=== PATIENT | male | born 1940 | race Caucasian/White ===

== ENCOUNTER 2017-06-02 10:02 | Day surgery (SDC) | payer BC ==
[2017-06-02] VITALS (11 sets, daily range): BP systolic 116–166; BP diastolic 59–84; PULSE 80–98; TEMP 36.2–36.9; O2SAT 93–99; Ht 190.5 cm; Wt 99.5 kg
[~2017-06-02] VITALS: Ht 190.5 cm; Wt 99.5 kg
--- NOTE | 2017-06-02 06:08 | History and Physical ---
History & Physical Date of Service Jun 02, 2017. History & Physical CC: Gangrene right 5th toe HPI: I had the pleasure of seeing Mr. Sena in the office for a followup appointment regarding his arterial disease. The patient states that his calf muscles do cause some discomfort that causes him to stop ambulating at about 1 block distance. He states that he does not mow the grass because it requires a push mowing due to the discomfort in his legs which he develops within a few minutes. States after stopping, walking for a few minutes, he is able to start back up again as the pain resolves. He states that this has been happening consistently, although he realizes he did not call the office before this The patient is status post right lower extremity angiography as well as bilateral iliac stenting as well as previous SFA stenting bilaterally at a different facility by a different surgeon. The patient denies any discomfort in his thighs or buttocks. He denies any rest pain or nonhealing wounds or ulcerations of his lower extremities as well. He does complain of color changes of the right 5th toe His allergies include no known medications. His home medications are reconciled in the chart and include the following; Advair, albuterol/ipratropium, allopurinol, amlodipine, aspirin, clonodine, Combivent, metoprolol, pravastatin, tamsulosin and terazosin. His past medical history is positive for acute [place], a history of cancer, history of CVA, history of gout. His past surgical history is positive for a cardiac catheterization with stent placement, history of hernia repair and a history of knee replacement. In addition, his past medical history is also positive for hypertension, hyperlipidemia, chronic obstructive pulmonary disease, and BPH. His family history is positive for cancer, heart disease and hypertension. His social history is positive for history of smoking in the past. He states that he used to smoke 1 pack per day and he quit in 1995. Patient denies alcohol or drug use. His review of systems is negative for fatigue, fevers, sweats, weight loss, or exercise intolerance, abnormal moles or rashes, vision changes or photophobia, ear pain, sinus problems or sore throat, cough, shortness of breath, hemoptysis or wheezing any worse than usual. Patient denies abdominal pain, nausea, vomiting, diarrhea, constipation, dysuria, hematuria, muscle weakness, headaches , dizziness, numbness, or seizures. On physical exam, vital signs are as follows, blood pressure 142/58 with a heart rate of 84, oxygenation of 93% on room air. Constitutional, in general, the patient is a mildly chronically ill-appearing elderly male in no acute distress. He ambulates without assistance and is active, alert and oriented x4. He is very hard of hearing today as he is having some right ear problems from a minor procedure that he had recently. His left carotid does demonstrate faint bruit and is status post endarterectomy, his right does not. His heart is regular. Lungs are decreased, but clear. Brachial and radial pulses are + 3. Femoral pulses are +3. Lower extremity distal pulses are nonpalpable. He has gangrenous changes of the right 5th toe Imp: Gangrene right 5th toe Plan: Patient admitted for arteriography and possible intervention. I have discussed the risks options and benefits of the procedure with the patient. The patient understands the risks options and benefits and agrees to the procedure.
[~2017-06-02 10:02] MED LIST: AMLO-110 PO; ASPI81TA28 PO; CEFAZOLIN 1000MG/55 ML D5W IV SCH; HMLI SC; INSDGI SC; LISI-725 PO; METF-384 PO; OMEG10007 PO; PANT40TA PO; SIMV80TA2 PO; SODIUM CHLORIDE 0.9% 1000ML IV SCH; VTME100 PO
[2017-06-02 11:22] LABS: CREATININE 1.5 mg/dl (0.60-1.40)
--- NOTE | 2017-06-02 11:59 | History & Physical Bridge Note ---
H&P Re-Evaluation Bridge Note: I have examined the patient, reviewed the History & Physical and in the interval since the performance of the History & Physical I have noted the following changes of clinical significance: No changes noted
--- NOTE | 2017-06-02 11:59 | Procedure Note ---
Pre-Mod Sedation Assessment General Date of Moderate Sedation: Jun 02, 2017. Vital Signs: Vital Signs Past 12 Hours Date Time Temp Pulse Resp B/P (MAP) Pulse Ox O2 Delivery O2 Flow Rate FiO2 06/02/17 10:41 36.8 98 20 162/84 (110) 96 Room Air Pre-Sedation Airway Assessment Smoking Status: Never Smoker Mallampati Classification: Class I ASA Classification: Class II Notes The planned sedation has been discussed with the patient and consent obtained. I have identified the patient, determined the appropriateness of sedation and have assessed the patient immediately prior to the procedure. All medicine(s) and interventions are by my order.
[2017-06-02] MEDS ORDERED: MIDAZOLAM HCL 1 MG/ML 2ML VIAL ONE ×2 (13:07→13:56)
[2017-06-02] MEDS ORDERED: FENTANYL CITRATE INJ 50 MCG/1 ML 2 ML VIAL ONE (13:07)
[2017-06-02] MEDS ORDERED: HEPARIN SOD (PORCINE) 1000 UNIT/ML 10 ML VIAL ONE (13:07)
[2017-06-02] MEDS ORDERED: CEFAZOLIN IV 2,000 MG/60 ML D5W IV ONE (13:17)
[2017-06-02] MEDS ORDERED: LIDOCAINE HCL 1% 20 ML VIAL INJ ONE ×3 (13:50→13:55)
[2017-06-02] MEDS ORDERED: FENTANYL CITRATE INJ 50 MCG/1 ML 2 ML VIAL IV ONE (13:51)
[2017-06-02] MEDS ORDERED: MIDAZOLAM HCL 1 MG/ML 2ML VIAL IV ONE ×2 (13:51→13:53)
[2017-06-02] MEDS ORDERED: HEPARIN SOD (PORCINE) 1000 UNIT/ML 10 ML VIAL IV ONE (14:36)
[2017-06-02] MEDS ORDERED: CLOPIDOGREL BISULFATE 300 MG TAB PO STA (15:34)
[2017-06-02] MEDS ORDERED: SODIUM CHLORIDE 0.9% 1000ML 1,000 ML IV SCH (15:34)
[2017-06-02] MEDS ORDERED: IODIXANOL (VISIPAQUE) 270 MG/ML 150ML FLUSH ONE (15:38)
[2017-06-02] MEDS ORDERED: OXYCODONE/ACETAMINOPHEN 5-325 TAB PO PRN (15:45)
--- NOTE | 2017-06-02 15:45 | [facility] Post Operative Brief Note ---
Immediate Operative Summary Operative Date Jun 02, 2017. Pre-Operative Diagnosis gangrene right 5th toe Post-Operative Diagnosis same Procedure(s) Performed Right Lower Extremity Angiogram, Percutaneous Transluminal Angioplasty Anterior Tibial, Percutaneous Transluminal Angioplasty and Stenting Of Superficial Artery and Popliteal Artery, Moderate Concious Sedation [address] Berg Medical Research Assistant Surgeon(s) Cristian Beck Estimated Blood Loss 10 ml Findings good ant tib and post tib flow Specimens none Anesthesia Local with conscious sedation Complication(s) None Disposition
--- NOTE | 2017-06-02 15:46 | Procedure Note ---
Post-Moderate Sedation Plan General Date of Moderate Sedation Jun 02, 2017. Vital Signs: Vital Signs Past 12 Hours Date Time Temp Pulse Resp B/P (MAP) Pulse Ox O2 Delivery O2 Flow Rate FiO2 06/02/17 13:15 36.8 98 20 162/84 96 Room Air 06/02/17 10:41 36.8 98 20 162/84 (110) 96 Room Air Review - Discharge Plan Post Moderate Sedation Plan: On clinical assessment, the patient appears to have tolerated the conscious sedation without complications. Patient is recovering as anticipated. Patient will continue to be monitored by nursing and may be discharged when conscious sedation discharge criteria are met.
[2017-06-02] MEDS ORDERED: CLOP1TAB5 PO (15:47)
--- NOTE | 2017-06-02 15:48 | Discharge Instructions ---
Discharge Instructions Date of Service Jun 02, 2017. Visit Reason for Visit: Right 5TH Toe Gangrene Discharge Discharge Diagnosis / Problem: Gangrene right 5th toe Discharge Goals Goal(s): Therapeutic intervention Activity Recommendations Activity Limitations: per Instructions/Follow-up section Anesthesia . Post Anesthesia Instructions: If you have had General Anesthesia or IV Sedation: * Do not drive today. * Resume driving when surgeon permits. * Do not make important decisions or sign legal documents today. * Call surgeon for: 1. Temperature elevations greater than 101 degrees F. 2. Uncontrollable pain. 3. Excessive bleeding. 4. Persistent nausea and vomiting. 5. Medication intolerance (nausea, vomiting or rash). * For nausea and vomiting use only clear liquids such as: tea, soda, bouillon until nausea subsides, then gradually increase diet as tolerated. * If you have any concerns or questions, call your surgeon's office. If physician is unavailable and it is an emergency, call 911 or go to the nearest emergency room. . Instructions / Follow-Up Instructions / Follow-Up SPECIAL CARE INSTRUCTIONS: Medications: * Continue to take your medications as directed. If you have been given a prescription for Plavix, please fill it immediately and take as directed. Incision Care: * Your puncture site may have some bruising and minor swelling for about one week. * You will have a small dressing covering your puncture site. You may remove the dressing after 24 hours and shower. You may let the warm soapy water run over it, but be sure to dry the puncture site well and keep it dry. * DO NOT IMMERSE THE INCISION IN A TUB/POOL/etc. UNTIL HEALED. * Puncture sites should be kept covered with a band-aid until it begins to heal. Restrictions: * Depending on whether you leg or arm was punctured to access the arteries, you will be required to lay flat, hold your arm still, or both, for about 4 hours after the procedure to prevent bleeding. * Limit your activity for the first 48 hours. You may walk and go up and down steps. Avoid excessive bending or movement at the puncture site. Possible Complications: * Excessive Swelling - after blood flow is improved you may notice increased swelling in the lower legs. This is a normal response. This usually depends on the amount of blockages in the leg, how long they have been there prior to your procedure and how much blood flow was restored. Elevating your legs will help to improve this. Please notify our office ([phone] ) if the swelling does not go away after lying in bed overnight. * Infection/Drainage/Bleeding - Drainage or bleeding from the puncture site should be minimal. If you have excessive bleeding or drainage, call our office ([phone]) right away. * Pain - You may experience some mild pain or soreness at your puncture site. If your pain does not improve, please contact our office ([phone]). Call your doctor and seek emergent treatment if you develop: * Temperature above 101 degrees * Any fever or chills * Any redness or purulent drainage from the puncture site * Any new dusky/blue colored toes or feet with coolness or sharp or aching pain. SKIN IRRITATION: * You may experience some redness and/or swelling in the area where radiation was administered. If any skin irritation occurs, please contact your family physician. FOLLOW UP VISIT: Keep any scheduled doctor appointments. Diet Recommendations Recommended Home Diet: resume previous diet Procedures Procedures Performed: Right Lower Extremity Angiogram, Percutaneous Transluminal Angioplasty Anterior Tibial, Percutaneous Transluminal Angioplasty and Stenting Of Superficial Artery and Popliteal Artery, Moderate Concious Sedation 1351 to 1544 Pending Studies Studies pending at discharge: no Medical Emergencies . Who to Call and When: Medical Emergencies: If at any time you feel your situation is an emergency, please call 911 immediately. . Non-Emergent Contact Non-Emergency issues call your: Surgeon . . "Provider Documentation" section prepared by Ezekiel Berg. .
--- NOTE | 2017-06-02 15:56 | [facility] Operative Report ---
Operative Report Operative Date Jun 02, 2017. Pre-Operative Diagnosis gangrene right 5th toe Post-Operative Diagnosis same Procedure(s) Performed Right Lower Extremity Angiogram, Percutaneous Transluminal Angioplasty Anterior Tibial ([place] [id number]), Percutaneous Transluminal Angioplasty and Stenting Of Superficial Artery and Popliteal Artery (6x100 Tigris stent ) , Mechanical Closure Of Left Femoral Artery, Moderate Concious Sedation [address] Berg Multimedia Designer Surgeon(s) Cristian Francisco Fellow Estimated Blood Loss 10 ml Findings Patient had an in-stent occlusion of his right lower extremity distal SFA proximal Pop. Patient also had a stenosis of his proximal anterior tibial artery. Main runoff to the foot is the AT artery. Contrast 95 mL Fluoroscopy time 17 minutes Radiation dose 110 mGy Specimens none Complication(s) None Disposition Recovery Room / PACU Indications 76-year-old gentleman with critical limb ischemia of the right lower extremity( patient has a gangrenous right fifth toe). Description of Procedure Patient was brought back to the operating room and placed on the operating table in a supine position. The arms were tucked and both groins were prepped and draped in a sterile fashion. 1% lidocaine was injected in the left groin. Conscious sedation was obtained with Versed and fentanyl. An access needle was used to access the right common femoral artery followed by a wire. A fluoroscopic image was obtained to confirm position of the needle and wire. An 11 blade was used to make a small tana and the skin. A 5 [place] sheath was then advanced over the wire and a sheath gram was obtained showing a patent common femoral artery patent common iliac artery external iliac artery and internal iliac artery. An angled glide wire was then advanced into the aorta and a REM catheter was advanced in the aorta as well. The REM catheter was pulled down to select the right common iliac artery. Within the angled glide wire was advanced down the common iliac artery into the right external iliac artery and the right common femoral artery. The REM catheter was then advanced across the aortic bifurcation down to the right common femoral artery. An angiogram of the right lower extremity was then completed. The angiogram showed an area of stenosis in the primary existing stents in the distal SFA and proximal popliteal artery. It also showed a proximal stenosis in the anterior tibial artery. It also showed collateralization to the anterior tibial artery as well as the posterior tibial and peroneal artery. The main runoff to the foot appears to be the anterior tibial artery. The wire was then advanced down to the distal SFA. A quick cross catheter was then exchanged over the wire and advanced over the wire to the distal SFA. The lesion was then crossed using an stiff angled Glidewire and the anterior tibial was selected. With advanced the wire down midway through the anterior tibial artery. The quick cross catheter was then pulled out and the 5 [place] sheath was exchanged for a destination long 5 [place] sheath. After measuring the distal SFA and proximal popliteal artery as well as the anterior tibial artery a 5 x 100 mm [place] balloon was advanced across the in-stent occlusion in the distal SFA and proximal popliteal artery and inflated multiple times within the prior stents. A long quick cross catheter was then advanced over the wire and the wire was then exchanged for an 0.014 wire. A 2 x 120mm [place] balloon and advanced across the anterior tibial artery lesion and inflated. A follow-up angiogram showed a good result. Attention was turned to the distal SFA proximal popliteal artery segment and an angiogram was completed showing restenosis in the stent across the was balloon. The quick cross catheter was then placed back in and the wire was then exchanged for the 0.035 stiff angled glide wire. A Tigris stent 6 x 100 mm was then advanced across the area of stenosis within the stent. The stent was deployed in place and a 6 x 100 [place] balloon was then advanced across the previously stented area as well as the new stent and insufflated. A follow-up angiogram revealed an excellent result. The wire and the sheath will pulled back to the left external iliac artery and an angiogram was completed showing the access site above the femoral head the sheath was pulled and pressure was applied for 20 minutes. An ACT was also obtained and it was 158. At the end of the case the pulses were checked the patient had a biphasic AT6 on the right side. Patient tolerated the procedure well and had no complications. The patient was brought back to the recovery room. Dr. Berg was present and scrubbed for the entirety of this case. I, Dr. Berg was present and scrubbed for the entire procedure. I attest to the content of the Intraoperative Record and any orders documented therein. Any exceptions are noted below.
[2017-06-02] MEDS ORDERED: CLOPIDOGREL BISULFATE 300 MG TAB PO ONE (18:17)
[2017-06-09] MEDS ORDERED: OMEG10007 PO (15:31)
[2017-06-09] MEDS ORDERED: CLOP1TAB15 PO (15:31)
[2017-06-13] MEDS ORDERED: OXYC-57 PO (12:31)
[2017-07-07] MEDS ORDERED: INSU100I SQ (14:48)
[2017-07-07] MEDS ORDERED: LATA0.009 OP (14:48)
[2017-07-07] MEDS ORDERED: INSDGI SC (14:48)
[2017-07-07] MEDS ORDERED: CLIN300C2 PO (14:48)
== END 2017-06-02 19:26 | disposition home or self-care (01) ==
LOC: C.ACU 10:02
PROVIDERS: ATTEND Surgery Vascular Surgery
DX: T82.858A Stenosis of other vascular prosthetic devices, implants and grafts, initial encounter (principal); Y83.1 Surgical operation with implant of artificial internal device as the cause of abnormal reaction of the patient, or of later complication, without mention of misadventure at the time of the procedure; I70.261 Atherosclerosis of native arteries of extremities with gangrene, right leg; I77.9 Disorder of arteries and arterioles, unspecified; I10 Essential (primary) hypertension; E78.5 Hyperlipidemia, unspecified; J44.9 Chronic obstructive pulmonary disease, unspecified; N40.0 Benign prostatic hyperplasia without lower urinary tract symptoms; I25.2 Old myocardial infarction; Z87.891 Personal history of nicotine dependence; Z86.73 Personal history of transient ischemic attack (TIA), and cerebral infarction without residual deficits; Z96.659 Presence of unspecified artificial knee joint; Z82.49 Family history of ischemic heart disease and other diseases of the circulatory system

== ENCOUNTER → 2017-06-13 | Day surgery (SDC) | payer BC ==
[2017-06-09 15:23] VITALS: BMI 26.0
[~2017-06-13] VITALS: Ht 190.5 cm; Wt 95.0 kg
[~2017-06-13] MED LIST changes: +ATROPINE SULFATE 0.1 MG/ML 5ML SYR IV PRN; +BUPIVACAINE 0.5 % 5 MG/1 ML PF 10ML VIAL ONE; +BUPIVACAINE/EPINEPHRINE 0.5% MPF 1:200,000 10 ML VIAL ONE; -CEFAZOLIN 1000MG/55 ML D5W IV SCH; +CEFAZOLIN 2000 MG/60 ML D5W 60 ML IV SCH; +CIPR-255 PO; +CLIN300C2 PO; +CLOP1TAB15 PO; +DEXAMETHASONE SOD INJ 4 MG/ML VIAL ONE; +EpHEDrine SULFATE INJ 50 MG/ML AMP IV PRN; +FENTANYL CITRATE INJ 50 MCG/1 ML 2 ML VIAL IV PRN; +FENTANYL CITRATE INJ 50 MCG/1 ML 2 ML VIAL ONE; +HYDROmorphone INJ 1 MG/ML SYR IV PRN; +INSU100I SQ; +KETAMINE HCL INJ 50 MG/ML 10 ML VIAL ONE; +LACTATED RINGER'S 1000ML IV SCH; +LATA0.009 OP; +LIDOCAINE HCL 1% 20 ML VIAL ONE; +LIDOCAINE HCL 2% 2 ML VIAL (20MG/ML) ONE; +MIDAZOLAM HCL 1 MG/ML 2ML VIAL ONE; +NSS 1000ML IV SCH; +NVLG SQ; +ONDANSETRON INJ 2 MG/ML 2 ML VIAL IV PRN; +ONDANSETRON INJ 2 MG/ML 2 ML VIAL ONE; +OXYC-57 PO; +PROPOFOL IV EMULSION 10 MG/ML 20 ML VIAL IV ONE; -SODIUM CHLORIDE 0.9% 1000ML IV SCH
--- NOTE | 2017-06-13 06:03 | History and Physical ---
History & Physical Date of Service Jun 13, 2017. History & Physical CC: Gangrene right 5th toe HPI: I had the pleasure of seeing Mr. Sena in the office for a followup appointment regarding his arterial disease. The patient states that his calf muscles do cause some discomfort that causes him to stop ambulating at about 1 block distance. He states that he does not mow the grass because it requires a push mowing due to the discomfort in his legs which he develops within a few minutes. States after stopping, walking for a few minutes, he is able to start back up again as the pain resolves. He states that this has been happening consistently, although he realizes he did not call the office before this The patient is status post right lower extremity angiography as well as bilateral iliac stenting as well as previous SFA stenting bilaterally at a different facility by a different surgeon. The patient denies any discomfort in his thighs or buttocks. He denies any rest pain or nonhealing wounds or ulcerations of his lower extremities as well. He does complain of color changes of the right 5th toe. He underwent endovascular intervention of his right lower extremity with good results. Admitted now for a right 5th toe amp His allergies include no known medications. His home medications are reconciled in the chart and include the following; Advair, albuterol/ipratropium, allopurinol, amlodipine, aspirin, clonodine, Combivent, metoprolol, pravastatin, tamsulosin and terazosin. His past medical history is positive for acute [place], a history of cancer, history of CVA, history of gout. His past surgical history is positive for a cardiac catheterization with stent placement, history of hernia repair and a history of knee replacement. In addition, his past medical history is also positive for hypertension, hyperlipidemia, chronic obstructive pulmonary disease, and BPH. His family history is positive for cancer, heart disease and hypertension. His social history is positive for history of smoking in the past. He states that he used to smoke 1 pack per day and he quit in 1995. Patient denies alcohol or drug use. His review of systems is negative for fatigue, fevers, sweats, weight loss, or exercise intolerance, abnormal moles or rashes, vision changes or photophobia, ear pain, sinus problems or sore throat, cough, shortness of breath, hemoptysis or wheezing any worse than usual. Patient denies abdominal pain, nausea, vomiting, diarrhea, constipation, dysuria, hematuria, muscle weakness, headaches , dizziness, numbness, or seizures. On physical exam, vital signs are as follows, blood pressure 142/58 with a heart rate of 84, oxygenation of 93% on room air. Constitutional, in general, the patient is a mildly chronically ill-appearing elderly male in no acute distress. He ambulates without assistance and is active, alert and oriented x4. He is very hard of hearing today as he is having some right ear problems from a minor procedure that he had recently. His left carotid does demonstrate faint bruit and is status post endarterectomy, his right does not. His heart is regular. Lungs are decreased, but clear. Brachial and radial pulses are + 3. Femoral pulses are +3. Lower extremity distal pulses are nonpalpable. He has gangrenous changes of the right 5th toe Imp: Gangrene right 5th toe Plan: Patient admitted for amputation of the right 5th toe. I have discussed the risks options and benefits of the procedure with the patient. The patient understands the risks options and benefits and agrees to the procedure.
[2017-06-13 10:02] VITALS: BP_SYST 145; BP_SYST 169; BP_DIAS 83; BP_DIAS 91; PULSE 90; TEMP 36.6; O2SAT 100; Ht 190.5 cm; Wt 95.0 kg
--- NOTE | 2017-06-13 12:28 | [facility] Operative Report ---
Operative Report Operative Date Jun 13, 2017. Pre-Operative Diagnosis Gangrene Right 5th Toe Post-Operative Diagnosis Gangrene Right 5th Toe Procedure(s) Performed Right 5th and 4th Toe Amputation Surgeon Dr. Berg Country Printer Apprentice Surgeon(s) Resident Sean Estimated Blood Loss 50ML Findings Gangrenous fourth and fifth toes on the right foot. Patient had excellent bleeding after the amputation. Specimens A. Right 5th and 4th Toe Transmetatarsal. Send in Nss Complication(s) None Disposition Recovery Room / PACU Indications Gangrenous right fourth and fifth toes from peripheral vascular disease. Description of Procedure Patient was brought to the operating room and placed on the operating table in a supine position. Anesthesia completed a regional ankle block. The right foot was then prepped and draped in a sterile fashion. Using a 10 blade and incision was made at the base of the fourth and fifth toes combined. Sharp dissection was completed to the base of the fourth and fifth toes and disarticulation at the MTP joint was completed for both toes. Hemostasis was achieved using electrocautery and pressure. Debridement of the skin and underlying tissue was completed and only viable healthy-appearing tissue was left in place. Using the rongeur the heads of the fourth and fifth metacarpal bones was trimmed down. The wound and skin was then evaluated hemostasis was achieved and only clean viable tissue was left behind the skin edges were brought together and they appear to close without tension. Copious amounts of irrigation was completed and once hemostasis was achieved a 3-0 nylon suture was used to close the skin edges with vertical mattress sutures. The foot was then cleaned and a Ray-Lily was placed in between the first second and third toes to keep some separate. An iodoform dressing was applied over the incision 4 x 4 fluffs were applied over and a Curlex was wrapped around the wound and the midfoot cast dressing was then wrapped around the foot and a 4 inch Greg wrap was wrapped around the foot. At the end of the case the patient did not have any complications or issues patient tolerated the procedure well. Patient was taken back to the recovery room with no complications or issues. Dr. Berg was present for the entirety of the case I, Dr. Berg was present and scrubbed for the entire procedure.. I attest to the content of the Intraoperative Record and any orders documented therein. Any exceptions are noted below.
--- NOTE | 2017-06-13 12:30 | [facility] Post Operative Brief Note ---
Immediate Operative Summary Operative Date Jun 13, 2017. Pre-Operative Diagnosis Gangrene Right 5th Toe Post-Operative Diagnosis Gangrene Right 5th Toe Procedure(s) Performed Right 5th and 4th Toe Amputation Surgeon Dr. Berg Neck Band Operator Surgeon(s) Cristian Francisco, Estimated Blood Loss 50ML Findings gangrene right 4th and 5th toes Specimens A. Right 5th and 4th Toe Transmetatarsal. Send in Nss Anesthesia Ankle block Complication(s) None Disposition Recovery Room / PACU
--- NOTE | 2017-06-13 12:34 | Discharge Instructions ---
Discharge Instructions Date of Service Jun 13, 2017. Visit Reason for Visit: Right 5TH Toe Wound Discharge Discharge Diagnosis / Problem: gangrene right 4th and 5th toes Discharge Goals Goal(s): Therapeutic intervention Activity Recommendations Activity Limitations: per Instructions/Follow-up section Anesthesia . Post Anesthesia Instructions: If you have had General Anesthesia or IV Sedation: * Do not drive today. * Resume driving when surgeon permits. * Do not make important decisions or sign legal documents today. * Call surgeon for: 1. Temperature elevations greater than 101 degrees F. 2. Uncontrollable pain. 3. Excessive bleeding. 4. Persistent nausea and vomiting. 5. Medication intolerance (nausea, vomiting or rash). * For nausea and vomiting use only clear liquids such as: tea, soda, bouillon until nausea subsides, then gradually increase diet as tolerated. * If you have any concerns or questions, call your surgeon's office. If physician is unavailable and it is an emergency, call 911 or go to the nearest emergency room. . Instructions / Follow-Up Instructions / Follow-Up Call [phone] to schedule a follow up appointment if one not already scheduled. Keep dressing intact. Keep elevated as much as possible. May weight bear ACTIVITY RECOMMENDATIONS: See Above SPECIAL CARE INSTRUCTIONS: Call your doctor if: * Temperature above 101 degrees * Pain not relieved by pain medicine ordered * There is increased drainage or redness from any incision * You have any unanswered questions or concerns. Diet Recommendations Recommended Home Diet: resume previous diet Procedures Procedures Performed: Right 5th and 4th Toe Amputation Pending Studies Studies pending at discharge: no Medical Emergencies . Who to Call and When: Medical Emergencies: If at any time you feel your situation is an emergency, please call 911 immediately. . Non-Emergent Contact Non-Emergency issues call your: Surgeon . . "Provider Documentation" section prepared by Ezekiel Berg. .
--- NOTE | 2017-06-13 12:47 | Anesthesiology Progress Note ---
Anesthesia Post Op Note Date & Time Jun 13, 2017 at 12:47 Vital Signs Pain Intensity: 0 Vital Signs Past 12 Hours Date Time Temp Pulse Resp B/P (MAP) Pulse Ox O2 Delivery O2 Flow Rate FiO2 06/13/17 12:41 155/77 06/13/17 12:41 155/77 06/13/17 12:40 76 15 100 06/13/17 12:40 77 15 06/13/17 12:40 77 15 06/13/17 12:40 76 15 100 06/13/17 12:36 139/72 06/13/17 12:36 139/72 06/13/17 12:35 76 21 100 06/13/17 12:35 76 21 100 06/13/17 12:35 70 21 06/13/17 12:35 70 21 06/13/17 12:31 154/74 06/13/17 12:31 154/74 06/13/17 12:30 75 14 06/13/17 12:30 75 14 06/13/17 12:30 74 14 100 06/13/17 12:30 74 14 100 06/13/17 12:26 117/79 06/13/17 12:26 117/79 06/13/17 12:25 75 21 100 06/13/17 12:25 75 21 06/13/17 12:25 75 21 100 06/13/17 12:25 75 21 06/13/17 12:21 160/94 06/13/17 12:21 160/94 06/13/17 12:20 36.6 80 20 155/77 100 Room Air 06/13/17 12:20 72 12 06/13/17 12:20 80 12 100 06/13/17 12:20 72 12 06/13/17 12:20 80 12 100 06/13/17 10:02 36.6 90 20 169/91 (117) 100 Room Air 145/83 (103) Notes Mental Status: alert / awake / arousable, participated in evaluation Pt Amnestic to Procedure: Yes Nausea / Vomiting: adequately controlled Pain: adequately controlled Airway Patency, RR, SpO2: stable & adequate BP & HR: stable & adequate Hydration State: stable & adequate Anesthetic Complications: no major complications apparent Doing well. Awake, VSS, pain controlled.
[2017-06-13 13:00] VITALS: BP 141/71; PULSE 72; TEMP 36.4; O2SAT 98
[2017-06-13 13:30] VITALS: BP 168/79; PULSE 80; TEMP 36.4; O2SAT 100
[2017-06-13 13:58] VITALS: BP 125/69; PULSE 82; TEMP 36.6; O2SAT 96
== END | disposition home or self-care (01) ==
LOC: C.ACU 09:23
PROVIDERS: ATTEND Surgery Vascular Surgery
DX: M86.471 Chronic osteomyelitis with draining sinus, right ankle and foot (principal); I70.261 Atherosclerosis of native arteries of extremities with gangrene, right leg; I25.2 Old myocardial infarction; Z86.73 Personal history of transient ischemic attack (TIA), and cerebral infarction without residual deficits; I10 Essential (primary) hypertension; Z79.899 Other long term (current) drug therapy; E11.9 Type 2 diabetes mellitus without complications; J44.9 Chronic obstructive pulmonary disease, unspecified

== ENCOUNTER 2017-07-10 07:48 | Observation (INO) | payer BC ==
[2017-07-07 14:25] VITALS: BMI 27.0
[~2017-07-10] VITALS: Ht 188 cm; Wt 95.0 kg
[2017-07-10] VITALS (8 sets, daily range): BP systolic 106–145; BP diastolic 50–71; PULSE 61–81; TEMP 36.5–36.9; O2SAT 98–100; BMI 27.0
--- NOTE | 2017-07-10 06:11 | History and Physical ---
History & Physical Date of Service Jul 10, 2017. History & Physical CC: Gangrene right foot amputation site HPI: I had the pleasure of seeing Mr. Sena in the office for a followup appointment regarding his arterial disease. The patient states that his calf muscles do cause some discomfort that causes him to stop ambulating at about 1 block distance. He states that he does not mow the grass because it requires a push mowing due to the discomfort in his legs which he develops within a few minutes. States after stopping, walking for a few minutes, he is able to start back up again as the pain resolves. He states that this has been happening consistently, although he realizes he did not call the office before this The patient is status post right lower extremity angiography as well as bilateral iliac stenting as well as previous SFA stenting bilaterally at a different facility by a different surgeon. The patient denies any discomfort in his thighs or buttocks. He denies any rest pain or nonhealing wounds or ulcerations of his lower extremities as well. He does complain of color changes of the right 5th toe. He underwent endovascular intervention of his right lower extremity with good results. Followed by a right 5th toe amp. The wound has not healed and has turned gangrenous His allergies include no known medications. His home medications are reconciled in the chart and include the following; Advair, albuterol/ipratropium, allopurinol, amlodipine, aspirin, clonodine, Combivent, metoprolol, pravastatin, tamsulosin and terazosin. His past medical history is positive for acute NH, a history of cancer, history of CVA, history of gout. His past surgical history is positive for a cardiac catheterization with stent placement, history of hernia repair and a history of knee replacement. In addition, his past medical history is also positive for hypertension, hyperlipidemia, chronic obstructive pulmonary disease, and BPH. His family history is positive for cancer, heart disease and hypertension. His social history is positive for history of smoking in the past. He states that he used to smoke 1 pack per day and he quit in 1995. Patient denies alcohol or drug use. His review of systems is negative for fatigue, fevers, sweats, weight loss, or exercise intolerance, abnormal moles or rashes, vision changes or photophobia, ear pain, sinus problems or sore throat, cough, shortness of breath, hemoptysis or wheezing any worse than usual. Patient denies abdominal pain, nausea, vomiting, diarrhea, constipation, dysuria, hematuria, muscle weakness, headaches , dizziness, numbness, or seizures. On physical exam, vital signs are as follows, blood pressure 142/58 with a heart rate of 84, oxygenation of 93% on room air. Constitutional, in general, the patient is a mildly chronically ill-appearing elderly male in no acute distress. He ambulates without assistance and is active, alert and oriented x4. He is very hard of hearing today as he is having some right ear problems from a minor procedure that he had recently. His left carotid does demonstrate faint bruit and is status post endarterectomy, his right does not. His heart is regular. Lungs are decreased, but clear. Brachial and radial pulses are + 3. Femoral pulses are +3. Lower extremity distal pulses are nonpalpable. He has gangrenous changes of the right 5th toe amputation site. Imp: Gangrene right 5th amputation site Plan: Patient admitted for debridement of the right foot possible TMA. I have discussed the risks options and benefits of the procedure with the patient. The patient understands the risks options and benefits and agrees to the procedure.
[~2017-07-10 07:48] MED LIST changes: -ATROPINE SULFATE 0.1 MG/ML 5ML SYR IV PRN; -BUPIVACAINE 0.5 % 5 MG/1 ML PF 10ML VIAL ONE; -BUPIVACAINE/EPINEPHRINE 0.5% MPF 1:200,000 10 ML VIAL ONE; -CEFAZOLIN 2000 MG/60 ML D5W 60 ML IV SCH; +CEFAZOLIN IV SCH; -CIPR-255 PO; -DEXAMETHASONE SOD INJ 4 MG/ML VIAL ONE; +DEXTROSE IV SCH; -EpHEDrine SULFATE INJ 50 MG/ML AMP IV PRN; -FENTANYL CITRATE INJ 50 MCG/1 ML 2 ML VIAL IV PRN; -FENTANYL CITRATE INJ 50 MCG/1 ML 2 ML VIAL ONE; -HMLI SC; -HYDROmorphone INJ 1 MG/ML SYR IV PRN; -KETAMINE HCL INJ 50 MG/ML 10 ML VIAL ONE; +LACTATED RINGER'S 1000ML 1,000 ML IV SCH; -LACTATED RINGER'S 1000ML IV SCH; -LIDOCAINE HCL 1% 20 ML VIAL ONE; -LIDOCAINE HCL 2% 2 ML VIAL (20MG/ML) ONE; -MIDAZOLAM HCL 1 MG/ML 2ML VIAL ONE; -NSS 1000ML IV SCH; -NVLG SQ; -ONDANSETRON INJ 2 MG/ML 2 ML VIAL IV PRN; -ONDANSETRON INJ 2 MG/ML 2 ML VIAL ONE; -PROPOFOL IV EMULSION 10 MG/ML 20 ML VIAL IV ONE; +SODIUM CHLORIDE 0.9% 1000ML 1,000 ML IV SCH
[2017-07-10] MEDS ORDERED: EpHEDrine SULFATE INJ 50 MG/ML AMP IV PRN (08:15)
[2017-07-10] MEDS ORDERED: ONDANSETRON INJ 2 MG/ML 2 ML VIAL IV PRN ×2 (08:15→12:15)
[2017-07-10] MEDS ORDERED: FENTANYL CITRATE INJ 50 MCG/1 ML 2 ML VIAL IV PRN (08:15)
[2017-07-10] MEDS ORDERED: ATROPINE SULFATE 0.1 MG/ML 5ML SYR IV PRN (08:15)
[2017-07-10] MEDS ORDERED: DEXAMETHASONE SOD INJ 4 MG/ML VIAL ONE (10:11)
[2017-07-10] MEDS ORDERED: ONDANSETRON INJ 2 MG/ML 2 ML VIAL ONE (10:11)
[2017-07-10] MEDS ORDERED: LIDOCAINE HCL 2% 2 ML VIAL (20MG/ML) ONE (10:11)
[2017-07-10] MEDS ORDERED: PROPOFOL IV EMULSION 10 MG/ML 20 ML VIAL IV ONE (10:11)
[2017-07-10] MEDS ORDERED: FENTANYL CITRATE INJ 50 MCG/1 ML 2 ML VIAL ONE (10:12)
[2017-07-10] MEDS ORDERED: MIDAZOLAM HCL 1 MG/ML 2ML VIAL ONE (10:12)
[2017-07-10] MEDS ORDERED: LIDOCAINE HCL 1% 20 ML VIAL ONE (10:15)
[2017-07-10] MEDS ORDERED: BUPIVACAINE/EPINEPHRINE 0.5% MPF 1:200,000 30 ML VIAL ONE (10:15)
[2017-07-10] MEDS ORDERED: BUPIVACAINE 0.5 % 5 MG/1 ML PF 10ML VIAL ONE (10:25)
[2017-07-10] MEDS ORDERED: MEPIVACAINE HCL 1.5% 30 ML VIAL ONE (10:29)
[2017-07-10] MEDS ORDERED: KETAMINE HCL INJ 50 MG/ML 10 ML VIAL ONE (10:37)
--- NOTE | 2017-07-10 12:06 | [facility] Post Operative Brief Note ---
Immediate Operative Summary Operative Date Jul 10, 2017. Pre-Operative Diagnosis Gangrene Right Fifth Amputation Site Post-Operative Diagnosis same Procedure(s) Performed Right Lower Extremity Foot Wound Debridement, Completion Transmetatarsal Amputation of 1st, 2nd, and 3rd toes with Ankle Block Surgeon Dr. Berg Hand Brush Filler Surgeon(s) Dr. Radha Amador Estimated Blood Loss 50 ML Findings good bleeding seen Specimens a. Right Partial Foot Anesthesia Ankle block with sedation Complication(s) None Disposition Recovery Room / PACU
[2017-07-10] MEDS ORDERED: GLUCAGON FOR INJ 1 MG VIAL SQ PRN (12:15)
[2017-07-10] MEDS ORDERED: DEXTROSE 50% 50 ML SYR IV PRN (12:15)
[2017-07-10] MEDS ORDERED: GLUCOSE 40% GEL 15 GM TUBE PO PRN (12:15)
[2017-07-10] MEDS ORDERED: MoRPHine SULFATE 4 MG/ML 1 ML CARP\\VIAL IV PRN ×2 (12:15→14:00)
[2017-07-10] MEDS ORDERED: GLUCOSE 10 TABS/TUBE PO PRN (12:15)
--- NOTE | 2017-07-10 12:20 | Anesthesiology Progress Note ---
Anesthesia Post Op Note Date & Time Jul 10, 2017 at 12:20 Vital Signs Pain Intensity: 0 Vital Signs Past 12 Hours Date Time Temp Pulse Resp B/P (MAP) Pulse Ox O2 Delivery O2 Flow Rate FiO2 07/10/17 08:20 36.6 81 20 145/64 (91) 100 Room Air Notes Mental Status: alert / awake / arousable, participated in evaluation Pt Amnestic to Procedure: Yes Nausea / Vomiting: adequately controlled Pain: adequately controlled Airway Patency, RR, SpO2: stable & adequate BP & HR: stable & adequate Hydration State: stable & adequate Anesthetic Complications: no major complications apparent
[2017-07-10] MEDS ORDERED: D5W AND 1/2NSS 1,000 ML IV SCH (14:00)
[2017-07-10] MEDS: LISINOPRIL 20 MG TAB PO SCH (14:00)
[2017-07-10] MEDS ORDERED: MoRPHine SULFATE 2 MG/ML CARP IV PRN ×2 (14:00)
[2017-07-10] MEDS ORDERED: INFLUENZA VACCINE HIGH DOSE 65+ 0.5 ML SYR IM. ONE (14:30)
[2017-07-10] MEDS ORDERED: INFLUENZA ADMINISTRATION CHARGE ONE (14:30)
[2017-07-10 14:38] LABS: HEMATOCRIT 28.3 % (42-52); MEAN CELL VOLUME 80.4 fL (80-100); MEAN CORPUSCULAR HEMOGLOBIN 25.9 pg (25-34); MEAN CORPUSCULAR HGB CONC 32.2 g/dl (32-36); MEAN PLATELET VOLUME 8.7 fL (7.4-10.4); PLATELET COUNT 194 K/uL (130-400); RED BLOOD COUNT 3.52 M/uL (4.7-6.1)
[2017-07-10 14:52] LABS: INR 1.1 (0.9-1.1); PROTHROMBIN TIME (PATIENT) 11.8 SECONDS (9.0-12.0)
[2017-07-10 14:58] LABS: CREATININE 1.4 mg/dl (0.60-1.40)
[2017-07-10] MEDS ORDERED: IV FLUIDS COMPLETED PRN (15:00)
[2017-07-10] MEDS: CLINDAMYCIN HCL 150 MG CAP PO SCH ×2 (16:26→20:33)
[2017-07-10] MEDS ORDERED: NURSING VERBAL MED ORDER ONE (16:45)
[2017-07-10] MEDS: OXYCODONE/ACETAMINOPHEN 5-325 TAB PO PRN ×2 (17:11→23:51)
[2017-07-10] MEDS: CEFAZOLIN IV 1,000 MG in DEXTROSE 5% 50ML 50 ML IV SCH (19:14)
[2017-07-10] MEDS: INSULIN HUMAN REGULAR SC SCH ×2 (19:31→20:41)
[2017-07-10] MEDS: ENOXAPARIN 30 MG/0.3 ML SYR SQ SCH (20:00)
[2017-07-10] MEDS: SIMVASTATIN 80 MG TAB PO SCH (20:33)
[2017-07-10] MEDS: OMEGA-3 (PURIFIED FISH OIL) 1 GM CAP PO SCH (20:33)
[2017-07-10] MEDS: LATANOPROST 0.005% OP SOLN 2.5 ML BTL OP SCH (21:42)
--- NOTE | 2017-07-10 22:23 | OPERATIVE REPORT ---
DATE OF OPERATION: 07/10/2017 PREOPERATIVE DIAGNOSIS: Right previous transmetatarsal amputation infection with gangrene. POSTOPERATIVE DIAGNOSIS: Same. PROCEDURE: Completion of right lower extremity transmetatarsal amputation. ANESTHESIA: Local plus conscious sedation plus ankle block. ESTIMATED BLOOD LOSS: 75 mL. URINE OUTPUT: Not recorded. COMPLICATIONS: None apparent. CONDITION: Stable to PACU. INDICATIONS FOR PROCEDURE: Mr. Sena is a 77-year-old male who had undergone previous endovascular intervention and a TMA of his right fourth and fifth toe. Unfortunately, this to be said did not heal and became gangrenous. He was advised of the risks and benefits of undergoing a debridement and possible completion TMA, which he agreed to undergo this procedure. DESCRIPTION OF PROCEDURE: He was brought into the operation suite. He was placed in supine position. Timeout occurred. An incision was made along the first 3 tears and this was brought down to the bone. The bones were clear with the periosteal elevator and then a transmetatarsal amputation occurred through the mid second, third and the proximal first metatarsal. The fourth and fifth toes remaining metatarsal bone was cleared with periosteal elevator and these 2 were taken back to the proximal metatarsal. This was done with an oscillating saw. All necrotic tissue was debrided. The wound was thoroughly irrigated. Hemostasis was obtained. The medial aspect of the wound over the first 3 metatarsals was closed with interrupted vertical mattress nylon. A VAC was placed over the lateral aspect of the wound. The patient tolerated the procedure well and was transported to the PACU in stable condition. Dr. Falcon scrubbed and was present for the entirety of this case. I attest to the content of the Intraoperative Record and any orders documented therein. Any exception s are noted below.
[2017-07-11] VITALS (8 sets, daily range): BP systolic 109–187; BP diastolic 57–69; PULSE 73–109; TEMP 36.7–38.5; O2SAT 94–97
[2017-07-11] MEDS: CEFAZOLIN IV 1,000 MG in DEXTROSE 5% 50ML 50 ML IV SCH (01:55)
[2017-07-11] MEDS: OXYCODONE/ACETAMINOPHEN 5-325 TAB PO PRN ×3 (07:08→21:08)
--- NOTE | 2017-07-11 07:33 | Anesthesiology Progress Note ---
Anesthesia Post Op Note Date & Time Jul 11, 2017 at 07:33 Vital Signs Vital Signs Past 12 Hours Date Time Temp Pulse Resp B/P (MAP) Pulse Ox O2 Delivery O2 Flow Rate FiO2 07/11/17 07:02 36.7 88 19 133/69 (90) 96 Room Air 07/11/17 03:08 36.7 82 20 122/63 (82) 96 Room Air 07/10/17 23:56 Room Air 07/10/17 23:20 36.8 71 18 126/69 (88) 98 Room Air Notes Mental Status: alert / awake / arousable, participated in evaluation Pt Amnestic to Procedure: Yes Nausea / Vomiting: adequately controlled Pain: adequately controlled Airway Patency, RR, SpO2: stable & adequate BP & HR: stable & adequate Hydration State: stable & adequate Anesthetic Complications: no major complications apparent
[2017-07-11] MEDS: CLINDAMYCIN HCL 150 MG CAP PO SCH ×3 (09:40→18:05)
[2017-07-11] MEDS: ASPIRIN 81 MG ECTAB PO SCH (09:40)
[2017-07-11] MEDS: AMLODIPINE BESYLATE 5 MG TAB PO SCH (09:41)
[2017-07-11] MEDS: OMEGA-3 (PURIFIED FISH OIL) 1 GM CAP PO SCH ×2 (09:41→21:12)
[2017-07-11] MEDS: CLOPIDOGREL BISULFATE 75 MG TAB PO SCH (09:41)
--- NOTE | 2017-07-11 09:41 | Progress Note ---
Progress Note Date of Service: Jul 11, 2017. Subjective 77 yo m with multiple medical problems, POD #1 after RLE debridement and completed TMA, seen in f/u today. Pt admits pain in RLE, but states is controlled with medications. Denies any other complaints. Objective Vital Signs Vital Signs Past 12 Hours Date Time Temp Pulse Resp B/P (MAP) Pulse Ox O2 Delivery O2 Flow Rate FiO2 07/11/17 07:45 Room Air 07/11/17 07:02 36.7 88 19 133/69 (90) 96 Room Air 07/11/17 03:08 36.7 82 20 122/63 (82) 96 Room Air 07/10/17 23:56 Room Air 07/10/17 23:20 36.8 71 18 126/69 (88) 98 Room Air Exam CONST: A&O x3, NAD, chronically ill appearing male CHEST: RRR lungs decreased but ctab ABD: soft, nontender, + bs x 4 quad EXT: RLE wound vac in place, appears to be working well. Laboratory and Microbiology Results Past 24 Hours Test 07/10/17 12:18 07/10/17 14:24 07/10/17 17:00 07/10/17 20:34 Range/Units Bedside Glucose 114 150 220 70-99 mg/dl White Blood Count 4.60 4.8-10.8 K/uL Red Blood Count 3.52 4.7-6.1 M/uL Hemoglobin 9.1 14.0-18.0 g/dL Hematocrit 28.3 42-52 % Mean Corpuscular Volume 80.4 80-100 fL Mean Corpuscular Hemoglobin 25.9 25-34 pg Mean Corpuscular Hemoglobin Concent 32.2 32-36 g/dl RDW Standard Deviation 42.4 36.4-46.3 fL RDW Coefficient of Variation 14.4 11.5-14.5 % Platelet Count 194 130-400 K/uL Mean Platelet Volume 8.7 7.4-10.4 fL Prothrombin Time 11.8 9.0-12.0 SECONDS Prothromb Time International Ratio 1.1 0.9-1.1 Creatinine 1.40 0.60-1.40 mg/dl Est Creatinine Clear Calc Drug Dose 51.4 ml/min Estimated GFR () 55.8 Estimated GFR (Non- 48.1 Test 07/11/17 08:01 Range/Units Bedside Glucose 291 70-99 mg/dl ASSESSMENT and PLAN: s/p RLE completion TMA and debridement Gangrene RLE Pt doing well post op. Pain controlled with oral meds. D/C home today. Awaiting home wound vac approval, will require dressing changes M/W/F by home nursing and will follow in our office periodically.
[2017-07-11] MEDS: PANTOprazole SOD 40 MG TAB PO SCH (09:42)
[2017-07-11] MEDS: LISINOPRIL 20 MG TAB PO SCH (09:42)
[2017-07-11] MEDS: ENOXAPARIN 30 MG/0.3 ML SYR SQ SCH (09:42)
[2017-07-11] MEDS: TOCOPHERYL, DL-ALPHA 100 INTERUNIT CAP PO SCH (09:42)
[2017-07-11] MEDS ORDERED: OXYC-57 PO (09:43)
--- NOTE | 2017-07-11 09:48 | Discharge Instructions ---
Discharge Instructions Date of Service Jul 11, 2017. Admission Reason for Admission: Gangrene, Right Foot Non-Healing Wound Discharge Discharge Diagnosis / Problem: post Right foot debridement and transmetatarsal amputation, gangrene Discharge Goals Goal(s): Therapeutic intervention, Prevent Disease Progression Activity Recommendations Activity Limitations: as noted below . Instructions / Follow-Up Instructions / Follow-Up Follow up with Dr Berg on MONDAY, 07/17. Call office for appt [phone]. AMBULATE TOLERATED. MUST WEAR POST OP SHOE WHEN AMBULATING. DO NOT GET RIGHT FOOT WET OR DRESSING WILL NOT FUNCTION PROPERLY. Current Hospital Diet Patient's current hospital diet: AHA Diet (Heart Healthy), Diabetes Type 2 Diet Discharge Diet Recommended Diet: AHA Diet (Heart Healthy) Procedures Procedures Performed: Right Lower Extremity Foot Wound Debridement, Completion Transmetatarsal Amputation of 1st, 2nd, and 3rd toes with Ankle Block Pending Studies Studies pending at discharge: no Medical Emergencies . Who to Call and When: Medical Emergencies: If at any time you feel your situation is an emergency, please call 911 immediately. . Non-Emergent Contact Non-Emergency issues call your: Surgeon . "Provider Documentation" section prepared by Lory Littlejohn. . VTE Core Measure Inpt VTE Proph given/why not?: Enoxaparin (Lovenox) [place] Drug Monitoring Program Search Results: patient reviewed within database, no issues identified
[2017-07-11] MEDS: INSULIN HUMAN REGULAR SC SCH ×4 (09:50→21:09)
[2017-07-11] MEDS: ACETAMINOPHEN 325 MG TAB PO PRN ×2 (16:01→19:33)
[2017-07-11] MEDS ORDERED: NURSING VERBAL MED ORDER ONE (18:15)
[2017-07-11 18:43] LABS: HEMATOCRIT 26.8 % (42-52); MEAN CELL VOLUME 79.5 fL (80-100); MEAN PLATELET VOLUME 8.1 fL (7.4-10.4); PLATELET COUNT 184 K/uL (130-400); RED BLOOD COUNT 3.37 M/uL (4.7-6.1); WHITE BLOOD COUNT 8.85 K/uL (4.8-10.8)
[2017-07-11 19:07] LABS: BUN/CREATININE RATIO 19.5 (10-20); CALCIUM 8.8 mg/dl (8.5-10.1); CREATININE 1.4 mg/dl (0.60-1.40); POTASSIUM 4.3 mmol/L (3.5-5.1)
--- NOTE | 2017-07-11 19:10 | Medical Consult ---
Consultation Date of Consultation: Jul 11, 2017. Attending Physician: Ezekiel Berg M.D. Reason for Consultation: Post-Op Fever, HTN, and AMS History of Present Illness Mr. Sena is a 77 y/o male with PMHx of CAD with AK and S/P Stent, CVA, HTN, HLD, COPD, BPH, and PAD with Claudication who is S/P transmetatarsal amputation of R toes 1-3 due to gangrene on 07/10. Patient underwent R 4th and 5th toe amputation on 06/13 and developed gangrene of the operative site. History was obtained from staff and records. Patient can contribute to history but is extremely hard of hearing and is mildly confused. Patient was progressing as expected but noted today to have more bleeding around wound vac and was unable to replace. Around shift change, patient noted to be more confused and disoriented when previously he was oriented x 4. Per nursing, stated that patient had similar confusion with Oxycodone in the past that resolved when medication was stopped. Patient with temp peak at 38.5 that improved to 37.9 and is mildly tachycardic at 109 and hypertensive. Repeat labs reveal stable Hgb and resolution of leukopenia. Will obtain BCx and UCx however he has received multiple doses of Abx. When initially asked how he is feeling he stated "confused" but could not elaborate. Denies ROS including fever/chills, CP , SOB, abdominal pain, N/V, dysuria, diarrhea. Speech is clear and appropriate without facial droop or focal neurological deficits. Does report pain at operative site but states to call his for the "stuff for it". Past Medical/Surgical History 1. CAD S/P AK and S/P Stent 2. CVA 3. HTN 4. HLD 5. COPD 6. BPH 7. Peripheral Artery Disease 8. Gout Family History Cancer Coronary Artery Disease Hypertension Social History Smoking Status: Former Smoker Smokeless Tobacco Use: No Alcohol Use: none Drug Use: none Marital Status: Occupation Status: retired Allergies Coded Allergies: Carbamazepine (Verified Allergy, Unknown, 'my hair fell out', 07/10/17) Pregabalin (Verified Allergy, Unknown, `, 07/10/17) Current Inpatient Medications Current Inpatient Medications Medications (Trade) Dose Ordered Sig/Sol Route Start Time Stop Time Status Last Admin Dose Admin Acetaminophen (Tylenol Tab) 650 mg Q4H PRN PO 07/10/17 12:15 08/09/17 12:14 07/11/17 16:01 650 MG Oxycodone/ Acetaminophen (Percocet 5-325mg Tab) `1-2 TABS FOR MODER... Q4H PRN PO 07/10/17 12:15 07/24/17 12:14 07/11/17 11:17 2 TAB Morphine Sulfate (MoRPHine SULFATE INJ) 4 mg Q2H PRN IV 07/10/17 12:15 07/24/17 12:14 Ondansetron HCl (Zofran Inj) 4 mg Q6H PRN IV 07/10/17 12:15 08/09/17 12:14 Enoxaparin Sodium (Lovenox Inj) 30 mg Q12H SQ 07/10/17 20:00 08/09/17 19:59 Future hold 07/11/17 09:42 30 MG Amlodipine Besylate (Norvasc Tab) 5 mg QAM PO 07/11/17 09:00 08/10/17 08:59 07/11/17 09:41 5 MG Aspirin (Ecotrin Tab) 81 mg QAM PO 07/11/17 09:00 08/10/17 08:59 07/11/17 09:40 81 MG Clindamycin HCl (Cleocin Cap) 300 mg QID PO 07/10/17 17:00 07/17/17 16:59 07/11/17 18:05 300 MG Clopidogrel Bisulfate (plAVix TAB) 75 mg QAM PO 07/11/17 09:00 08/10/17 08:59 07/11/17 09:41 75 MG Fish Oil (Phillips-3 (Purified Fish Oil) Cap) 1 gm BID PO 07/10/17 21:00 08/09/17 20:59 07/11/17 09:41 1 GM Latanoprost (Xalatan Oph Soln) 1 drops HS OP 07/10/17 21:00 08/09/17 20:59 07/10/17 21:42 1 DROPS Lisinopril (Zestril Tab) 20 mg QAM PO 07/10/17 14:00 08/09/17 13:59 07/11/17 09:42 20 MG Pantoprazole Sodium (Protonix Tab) 40 mg QAM PO 07/11/17 09:00 08/10/17 08:59 07/11/17 09:42 40 MG Simvastatin (Zocor Tab) 80 mg QPM PO 07/10/17 21:00 08/09/17 20:59 07/10/17 20:33 80 MG hr-Xvwox-Zhaxlyqmbs Acetate (Vitamin E Cap) 100 interunit QAM PO 07/11/17 09:00 08/10/17 08:59 07/11/17 09:42 100 INTERUNIT Insulin Human Regular (novoLIN-R) SLIDING SCALE IF C... ACHS SC 07/10/17 17:15 08/09/17 17:14 07/11/17 18:11 8 UNITS Glucose (Glucose 40% Gel) 15-30 GRAMS 15 GRAMS... UD PRN PO 07/10/17 12:15 08/09/17 12:14 Glucose (Glucose Chew Tab) 4-8 Tablets 4 Tabl... UD PRN PO 07/10/17 12:15 08/09/17 12:14 Dextrose (Dextrose 50% 50ML Syringe) 25-50ML OF 50% DW IV FOR... UD PRN IV 07/10/17 12:15 08/09/17 12:14 Glucagon (Glucagon Inj) 1 mg UD PRN SQ 07/10/17 12:15 08/09/17 12:14 Morphine Sulfate (MoRPHine SULFATE INJ) 3 mg Q2H PRN IV 07/10/17 14:00 07/24/17 13:59 Morphine Sulfate (MoRPHine SULFATE INJ) 2 mg Q2H PRN IV 07/10/17 14:00 07/24/17 13:59 Morphine Sulfate (MoRPHine SULFATE INJ) 1 mg Q2H PRN IV 07/10/17 14:00 07/24/17 13:59 Miscellaneous (Iv Fluids Completed) 1 ea PRN PRN N/A 07/10/17 15:00 07/10/18 14:59 Review of Systems Constitutional: No fever, No chills Eyes: No worsening of vision ENT: + hearing loss, No nasal symptoms, No sore throat, No trouble swallowing Respiratory: No cough, No shortness of breath Cardiovascular: No chest pain, No palpitations Abdomen: No pain, No nausea, No vomiting, No diarrhea, No constipation Musculoskeletal: No swelling, No calf pain Genitourinary - Male: No dysuria Hematologic / Lymphatic: No clotting problems Integumentary: No rash Physical Exam Date Time Temp Pulse Resp B/P (MAP) Pulse Ox O2 Delivery O2 Flow Rate FiO2 07/11/17 16:56 37.9 109 18 148/68 (94) 94 Room Air 07/11/17 15:29 38.5 109 18 187/62 (103) 94 Room Air 07/11/17 14:10 37.0 88 18 96 Room Air 07/11/17 11:52 37.0 88 18 146/65 (92) 96 Room Air 07/11/17 07:45 Room Air 07/11/17 07:02 36.7 88 19 133/69 (90) 96 Room Air 07/11/17 03:08 36.7 82 20 122/63 (82) 96 Room Air 07/10/17 23:56 Room Air 07/10/17 23:20 36.8 71 18 126/69 (88) 98 Room Air 07/10/17 19:05 36.5 64 18 141/64 (89) 98 Room Air General Appearance: WD/WN, no apparent distress Head: normocephalic, atraumatic Eyes: PERRL, sclerae normal ENT: + pertinent finding ([place]) Neck: supple, no JVD, trachea midline Respiratory/Chest: lungs clear, normal breath sounds, no respiratory distress, no accessory muscle use Cardiovascular: regular rate, rhythm, no gallop, + systolic murmur Abdomen/GI: normal bowel sounds, non tender, soft Back: normal inspection Extremities/Musculoskelatal: no calf tenderness, + pertinent finding (R foot with dressing C/D/I) Neurologic/Psych: alert Laboratory Results Last 24 Hours Test 07/10/17 20:34 07/11/17 08:01 07/11/17 12:07 07/11/17 15:59 Bedside Glucose 220 mg/dl 291 mg/dl 325 mg/dl 177 mg/dl Test 07/11/17 16:59 07/11/17 18:30 Bedside Glucose 171 mg/dl White Blood Count 8.85 K/uL Red Blood Count 3.37 M/uL Hemoglobin 9.1 g/dL Hematocrit 26.8 % Mean Corpuscular Volume 79.5 fL Mean Corpuscular Hemoglobin 27.0 pg Mean Corpuscular Hemoglobin Concent 34.0 g/dl RDW Standard Deviation 40.8 fL RDW Coefficient of Variation 14.1 % Platelet Count 184 K/uL Mean Platelet Volume 8.1 fL Assessment & Plan Mr. Sena is a 77 y/o male with PMHx of CAD with AK and S/P Stent, T2DM, CVA, HTN, HLD, COPD, BPH, and PAD with Claudication who is S/P transmetatarsal amputation of R toes 1-3 due to gangrene on 07/10. Encephalopathy 2/2 Infection vs Medication vs Hospital-Delirium: - Was previous A&O x 4 with more progressive confusion - states similar occurrence with Oxycodone in the past - Is extremely [place] and given age can easily develop some mild hospital delirium - Will R/O infection Post-Operative Fever: Atelectasis vs Infectious - Fever spike to 38.5 and improving to 37.9 with Tylenol - is mildly tachycardic at 109 bpm - May be atelectasis/inflammatory response but normally more low grade but good probability given POD #1; is oxygenating appropriately and had DVT prophylaxis and low suspicion for PE/DVT; Will R/O infectious processes; could be a possible drug related fever - Has been on Clinda - will obtain CXR, UCx, and BCX x 2 - Hold Clinda and broaden coverage to Vancomycin and Zosyn overnight - monitor for further fevers - If fevers continue - consider echocardiogram CAD S/P AK and S/P Stent - Peripheral Artery Disease: - ASA 81 mg daily and Plavix 75 mg daily - Simvastatin 80 mg daily HTN: - Did have one hypertensive reading that is improving - may be pain response/ restlessness - Amlodipine 5 mg daily and Lisinopril 20 mg daily T2DM: - Hold Metformin and cover with SSI COPD without Exacerbation: - Per records he is not on inhalers - will need to further assess when mentation improved DVT Prophylaxis: Lovenox on hold due to surgical site bleeding Disposition: - Broaden Abx coverage overnight given co-morbidities and monitor fever/mental status - await further testing .Attending Addendum: I have physically seen and examined this patient, have directed the physician assistants medical activities, and agree with the H&P as noted above with the following exceptions as noted. Assessment and Plan: Encephalopathy/postop temperature elevation-- Minimize the use of oxycodone due to associated adverse reaction in the past. Order chest x-ray, urinalysis, urine culture, blood cultures 2. Change in the antibiotics to vancomycin and Zosyn IV to cover potential MRSA and /or pseudomonas infections. With heart murmur, will consider echocardiogram for SBE. CAD/history AK/coronary artery stents/hypertension/PAD-- Continue aspirin and clopidogrel. Continue amlodipine and lisinopril. Monitor for any significant changes in blood pressure in either direction. Diabetes mellitus-- Hold metformin. Place on Accu-Cheks before meals and at bedtime with NovoLog coverage per scale.
[2017-07-11] MEDS ORDERED: VANCOMYCIN CONSULT ACTIVE PRN (20:15)
--- NOTE | 2017-07-11 20:29 | DIAGNOSTIC IMAGING REPORT ---
CHEST ONE VIEW PORTABLE CLINICAL HISTORY: 77 years-old Male presenting with Post-Op Fever; R/O consolidation. TECHNIQUE: Portable upright AP view of the chest was obtained. COMPARISON: None. FINDINGS: Atherosclerosis of aortic arch. Cardiac silhouette normal in size. Minimal bandlike opacity at the left lung base. No large effusion or pneumothorax. Osseous structures normal. Upper abdomen normal. IMPRESSION: 1. Minimal left basilar atelectasis suspected. Electronically signed by: Vishnu Starr M.D. 07/11/2017 8:27 PM Dictated Date/Time: 07/11/2017 8:26 PM
[2017-07-11] MEDS ORDERED: VANCOMYCIN INJ 2,250 MG in SODIUM CHLORIDE 0.9% 500ML 500 ML IV ONE (20:30)
[2017-07-11] MEDS ORDERED: PIPERACILL/TAZOBAC IV 3.375 GM in DEXTROSE 5% 100ML IV ONE (20:30)
[2017-07-11] MEDS ORDERED: PIPERACILL/TAZOBAC CONSULT ACTIVE PRN (20:30)
[2017-07-11] MEDS ORDERED: VANCOMYCIN INJ 1,000 MG in SODIUM CHLORIDE 0.9% 250ML 250 ML IV SCH (21:00)
[2017-07-11] MEDS: LATANOPROST 0.005% OP SOLN 2.5 ML BTL OP SCH (21:06)
[2017-07-11] MEDS: SIMVASTATIN 80 MG TAB PO SCH (21:13)
--- NOTE | 2017-07-11 21:20 | Pharmacy Progress Note ---
Pharmacy Abx Dose Short Note Date of Service Jul 11, 2017. Assessment & Plan Pt is a 77yo M. Broadening antibx coverage after persistent fevers with post-op ancef. Pt's renal fxn looks to be at his baseline. T1/2=15hrs, [id number]. BC are pending. No h/o MDRO. Vanco: * Loading dose: Vanco 2250mg (24mg/kg) x1 * Then Vanco 1500mg (16mg/kg) q18 * Goal trough until c/s's result is 15-20mcg/mL * Trough ordered for 07/14/17 prior to the 4th maintenance dose Zosyn: * Set to receive Zosyn 3.375g IV 30 min infsn * Then EI Zosyn 3.375g q8, appropriate for clinical status and eCrCl >20cc/min Pharmacy will continue to follow and will adjust dose/frequency as necessary. Thank you.
[2017-07-11 21:46] LABS: URINE APPEARANCE CLEAR (CLEAR); URINE BILIRUBIN NEG (NEG); URINE COLOR YELLOW; URINE EPITHELIAL CELL AUTO 0-5 /lpf (0-5); URINE NITRITE NEG (NEG); URINE PH 5.5 (4.5-7.5); URINE SPECIFIC GRAVITY 1.023 (1.000-1.030); UROBILINOGEN NEG (NEG); ZZUR CULT IF INDIC CLEAN CATCH NO
[2017-07-11 21:48] LABS: MANUAL MICROSCOPIC REQUIRED? NO; REVIEW REQ? NO
[2017-07-11] MEDS ORDERED: PIPERACILL/TAZOBAC IV 3.375 GM in DEXTROSE 5% 100ML 100 ML IV SCH (22:00)
[2017-07-12] MEDS: PIPERACILL/TAZOBAC IV 3.375 GM in DEXTROSE 5% 100ML IV SCH ×3 (02:06→18:45)
[2017-07-12] MEDS: OXYCODONE/ACETAMINOPHEN 5-325 TAB PO PRN (02:39)
[2017-07-12 06:54] VITALS: BP 130/68; PULSE 79; TEMP 37.5; O2SAT 97
[2017-07-12] MEDS: ENOXAPARIN 30 MG/0.3 ML SYR SQ SCH ×2 (07:43→20:11)
--- NOTE | 2017-07-12 09:03 | Progress Note ---
Progress Note Date of Service: Jul 12, 2017. Subjective 77 yo m with multiple medical problems, POD # 5 after RLE debridement and completion TMA, seen in f/u today. Pt's discharge was cx yesterday d/t bleeding from surgical site and wound vac was removed overnight. Pt admits intermittent sharp burning pains, but states overall pain controlled with meds. Objective Vital Signs Vital Signs Past 12 Hours Date Time Temp Pulse Resp B/P (MAP) Pulse Ox O2 Delivery O2 Flow Rate FiO2 07/12/17 06:54 37.5 79 18 130/68 (88) 97 Room Air 07/12/17 00:00 Room Air 07/11/17 23:20 37.1 73 18 121/61 (81) 97 Room Air Exam CONST: A&O x3, NAD, chronically ill appearing male. NOME CHEST: RRR lungs decreased, but ctab ABD: soft, nontender, + bs x 4 quad EXT: RLE TMA site partially sutured, appears healthy. open area wound bed red, some clotted blood noted, no active bleeding presently. Laboratory and Microbiology Results Past 24 Hours Test 07/11/17 12:07 07/11/17 15:59 07/11/17 16:59 07/11/17 18:30 Range/Units Bedside Glucose 325 177 171 70-99 mg/dl White Blood Count 8.85 4.8-10.8 K/uL Red Blood Count 3.37 4.7-6.1 M/uL Hemoglobin 9.1 14.0-18.0 g/dL Hematocrit 26.8 42-52 % Mean Corpuscular Volume 79.5 80-100 fL Mean Corpuscular Hemoglobin 27.0 25-34 pg Mean Corpuscular Hemoglobin Concent 34.0 32-36 g/dl RDW Standard Deviation 40.8 36.4-46.3 fL RDW Coefficient of Variation 14.1 11.5-14.5 % Platelet Count 184 130-400 K/uL Mean Platelet Volume 8.1 7.4-10.4 fL Sodium Level 134 136-145 mmol/L Potassium Level 4.3 3.5-5.1 mmol/L Chloride Level 101 98-107 mmol/L Carbon Dioxide Level 25 21-32 mmol/L Anion Gap 8.0 3-11 mmol/L Blood Urea Nitrogen 27 7-18 mg/dl Creatinine 1.40 0.60-1.40 mg/dl Est Creatinine Clear Calc Drug Dose 51.4 ml/min Estimated GFR () 55.8 Estimated GFR (Non- 48.1 BUN/Creatinine Ratio 19.5 10-20 Random Glucose 203 70-99 mg/dl Calcium Level 8.8 8.5-10.1 mg/dl Test 07/11/17 20:35 Range/Units Bedside Glucose 233 70-99 mg/dl Microbiology Results 07/11/17 Blood Culture, Received Pending 07/11/17 Blood Culture, Received Pending ASSESSMENT and PLAN: s/p RLE debridement and completion TMA RLE gangrene Pt doing well post op. Bleeding currently controlled. Wound vac replaced and ok for d/c home today unless further bleeding noted.
[2017-07-12] MEDS: INSULIN HUMAN REGULAR SC SCH ×2 (10:07→12:00)
[2017-07-12] MEDS: ASPIRIN 81 MG ECTAB PO SCH (10:09)
[2017-07-12] MEDS: AMLODIPINE BESYLATE 5 MG TAB PO SCH (10:09)
[2017-07-12] MEDS: OMEGA-3 (PURIFIED FISH OIL) 1 GM CAP PO SCH ×2 (10:09→20:11)
[2017-07-12] MEDS: CLOPIDOGREL BISULFATE 75 MG TAB PO SCH (10:10)
[2017-07-12] MEDS: TOCOPHERYL, DL-ALPHA 100 INTERUNIT CAP PO SCH (10:10)
[2017-07-12] MEDS: PANTOprazole SOD 40 MG TAB PO SCH (10:10)
[2017-07-12] MEDS: LISINOPRIL 20 MG TAB PO SCH (10:11)
[2017-07-12] MEDS: VANCOMYCIN INJ 1,500 MG in SODIUM CHLORIDE 0.9% 500ML 500 ML IV SCH (10:20)
[2017-07-12 10:56] VITALS: BMI 26.9
[2017-07-12] MEDS ORDERED: NURSING VERBAL MED ORDER ONE ×2 (12:30→16:15)
[2017-07-12] MEDS ORDERED: NovoLOG PER UNIT CHARGE SC ONE ×2 (13:30→16:45)
--- NOTE | 2017-07-12 14:23 | Progress Note ---
Subjective Date of Service: Jul 12, 2017. Subjective Pt evaluation today including: conversation w/ patient, physical exam, chart review, lab review, review of studies, conversation w/ data quality consultant, review of inpatient medication list S/P transmetatarsal amputation of R toes 1-3 due to gangrene on 07/10, doing well, no complaining, no fever and chill, pain well controlled Review of Systems Constitutional: No fever, No chills, No sweats, No weight loss, No weakness, No fatigue, No problem reported Eyes: No worsening of vision, No eye pain, No redness, No discharge, No diplopia ENT: No hearing loss, No unusual epistaxis, No nasal symptoms, No sore throat, No tinnitus, No dental problems, No trouble swallowing Respiratory: No cough, No sputum, No wheezing, No shortness of breath, No dyspnea on exertion, No dyspnea at rest, No hemoptysis Cardiac: No chest pain, No orthopnea, No PND, No edema, No claudication, No palpitations Abdomen: No pain, No nausea, No vomiting, No diarrhea, No constipation Musculoskeletal: No joint pain, No muscle pain, No swelling, No calf pain Male : No dysuria, No urinary frequency, No incontinence, No nocturia more than once/night, No slowing stream, No hematuria Neurologic: No memory loss, No paralysis, No weakness, No numbness/tingling, No vertigo, No balance problems Psychiatric: No depression symptoms, No anhedonism, No anxiety, No insomnia, No substance abuse Heme: No abnormal bleeding/bruising, No clotting problems, No swollen lymph nodes, No night sweats Endo: No fatigue, No excessive thirst, No excessive urination Skin: + problem reported (right foot in dress, wound vacs in place), No rash, No itch, No new/changing skin lesions, No color change, No bleeding Objective Vital Signs Date Time Temp Pulse Resp B/P (MAP) Pulse Ox O2 Delivery O2 Flow Rate FiO2 07/12/17 06:54 37.5 79 18 130/68 (88) 97 Room Air 07/12/17 00:00 Room Air 07/11/17 23:20 37.1 73 18 121/61 (81) 97 Room Air 07/11/17 19:57 37.3 82 16 109/57 (74) 96 Room Air 07/11/17 16:56 37.9 109 18 148/68 (94) 94 Room Air 07/11/17 15:50 Room Air 07/11/17 15:29 38.5 109 18 187/62 (103) 94 Room Air Physical Exam General Appearance: WD/WN, no apparent distress, + thin Eyes: normal inspection, PERRL, EOMI, sclerae normal ENT: normal ENT inspection, hearing grossly normal, pharynx normal Neck: supple, no adenopathy, thyroid normal, no JVD, no carotid bruits, trachea midline Respiratory/Chest: chest non-tender, normal breath sounds, no respiratory distress, no accessory muscle use, + decreased breath sounds Cardiovascular: regular rate, rhythm, no edema, no gallop, no JVD, no murmur, + systolic murmur Abdomen: normal bowel sounds, non tender, soft, no organomegaly, no pulsatile mass Extremities: normal range of motion, non-tender, normal inspection, no pedal edema, no calf tenderness, normal capillary refill, pelvis stable Neurologic/Psychiatric: case management associate II-XII nml as tested, no motor/sensory deficits, alert, normal mood/affect, oriented x 3 Skin: normal color, warm/dry, no rash, + pertinent finding (right foot wound vacs in place) Lymphatic: no adenopathy Laboratory Results Last 24 Hours Test 07/11/17 15:59 07/11/17 16:59 07/11/17 18:30 07/11/17 20:35 Bedside Glucose 177 mg/dl 171 mg/dl 233 mg/dl White Blood Count 8.85 K/uL Red Blood Count 3.37 M/uL Hemoglobin 9.1 g/dL Hematocrit 26.8 % Mean Corpuscular Volume 79.5 fL Mean Corpuscular Hemoglobin 27.0 pg Mean Corpuscular Hemoglobin Concent 34.0 g/dl RDW Standard Deviation 40.8 fL RDW Coefficient of Variation 14.1 % Platelet Count 184 K/uL Mean Platelet Volume 8.1 fL Sodium Level 134 mmol/L Potassium Level 4.3 mmol/L Chloride Level 101 mmol/L Carbon Dioxide Level 25 mmol/L Anion Gap 8.0 mmol/L Blood Urea Nitrogen 27 mg/dl Creatinine 1.40 mg/dl Est Creatinine Clear Calc Drug Dose 51.4 ml/min Estimated GFR () 55.8 Estimated GFR (Non- 48.1 BUN/Creatinine Ratio 19.5 Random Glucose 203 mg/dl Calcium Level 8.8 mg/dl Test 07/12/17 08:00 Bedside Glucose 264 mg/dl Assessment and Plan 77 y/o male with admitted to Dr. Berg's service who is S/P transmetatarsal amputation of R toes 1-3 due to gangrene on 07/10. Vascular surgeon consulted medicine for medical management Encephalopathy 2/2 Infection vs Medication vs Hospital-Delirium: Totally resolved Post-Operative Fever: Atelectasis vs Infectious , no more fever, this will be management by the primary team CAD S/P LA and S/P Stent - Peripheral Artery Disease: HTN: COPD without Exacerbation: The about 3 conditions are stable, continue current medication Hyperglycemia with history of T2DM, blood glucose was up to 404, get insulin aspart 16 unit, and continue sliding scale, and advised nurse to repeat in 2 hour Continue hold Metformin and cover with SSI i Disposition: Will be per primary team , Continued [facility] stay due to: multiple IV medications needed Discharge planning: home
[2017-07-12 15:02] VITALS: BP 129/61; PULSE 101; TEMP 38.7; O2SAT 95
[2017-07-12] MEDS: ACETAMINOPHEN 325 MG TAB PO PRN (15:19)
[2017-07-12 16:30] VITALS: TEMP 38.1
[2017-07-12] MEDS ORDERED: PHARMACY GLYCEMIC MGMT CONSULT PRN (16:30)
[2017-07-12] MEDS ORDERED: INSULIN GLARGINE SOLOSTAR 100 UNITS/ML 3 ML PEN SC SCH (17:30)
[2017-07-12] MEDS: INSULIN ASPART 100 UNITS/ML 3 ML PEN SC SCH ×2 (18:43→21:12)
[2017-07-12] MEDS: LATANOPROST 0.005% OP SOLN 2.5 ML BTL OP SCH (20:11)
[2017-07-12] MEDS: SIMVASTATIN 80 MG TAB PO SCH (20:12)
--- NOTE | 2017-07-12 22:26 | Pharmacy Progress Note ---
Glycemic Control Intl Consult Date of Service Jul 12, 2017. Scope Glycemic Pharmacist consulted by Dr Mane on 07/12/17 for glycemic control and to write orders per [facility] inpatient glycemic control protocol Objective Weight (Kilograms): 95.000 Accuchecks BSG (last 24hrs): Test 07/12/17 08:00 07/12/17 15:35 07/12/17 17:50 07/12/17 20:37 Bedside Glucose 264 mg/dl (70-99) 300 mg/dl (70-99) 204 mg/dl (70-99) 200 mg/dl (70-99) Recent Pertinent Medications Outpatient Anti-diabetic Regimen: * Metformin 1000 mg PO BID * Lantus 20-50 units SQ HS + Humalog BIDM (doses reported by patient - he reports rare hypoglycemia) * A1c unknown The patient is currently receiving: * Basal insulin: Held since admission * Correctional Insulin: Regular Correction per scale ACHS Goal Range: Low 120 mg/dL - High 150 mg/dL Correction Factor: 30 mg/dL/unit * Prandial insulin: Per carb ratio of 1 unit per 10 grams CHO consumed Risk Factors for Insulin Resistance: * Infection: Vanco + Zosyn IV * Recent Surgery: s/p transmetatarsal amputation and RLE debridement Assessment & Plan ASSESSMENT: * 77 yr old T2DM male s/p RLE debridement and transmetatarsal amputation. * Pharmacy was consulted this evening due to severe hyperglycemia, BSG 404 mg/ dL. I suspect hyperglycemia is largely due to lack of basal insulin (last dose of Lantus was administered on 07/09). * Will resume Lantus today and tighten bolus insulin coverage * Lantus dose will be based on weight/stress 2 PLAN FOR INPATIENT GLYCEMIC CONTROL: * Holding outpatient oral diabetes medications * Lantus 32 units SQ HS - start at dinner tonight * Correctional Insulin with NOVOLOG per scale ACHS * Goal Range: Low 120 mg/dL - High 150 mg/dL * Correction Factor: 15 mg/dL/unit * Nutritional / Prandial insulin per carb ratio of 1 unit per 6 grams CHO consumed * Add overnight checks with coverage at 00 and 04. * Please note that the plan above was derived based on current level of insulin resistance and hospital stress. These recommendations are appropriate for inpatient admission only. Plan of care upon discharge will need to be reassessed to avoid potential outpatient hypo/hyperglycemia. Thank you.
[2017-07-12 22:57] VITALS: BP 145/63; PULSE 90; TEMP 38.1; O2SAT 96
[2017-07-13] MEDS: ACETAMINOPHEN 325 MG TAB PO PRN ×2 (00:08→09:12)
[2017-07-13] MEDS: INSULIN ASPART 100 UNITS/ML 3 ML PEN SC SCH ×4 (00:13→13:37)
[2017-07-13] MEDS: PIPERACILL/TAZOBAC IV 3.375 GM in DEXTROSE 5% 100ML IV SCH ×2 (01:18→10:27)
[2017-07-13 01:24] VITALS: TEMP 36.9
[2017-07-13] MEDS: VANCOMYCIN INJ 1,500 MG in SODIUM CHLORIDE 0.9% 500ML 500 ML IV SCH (05:28)
[2017-07-13 07:12] LABS: HEMATOCRIT 24.3 % (42-52); MEAN CELL VOLUME 78.1 fL (80-100); MEAN CORPUSCULAR HEMOGLOBIN 26.4 pg (25-34); MEAN CORPUSCULAR HGB CONC 33.7 g/dl (32-36); MEAN PLATELET VOLUME 8.8 fL (7.4-10.4); PLATELET COUNT 181 K/uL (130-400); RED BLOOD COUNT 3.11 M/uL (4.7-6.1); WHITE BLOOD COUNT 8.48 K/uL (4.8-10.8)
[2017-07-13 07:30] VITALS: BP 112/62; PULSE 68; TEMP 36.8; O2SAT 97
[2017-07-13 07:41] LABS: ESTIMATED AVERAGE GLUCOSE 206 mg/dl; HA1C FLAG Normal (Normal)
[2017-07-13 07:49] LABS: CREATININE 1.3 mg/dl (0.60-1.40)
[2017-07-13] MEDS ORDERED: INSULIN GLARGINE SOLOSTAR 100 UNITS/ML 3 ML PEN SC STA (09:14)
[2017-07-13] MEDS: ENOXAPARIN 30 MG/0.3 ML SYR SQ SCH (09:50)
[2017-07-13] MEDS: ASPIRIN 81 MG ECTAB PO SCH (09:53)
[2017-07-13] MEDS: LISINOPRIL 20 MG TAB PO SCH (09:54)
[2017-07-13] MEDS: CLOPIDOGREL BISULFATE 75 MG TAB PO SCH (09:54)
[2017-07-13] MEDS: AMLODIPINE BESYLATE 5 MG TAB PO SCH (09:54)
[2017-07-13] MEDS: OMEGA-3 (PURIFIED FISH OIL) 1 GM CAP PO SCH (09:54)
[2017-07-13] MEDS: TOCOPHERYL, DL-ALPHA 100 INTERUNIT CAP PO SCH (09:54)
[2017-07-13] MEDS: PANTOprazole SOD 40 MG TAB PO SCH (09:54)
[2017-07-13 11:21] VITALS: BP 108/58; PULSE 72; TEMP 37; O2SAT 94
[2017-07-13 11:22] VITALS: Ht 188 cm; Wt 95.0 kg
--- NOTE | 2017-07-13 13:52 | Pharmacy Progress Note ---
Glycemic Control Progress Note Date of Service Jul 13, 2017. Scope Glycemic Pharmacist consulted for glycemic control to write orders per [facility] inpatient glycemic control protocol. Objective Accuchecks BSG (last 24hrs): Test 07/12/17 15:35 07/12/17 17:50 07/12/17 20:37 07/13/17 00:10 Bedside Glucose 300 mg/dl (70-99) 204 mg/dl (70-99) 200 mg/dl (70-99) 171 mg/dl (70-99) Test 07/13/17 03:53 07/13/17 08:17 07/13/17 08:20 Bedside Glucose 195 mg/dl (70-99) 211 mg/dl (70-99) 197 mg/dl (70-99) HbA1c: Test 07/13/17 06:35 Hemoglobin A1c 8.8 % (4.5-5.6) H Recent Pertinent Medications The patient is currently receiving: * Basal insulin: Lantus 32 units every 24 hours given at bedtime * Correctional Insulin: Novolog Correction per scale ACHS Goal Range: Low 120 mg/dL - High 150 mg/dL Correction Factor: 10 mg/dL/unit * Prandial insulin: Per carb ratio of 1 unit per 4 grams CHO consumed * Oral Agents: On hold for admission Outpatient Anti-Diabetic Meds Oral Agents Basal Insulin Bolus Insulin Assessment & Plan ASSESSMENT: * See progress note from 07/12/17 for more background info, in short: * Pt receiving SQ basal bolus insulin regimen for hyperglycemia secondary to baseline DM (outpatient PO regimen on hold),stress/infection, dextrose in abx, recent surgery, * Patient is currently receiving an average of ~83 units of insulin per day * 32 units of basal insulin * 51 units of prandial/correctional insulin * BSGs ranging 171 - 404 mg/dl over the past 24hrs * Changes needed to insulin regimen: * AM Fasting BSG = 197 mg/dl. This is in slightly above goal range for patient based on inpatient targets and co-morbidities. Therefore Basal insulin needs increased. Pt uses 20-50 units of basal as an outpatient and only ordered 32 units now. Will increase to 50 units daily and cont to titrate based on BSG trends. * Post-prandial BSGs are elevated/BSGs rise throughout the day therefore need to tighten CF/CR PLAN FOR INPATIENT GLYCEMIC CONTROL: * Oral Agents * Continue to hold outpatient oral diabetes medications. * Basal insulin: increase * Lantus 10 units SQ x 1 dose this AM and then 40 units tonight for a total of 50 units today * Then, Lantus 50 units SQ HS starting 07/14/17 * Bolus insulin: tighten * NovoLog per scale ACHS or Q6hrs while NPO. Additional checks + coverage overnight at 0000 & 0400 * Goal Range: Low 120 mg/dL - High 150 mg/dL * Correction Factor: 10 mg/dL/unit * Nutritional / Prandial insulin per carb ratio of 1 unit per 4 grams CHO consumed * Please note that the plan above was derived based on current level of insulin resistance and hospital stress. These recommendations are appropriate for inpatient admission only. Plan of care upon discharge will need to be reassessed to avoid potential outpatient hypo/hyperglycemia. Thank you.
[2017-07-13 14:58] VITALS: BP 134/67; PULSE 76; TEMP 36.8; O2SAT 98
[2017-07-13] MEDS ORDERED: INSDGI SC (15:17)
[2017-07-13] MEDS ORDERED: INSU100I SQ (15:17)
--- NOTE | 2017-07-13 16:02 | Progress Note ---
Progress Note Date of Service: Jul 13, 2017. Subjective 77 yo m with multiple medical problems, POD #3 after RLE foot debridement and completion TMA, seen in f/u today. Pt denies any complaints, states is feeling well. Objective Vital Signs Vital Signs Past 12 Hours Date Time Temp Pulse Resp B/P (MAP) Pulse Ox O2 Delivery O2 Flow Rate FiO2 07/13/17 14:58 36.8 76 18 134/67 (89) 98 Room Air 07/13/17 11:21 37.0 72 16 108/58 (75) 94 Room Air 07/13/17 07:30 36.8 68 16 112/62 (79) 97 Room Air 07/13/17 07:27 Room Air Exam CONST: A&O x3, NAD, mildly chronically ill appearing male CHEST: RRR lungs decreased but ctab ABD: soft, nontender, + bs x 4 quad EXT: RLE wound with vac noted, appears to be working well. Intake & Output 8-Hour Column 07/13/17 07/14/17 07/14/17 16:00 00:00 08:00 Intake Total 1635 ml Output Total 850 ml Balance 785 ml 24-Hour Column 07/14/17 08:00 Intake Total 1635 ml Output Total 850 ml Balance 785 ml Laboratory and Microbiology Results Past 24 Hours Test 07/12/17 17:50 07/12/17 20:37 07/13/17 00:10 07/13/17 03:53 Range/Units Bedside Glucose 204 200 171 195 70-99 mg/dl Test 07/13/17 06:35 07/13/17 08:20 Range/Units White Blood Count 8.48 4.8-10.8 K/uL Red Blood Count 3.11 4.7-6.1 M/uL Hemoglobin 8.2 14.0-18.0 g/dL Hematocrit 24.3 42-52 % Mean Corpuscular Volume 78.1 80-100 fL Mean Corpuscular Hemoglobin 26.4 25-34 pg Mean Corpuscular Hemoglobin Concent 33.7 32-36 g/dl RDW Standard Deviation 41.3 36.4-46.3 fL RDW Coefficient of Variation 14.3 11.5-14.5 % Platelet Count 181 130-400 K/uL Mean Platelet Volume 8.8 7.4-10.4 fL Creatinine 1.30 0.60-1.40 mg/dl Est Creatinine Clear Calc Drug Dose 55.4 ml/min Estimated GFR () 61.0 Estimated GFR (Non- 52.6 Estimated Average Glucose 206 mg/dl Hemoglobin A1c 8.8 4.5-5.6 % Bedside Glucose 197 70-99 mg/dl ASSESSMENT and PLAN: s/p RLE debridement and completion TMA RLE gangrene Pt doing well post op. D/C home today with home nursing for vac changed M /W/F. Will see in office next week.
[2017-07-13] MEDS ORDERED: CIPR-255 PO (16:05)
[2017-07-13 16:51] VITALS: BP 134/67; PULSE 76; TEMP 36.8; O2SAT 98
[2017-07-13] MEDS ORDERED: INSULIN GLARGINE SOLOSTAR 100 UNITS/ML 3 ML PEN SC SCH ×2 (17:15→21:00)
--- NOTE | 2017-07-13 18:06 | Progress Note ---
Subjective Date of Service: Jul 13, 2017. Subjective pt is extremely hard of hearing, he claims to have no pain in foot, has wound vac in place, I personally discussed after care with shawn, the PA for vascular surgery, she will follow up with him early next week Review of Systems Constitutional: No fever, No chills Eyes: No worsening of vision, No eye pain ENT: + hearing loss (chronic, ), No sore throat, No trouble swallowing Respiratory: No cough, No sputum, No wheezing, No shortness of breath Cardiac: No chest pain, No PND Abdomen: No pain, No nausea, No vomiting Musculoskeletal: + problem reported (trans met amputation right foot with wound vac, no erythema), No joint pain, No muscle pain Objective Vital Signs Date Time Temp Pulse Resp B/P (MAP) Pulse Ox O2 Delivery O2 Flow Rate FiO2 07/13/17 07:30 36.8 68 16 112/62 (79) 97 Room Air 07/13/17 07:27 Room Air 07/13/17 01:24 36.9 07/13/17 00:15 Room Air 07/12/17 22:57 38.1 90 16 145/63 (90) 96 Room Air 07/12/17 20:00 Room Air 07/12/17 16:30 38.1 07/12/17 15:02 38.7 101 18 129/61 (83) 95 Room Air Physical Exam General Appearance: WD/WN, no apparent distress Eyes: PERRL, EOMI ENT: TMs normal (slight cerumen in left but not obstructing) Respiratory/Chest: chest non-tender, lungs clear, normal breath sounds Cardiovascular: regular rate, rhythm, no murmur Abdomen: normal bowel sounds, non tender, soft Neurologic/Psychiatric: alert, oriented x 3, + pertinent finding (very hard of hearing) Laboratory Results Last 24 Hours Test 07/12/17 15:35 07/12/17 17:50 07/12/17 20:37 07/13/17 00:10 Bedside Glucose 300 mg/dl 204 mg/dl 200 mg/dl 171 mg/dl Test 07/13/17 03:53 07/13/17 06:35 07/13/17 08:17 07/13/17 08:20 Bedside Glucose 195 mg/dl 211 mg/dl 197 mg/dl White Blood Count 8.48 K/uL Red Blood Count 3.11 M/uL Hemoglobin 8.2 g/dL Hematocrit 24.3 % Mean Corpuscular Volume 78.1 fL Mean Corpuscular Hemoglobin 26.4 pg Mean Corpuscular Hemoglobin Concent 33.7 g/dl RDW Standard Deviation 41.3 fL RDW Coefficient of Variation 14.3 % Platelet Count 181 K/uL Mean Platelet Volume 8.8 fL Creatinine 1.30 mg/dl Est Creatinine Clear Calc Drug Dose 55.4 ml/min Estimated GFR () 61.0 Estimated GFR (Non- 52.6 Estimated Average Glucose 206 mg/dl Hemoglobin A1c 8.8 % Assessment and Plan 77 y/o male with admitted to Dr. Berg's service who is S/P transmetatarsal amputation of R toes 1-3 due to gangrene on 07/10. Vascular surgeon consulted medicine for medical management Encephalopathy 2/2 Infection vs Medication vs Hospital-Delirium: Totally resolved Post-Operative Fever: Atelectasis vs Infectious , blood cultures negative to date, ua normal and CXR only atelectasis on 07/11, will recommend home on po antibiotics with close follow up CAD S/P OR and S/P Stent - Peripheral Artery Disease: HTN pt is on asa, plavix, lisinopril and amlodipine COPD without Exacerbation takes no home inhalers Hyperglycemia with history of T2DM, resume Metformin basal lantus and cover with SSI, insturctions and dosing added to surgery discharge summary Continued [facility] stay due to: multiple IV medications needed Discharge planning: home
[2017-07-14] MEDS ORDERED: INSULIN ASPART 100 UNITS/ML 3 ML PEN SC SCH
[2017-07-14] MEDS ORDERED: VANCOMYCIN TROUGH ONE (15:30)
[2017-07-14] MEDS ORDERED: INSULIN GLARGINE SOLOSTAR 100 UNITS/ML 3 ML PEN SC SCH (21:00)
--- NOTE | 2017-07-14 23:36 | DISCHARGE SUMMARY ---
ADMISSION DIAGNOSIS: Right foot nonhealing wound with gangrene. DISCHARGE DIAGNOSES: 1. Status post right foot wound debridement and completion transmetatarsal amputation. 2. Right foot nonhealing wound with gangrene. CONSULTATIONS IN THE HOSPITAL: Included medicine for management of a change in mental status and fever. PROCEDURES IN THE HOSPITAL: Included his right foot completion transmetatarsal amputation and debridement, which was performed on 07/10/2017 without significant complications. He had an EBL of approximately 50 mL. HISTORY OF PRESENT ILLNESS: Mr. Sena is a 77-year-old male who has been followed for a significant peripheral arterial disease by Dr. Berg for the past 1-2 years. He had previously undergone SFA stenting in the past, bilaterally. At his last office visit, he was complaining of some worsening claudication; however, he refused to undergo ultrasound evaluation and declined any intervention at that time. He then presented to our office a few months later with a nonhealing discoloration of his right fifth toe which was dry gangrene He then underwent angiography of his right leg by Dr. Berg with endovascular revascularization by [employer] and stenting of his popliteal artery. Unfortunately, his toes at that time had deteriorated and required surgical amputation of his fourth and fifth toes and the wound was closed surgically; however, it began to dehisce had significant drainage, foul odor and necrotic tissue. At that time, it was recommended to undergo debridement with a possible completion of the transmetatarsal amputation, depending on the appearance of the foot during surgery. The risks, benefits and alternatives of the procedure were discussed with the patient and he expressed understanding and agreement to proceed. HOSPITAL COURSE: The patient was admitted on 07/10/2017 after undergoing his right foot completion transplant and he had a wound VAC placed to the open area on the lateral portion of his foot. The patient remained in the hospital to gain insurance approval for the VAC to be run at home and during that time, he began to have elevated blood sugars and did spike a fever of 38.5. Labs and vital signs remained stable otherwise. After being given some pain medication, he began to have some altered mental status and the hospitalist service was asked to evaluate the patient and make recommendations. Blood cultures were drawn at that time and the patient was started on antibiotics. Urine culture chest x-ray and blood cultures been completely negative and the patient's foot wound demonstrated no erythema or a significant purulence. He was felt to be stable enough for discharge on postop day #3 with the wound VAC at home. PHYSICAL EXAMINATION: VITAL SIGNS: On day of discharge, vital signs were as follows: Temperature of 36.8, pulse of 76, respiratory rate of 18, blood pressure 134/67, pulse ox of 98% on room air. CONSTITUTIONAL: The patient is a chronically ill appearing elderly male in no acute distress. He ambulated with a postop shoe and a walker, but is independent. CARDIOVASCULAR: His heart demonstrates regular rate and rhythm. LUNGS: Clear but decreased throughout. ABDOMEN: Soft, nontender. He moves all extremities equally. EXTREMITIES: His pulses were normal in his carotid, brachial, and femoral pulses. Right lower extremity pulses are +1 and a ladder with the Doppler. His left foot demonstrated +1 distal pulse as well. There was no further sign of necrotic tissue or ischemia bilaterally and his wound VAC appeared to be working and functioning well on his right foot. DIET UPON DISCHARGE: Low-cholesterol AHA and diabetic diet. MEDICATIONS UPON DISCHARGE: Were reconciled in the chart and are as per his discharge instructions. There are some instructional changes regarding his insulin as well as the addition of Cipro antibiotic for another week. Follow up with Dr. Berg or his PA Lory Littlejohn in next week. The patient was advised to call us if he any other questions.
== END 2017-07-13 17:45 | disposition home health service (06) ==
LOC: C.ACU 07:48 → C.MSW 12:15 → ENRESERV 12:29
PROVIDERS: ADMIT Surgery Vascular Surgery; ATTEND Surgery Vascular Surgery
DX: T87.51 Necrosis of amputation stump, right upper extremity (principal); I25.2 Old myocardial infarction; Z86.73 Personal history of transient ischemic attack (TIA), and cerebral infarction without residual deficits; M10.9 Gout, unspecified; Z95.818 Presence of other cardiac implants and grafts; Z96.659 Presence of unspecified artificial knee joint; I10 Essential (primary) hypertension; E78.5 Hyperlipidemia, unspecified; J44.9 Chronic obstructive pulmonary disease, unspecified; N40.0 Benign prostatic hyperplasia without lower urinary tract symptoms; Z82.49 Family history of ischemic heart disease and other diseases of the circulatory system; Z87.891 Personal history of nicotine dependence

== ENCOUNTER 2017-07-23 12:43 | Emergency (ER) | payer BC ==
[~2017-07-23] VITALS: Ht 188 cm; Wt 88.0 kg
[~2017-07-23 12:43] MED LIST changes: -CEFAZOLIN IV SCH; +CIPR-255 PO; -DEXTROSE IV SCH; -LACTATED RINGER'S 1000ML 1,000 ML IV SCH; -SODIUM CHLORIDE 0.9% 1000ML 1,000 ML IV SCH
[2017-07-23 13:01] VITALS: Ht 188 cm; Wt 88.0 kg
[2017-07-23] MEDS ORDERED: INSDGI SC ×2 (13:13)
[2017-07-23] MEDS ORDERED: NVLG SQ (13:13)
[2017-07-23] MEDS ORDERED: ACETAMINOPHEN 500 MG TAB PO ONE (13:42)
[2017-07-23] MEDS ORDERED: ACETAMINOPHEN 500 MG TAB PO STA (13:46)
[2017-07-23 14:28] LABS: BASO % 0.1 %; BASO ABS # 0.01 K/uL (0-0.2); COMPLETE YES; EOS % 0.8 %; IG% 0.3 %; LYMPH % 15.5 %; LYMPH ABS # 1.16 K/uL (1.2-3.4); MEAN CELL VOLUME 79.3 fL (80-100); MEAN CORPUSCULAR HEMOGLOBIN 25.5 pg (25-34); MEAN CORPUSCULAR HGB CONC 32.1 g/dl (32-36); MEAN PLATELET VOLUME 8.7 fL (7.4-10.4); MONO % 5.3 %; PLATELET COUNT 344 K/uL (130-400); RED BLOOD COUNT 3.53 M/uL (4.7-6.1); WHITE BLOOD COUNT 7.49 K/uL (4.8-10.8)
[2017-07-23 14:55] LABS: ALB/GLOB RATIO 0.6 (0.9-2); BUN/CREATININE RATIO 20.4 (10-20); CALCIUM 9.6 mg/dl (8.5-10.1); CREATININE 1.7 mg/dl (0.60-1.40); POTASSIUM 4.8 mmol/L (3.5-5.1)
--- NOTE | 2017-07-23 15:13 | EMERGENCY ROOM VISIT NOTE ---
ED Visit Note First contact with patient: 13:31 HPI: h/o DM, PAD here with foot pain related to wound from toe amputation after wound vac fell out on Monday.. Recent course of clinda completed on Mon. Visiting RN recommended they go to ED after noticing worsening swelling in absence of wound vac. PE: AFVSS, NAD NC/AT RRR, no murmurs CTAB Abd soft NT/ND Ext: right foot with mild edema to plantar surface of foot with mild erythema and ttp. No crepitus, induration or fluctuance. Neuro: grossly intact Plan: Labs unremarkable including wbc wnl. Xray without clear osseous involvement. LASHON d/w patient's surgeon and agrees with plan for PO clinda and clinic f/u tomorrow to replace wound vac. I reviewed the patient's past medical history, medications, and visit nursing notes. I discussed the case with the physician customer support assistant, examined the patient, and agree with the findings and plan as documented in the physician assistants note.
--- NOTE | 2017-07-23 15:29 | EMERGENCY ROOM VISIT NOTE ---
History First contact with patient: 13:31 Chief Complaint: FOOT PAIN Stated Complaint: INFLAMMED R FOOT History of Present Illness The patient is a 77 year old male who presents to the Emergency Room with complaints of inflammation of the right foot. The patient reports that he had all [address] Berg 2 weeks ago. The patient has a history of diabetes and peripheral arterial disease. He states that he has a home health nurse who comes every other day and uses a wound VAC at that time. He states that the home health nurse feels that the area has become reddened and infected today. The patient believes he was discharged on antibiotics, but is unsure which antibiotics are. His believes that he stopped the antibiotics 2 days ago. The patient had a follow-up with the PA at Dr. Berg's office earlier this week and she stated everything was healing well. He denies any fevers/chills. He rates his discomfort an 8/10 and has been taking aspirin at home for the pain. Review of Systems A complete 10 point review of systems was reviewed with the patient with pertinent positives and negatives as per history of present illness. All else were negative. 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, extremities Family History Cancer Coronary Artery Disease Hypertension Social History Smoking Status: Current Some Day Smoker Drug Use: none Marital Status: Occupation Status: retired Current/Historical Medications Scheduled Amlodipine (Norvasc), 5 MG PO QAM Aspirin (Aspirin Ec), 81 MG PO QAM Clindamycin Hcl (Cleocin), 300 MG PO QID Clopidogrel (Plavix), 75 MG PO HS Fish Oil (Phoenix-3), 1 TAB PO BID Insulin Aspart (Novolog), Unknown Dose SQ UD Insulin Glargine (Lantus), 40 UNITS SC QPM Insulin Glargine (Lantus), 20 UNITS SC QAM Latanoprost (Xalatan 0.005% Oph Melany), 1 DROPS OP HS Lisinopril (Zestril), 20 MG PO QAM Metformin Hcl (Glucophage), 1,000 MG PO BID Pantoprazole (Protonix), 40 MG PO QAM Simvastatin (Zocor), 80 MG PO QPM Tocopheryl Acet,Dl-Alpha (Vitamin E), 1 TAB PO QAM Physical Exam Vital Signs Date Time Temp Pulse Resp B/P (MAP) Pulse Ox O2 Delivery O2 Flow Rate FiO2 07/23/17 17:50 36.6 81 18 142/78 100 07/23/17 17:30 142/78 07/23/17 16:37 64 18 141/64 100 Room Air 07/23/17 15:11 75 18 121/59 96 Room Air 07/23/17 13:01 36.6 95 20 110/62 95 Room Air Physical Exam VITALS: Vitals are noted on the nurse's note and reviewed by myself. Vital signs stable. GENERAL: This is a 77-year-old female, in no acute distress, nondiaphoretic, well-developed well-nourished. HEART: Regular rate and rhythm without murmurs gallops or rubs. LUNGS: Clear to auscultation bilaterally without wheezes, rales or rhonchi. EXTREMITIES: There are postoperative changes consistent with recent transmetatarsal amputation of the right foot. There are sutures over the medial aspect of the wound and a large open area to the lateral aspect of the wound with some drainage present. There is mild erythema surrounding the entire wound. NEURO: Patient was alert and oriented to person place and time. Medical Decision & Procedures ER Provider Diagnostic Interpretation: R FOOT MIN 3 VIEWS ROUTINE CLINICAL HISTORY: 77 years-old Male presenting with right foot recent amputation, infection. TECHNIQUE: Frontal, oblique, and lateral views of the right foot were obtained. COMPARISON: None. FINDINGS: Postsurgical changes of amputation across the head of the first metatarsal and mid diaphyses of the second and third metatarsal and proximal metaphysis of the fourth and fifth metatarsals. Open surgical wound noted. No extensive soft tissue emphysema is evident. No gross evidence of periosteal reaction or osseous erosion allowing for the absence of a comparison. No acute fracture or malalignment. IMPRESSION: Postsurgical changes of the forefoot amputation across the metatarsals. The absence of comparison radiographs makes assessment for osteomyelitis difficult. If there is continuing clinical concern for this entity, noncontrast MR could be obtained. Laboratory Results 07/23/17 14:10 Red Blood Count 3.53, Mean Corpuscular Volume 79.3, Mean Corpuscular Hemoglobin 25.5, Mean Corpuscular Hemoglobin Concent 32.1, Mean Platelet Volume 8.7, Neutrophils (%) (Auto) 78.0, Lymphocytes (%) (Auto) 15.5, Monocytes (%) (Auto) 5.3, Eosinophils (%) (Auto) 0.8, Basophils (%) (Auto) 0.1, Neutrophils # (Auto) 5.84, Lymphocytes # (Auto) 1.16, Monocytes # (Auto) 0.40, Eosinophils # (Auto) 0.06, Basophils # (Auto) 0.01 07/23/17 14:10 Test 07/23/17 14:10 White Blood Count 7.49 K/uL (4.8-10.8) Red Blood Count 3.53 M/uL (4.7-6.1) Hemoglobin 9.0 g/dL (14.0-18.0) Hematocrit 28.0 % (42-52) Mean Corpuscular Volume 79.3 fL (80-100) Mean Corpuscular Hemoglobin 25.5 pg (25-34) Mean Corpuscular Hemoglobin Concent 32.1 g/dl (32-36) Platelet Count 344 K/uL (130-400) Mean Platelet Volume 8.7 fL (7.4-10.4) Neutrophils (%) (Auto) 78.0 % Lymphocytes (%) (Auto) 15.5 % Monocytes (%) (Auto) 5.3 % Eosinophils (%) (Auto) 0.8 % Basophils (%) (Auto) 0.1 % Neutrophils # (Auto) 5.84 K/uL (1.4-6.5) Lymphocytes # (Auto) 1.16 K/uL (1.2-3.4) Monocytes # (Auto) 0.40 K/uL (0.11-0.59) Eosinophils # (Auto) 0.06 K/uL (0-0.5) Basophils # (Auto) 0.01 K/uL (0-0.2) RDW Standard Deviation 43.7 fL (36.4-46.3) RDW Coefficient of Variation 15.2 % (11.5-14.5) Immature Granulocyte % (Auto) 0.3 % Immature Granulocyte # (Auto) 0.02 K/uL (0.00-0.02) Anion Gap 11.0 mmol/L (3-11) Est Creatinine Clear Calc Drug Dose 42.3 ml/min Estimated GFR () 44.1 Estimated GFR (Non- 38.1 BUN/Creatinine Ratio 20.4 (10-20) Calcium Level 9.6 mg/dl (8.5-10.1) Total Bilirubin 0.3 mg/dl (0.2-1) Aspartate Amino Transf (AST/SGOT) 20 U/L (15-37) Alanine Aminotransferase (ALT/SGPT) 18 U/L (12-78) Alkaline Phosphatase 82 U/L (45-117) Total Protein 8.1 gm/dl (6.4-8.2) Albumin 2.9 gm/dl (3.4-5.0) Globulin 5.2 gm/dl (2.5-4.0) Albumin/Globulin Ratio 0.6 (0.9-2) Chemistry Specimen Hemolysis Medications Administered Medications (Trade) Dose Ordered Sig/Sol Route Start Time Stop Time Status Last Admin Dose Admin Acetaminophen (Tylenol Tab) 1,000 mg STK-MED ONCE PO 07/23/17 13:42 07/23/17 13:43 DC 07/23/17 13:42 1,000 MG Clindamycin HCl (Cleocin Cap) 600 mg ONE ONCE PO 07/23/17 17:15 07/23/17 17:16 DC 07/23/17 17:28 600 MG ED Course The patient was evaluated as above. Labs were drawn and IV access was obtained. Patient was medicated with 1 g Tylenol for pain. Case was discussed with Dr. Berg. He recommended having the patient call first thing in the morning to schedule follow-up to have the wound VAC replaced. Patient was given 600 mg clindamycin. Discharge instructions were reviewed with the patient. The patient verbalized understanding of my assessment and treatment plan and was discharged home in good condition. Medical Decision Differential diagnosis includes cellulitis, abscess, osteomyelitis, sepsis, among others. The patient is a 77-year-old male with recent amputation of all 5 digits of the right foot who presents today complaining of increased redness and drainage of the foot after the wound VAC fell off. Labs revealed concerning leukocytosis. Creatinine is slightly elevated from baseline. Patient is afebrile and nontoxic appearing. There is some redness on the edges of the wound as well as some drainage. Surface drainage was sent for culture. X-rays were obtained and do not show any obvious evidence of osteomyelitis. The wound was redressed. I spoke with Dr. Berg, who will arrange follow-up to have the wound VAC replaced. The patient will call the office in the morning. He will be placed on clindamycin, which he was taking previously. He was encouraged to return immediately if his symptoms worsen or if he develops any fevers. He was agreeable to this treatment plan. The patient was independently evaluated by Dr. Mitchell, ED attending physician, who agreed with my assessment and treatment plan. Based on the patient's presentation and work up, I feel the patient is stable for outpatient treatment. The patient was educated to return to the emergency department for any worsening of their current condition or new/concerning symptoms. He will follow up with Dr. Berg. Medication Reconcilliation Current Medication List: was personally reviewed by me Blood Pressure Screening Patient's blood pressure: Elevated blood pressure Blood pressure disposition: Elevated BP felt to be situational Impression Primary Impression: Open wound of right foot Departure Information Dispostion Home / Self-Care Condition GOOD Prescriptions Clindamycin Hcl (CLEOCIN) 300 Mg Cap 300 MG PO QID for 7 Days, #28 CAP Prov: Marnie Bolton PA-C 07/23/17 Referrals Haja Caruso D.O. (PCP) Patient Instructions My [facility] Additional Instructions You were prescribed clindamycin to be taken 4 times daily as prescribed. This is an antibiotic. All antibiotics have the potential to cause diarrhea. Stop this medication and contact a medical provider if you were to develop any significant adverse side effects including: wheezing, shortness of breath, passing out, vomiting, or a diffuse rash. Always take antibiotics as directed and COMPLETE the ENTIRE course regardless of the improvement of your symptoms. For pain control, you can use the following [id number] medicines (if >12 yo): - Regular strength (325mg/tab) Tylenol (acetaminophen) 2 tabs every 4-6 hours as needed. Do not exceed 12 tablets in a 24 hour period. Avoid taking more than 4 grams (4000 mg) of Tylenol per day. This includes any other sources of acetaminophen you may take on a regular basis. - Regular strength (200 mg/tab) Advil (ibuprofen) 1-2 tabs every 4-6 hours as needed. Do not exceed a dose of 3[address] mg per day[address] Berg's office first thing tomorrow morning to schedule follow-up to have the wound VAC replaced. Return to the emergency department with worsening redness or redness that extends up the foot, fevers, or any other new/concerning symptoms.
--- NOTE | 2017-07-23 16:45 | DIAGNOSTIC IMAGING REPORT ---
R FOOT MIN 3 VIEWS ROUTINE CLINICAL HISTORY: 77 years-old Male presenting with right foot recent amputation, infection. TECHNIQUE: Frontal, oblique, and lateral views of the right foot were obtained. COMPARISON: None. FINDINGS: Postsurgical changes of amputation across the head of the first metatarsal and mid diaphyses of the second and third metatarsal and proximal metaphysis of the fourth and fifth metatarsals. Open surgical wound noted. No extensive soft tissue emphysema is evident. No gross evidence of periosteal reaction or osseous erosion allowing for the absence of a comparison. No acute fracture or malalignment. IMPRESSION: Postsurgical changes of the forefoot amputation across the metatarsals. The absence of comparison radiographs makes assessment for osteomyelitis difficult. If there is continuing clinical concern for this entity, noncontrast MR could be obtained. Electronically signed by: Vishnu Starr M.D. 07/23/2017 4:44 PM Dictated Date/Time: 07/23/2017 4:42 PM
[2017-07-23] MEDS ORDERED: CLINDAMYCIN HCL 150 MG CAP PO ONE (17:15)
[2017-07-23] MEDS ORDERED: CLIN300C2 PO (17:21)
[2017-07-23 17:50] VITALS: BP 142/78; PULSE 81; TEMP 36.6; O2SAT 100
--- NOTE | 2017-07-27 14:10 | Pharmacy Progress Note ---
ED Pharmacist Culture FollowUp Date of Service: Jul 27, 2017. Patient with recent BKA came in with wound infection and discharged on clindamycin. Culture resulted as a MDR pseudomonas and VRE. Discussed with LASHON Bolton who saw the patient and contacted Dr. Berg's office for further guidance as Dr. Berg was following patient as both inpatient and outpatient. Discussed with nurse and faxed results to confirmed number of [phone] and nurse said she would give to Lory for review. Nurse stated that Dr. Berg would assume any further responsibility regarding treatment and further care as patient continues to see Dr. Berg regularly. This plan was also discussed with Marnie.
== END 2017-07-23 17:51 | disposition home or self-care (01) ==
LOC: C.EDB 12:44 → C.EDC 17:51
DX: S91.301A Unspecified open wound, right foot, initial encounter (principal); X58.XXXA Exposure to other specified factors, initial encounter; E11.9 Type 2 diabetes mellitus without complications; I73.9 Peripheral vascular disease, unspecified; F17.200 Nicotine dependence, unspecified, uncomplicated; Z89.421 Acquired absence of other right toe(s); Z79.4 Long term (current) use of insulin; Z79.82 Long term (current) use of aspirin; Z79.84 Long term (current) use of oral hypoglycemic drugs; Z79.899 Other long term (current) drug therapy; Z80.9 Family history of malignant neoplasm, unspecified; Z82.49 Family history of ischemic heart disease and other diseases of the circulatory system

== ENCOUNTER 2017-07-27 15:39 | Inpatient (IN) | payer BC, OTHER ==
[~2017-07-27] VITALS: Ht 193 cm; Wt 85.0 kg
[~2017-07-27 15:39] MED LIST changes: -AMLO-110 PO; -ASPI81TA28 PO; -CIPR-255 PO; -CLOP1TAB15 PO; -INSDGI SC; -INSU100I SQ; -LATA0.009 OP; -LISI-725 PO; -METF-384 PO; -OMEG10007 PO; -OXYC-57 PO; -PANT40TA PO; -SIMV80TA2 PO; -VTME100 PO
[2017-07-27 17:30] VITALS: BMI 22.8
[2017-07-27 17:42] VITALS: BP 161/68; PULSE 83; TEMP 36.7; O2SAT 99
[2017-07-27] MEDS ORDERED: NURSING VERBAL MED ORDER ONE (17:45)
[2017-07-27 18:16] LABS: BASO % 0.1 %; BASO ABS # 0.01 K/uL (0-0.2); EOS % 0.4 %; IG% 0.3 %; LYMPH % 15.7 %; LYMPH ABS # 1.21 K/uL (1.2-3.4); MEAN CELL VOLUME 78.8 fL (80-100); MEAN CORPUSCULAR HEMOGLOBIN 25.8 pg (25-34); MEAN CORPUSCULAR HGB CONC 32.7 g/dl (32-36); MEAN PLATELET VOLUME 8.3 fL (7.4-10.4); MONO % 5.8 %; NEUT % 77.7 %; PLATELET COUNT 282 K/uL (130-400)
[2017-07-27] MEDS ORDERED: PIPERACILL/TAZOBAC CONSULT ACTIVE PRN (18:30)
[2017-07-27] MEDS ORDERED: PHARMACY GLYCEMIC MGMT CONSULT PRN (18:30)
[2017-07-27] MEDS ORDERED: PIPERACILL/TAZOBAC IV 4.5 GM in DEXTROSE 5% 100ML IV ONE (18:30)
[2017-07-27 18:42] VITALS: BMI 22.8
[2017-07-27 18:45] LABS: ANISOCYTOSIS PRESENT; COMPLETE YES
[2017-07-27] MEDS ORDERED: PATIENT'S HEIGHT AND/OR WEIGHT NEEDED SCH (19:00)
[2017-07-27] MEDS ORDERED: INSULIN ASPART 100 UNITS/ML 3 ML PEN SC SCH (19:00)
[2017-07-27] MEDS ORDERED: GLUCOSE 40% GEL 15 GM TUBE PO PRN (20:30)
[2017-07-27] MEDS ORDERED: DEXTROSE 50% 50 ML SYR IV PRN (20:30)
[2017-07-27] MEDS ORDERED: GLUCOSE 10 TABS/TUBE PO PRN (20:30)
[2017-07-27] MEDS ORDERED: GLUCAGON FOR INJ 1 MG VIAL SQ PRN (20:30)
[2017-07-27] MEDS ORDERED: INSULIN GLARGINE SOLOSTAR 100 UNITS/ML 3 ML PEN SC SCH (21:00)
[2017-07-27] MEDS: LATANOPROST 0.005% OP SOLN 2.5 ML BTL OP SCH (21:40)
[2017-07-27] MEDS: OMEGA-3 (PURIFIED FISH OIL) 1 GM CAP PO SCH (21:41)
[2017-07-27] MEDS: CLOPIDOGREL BISULFATE 75 MG TAB PO SCH (21:42)
[2017-07-27] MEDS: SIMVASTATIN 80 MG TAB PO SCH (21:42)
[2017-07-27] MEDS: INSULIN ASPART 100 UNITS/ML 3 ML PEN SC SCH (21:51)
[2017-07-27 22:50] VITALS: BP 100/52; PULSE 79; TEMP 36.8; O2SAT 97
[2017-07-27] MEDS: PIPERACILL/TAZOBAC IV 4.5 GM in DEXTROSE 5% 100ML IV SCH (23:59)
[2017-07-28] VITALS (8 sets, daily range): BP systolic 114–154; BP diastolic 51–74; PULSE 67–84; TEMP 36.4–36.9; O2SAT 96–100
[2017-07-28] MEDS ORDERED: INSULIN ASPART 100 UNITS/ML 3 ML PEN SC SCH ×2 (02:00→12:00)
[2017-07-28] MEDS ORDERED: METFORMIN HCL 500 MG TAB PO SCH (08:30)
[2017-07-28] MEDS: PIPERACILL/TAZOBAC IV 4.5 GM in DEXTROSE 5% 100ML IV SCH ×3 (08:44→21:35)
--- NOTE | 2017-07-28 08:45 | History and Physical ---
History & Physical Date of Service Jul 28, 2017. History & Physical CC: Open infected right foot amp HPI: Mr. Sena underwent a completion TMA with part of the wound left open. He now has an infection of the open area requiring IV antibiotics. His allergies include no known medications. His home medications are reconciled in the chart and include the following; Advair, albuterol/ipratropium, allopurinol, amlodipine, aspirin, clonodine, Combivent, metoprolol, pravastatin, tamsulosin and terazosin. His past medical history is positive for acute [place], a history of cancer, history of CVA, history of gout. His past surgical history is positive for a cardiac catheterization with stent placement, history of hernia repair and a history of knee replacement. In addition, his past medical history is also positive for hypertension, hyperlipidemia, chronic obstructive pulmonary disease, and BPH. His family history is positive for cancer, heart disease and hypertension. His social history is positive for history of smoking in the past. He states that he used to smoke 1 pack per day and he quit in 1995. Patient denies alcohol or drug use. His review of systems is negative for fatigue, fevers, sweats, weight loss, or exercise intolerance, abnormal moles or rashes, vision changes or photophobia, ear pain, sinus problems or sore throat, cough, shortness of breath, hemoptysis or wheezing any worse than usual. Patient denies abdominal pain, nausea, vomiting, diarrhea, constipation, dysuria, hematuria, muscle weakness, headaches , dizziness, numbness, or seizures. On physical exam, vital signs are as follows, blood pressure 142/58 with a heart rate of 84, oxygenation of 93% on room air. Constitutional, in general, the patient is a mildly chronically ill-appearing elderly male in no acute distress. He ambulates without assistance and is active, alert and oriented x4. He is very hard of hearing today as he is having some right ear problems from a minor procedure that he had recently. His left carotid does demonstrate faint bruit and is status post endarterectomy, his right does not. His heart is regular. Lungs are decreased, but clear. Brachial and radial pulses are + 3. Femoral pulses are +3. Lower extremity distal pulses are nonpalpable. Open right TMA with surrounding erythema Imp: Open infected right foot wound Plan: Patient admitted for IV antibiotics.
[2017-07-28] MEDS: ASPIRIN 81 MG ECTAB PO SCH (09:17)
[2017-07-28] MEDS: AMLODIPINE BESYLATE 5 MG TAB PO SCH (09:17)
[2017-07-28] MEDS: PANTOprazole SOD 40 MG TAB PO SCH (09:18)
[2017-07-28] MEDS: TOCOPHERYL, DL-ALPHA 100 INTERUNIT CAP PO SCH (09:18)
[2017-07-28] MEDS: LISINOPRIL 20 MG TAB PO SCH (09:18)
[2017-07-28] MEDS: OMEGA-3 (PURIFIED FISH OIL) 1 GM CAP PO SCH (09:19)
[2017-07-28] MEDS: INSULIN ASPART 100 UNITS/ML 3 ML PEN SC SCH ×4 (09:27→21:00)
[2017-07-28] MEDS: INSULIN GLARGINE SOLOSTAR 100 UNITS/ML 3 ML PEN SC SCH ×2 (09:27→21:27)
--- NOTE | 2017-07-28 10:16 | Pharmacy Progress Note ---
Glycemic Control Intl Consult Date of Service Jul 28, 2017. Scope Glycemic Pharmacist consulted by Dr Berg on 07/27/17 for glycemic control and to write orders per [facility] inpatient glycemic control protocol Objective Weight (Kilograms): 85.000 Accuchecks BSG (last 24hrs): Test 07/27/17 18:31 07/27/17 20:57 07/28/17 01:44 Bedside Glucose 241 mg/dl (70-99) 317 mg/dl (70-99) 71 mg/dl (70-99) Laboratory Data (last 24hrs) Test 07/27/17 18:03 White Blood Count 7.70 K/uL Red Blood Count 3.30 M/uL Hemoglobin 8.5 g/dL Hematocrit 26.0 % Mean Corpuscular Volume 78.8 fL Mean Corpuscular Hemoglobin 25.8 pg Mean Corpuscular Hemoglobin Concent 32.7 g/dl Platelet Count 282 K/uL Mean Platelet Volume 8.3 fL Neutrophils (%) (Auto) 77.7 % Lymphocytes (%) (Auto) 15.7 % Monocytes (%) (Auto) 5.8 % Eosinophils (%) (Auto) 0.4 % Basophils (%) (Auto) 0.1 % Neutrophils # (Auto) 5.98 K/uL Lymphocytes # (Auto) 1.21 K/uL Monocytes # (Auto) 0.45 K/uL Eosinophils # (Auto) 0.03 K/uL Basophils # (Auto) 0.01 K/uL Recent Pertinent Medications Outpatient Anti-diabetic Regimen: * Lantus 20 units SQ AM + Lantus 40 units SQ PM * Humalog SSI * Metformin 1,000mg PO BIDM Risk Factors for Insulin Resistance: * Infection * Recent Surgery * Diet Assessment & Plan ASSESSMENT: * 77yo T2DM male with suboptimal control per recent A1c of 8.8% on 07/13/17 * Pt admitted with severe hyperglycemia - most likely secondary to stress/ infection and baseline poor control. * Pt given large dose of correctional insulin (NovoLog) + his outpatient dosing of Lantus and BSG recovered to 71mg/dl * AM fasting cinthya to 271mg/dl for unknown reason - confirmed with nursing that nothing (no juice, snack, etc) was given over night when BSG was 71mg/dl. Am assuming that BSG cinthya when NovoLog wore off. * Basal insulin --> will continue current outpatient dosing as this is slightly increased from what was given during 07/12/17 admission. BSGs were slightly elevated this admission so dose increase is warranted * Bolus insulin --> Correctional dosing is adequate per BSG drop overnight. Pt may need more carb coverage based on previous admission data. * ADA & AACE recommend a goal blood sugar range 140-180 mg/dl for the majority of critically ill & non-critically ill patients. However, more stringent targets may be selected in individual cases. Will utilize more stringent goal of 110-140mg/dl based on patient age & comorbidities. Additionally, tighter glycemic control is warranted to facilitate wound/infection healing. PLAN FOR INPATIENT GLYCEMIC CONTROL: * Basal insulin * Lantus 20 units SQ AM + 40 units SQ PM * Bolus insulin * NovoLog per scale ACHS or Q6hrs while NPO * Goal Range: Low 110 mg/dL - High 140 mg/dL * Correction Factor: 15 mg/dL/unit * Nutritional / Prandial insulin per carb ratio of 1 unit per 4 grams CHO consumed * Please note that the plan above was derived based on current level of insulin resistance and hospital stress. These recommendations are appropriate for inpatient admission only. Plan of care upon discharge will need to be reassessed to avoid potential outpatient hypo/hyperglycemia. Thank you.
[2017-07-28] MEDS ORDERED: PHARMACY GLYCEMIC MGMT CONSULT STA (10:39)
[2017-07-28] MEDS ORDERED: SODIUM CHLORIDE 0.9% 1000ML 1,000 ML IV SCH (10:39)
[2017-07-28] MEDS ORDERED: MoRPHine SULFATE 4 MG/ML 1 ML CARP\\VIAL IV PRN (10:45)
[2017-07-28] MEDS ORDERED: OXYCODONE/ACETAMINOPHEN 5-325 TAB PO PRN (10:45)
[2017-07-28] MEDS ORDERED: GLUCOSE 40% GEL 15 GM TUBE PO PRN (10:45)
[2017-07-28] MEDS ORDERED: GLUCAGON FOR INJ 1 MG VIAL SQ PRN (10:45)
[2017-07-28] MEDS ORDERED: GLUCOSE 10 TABS/TUBE PO PRN (10:45)
[2017-07-28] MEDS ORDERED: DEXTROSE 50% 50 ML SYR IV PRN (10:45)
--- NOTE | 2017-07-28 10:49 | [facility] Post Operative Brief Note ---
Immediate Operative Summary Operative Date Jul 28, 2017. Pre-Operative Diagnosis Infected, necrotic TMA wound Post-Operative Diagnosis Same Procedure(s) Performed Debridement of right TMA Surgeon gissel Sales Account Specialist Surgeon(s) none Estimated Blood Loss 150 Findings good bleeding, necrotic tissue debrided. No puss seen Specimens none Anesthesia Local with sedation Complication(s) None Disposition
--- NOTE | 2017-07-28 10:52 | Progress Note ---
Progress Note Date of Service Jul 28, 2017. Progress Note Wound now draining purulent drainage. Will need debridement today. I have discussed the risks options and benefits of the procedure with the patient. The patient understands the risks options and benefits and agrees to the procedure.
[2017-07-28] MEDS ORDERED: IV FLUIDS COMPLETED PRN ×2 (11:00→12:30)
[2017-07-28] MEDS ORDERED: MoRPHine SULFATE 2 MG/ML CARP IV PRN (11:30)
--- NOTE | 2017-07-28 11:36 | Progress Note ---
Progress Note Date of Service Jul 28, 2017. Progress Note ID Consult Dictated #[id number] A/P: 1. Pos op infection -polymicrobial -Continue zosyn, will stop clinda -Will need min 4 weeks IV zosyn at d/c. will need picc -Can follow with ID post d/c in wound center -Discussed with surgery, thank you
[2017-07-28] MEDS ORDERED: INSULIN HUMAN REGULAR SC SCH (12:00)
--- NOTE | 2017-07-28 12:01 | INFECT. DISEASE CONSULTATION ---
DATE OF CONSULTATION: 07/28/2017 REQUESTING PHYSICIAN: Dr. Berg. HISTORY OF PRESENT ILLNESS: This is a 77-year-old gentleman who was admitted from the office with worsening right foot wound. He did have 2 toes amputated on June 13. He states he followed up with the office and noticed infection and necrosis of the remaining 3 toes and underwent a TMA in early June. He states he did have a wound VAC for some time and this was removed. He was readmitted to the hospital recently and a wound VAC was reapplied. He did go home on what he believes was 10 days' worth of an unknown antibiotic which he finished on Monday of this week. He did follow repeatedly as an outpatient and had a wound culture obtained on the 23 of July on an outpatient basis when purulent drainage was noted from the wound. This grew a pansensitive Enterococcus faecalis as well as pseudomonas which was heavily resistant. He was admitted to the hospital for IV antibiotics and additional surgery which will occur later today. He does admit to having purulent drainage from the foot; however, he denies any pain. He was tolerating his outpatient oral antibiotics. He denies any nausea, vomiting or diarrhea. He denies any fevers or chills at home. He did have an outpatient x-ray which was unrevealing for osteo but an MRI was recommended. He is going for further debridement today. His remaining review of systems are reviewed and are unremarkable. He is on Zosyn currently and is tolerating this well. FAMILY HISTORY: Noncontributory. ALLERGIES: He has no known drug allergies. SOCIAL HISTORY: Unremarkable. PAST MEDICAL HISTORY: Significant for coronary artery disease with history of [place], history of cancer, CVA and gout. PAST SURGICAL HISTORY: Significant for cardiac catheterization and stent placement, hernia repair and knee replacement. CURRENT MEDICATIONS: Include Lovenox, clindamycin, insulin, morphine, Norvasc, aspirin, lisinopril, Protonix, vitamin E, Lantus, Zosyn, Plavix, eyedrops, Zocor and Percocet. PHYSICAL EXAMINATION: VITAL SIGNS: He is afebrile, pulse 79, respiratory rate 19, blood pressure is 131/57, oxygen saturation is 96-99% on room air. GENERAL: He is awake, alert and oriented x3. He is in no acute distress. HEENT: Mucous membranes are moist. Extraocular muscles are intact. HEART: Regular. There is a systolic ejection murmur. LUNGS: Clear bilaterally. ABDOMEN: Soft and nondistended. EXTREMITIES: There is no lower extremity edema. Right foot dressing is clean, dry and intact. There is no bleeding or purulent drainage noted on exam. LABORATORY STUDIES: CBC on the 12th reveals a white blood cell count of 7.7, hemoglobin 8.5, platelets are 282. Previous culture from the 8th again is growing pansensitive Enterococcus faecalis and pseudomonas which is sensitive to Zosyn. Imaging is as above. Postop wound infection of a diabetic foot ulceration which is polymicrobial with enterococcus and pseudomonas. Zosyn is appropriate. I will discontinue his clindamycin at this time. He is due to have debridement later today. We will wait OR findings. There are no oral options for pseudomonas. The patient was informed that he will need a course of intravenous antibiotics. I suspect this will be 4 weeks; however OR findings are pending and this may alter duration of antibiotics. We will follow along with you. Thank you for this consultation. PATRICIO
[2017-07-28] MEDS ORDERED: CLINDAMYCIN HCL 150 MG CAP PO SCH (13:00)
[2017-07-28] MEDS ORDERED: NURSING VERBAL MED ORDER ONE (13:15)
[2017-07-28] MEDS ORDERED: INSULIN REGULAR 10 UNITS in SYRINGE 9.9 ML IV SCH (13:45)
[2017-07-28] MEDS ORDERED: INSULIN GLARGINE SOLOSTAR 100 UNITS/ML 3 ML PEN SC SCH (16:45)
[2017-07-28] MEDS ORDERED: ONDANSETRON INJ 2 MG/ML 2 ML VIAL ONE (18:05)
[2017-07-28] MEDS ORDERED: LIDOCAINE HCL 2% 2 ML VIAL (20MG/ML) ONE (18:05)
[2017-07-28] MEDS ORDERED: PROPOFOL IV EMULSION 10 MG/ML 20 ML VIAL IV ONE (18:05)
[2017-07-28] MEDS ORDERED: FENTANYL CITRATE INJ 50 MCG/1 ML 2 ML VIAL ONE (18:05)
[2017-07-28] MEDS ORDERED: BACITRACIN 50000 UNIT VIAL ONE (18:10)
[2017-07-28] MEDS ORDERED: PHENYLEPHRINE 100MCG/ML 5ML SYR ONE (19:01)
[2017-07-28] MEDS ORDERED: EpHEDrine SULFATE 50MG/5ML SYR ONE (19:01)
--- NOTE | 2017-07-28 19:55 | Anesthesiology Progress Note ---
Anesthesia Post Op Note Date & Time Jul 28, 2017 at 19:55 Vital Signs Pain Intensity: 0 Vital Signs Past 12 Hours Date Time Temp Pulse Resp B/P (MAP) Pulse Ox O2 Delivery O2 Flow Rate FiO2 07/28/17 19:50 80 17 104/77 99 Room Air 07/28/17 19:40 36.3 77 20 107/62 99 Room Air 07/28/17 19:30 91 17 120/65 98 Oxymask 10 07/28/17 19:20 95 21 121/61 100 Oxymask 10 07/28/17 19:13 36.1 85 16 127/57 100 Oxymask 10 07/28/17 17:35 Room Air 07/28/17 15:05 36.6 81 18 154/74 (100) 100 Room Air Notes Mental Status: alert / awake / arousable, participated in evaluation Pt Amnestic to Procedure: Yes Nausea / Vomiting: adequately controlled Pain: adequately controlled Airway Patency, RR, SpO2: stable & adequate BP & HR: stable & adequate Hydration State: stable & adequate Anesthetic Complications: no major complications apparent
[2017-07-28] MEDS ORDERED: ATROPINE SULFATE 0.1 MG/ML 5ML SYR IV PRN (20:00)
[2017-07-28] MEDS ORDERED: EpHEDrine SULFATE INJ 50 MG/ML AMP IV PRN (20:00)
[2017-07-28] MEDS ORDERED: SIMVASTATIN 80 MG TAB PO SCH (21:00)
[2017-07-28] MEDS ORDERED: LATANOPROST 0.005% OP SOLN 2.5 ML BTL OP SCH (21:00)
[2017-07-28] MEDS ORDERED: CLOPIDOGREL BISULFATE 75 MG TAB PO SCH (21:00)
[2017-07-28] MEDS ORDERED: OMEGA-3 (PURIFIED FISH OIL) 1 GM CAP PO SCH (21:00)
[2017-07-28] MEDS: LATANOPROST 0.005% OP SOLN 2.5 ML BTL OP SCH (21:23)
[2017-07-28] MEDS: CLOPIDOGREL BISULFATE 75 MG TAB PO SCH (21:33)
[2017-07-28] MEDS: SIMVASTATIN 80 MG TAB PO SCH (21:33)
[2017-07-28] MEDS: ENOXAPARIN 30 MG/0.3 ML SYR SQ SCH (21:34)
[2017-07-29] MEDS ORDERED: INSULIN ASPART 100 UNITS/ML 3 ML PEN SC SCH (02:00)
[2017-07-29 03:49] VITALS: BP 96/56; PULSE 64; TEMP 36.4; O2SAT 100
[2017-07-29] MEDS: OXYCODONE/ACETAMINOPHEN 5-325 TAB PO PRN ×4 (05:27→21:28)
[2017-07-29] MEDS: PIPERACILL/TAZOBAC IV 4.5 GM in DEXTROSE 5% 100ML IV SCH ×3 (05:31→21:28)
[2017-07-29 07:41] VITALS: BP 143/66; PULSE 62; TEMP 36.6; O2SAT 100
[2017-07-29] MEDS ORDERED: TOCOPHERYL, DL-ALPHA 100 INTERUNIT CAP PO SCH (09:00)
[2017-07-29] MEDS ORDERED: LISINOPRIL 20 MG TAB PO SCH (09:00)
[2017-07-29] MEDS ORDERED: AMLODIPINE BESYLATE 5 MG TAB PO SCH (09:00)
[2017-07-29] MEDS ORDERED: PANTOprazole SOD 40 MG TAB PO SCH (09:00)
[2017-07-29] MEDS ORDERED: ASPIRIN 81 MG ECTAB PO SCH (09:00)
[2017-07-29] MEDS: ASPIRIN 81 MG ECTAB PO SCH (09:23)
[2017-07-29] MEDS: AMLODIPINE BESYLATE 5 MG TAB PO SCH (09:23)
[2017-07-29] MEDS: PANTOprazole SOD 40 MG TAB PO SCH (09:23)
[2017-07-29] MEDS: LISINOPRIL 20 MG TAB PO SCH (09:23)
[2017-07-29] MEDS: TOCOPHERYL, DL-ALPHA 100 INTERUNIT CAP PO SCH (09:24)
[2017-07-29] MEDS: ENOXAPARIN 30 MG/0.3 ML SYR SQ SCH ×2 (09:31→21:31)
[2017-07-29] MEDS: INSULIN ASPART 100 UNITS/ML 3 ML PEN SC SCH ×4 (09:36→21:22)
[2017-07-29] MEDS: INSULIN GLARGINE SOLOSTAR 100 UNITS/ML 3 ML PEN SC SCH ×2 (09:39→21:22)
--- NOTE | 2017-07-29 10:21 | Pharmacy Progress Note ---
Glycemic Control Progress Note Date of Service Jul 29, 2017. Scope Glycemic Pharmacist consulted for glycemic control to write orders per [facility] inpatient glycemic control protocol. Objective Accuchecks BSG (last 24hrs): Test 07/28/17 11:57 07/28/17 15:40 07/28/17 16:06 07/28/17 16:36 Bedside Glucose 240 mg/dl (70-99) 57 mg/dl (70-99) 63 mg/dl (70-99) 232 mg/dl (70-99) Test 07/28/17 17:37 07/28/17 19:19 07/28/17 20:40 07/29/17 02:00 Bedside Glucose 192 mg/dl (70-99) 133 mg/dl (70-99) 158 mg/dl (70-99) 352 mg/dl (70-99) Test 07/29/17 07:57 Bedside Glucose 110 mg/dl (70-99) Recent Pertinent Medications The patient is currently receiving: * Basal insulin: Lantus 20 units every AM, 40 units every PM * Correctional Insulin: Novolog Correction per scale ACHS, was on q2h accuchecks last evening but this was placed on hold Goal Range: Low 110 mg/dL - High 140 mg/dL Correction Factor: 15 mg/dL/unit * Prandial insulin: Per carb ratio of 1 unit per 4 grams CHO consumed * Oral Agents: None at this time Outpatient Anti-Diabetic Meds * Lantus 20 units SQ AM + Lantus 40 units SQ PM * Humalog SSI * Metformin 1,000mg PO BIDM Assessment & Plan ASSESSMENT: * See progress note from 07/28 for more background info, in short: * Pt receiving SQ basal bolus insulin regimen for hyperglycemia secondary to baseline DM (outpatient regimen on hold),stress/infection, recent surgery * Patient is currently receiving an average of 92 units of insulin per day * 60 units of basal insulin * BSGs ranging 63 - 352 mg/dl over the past 24hrs * Mr. Sena had a low BSG of 63 around the time of surgery after receiving 10 units of IV insulin + 7 units of SQ coverage. Per report, he received 1 tube of glucose gel for the 63 and then 4 glucose tabs for a f/u BSG of 65. BSG seemed to be fairly stable overnight until 0200 this AM when it went up to 352 mg/dL. Correctional insulin brought this down to 110 mg/dL fasting this AM. * Since fasting is w/in range today and the elevated BSG overnight was most likely related to hypoglycemia treatment in addition to surgery, possibly, will continue the same basal dose. * The correction factor seemed to work well overnight so I will continue with this for now as well PLAN FOR INPATIENT GLYCEMIC CONTROL: * Continue Lantus 20 units qAM, 40 units qPM * Continue Novolog ACHS * Goal 110-140 * CF 15 * CR 4 RECOMMENDATIONS FOR DISCHARGE: * A1c slightly above goal for patient's age/comorbidities * Recommend f/u as an outpatient for continued adjustments to regimen Thank you.
--- NOTE | 2017-07-29 12:37 | Progress Note ---
Progress Note Date of Service: Jul 29, 2017. Subjective No complaints Objective Vital Signs Vital Signs Past 12 Hours Date Time Temp Pulse Resp B/P (MAP) Pulse Ox O2 Delivery O2 Flow Rate FiO2 07/29/17 08:00 Room Air 07/29/17 07:41 36.6 62 19 143/66 (91) 100 Room Air 07/29/17 03:49 36.4 64 16 96/56 (69) 100 Room Air Exam Awake and alert Afebrile, VSS Dressing intact at this time Laboratory and Microbiology Results Past 24 Hours Test 07/28/17 15:40 07/28/17 16:06 07/28/17 16:36 07/28/17 17:37 Range/Units Bedside Glucose 57 63 232 192 70-99 mg/dl Test 07/28/17 19:19 07/28/17 20:40 07/29/17 02:00 07/29/17 07:57 Range/Units Bedside Glucose 133 158 352 110 70-99 mg/dl Test 07/29/17 11:55 Range/Units Bedside Glucose 161 70-99 mg/dl Imp: Post debridement of foot Plan: Will leave dressing on till tomorrow. Wound had no puss but did have necrotic tissue that was debrided. There was excellent arterial bleeding of the wound. Continue Zosyn. Will need to have home antibiotics arranged Will try to replace wound vac on Monday.
[2017-07-29 14:49] VITALS: BP 145/61; PULSE 62; TEMP 36.4; O2SAT 96
[2017-07-29] MEDS: LATANOPROST 0.005% OP SOLN 2.5 ML BTL OP SCH (21:29)
[2017-07-29] MEDS: SIMVASTATIN 80 MG TAB PO SCH (21:31)
[2017-07-29] MEDS: CLOPIDOGREL BISULFATE 75 MG TAB PO SCH (21:31)
[2017-07-29 23:14] VITALS: BP 112/46; PULSE 80; TEMP 36.7; O2SAT 99
[2017-07-30] MEDS: PIPERACILL/TAZOBAC IV 4.5 GM in DEXTROSE 5% 100ML IV SCH ×3 (05:39→22:28)
[2017-07-30 07:32] LABS: CREATININE 1.2 mg/dl (0.60-1.40)
[2017-07-30 08:10] VITALS: BP 139/71; PULSE 87; TEMP 36.8; O2SAT 99
[2017-07-30] MEDS: TOCOPHERYL, DL-ALPHA 100 INTERUNIT CAP PO SCH (09:09)
[2017-07-30] MEDS: ASPIRIN 81 MG ECTAB PO SCH (09:09)
[2017-07-30] MEDS: PANTOprazole SOD 40 MG TAB PO SCH (09:09)
[2017-07-30] MEDS: ENOXAPARIN 30 MG/0.3 ML SYR SQ SCH ×2 (09:10→21:19)
[2017-07-30] MEDS: AMLODIPINE BESYLATE 5 MG TAB PO SCH (09:10)
[2017-07-30] MEDS: LISINOPRIL 20 MG TAB PO SCH (09:10)
[2017-07-30] MEDS: OXYCODONE/ACETAMINOPHEN 5-325 TAB PO PRN ×4 (09:15→22:34)
[2017-07-30] MEDS: INSULIN ASPART 100 UNITS/ML 3 ML PEN SC SCH ×4 (09:22→21:16)
[2017-07-30] MEDS: INSULIN GLARGINE SOLOSTAR 100 UNITS/ML 3 ML PEN SC SCH ×2 (09:23→21:17)
--- NOTE | 2017-07-30 10:16 | Progress Note ---
Progress Note Date of Service: Jul 30, 2017. Subjective Complaining of mild foot pain relieved by oral meds Objective Vital Signs Vital Signs Past 12 Hours Date Time Temp Pulse Resp B/P (MAP) Pulse Ox O2 Delivery O2 Flow Rate FiO2 07/30/17 08:10 36.8 87 18 139/71 (93) 99 Room Air 07/30/17 07:50 Room Air 07/30/17 00:00 Room Air 07/29/17 23:14 36.7 80 16 112/46 (68) 99 Room Air Exam VSS Afebrile Awake and alert Dressing last pm No bleeding since Laboratory and Microbiology Results Past 24 Hours Test 07/29/17 11:55 07/29/17 17:14 07/29/17 20:34 07/30/17 06:32 Range/Units Bedside Glucose 161 85 95 70-99 mg/dl Creatinine 1.20 0.60-1.40 mg/dl Est Creatinine Clear Calc Drug Dose 62.0 ml/min Estimated GFR () 67.2 Estimated GFR (Non- 58.0 Test 07/30/17 08:18 Range/Units Bedside Glucose 103 70-99 mg/dl Imp: Post foot debridement Plan: Will leave dressing on till tomorrow being that is was changed last pm and oozing has stopped. Will arrange PICC line tomorrow Will look at wound and see if we can put a vac back on it If this can be done and home arrangements made for antibiotics and nursing for vac change, he may be able to go home tomorrow or monday.
[2017-07-30 15:00] VITALS: BP 165/72; PULSE 80; TEMP 36.8; O2SAT 100
[2017-07-30] MEDS: LATANOPROST 0.005% OP SOLN 2.5 ML BTL OP SCH (21:17)
[2017-07-30] MEDS: CLOPIDOGREL BISULFATE 75 MG TAB PO SCH (21:19)
[2017-07-30] MEDS: SIMVASTATIN 80 MG TAB PO SCH (21:19)
[2017-07-30 23:12] VITALS: BP 120/53; PULSE 90; TEMP 36.9; O2SAT 98
[2017-07-31] MEDS: PIPERACILL/TAZOBAC IV 4.5 GM in DEXTROSE 5% 100ML IV SCH ×3 (05:40→22:03)
[2017-07-31 07:20] VITALS: BP 128/68; PULSE 86; TEMP 36.8; O2SAT 93
[2017-07-31 07:45] LABS: CREATININE 1.36 mg/dl (0.60-1.40)
--- NOTE | 2017-07-31 07:54 | Anesthesiology Progress Note ---
Anesthesia Post Op Note Date & Time Jul 31, 2017 at 07:53 Vital Signs Pain Intensity: 0.0 Vital Signs Past 12 Hours Date Time Temp Pulse Resp B/P (MAP) Pulse Ox O2 Delivery O2 Flow Rate FiO2 07/31/17 07:20 36.8 86 20 128/68 (88) 93 Nasal Cannula 2.0 07/30/17 23:30 Room Air 07/30/17 23:12 36.9 90 16 120/53 (75) 98 Room Air Notes Mental Status: alert / awake / arousable, participated in evaluation Pt Amnestic to Procedure: Yes Nausea / Vomiting: adequately controlled Pain: adequately controlled Airway Patency, RR, SpO2: stable & adequate BP & HR: stable & adequate Hydration State: stable & adequate Anesthetic Complications: no major complications apparent
[2017-07-31] MEDS: ASPIRIN 81 MG ECTAB PO SCH (08:58)
[2017-07-31] MEDS: TOCOPHERYL, DL-ALPHA 100 INTERUNIT CAP PO SCH (08:58)
[2017-07-31] MEDS: PANTOprazole SOD 40 MG TAB PO SCH (08:58)
[2017-07-31] MEDS: AMLODIPINE BESYLATE 5 MG TAB PO SCH (08:59)
[2017-07-31] MEDS: LISINOPRIL 20 MG TAB PO SCH (08:59)
[2017-07-31] MEDS: OXYCODONE/ACETAMINOPHEN 5-325 TAB PO PRN ×2 (09:01→18:55)
[2017-07-31] MEDS: INSULIN ASPART 100 UNITS/ML 3 ML PEN SC SCH ×4 (09:07→22:02)
[2017-07-31] MEDS: ENOXAPARIN 30 MG/0.3 ML SYR SQ SCH ×2 (09:08→22:05)
[2017-07-31] MEDS: INSULIN GLARGINE SOLOSTAR 100 UNITS/ML 3 ML PEN SC SCH (09:08)
--- NOTE | 2017-07-31 09:52 | Pharmacy Progress Note ---
Glycemic Control Progress Note Date of Service Jul 31, 2017. Scope Glycemic Pharmacist consulted for glycemic control to write orders per [facility] inpatient glycemic control protocol. Objective Accuchecks BSG (last 24hrs): Test 07/30/17 12:04 07/30/17 17:11 07/30/17 20:42 07/31/17 08:10 Bedside Glucose 178 mg/dl (70-99) 305 mg/dl (70-99) 176 mg/dl (70-99) 94 mg/dl (70-99) Recent Pertinent Medications The patient is currently receiving: * Basal insulin: Lantus 20 units in the morning and 40 units in the evening * Correctional Insulin: Novolog Correction per scale ACHS Goal Range: Low 110 mg/dL - High 140 mg/dL Correction Factor: 15 mg/dL/unit * Prandial insulin: Per carb ratio of 1 unit per 4 grams CHO consumed Outpatient Anti-Diabetic Meds metformin 1 gm PO BID Lantus 20 units in the morning and 40 units in the evening Humalog sliding scale Assessment & Plan ASSESSMENT: * See progress note from 07/28/17 for more background info, in short: * Pt receiving SQ basal bolus insulin regimen for hyperglycemia secondary to baseline DM (outpatient regimen on hold), diabetic foot infection, POD 3 for transmetatarsal toe amputations * Patient is currently receiving an average of 130 units of insulin per day * 60 units of basal insulin * 70 units of prandial/correctional insulin * BSGs ranging 110 - 140 mg/dl over the past 24hrs * Changes needed to insulin regimen: * AM Fasting BSG = 94 mg/dl. This is in slightly below goal range for patient based on inpatient targets and co-morbidities. This fasting blood sugar is less than the fasting blood sugar from yesterday's fasting of 103 mg/dL; there is a downwards trend each morning. Although the patient most likely had stacking last night from receiving 29 of Novolog at dinner and 11 of Novolog at bedtime, it appears that the Lantus dose is achieving steady state and may need decreased. Set up sliding scale of Lantus for evening with a 10% reduction in dose. * Post-prandial BSGs tend to rise throughout the day yesterday. Patient may require a tightening of correction factor to prevent blood sugars from rising during the day. * Total daily dose = ~130 units. May need to evenly re-distribute regimen 50%: 50% basal:prandial to prevent hypo/hyperglycemia. The patient may require the Lantus to be split more 50/50 to prevent hypoglycemia in the morning. PLAN FOR INPATIENT GLYCEMIC CONTROL: * Continuing Lantus 20 units SQ in the morning and Lantus 35-40 units SQ in the evening (35 units if blood sugar less than 140 mg/dL and 40 units if blood sugar 140 mg/dL or greater) * Continuing correction factor of 15 mg/dl/unit * Continuing carb ratio of 1 unit per 4 grams CHO consumed * Continuing goal range of Low 110 mg/dL - High 140 mg/dL RECOMMENDATIONS FOR DISCHARGE: * see note from 07/30/17 Thank you.
--- NOTE | 2017-07-31 09:58 | Progress Note ---
Progress Note Date of Service: Jul 31, 2017. Subjective No complaints Objective Vital Signs Vital Signs Past 12 Hours Date Time Temp Pulse Resp B/P (MAP) Pulse Ox O2 Delivery O2 Flow Rate FiO2 07/31/17 07:20 Room Air 07/31/17 07:20 36.8 86 20 128/68 (88) 93 Room Air 07/30/17 23:30 Room Air 07/30/17 23:12 36.9 90 16 120/53 (75) 98 Room Air Exam Awake and alert VSS Afebrile Wound clean, small amount old dried blood in wound Laboratory and Microbiology Results Past 24 Hours Test 07/30/17 12:04 07/30/17 17:11 07/30/17 20:42 07/31/17 06:41 Range/Units Bedside Glucose 178 305 176 70-99 mg/dl Creatinine 1.36 0.60-1.40 mg/dl Est Creatinine Clear Calc Drug Dose 54.7 ml/min Estimated GFR () 57.8 Estimated GFR (Non- 49.8 Test 07/31/17 08:10 Range/Units Bedside Glucose 94 70-99 mg/dl Imp: Post debridement of foot Plan: Wound vac to be placed today. Will arrange PICC line Can be d/c when home arrangements are made
--- NOTE | 2017-07-31 10:37 | Progress Note ---
Subjective Date of Service: Jul 31, 2017. Subjective for wound vac today and plans for d/c after picc placed and insurance approval. afebrile. s/p debridement of foot, no new culture obtained. tolerating zosyn. No new labs. no overnight events Objective Vital Signs Date Time Temp Pulse Resp B/P (MAP) Pulse Ox O2 Delivery O2 Flow Rate FiO2 07/31/17 07:20 Room Air 07/31/17 07:20 36.8 86 20 128/68 (88) 93 Room Air 07/30/17 23:30 Room Air 07/30/17 23:12 36.9 90 16 120/53 (75) 98 Room Air 07/30/17 16:00 Room Air 07/30/17 15:00 36.8 80 20 165/72 (103) 100 Room Air Laboratory Results Item Value Date Time Gram Stain - Final Complete 07/23/17 1349 Drainage - Surface Foot Right Last 24 Hours Test 07/30/17 12:04 07/30/17 17:11 07/30/17 20:42 07/31/17 06:41 Bedside Glucose 178 mg/dl 305 mg/dl 176 mg/dl Creatinine 1.36 mg/dl Est Creatinine Clear Calc Drug Dose 54.7 ml/min Estimated GFR () 57.8 Estimated GFR (Non- 49.8 Test 07/31/17 08:10 Bedside Glucose 94 mg/dl Assessment and Plan (1) Post-operative infection Assessment & Plan: will continue zosyn, will need 4 weeks at home, unfortunately no alternative for pseudomonas. Can follow in wound center post d/ c. tentative stop date 08/25, will need weekly cbc, cmp, esr while on abx. ok for d/c when otherwise stable.
[2017-07-31 13:09] VITALS: Ht 193 cm; Wt 85.0 kg
[2017-07-31 15:38] VITALS: BP 155/69; PULSE 60; TEMP 36.5; O2SAT 93
[2017-07-31] MEDS ORDERED: INSULIN GLARGINE SOLOSTAR 100 UNITS/ML 3 ML PEN SC SCH (21:00)
[2017-07-31] MEDS: LATANOPROST 0.005% OP SOLN 2.5 ML BTL OP SCH (22:04)
[2017-07-31] MEDS: CLOPIDOGREL BISULFATE 75 MG TAB PO SCH (22:05)
[2017-07-31] MEDS: SIMVASTATIN 80 MG TAB PO SCH (22:05)
[2017-07-31 23:08] VITALS: BP 91/53; PULSE 92; TEMP 36.9; O2SAT 97
[2017-08-01] VITALS (7 sets, daily range): BP systolic 112–166; BP diastolic 57–80; PULSE 70–94; TEMP 36.6–36.9; O2SAT 97–98
[2017-08-01] MEDS: OXYCODONE/ACETAMINOPHEN 5-325 TAB PO PRN ×2 (00:08→08:01)
[2017-08-01] MEDS: PIPERACILL/TAZOBAC IV 4.5 GM in DEXTROSE 5% 100ML IV SCH ×2 (05:40→13:55)
[2017-08-01 06:04] LABS: CREATININE 1.25 mg/dl (0.60-1.40)
[2017-08-01] MEDS ORDERED: OXYC-57 PO (08:25)
[2017-08-01] MEDS ORDERED: ZSYI45 IV (08:25)
--- NOTE | 2017-08-01 08:31 | Discharge Instructions ---
Discharge Instructions Date of Service Aug 01, 2017. Admission Reason for Admission: Right foot wound infection Discharge Discharge Diagnosis / Problem: post debridement of Right foot wound, R foot wound infection Discharge Goals Goal(s): Therapeutic intervention Activity Recommendations Activity Limitations: per Instructions/Follow-up section . Instructions / Follow-Up Instructions / Follow-Up FOLLOW UP WITH DR CALLAWAY IN 1 WEEK, CALL [phone] FOR APPT. FOLLOW UP IN 1-[address] ALLEN ELLIS, INFECTIOUS DISEASE, AT [facility], CALL [phone] FOR APPT. FOLLOW UP IN 1 WEEK AT [facility], CALL [phone] FOR APPT. May be weight bearing as tolerated to R foot with post op shoe/boot. DO NOT get wound vac dressing wet. Current Hospital Diet Patient's current hospital diet: Diabetes Type 2 Diet, AHA Diet (Heart Healthy) Discharge Diet Recommended Diet: AHA Diet (Heart Healthy), Diabetes Type 2 Diet Procedures Procedures Performed: Debridement of right TMA Pending Studies Studies pending at discharge: no Laboratory Results Hemoglobin A1c Test 07/13/17 06:35 Range/Units Estimated Average Glucose 206 mg/dl Hemoglobin A1c 8.8 H 4.5-5.6 % Medical Emergencies . Who to Call and When: Medical Emergencies: If at any time you feel your situation is an emergency, please call 911 immediately. . Non-Emergent Contact Non-Emergency issues call your: Surgeon . "Provider Documentation" section prepared by Lory Littlejohn. . VTE Core Measure Inpt VTE Proph given/why not?: Enoxaparin (Lovenox)[facility] Drug Monitoring Program Search Results: patient reviewed within database, no issues identified
[2017-08-01] MEDS: ASPIRIN 81 MG ECTAB PO SCH (09:05)
[2017-08-01] MEDS: AMLODIPINE BESYLATE 5 MG TAB PO SCH (09:06)
[2017-08-01] MEDS: TOCOPHERYL, DL-ALPHA 100 INTERUNIT CAP PO SCH (09:06)
[2017-08-01] MEDS: PANTOprazole SOD 40 MG TAB PO SCH (09:06)
[2017-08-01] MEDS: LISINOPRIL 20 MG TAB PO SCH (09:07)
[2017-08-01] MEDS: INSULIN ASPART 100 UNITS/ML 3 ML PEN SC SCH ×2 (09:15→12:53)
[2017-08-01] MEDS: ENOXAPARIN 30 MG/0.3 ML SYR SQ SCH (09:16)
--- NOTE | 2017-08-01 09:22 | Pharmacy Progress Note ---
Glycemic Control Progress Note Date of Service Aug 01, 2017. Scope Glycemic Pharmacist consulted for glycemic control to write orders per [facility] inpatient glycemic control protocol. Objective Accuchecks BSG (last 24hrs): Test 07/31/17 12:16 07/31/17 16:55 07/31/17 21:17 08/01/17 07:42 Bedside Glucose 137 mg/dl (70-99) 106 mg/dl (70-99) 167 mg/dl (70-99) 90 mg/dl (70-99) Recent Pertinent Medications The patient is currently receiving: * Basal insulin: Lantus 20 units in the morning and 40 units in the evening * Correctional Insulin: Novolog Correction per scale ACHS Goal Range: Low 110 mg/dL - High 140 mg/dL Correction Factor: 15 mg/dL/unit * Prandial insulin: Per carb ratio of 1 unit per 4 grams CHO consumed Outpatient Anti-Diabetic Meds metformin 1 gm PO BID Lantus 20 units in morning and 40 units in PM Humalog sliding scale Assessment & Plan ASSESSMENT: * See progress note from 07/28/17 for more background info, in short: * Pt receiving SQ basal bolus insulin regimen for hyperglycemia secondary to baseline DM (outpatient regimen on hold), diabetic foot infection, POD 3 for transmetatarsal toe amputations * Patient is currently receiving an average of ~110 units of insulin per day * 60 units of basal insulin * 46 units of prandial/correctional insulin * BSGs ranging 94-167 mg/dl over the past 24hrs * Changes needed to insulin regimen: * AM Fasting BSG = 90 mg/dl. This is in slightly below goal range for patient based on inpatient targets and co-morbidities. This fasting blood sugar is less than the fasting blood sugar from yesterday's fasting of 94 mg/dL; there is a downwards trend each morning. It appeared previously that this may have been a trend from evening doses of Novolog; however, it is most likely from Lantus now. Reduced Lantus dose for evening by 10%. * Post-prandial BSGs appear relatively stable. Patient had elevated blood sugar yesterday evening but this blood sugar was only about 2 hours after the dinner insulin was given so may have been artificially elevated. * Total daily dose = ~120 units. May need to evenly re-distribute regimen 50%: 50% basal:prandial to prevent hypo/hyperglycemia. The patient may require the Lantus to be split more 50/50 to prevent hypoglycemia in the morning. PLAN FOR INPATIENT GLYCEMIC CONTROL: * Continuing Lantus 20 units SQ in the morning and DECREASING Lantus to 35 units SQ in the evening * Continuing correction factor of 15 mg/dl/unit * Continuing carb ratio of 1 unit per 4 grams CHO consumed * Continuing goal range of Low 110 mg/dL - High 140 mg/dL RECOMMENDATIONS FOR DISCHARGE: * see note from 07/30/17 Thank you.
[2017-08-01] MEDS: INSULIN GLARGINE SOLOSTAR 100 UNITS/ML 3 ML PEN SC SCH (09:44)
--- NOTE | 2017-08-01 09:56 | Progress Note ---
Progress Note Date of Service: Aug 01, 2017. Subjective 77 yo m with multiple medical problems, POD # 4 after RLE TMA debridement, seen in f/u today. Pt admits some discomfort, but states is improved. Denies any other new complaints. Objective Vital Signs Vital Signs Past 12 Hours Date Time Temp Pulse Resp B/P (MAP) Pulse Ox O2 Delivery O2 Flow Rate FiO2 08/01/17 08:04 36.6 73 14 148/67 (94) 97 Room Air 08/01/17 07:55 Room Air 08/01/17 02:07 75 112/57 (75) 97 Room Air 08/01/17 00:00 Room Air 07/31/17 23:08 36.9 92 16 91/53 (66) 97 Room Air Exam CONST: A&O x3, NAD, chroniaclly ill appearing male CHEST: RRR lungs decreased, but ctab ABD: soft, nontender, + bs x 4 quad EXT: RLE TMA site wound vac in place. Laboratory and Microbiology Results Past 24 Hours Test 07/31/17 12:16 07/31/17 16:55 07/31/17 21:17 08/01/17 05:19 Range/Units Bedside Glucose 137 106 167 70-99 mg/dl Creatinine 1.25 0.60-1.40 mg/dl Est Creatinine Clear Calc Drug Dose 59.5 ml/min Estimated GFR () 64.0 Estimated GFR (Non- 55.2 Test 08/01/17 07:42 Range/Units Bedside Glucose 90 70-99 mg/dl ASSESSMENT and PLAN: s/p RLE TMA debridement R foot wound infection Pt doing well post op. d/c home today with home nursing to chnage vac and administer IV abx. IV Zosyn to continue for 4 wks total. Orders for outpt labs placed. F/u with CHIDI Berg([place]), and Wound clinic([place]).
[2017-08-01] MEDS ORDERED: INSULIN GLARGINE SOLOSTAR 100 UNITS/ML 3 ML PEN SC SCH (21:00)
--- NOTE | 2017-08-04 11:51 | DISCHARGE SUMMARY ---
ADMISSION DIAGNOSIS: Right foot transmetatarsal amputation wound infection. DISCHARGE DIAGNOSES: 1. Status post right foot wound debridement. 2. Right foot wound infection. DISCHARGE CONDITION: Stable. CONSULTATIONS IN THE HOSPITAL: Included infectious disease with Dr. Bingham. PROCEDURES IN THE HOSPITAL: Included right foot transmetatarsal amputation debridement performed on 07/28/2017 with an EBL of 150 mL and no significant complications. HISTORY OF PRESENT ILLNESS: Mr. Sena is a 77-year-old male who presented to Dr. Berg's office a few years ago for peripheral arterial disease and has been followed since that time. He has previously undergone arteriography with [employer] and stenting of multiple arteries in the right lower extremity; however, in between appointments he called the office to be seen due to discoloration of his right fifth toe. In the office, it was found to be dry gangrenous and the patient subsequently underwent arteriography with [employer] and stenting of his popliteal and then underwent amputation of his right fourth and fifth toes due to necrosis. The patient presented to the office 2 weeks later for his follow-up visit and was found to have severe infection and further necrosis. His stents appeared to be patent and he then underwent a completed transmetatarsal amputation, which was partially closed. Between his discharge from that visit and his office appointment his home care nurses sent him to the Emergency Department for evaluation due to the wound VAC not sealing and falling off. In the Emergency Department they did a wound culture which demonstrated pseudomonas and VRE bacterial infection in his right foot wound. When wound culture results came to the office the patient was called and sent to the hospital for admission. Upon evaluation, he was found to have purulent discharge, foul odor as well as necrosis of the wound edges. At that point, he was recommended to undergo debridement. The procedure, risks, benefits, alternatives were discussed with the patient and he expressed understanding and agreement to proceed. HOSPITAL COURSE: The patient was admitted on 07/27/2017 for IV antibiotics. He subsequently underwent his right foot TMA debridement which was performed without significant complications. He was observed postoperatively and remained completely stable. He continued with Zosyn as per ID recommendations and had a PICC line inserted for discharge. He also had a wound VAC placed to his right foot surgical site which appeared to be working well. He was felt to be stable enough for discharge on postop day 4 with followups in our office as well as infectious disease and the wound clinic. PHYSICAL EXAMINATION: VITAL SIGNS: On day of discharge, his vital signs were as follows: A temperature of 36.9, pulse of 73 and blood pressure 129/67 with a pulse oximetry 97% on room air. CONSTITUTIONAL: The patient appears as a chronically ill appearing elderly male in no acute distress. ____ oriented x4. HEART: Demonstrates regular rate and rhythm. LUNGS: Decreased but clear. ABDOMEN: Soft, nontender with normoactive bowel sounds in all 4 quadrants. EXTREMITIES: Peripheral pulses are full and equal in his carotid, brachial, radial and femoral pulses. Right foot distal pulses are faintly palpable. His left foot demonstrates nonpalpable distal pulses, but does have brisk capillary refill and no signs of necrosis there. His right foot TMA site appeared to have healthy pink tissue upon placement of the wound VAC and had minimal bloody drainage from the wound at the time. DIET UPON DISCHARGE: Low-cholesterol AHA and diabetic diet. MEDICATIONS: Were reconciled on the chart and are as per the discharge instructions with the noted addition of IV Zosyn q. 6 hours to be administered by home nursing. FOLLOWUP: Should be with Dr. Berg within 1-2 weeks for reevaluation of his wound. Additionally he is to follow up with the wound clinic in 1 week and infectious disease with Dr. Bingham in 1-2 weeks. The patient is to call the office with any other questions.
[2017-08-14] MEDS ORDERED: ASPI81TA28 PO (05:43)
[2017-08-14] MEDS ORDERED: VTME100 PO (05:43)
[2017-08-14] MEDS ORDERED: METF-384 PO (07:21)
[2017-08-14] MEDS ORDERED: LISI-725 PO (07:21)
[2017-08-14] MEDS ORDERED: SIMV80TA2 PO (09:58)
[2017-08-14] MEDS ORDERED: PANT40TA PO (09:58)
[2017-08-14] MEDS ORDERED: AMLO-110 PO (09:58)
[2017-08-14] MEDS ORDERED: INSDGI SC ×2 (13:13)
[2017-08-14] MEDS ORDERED: NVLG SQ (13:13)
[2017-08-14] MEDS ORDERED: LATA0.009 OP (14:48)
[2017-08-14] MEDS ORDERED: CLOP1TAB15 PO (15:31)
[2017-08-14] MEDS ORDERED: OMEG10007 PO (15:31)
--- NOTE | 2017-09-01 08:44 | OPERATIVE REPORT ---
DATE OF OPERATION: 07/28/2017 PREOPERATIVE DIAGNOSIS: Infected necrotic transmetatarsal amputation site. POSTOPERATIVE DIAGNOSIS: Same. PROCEDURE: Debridement of right TMA. SURGEON: Ezekiel Berg MD ANESTHETIC: Local with sedation. PROCEDURE INDICATIONS: The patient is a 77-year-old white male who had a transmetatarsal amputation site with necrotic tissue present at the edges. Debridement was recommended. He understood the risks, options and benefits and agreed to have this procedure. The patient was taken to the operating room and placed in supine position. After anesthesia was accomplished, the necrotic area was debrided. It was carried back to good tissue. No purulent areas were noted. Once we got back to good tissue with adequate bleeding, the wound was then irrigated. It was packed open with 4 x 4's and Kerlix. The patient left the operating room in satisfactory condition and tolerated the procedure well. I attest to the content of the Intraoperative Record and any orders documented therein. Any exception s are noted below.
== END 2017-08-01 16:43 | disposition home health service (06) | DRG 566 ==
LOC: C.MSN 17:02
PROVIDERS: ADMIT Surgery Vascular Surgery; ATTEND Surgery Vascular Surgery
PROC: 0HDMXZZ Extraction of Right Foot Skin, External Approach (ICD-10-PCS; principal; 2017-07-28 14:00)
PROC: 02HV33Z Insertion of Infusion Device into Superior Vena Cava, Percutaneous Approach (ICD-10-PCS; 2017-07-31)
DX: T87.43 Infection of amputation stump, right lower extremity (principal); T87.53 Necrosis of amputation stump, right lower extremity; B95.2 Enterococcus as the cause of diseases classified elsewhere; B96.5 Pseudomonas (aeruginosa) (mallei) (pseudomallei) as the cause of diseases classified elsewhere; E11.621 Type 2 diabetes mellitus with foot ulcer; L97.519 Non-pressure chronic ulcer of other part of right foot with unspecified severity; I11.9 Hypertensive heart disease without heart failure; J44.9 Chronic obstructive pulmonary disease, unspecified; E78.5 Hyperlipidemia, unspecified; N40.0 Benign prostatic hyperplasia without lower urinary tract symptoms; I25.2 Old myocardial infarction; I25.10 Atherosclerotic heart disease of native coronary artery without angina pectoris; M10.9 Gout, unspecified; Z79.899 Other long term (current) drug therapy; Z79.82 Long term (current) use of aspirin; Z89.431 Acquired absence of right foot; Z95.5 Presence of coronary angioplasty implant and graft; Z86.73 Personal history of transient ischemic attack (TIA), and cerebral infarction without residual deficits; Z87.891 Personal history of nicotine dependence; Z82.49 Family history of ischemic heart disease and other diseases of the circulatory system; Y83.5 Amputation of limb(s) as the cause of abnormal reaction of the patient, or of later complication, without mention of misadventure at the time of the procedure

== ENCOUNTER 2017-09-04 11:25 | Inpatient (IN) | payer BC, OTHER ==
[~2017-09-04] VITALS: Ht 190.5 cm; Wt 83.2 kg
[~2017-09-04 11:25] MED LIST changes: +AMLO-110 PO; +ASPI81TA28 PO; -CLIN300C2 PO; +CLOP1TAB15 PO; +INSDGI SC; +LATA0.009 OP; +LISI-725 PO; +METF-384 PO; +NVLG SQ; +OMEG10007 PO; +PANT40TA PO; +SIMV80TA2 PO; +VTME100 PO; +ZSYI45 IV
--- NOTE | 2017-09-04 11:29 | Wound Clinic Procedure Note ---
Hyperbaric Oxygen Therapy Note Date of Service Sep 04, 2017. Pre-Therapy Vital Signs Blood Pressure: / Pulse: Respiratory Rate: Temperature: Capillary Blood Glucose: Procedure This is the patient's hyperbaric oxygen therapy treatment out of for a . The patient tolerated the descent, compression and ascent at atmospheres for 90 minutes with two 5 minute air breaks. The patient tolerated the procedure without difficulty. The patient showed no evidence of any barotrauma or oxygen toxicity issues. Total therapy time was minutes. The patient left the hyperbaric suite in satisfactory condition. Patient will be sent to the Hospital for Inpatient treatment Post Therapy Vital Signs Blood Pressure: / Pulse: Respiratory Rate: Temperature: Capillary Blood Glucose: Plan Continue Hyperbaric Oxygen Therapy as ordered. Attestation I was the supervising physician and was present during the entire hyperbaric oxygen therapy session.
[2017-09-04 11:35] VITALS: BP 129/73; PULSE 92; TEMP 36.4; O2SAT 100
[2017-09-04 11:40] VITALS: BMI 23.6
[2017-09-04] MEDS ORDERED: INFLUENZA VIRUS QUAD VACCINE 0.5 ML SYR IM. ONE (12:30)
[2017-09-04] MEDS ORDERED: ONDANSETRON INJ 2 MG/ML 2 ML VIAL IV PRN (12:30)
[2017-09-04] MEDS ORDERED: ACETAMINOPHEN 325 MG TAB PO PRN (12:30)
[2017-09-04] MEDS ORDERED: INFLUENZA ADMINISTRATION CHARGE ONE (12:30)
[2017-09-04] MEDS ORDERED: POLYETHYLENE (MIRALAX) 17 GM PACK PO PRN (12:30)
[2017-09-04] MEDS ORDERED: INSULIN ASPART 100 UNITS/ML 3 ML PEN SQ SCH (12:30)
[2017-09-04] MEDS ORDERED: PNEUMOCOCCAL POLYSACCHARIDES 25 MCG/0.5 ML VIAL/SYR IM. ONE (12:30)
[2017-09-04] MEDS ORDERED: PNEUMOCOCCAL ADMINISTRATION CHARGE ONE (12:30)
[2017-09-04] MEDS ORDERED: HYDROmorphone INJ 0.5 MG/0.5 ML SYR IV PRN (12:45)
[2017-09-04] MEDS ORDERED: HYDROmorphone INJ 1 MG/ML SYR IV PRN (12:45)
[2017-09-04] MEDS ORDERED: ACETAMINOPHEN 500 MG TAB PO PRN (12:45)
[2017-09-04] MEDS ORDERED: MULT-506 PO (13:14)
[2017-09-04 13:26] VITALS: O2SAT 100; BMI 22.9
[2017-09-04 13:35] LABS: BASO % 0.4 %; BASO ABS # 0.02 K/uL (0-0.2); HEMATOCRIT 26.8 % (42-52); IG% 0.2 %; LYMPH % 17.8 %; LYMPH ABS # 0.94 K/uL (1.2-3.4); MEAN CELL VOLUME 76.6 fL (80-100); MEAN CORPUSCULAR HGB CONC 31.3 g/dl (32-36); MEAN PLATELET VOLUME 8.6 fL (7.4-10.4); NEUT % 50.6 %; PLATELET COUNT 217 K/uL (130-400); WHITE BLOOD COUNT 5.29 K/uL (4.8-10.8)
[2017-09-04 13:44] LABS: INR 1.1 (0.9-1.1); PARTIAL THROMBOPLASTIN RATIO 1.1
[2017-09-04] MEDS ORDERED: TOBRAMYCIN CONSULT ACTIVE PRN (13:44)
[2017-09-04] MEDS: OXYCODONE HCL IR 5 MG TAB (IMMEDIATE RELEASE) PO PRN ×2 (13:53→21:36)
[2017-09-04 13:54] LABS: COMPLETE YES; HYPERSEGMENTED POLYS 1+; MICROCYTOSIS PRESENT; TOXIC GRANULATION 1+
[2017-09-04 13:58] LABS: CALCIUM 9.1 mg/dl (8.5-10.1); CREATININE 1.31 mg/dl (0.60-1.40); POTASSIUM 3.7 mmol/L (3.5-5.1)
--- NOTE | 2017-09-04 13:58 | History and Physical ---
History & Physical Date & Time of Service: Sep 04, 2017 at 13:53 Chief Complaint: Left Foot Non-Healing Wound Primary Care Physician: Haja Caruso D.O. History of Present Illness Worsening of a previously revised right foot transmetatarsal amputation. This wound previously shown a drug-resistant Pseudomonas and the patient was on intravenous Zosyn through a PICC line at home. A culture taken from the wound Center on September 01 shows the Pseudomonas now to be resistant to Zosyn this patient typically follows with Dr. Bingham. The patient's been receiving hyperbaric treatment to his wound despite this fact it is not had good granulation tissue and there is some dry gangrene on the superior aspect of it the patient at increased pain in the leg and he is recommended as a direct admission for tension this nonhealing amputation of course the patient suffers from peripheral vascular disease is a diabetic his blood glucoses have been in reasonable control at home Family History Cancer Coronary Artery Disease Hypertension Social History Smoking Status: Former Smoker Drug Use: none Marital Status: Occupational Status: retired Immunizations History of Influenza Vaccine: Unknown Multi-Drug Resistant Organisms History of MDRO: Yes Type of MDRO: VRE Allergies Coded Allergies: Pregabalin (Verified Allergy, Unknown, `, 08/15/17) Carbamazepine (Verified Adverse Reaction, Intermediate, 'my hair fell out' , 08/15/17) Home Medications Scheduled Amlodipine (Norvasc), 5 MG PO QAM Aspirin (Aspirin Ec), 81 MG PO QAM Clopidogrel (Plavix), 75 MG PO HS Fish Oil ([place]-3), 1 TAB PO BID Insulin Aspart (Novolog), Unknown Dose SQ UD Insulin Glargine (Lantus), 40 UNITS SC QPM Insulin Glargine (Lantus), 20 UNITS SC QAM Latanoprost (Xalatan 0.005% Oph Melany), 1 DROPS OP HS Lisinopril (Zestril), 20 MG PO QAM Metformin Hcl (Glucophage), 1,000 MG PO BID Multivitamin (Multivitamin), 1 TAB PO DAILY Pantoprazole (Protonix), 40 MG PO QAM Piperacillin/Tazobactam Sod (Zosyn 4-0.5 gm), 4.5 GM IV Q8 Simvastatin (Zocor), 80 MG PO QPM Tocopheryl Acet,Dl-Alpha (Vitamin E), 1 TAB PO QAM Review of Systems ROS: well nourished well developed having paroxysmal pain in his foot No double vision blurry vision No problems with speech or swallowing No palpitations, chest pain or pressure No Wheezing or breathing issues No abdominal pain nausea vomiting patient has developed some diarrhea while on antibiotics this is not foul smelling and there has been no fever No burning urine urine frequency or changes in color The pain as his foot is sharp is waxing and waning worse by movement worse by touching His skin is evidence of dry gangrene just proximal to the transmetatarsal amputation No other unusual bruising or bleeding No focused back pain or numbness or loss of strength No changes in memory or confusion Physical Exam Vital Signs Date Time Temp Pulse Resp B/P (MAP) Pulse Ox O2 Delivery O2 Flow Rate FiO2 09/04/17 13:26 100 Room Air 09/04/17 11:35 36.4 92 18 129/73 (91) 100 Room Air General Appearance: WD/WN, + moderate distress Head: normocephalic, atraumatic Eyes: PERRL, EOMI Neck: supple, no JVD Respiratory/Chest: chest non-tender, lungs clear, normal breath sounds Cardiovascular: regular rate, rhythm, + systolic murmur Abdomen/GI: normal bowel sounds, non tender, soft Extremities/Musculoskelatal: + pertinent finding (the right foot has a transmetatarsal agitation there is evidence of yellow slough off in the wound wound is not approximated it is a silver gauze in the wound is dry gangrene to the superior margin about 1/2 cm) Neurologic/Psych: alert, oriented x 3 Diagnostics Laboratory Results Results Past 24 Hours Test 09/04/17 12:41 09/04/17 12:54 Range/Units Bedside Glucose 269 70-99 mg/dl White Blood Count 5.29 4.8-10.8 K/uL Red Blood Count 3.50 4.7-6.1 M/uL Hemoglobin 8.4 14.0-18.0 g/dL Hematocrit 26.8 42-52 % Mean Corpuscular Volume 76.6 80-100 fL Mean Corpuscular Hemoglobin 24.0 25-34 pg Mean Corpuscular Hemoglobin Concent 31.3 32-36 g/dl Platelet Count 217 130-400 K/uL Mean Platelet Volume 8.6 7.4-10.4 fL Neutrophils (%) (Auto) 50.6 % Lymphocytes (%) (Auto) 17.8 % Monocytes (%) (Auto) 10.0 % Eosinophils (%) (Auto) 21.0 % Basophils (%) (Auto) 0.4 % Neutrophils # (Auto) 2.68 1.4-6.5 K/uL Lymphocytes # (Auto) 0.94 1.2-3.4 K/uL Monocytes # (Auto) 0.53 0.11-0.59 K/uL Eosinophils # (Auto) 1.11 0-0.5 K/uL Basophils # (Auto) 0.02 0-0.2 K/uL RDW Standard Deviation 44.2 36.4-46.3 fL RDW Coefficient of Variation 15.8 11.5-14.5 % Immature Granulocyte % (Auto) 0.2 % Immature Granulocyte # (Auto) 0.01 0.00-0.02 K/uL Prothrombin Time 12.0 9.0-12.0 SECONDS Prothromb Time International Ratio 1.1 0.9-1.1 Activated Partial Thromboplast Time 28.4 21.0-31.0 SECONDS Partial Thromboplastin Ratio 1.1 Microbiology Results 09/04/17 Blood Culture, Ordered Pending 09/04/17 Blood Culture, Ordered Pending Diagnostic Radiology Diagnostic tests are pending at the time of admission Impression Assessment and Plan 77-year-old male diabetic foot infection status post recent surgical revision now feeling outpatient treatment For the diabetic foot infection he is a drug resistant Pseudomonas is sensitive to tobramycin will pharmacy assistance in dosing this drug For the patient's diabetes he'll continue on basal bolus insulin will hold his metformin at this time For the patient's COPD this appears to be quiescent at this time we will continue his outpatient treatment regiment For the patient's peripheral artery disease will maintain aspirin and Plavix unless surgical intervention is required and these will be held For his hypertension he'll continue lisinopril and Norvasc and for secondary risk prevention for both cardiovascular intravascular disease will continue his Zocor DVD preventions based on heparin Advanced Directives Existing Living Will: No Existing Power of Horticulture Teacher: No VTE Prophylaxis VTE Risk Assessment Done? Y/N: Yes Risk Level: Moderate
[2017-09-04] MEDS ORDERED: TOBRAMYCIN SULF IV ONE (14:00)
[2017-09-04] MEDS ORDERED: DEXTROSE 5% IV ONE (14:00)
[2017-09-04 14:01] LABS: ALB/GLOB RATIO 0.6 (0.9-2)
[2017-09-04] MEDS: INSULIN ASPART 100 UNITS/ML 3 ML PEN SQ SCH ×3 (14:11→21:07)
[2017-09-04] MEDS: HEPARIN SOD 5000 UNIT/0.5 ML CARP SQ SCH ×2 (14:30→21:54)
--- NOTE | 2017-09-04 14:46 | Pharmacy Progress Note ---
Pharmacy Antibiotic Consult Date of Service: Sep 04, 2017. Pharmacy Dosing Scope Pharmacy is consulted to initiate Tobramycin IV dosing therapy, order appropriate labs and adjust drug dose/frequency. Subjective The patient is a 77 year old male admitted on Sep 04, 2017 at 11:25. Objective Height (Feet): 6 Height (Inches): 3.00 Weight (Kilograms): 83.200 Lab Results (24hrs): Test 09/04/17 12:41 09/04/17 12:54 Bedside Glucose 269 mg/dl (70-99) White Blood Count 5.29 K/uL (4.8-10.8) Red Blood Count 3.50 M/uL (4.7-6.1) Hemoglobin 8.4 g/dL (14.0-18.0) Hematocrit 26.8 % (42-52) Mean Corpuscular Volume 76.6 fL (80-100) Mean Corpuscular Hemoglobin 24.0 pg (25-34) Mean Corpuscular Hemoglobin Concent 31.3 g/dl (32-36) Platelet Count 217 K/uL (130-400) Mean Platelet Volume 8.6 fL (7.4-10.4) Neutrophils (%) (Auto) 50.6 % Lymphocytes (%) (Auto) 17.8 % Monocytes (%) (Auto) 10.0 % Eosinophils (%) (Auto) 21.0 % Basophils (%) (Auto) 0.4 % Neutrophils # (Auto) 2.68 K/uL (1.4-6.5) Lymphocytes # (Auto) 0.94 K/uL (1.2-3.4) Monocytes # (Auto) 0.53 K/uL (0.11-0.59) Eosinophils # (Auto) 1.11 K/uL (0-0.5) Basophils # (Auto) 0.02 K/uL (0-0.2) RDW Standard Deviation 44.2 fL (36.4-46.3) RDW Coefficient of Variation 15.8 % (11.5-14.5) Immature Granulocyte % (Auto) 0.2 % Immature Granulocyte # (Auto) 0.01 K/uL (0.00-0.02) Hypersegmented Polys 1+ Toxic Granulation 1+ Microcytosis PRESENT Prothrombin Time 12.0 SECONDS (9.0-12.0) Prothromb Time International Ratio 1.1 (0.9-1.1) Activated Partial Thromboplast Time 28.4 SECONDS (21.0-31.0) Partial Thromboplastin Ratio 1.1 Sodium Level 137 mmol/L (136-145) Potassium Level 3.7 mmol/L (3.5-5.1) Chloride Level 102 mmol/L (98-107) Carbon Dioxide Level 26 mmol/L (21-32) Anion Gap 9.0 mmol/L (3-11) Blood Urea Nitrogen 21 mg/dl (7-18) Creatinine 1.31 mg/dl (0.60-1.40) Est Creatinine Clear Calc Drug Dose 55.6 ml/min Estimated GFR () 60.4 Estimated GFR (Non- 52.1 BUN/Creatinine Ratio 16.0 (10-20) Random Glucose 231 mg/dl (70-99) Calcium Level 9.1 mg/dl (8.5-10.1) Total Bilirubin 0.2 mg/dl (0.2-1) Aspartate Amino Transf (AST/SGOT) 37 U/L (15-37) Alanine Aminotransferase (ALT/SGPT) 47 U/L (12-78) Alkaline Phosphatase 97 U/L (45-117) Total Protein 7.3 gm/dl (6.4-8.2) Albumin 2.7 gm/dl (3.4-5.0) Globulin 4.6 gm/dl (2.5-4.0) Albumin/Globulin Ratio 0.6 (0.9-2) Assessment & Plan Patient admitted after worsening of a previous foot amputation. Patient follows ID in wound clinic where he had been on zosyn. New cultures from 09/01 now positive for PA and resistant to zosyn. ID is consulted on admission. Tobramycin: * 600 mg iv x 1 given today (~7 mg/kg dose - based upon actual body weight) * Will obtain a random level for 2200 tonight to determine dosing interval utilizing nomogram * CrCl ~55 ml/min Pharmacy will continue to follow and will adjust dose/frequency as necessary. Thank you
[2017-09-04] MEDS ORDERED: GLUCOSE 10 TABS/TUBE PO PRN (15:15)
[2017-09-04] MEDS ORDERED: GLUCOSE 40% GEL 15 GM TUBE PO PRN (15:15)
[2017-09-04] MEDS ORDERED: GLUCAGON FOR INJ 1 MG VIAL SQ PRN (15:15)
[2017-09-04] MEDS ORDERED: DEXTROSE 50% 50 ML SYR IV PRN (15:15)
--- NOTE | 2017-09-04 15:58 | Medical Consult ---
Consultation Date of Consultation: Sep 04, 2017. Attending Physician: Michael Mcfarlane M.D. Reason for Consultation: diabetic foot infection History of Present Illness 77-year-old male with longstanding insulin-dependent diabetes mellitus, severe peripheral arterial disease status post stenting procedure, status post right transmetatarsal amputation for gangrenous changes, who has been followed at the Center for wound care for nonhealing wound of right foot. Has had culture positive for Pseudomonas aeruginosa and has been on IV Zosyn. Also undergoing hyperbaric oxygen treatment. Patient now admitted with worsening of infection over several days, with finding of quinolone and Zosyn resistant Pseudomonas. Patient has not had significant fever or chills. Blood sugars have been somewhat erratic. Pain currently 2/10 in intensity right foot. patient was started on IV tobramycin. 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, extremities (3) Ischemic pain of right foot (4) Post-operative infection Family History Cancer Coronary Artery Disease Hypertension Social History Smoking Status: Former Smoker Drug Use: none Marital Status: Occupation Status: retired Allergies Coded Allergies: Pregabalin (Verified Allergy, Unknown, `, 08/15/17) Carbamazepine (Verified Adverse Reaction, Intermediate, 'my hair fell out' , 08/15/17) Current Inpatient Medications Current Inpatient Medications Medications (Trade) Dose Ordered Sig/Sol Route Start Time Stop Time Status Last Admin Dose Admin Amlodipine Besylate (Norvasc Tab) 5 mg QAM PO 09/05/17 08:00 10/05/17 07:59 Aspirin (Ecotrin Tab) 81 mg QAM PO 09/05/17 08:00 10/05/17 07:59 Clopidogrel Bisulfate (plAVix TAB) 75 mg HS PO 09/04/17 22:00 10/04/17 21:59 Insulin Glargine (Lantus Solostar Pen) 20 units QAM SC 09/05/17 08:00 10/05/17 07:59 Insulin Glargine (Lantus Solostar Pen) 40 units QPM SC 09/04/17 21:00 10/04/17 20:59 Latanoprost (Xalatan Oph Soln) 1 drops HS OP 09/04/17 22:00 10/04/17 21:59 Lisinopril (Zestril Tab) 20 mg QAM PO 09/05/17 08:00 10/05/17 07:59 Pantoprazole Sodium (Protonix Tab) 40 mg QAM PO 09/05/17 08:00 10/05/17 07:59 Simvastatin (Zocor Tab) 80 mg QPM PO 09/04/17 21:00 10/04/17 20:59 Tobramycin Sulfate (Consult) 1 ea UD PRN N/A 09/04/17 13:44 10/04/17 13:43 Polyethylene (Miralax Powder Packet) 17 gm DAILY PRN PO 09/04/17 12:30 10/04/17 12:29 Ondansetron HCl (Zofran Inj) 4 mg Q6H PRN IV 09/04/17 12:30 10/04/17 12:29 Heparin Sodium (Porcine) (Heparin Sq 5000 Unit/0.5ml) 5,000 unit Q12 SQ 09/04/17 14:00 10/04/17 13:59 09/04/17 14:30 5,000 UNIT Acetaminophen (Tylenol Tab) 1,000 mg Q6H PRN PO 09/04/17 12:45 10/04/17 12:29 Hydromorphone HCl (Dilaudid Inj) 1 mg Q4 PRN IV 09/04/17 12:45 09/18/17 12:44 Hydromorphone HCl (Dilaudid Inj) 0.5 mg Q4 PRN IV 09/04/17 12:45 09/18/17 12:44 Oxycodone HCl (Roxicodone Immediate Rel Tab) 10 mg Q6 PRN PO 09/04/17 12:45 09/18/17 12:44 09/04/17 13:53 10 MG Heparin Sodium (Porcine) (Heparin 10 Unit/ ml 5 ml Flush) 5 ml PRN PRN FLUSH 09/04/17 14:00 10/04/17 13:59 Insulin Aspart (novoLOG ASPART) SLIDING SCALE ACHS SQ 09/04/17 14:00 10/04/17 13:59 09/04/17 14:11 8 UNITS Albuterol/ Ipratropium (Combivent Respimat Inh) 1 puffs QID INH 09/04/17 17:00 10/04/17 16:59 Tobramycin Sulfate 600 mg/ Dextrose 115 ml @ 100 mls/hr DAILY@1400 IV 09/05/17 14:00 09/15/17 13:59 Glucose (Glucose 40% Gel) 15-30 GRAMS 15 GRAMS... UD PRN PO 09/04/17 15:15 10/04/17 15:14 Glucose (Glucose Chew Tab) 4-8 Tablets 4 Tabl... UD PRN PO 09/04/17 15:15 10/04/17 15:14 Dextrose (Dextrose 50% 50ML Syringe) 25-50ML OF 50% DW IV FOR... UD PRN IV 09/04/17 15:15 10/04/17 15:14 Glucagon (Glucagon Inj) 1 mg UD PRN SQ 09/04/17 15:15 10/04/17 15:14 Review of Systems Constitutional: No fever, No chills Eyes: No problem reported ENT: No problem reported Respiratory: No problem reported Cardiovascular: No problem reported Abdomen: + diarrhea Musculoskeletal: + joint pain, + swelling Genitourinary - Male: No problem reported Neurologic: No problem reported Psychiatric: No problem reported Endocrine: No problem reported Hematologic / Lymphatic: No problem reported Integumentary: + new/changing skin lesions Allergic / Immunologic: No problem reported Physical Exam Date Time Temp Pulse Resp B/P (MAP) Pulse Ox O2 Delivery O2 Flow Rate FiO2 09/04/17 13:26 100 Room Air 09/04/17 13:00 Room Air 09/04/17 11:35 36.4 92 18 129/73 (91) 100 Room Air General Appearance: WD/WN, no apparent distress Head: normocephalic, atraumatic Eyes: normal inspection, EOMI, sclerae normal ENT: normal ENT inspection, pharynx normal Neck: supple, no adenopathy, thyroid normal, trachea midline Respiratory/Chest: chest non-tender, lungs clear, normal breath sounds, no respiratory distress Cardiovascular: regular rate, rhythm, no gallop, + systolic murmur Abdomen/GI: normal bowel sounds, non tender, soft, no organomegaly Back: normal inspection, no CVA tenderness Extremities/Musculoskelatal: no calf tenderness, + inflammation (right foot), + swelling (right foot) Neurologic/Psych: alert, oriented x 3 Skin: normal color, no rash, + pertinent finding (Wound with surrounding erythema right foot) Lymphatic: no adenopathy Laboratory Results Date/Time Source Procedure Growth Status 09/04/17 13:12 Blood Blood Culture Pending Ordered 09/04/17 12:54 Blood Blood Culture Pending Ordered Last 24 Hours Test 09/04/17 12:41 09/04/17 12:54 Bedside Glucose 269 mg/dl White Blood Count 5.29 K/uL Red Blood Count 3.50 M/uL Hemoglobin 8.4 g/dL Hematocrit 26.8 % Mean Corpuscular Volume 76.6 fL Mean Corpuscular Hemoglobin 24.0 pg Mean Corpuscular Hemoglobin Concent 31.3 g/dl Platelet Count 217 K/uL Mean Platelet Volume 8.6 fL Neutrophils (%) (Auto) 50.6 % Lymphocytes (%) (Auto) 17.8 % Monocytes (%) (Auto) 10.0 % Eosinophils (%) (Auto) 21.0 % Basophils (%) (Auto) 0.4 % Neutrophils # (Auto) 2.68 K/uL Lymphocytes # (Auto) 0.94 K/uL Monocytes # (Auto) 0.53 K/uL Eosinophils # (Auto) 1.11 K/uL Basophils # (Auto) 0.02 K/uL RDW Standard Deviation 44.2 fL RDW Coefficient of Variation 15.8 % Immature Granulocyte % (Auto) 0.2 % Immature Granulocyte # (Auto) 0.01 K/uL Hypersegmented Polys 1+ Toxic Granulation 1+ Microcytosis PRESENT Prothrombin Time 12.0 SECONDS Prothromb Time International Ratio 1.1 Activated Partial Thromboplast Time 28.4 SECONDS Partial Thromboplastin Ratio 1.1 Sodium Level 137 mmol/L Potassium Level 3.7 mmol/L Chloride Level 102 mmol/L Carbon Dioxide Level 26 mmol/L Anion Gap 9.0 mmol/L Blood Urea Nitrogen 21 mg/dl Creatinine 1.31 mg/dl Est Creatinine Clear Calc Drug Dose 55.6 ml/min Estimated GFR () 60.4 Estimated GFR (Non- 52.1 BUN/Creatinine Ratio 16.0 Random Glucose 231 mg/dl Calcium Level 9.1 mg/dl Total Bilirubin 0.2 mg/dl Aspartate Amino Transf (AST/SGOT) 37 U/L Alanine Aminotransferase (ALT/SGPT) 47 U/L Alkaline Phosphatase 97 U/L Total Protein 7.3 gm/dl Albumin 2.7 gm/dl Globulin 4.6 gm/dl Albumin/Globulin Ratio 0.6 Assessment & Plan Nonhealing transmetatarsal amputation site with highly resistant Pseudomonas aeruginosa. Given limited antibiotic alternatives, have elected to treat patient with ceftolozane-tazobactam and will hold tobramycin for now pending clinical response. Recommend vascular surgery evaluation. Will follow.
[2017-09-04 16:00] VITALS: O2SAT 100
[2017-09-04 16:08] VITALS: BP 130/75; PULSE 81; TEMP 36.8; O2SAT 99
[2017-09-04] MEDS: DEXTROSE 5% IV SCH (16:44)
[2017-09-04] MEDS: TAZOBACTAM IV SCH (16:44)
[2017-09-04] MEDS: CEFTOLOZANE IV SCH (16:44)
[2017-09-04] MEDS: IPRATROPIUM BROMIDE/ALBUTEROL respimat INH INH SCH ×3 (17:00→20:00)
[2017-09-04] MEDS: INSULIN GLARGINE SOLOSTAR 100 UNITS/ML 3 ML PEN SC SCH (20:52)
[2017-09-04] MEDS: LATANOPROST 0.005% OP SOLN 2.5 ML BTL OP SCH (20:54)
[2017-09-04] MEDS: CLOPIDOGREL BISULFATE 75 MG TAB PO SCH (20:54)
[2017-09-04] MEDS: SIMVASTATIN 80 MG TAB PO SCH (20:55)
[2017-09-04 23:56] VITALS: BP 130/67; PULSE 74; TEMP 36.7; O2SAT 98
[2017-09-05] MEDS: DEXTROSE 5% IV SCH ×3 (00:22→16:04)
[2017-09-05] MEDS: CEFTOLOZANE IV SCH ×3 (00:22→16:04)
[2017-09-05] MEDS: TAZOBACTAM IV SCH ×3 (00:22→16:04)
[2017-09-05 05:25] LABS: HEMATOCRIT 26.5 % (42-52); MEAN CELL VOLUME 76.6 fL (80-100); MEAN CORPUSCULAR HGB CONC 31.3 g/dl (32-36); MEAN PLATELET VOLUME 8.4 fL (7.4-10.4); PLATELET COUNT 212 K/uL (130-400); RED BLOOD COUNT 3.46 M/uL (4.7-6.1); WHITE BLOOD COUNT 4.84 K/uL (4.8-10.8)
[2017-09-05] MEDS: OXYCODONE HCL IR 5 MG TAB (IMMEDIATE RELEASE) PO PRN ×2 (05:47→21:11)
[2017-09-05 05:50] LABS: BUN/CREATININE RATIO 16.6 (10-20); CALCIUM 8.9 mg/dl (8.5-10.1); CREATININE 1.26 mg/dl (0.60-1.40); POTASSIUM 3.9 mmol/L (3.5-5.1)
[2017-09-05 07:03] VITALS: BP 136/79; PULSE 74; TEMP 36.7; O2SAT 97
[2017-09-05] MEDS: AMLODIPINE BESYLATE 5 MG TAB PO SCH (07:59)
[2017-09-05] MEDS: PANTOprazole SOD 40 MG TAB PO SCH (07:59)
[2017-09-05] MEDS: ASPIRIN 81 MG ECTAB PO SCH (07:59)
[2017-09-05] MEDS: LISINOPRIL 20 MG TAB PO SCH (08:00)
[2017-09-05] MEDS: IPRATROPIUM BROMIDE/ALBUTEROL respimat INH INH SCH ×4 (08:00→20:00)
[2017-09-05] MEDS: INSULIN GLARGINE SOLOSTAR 100 UNITS/ML 3 ML PEN SC SCH ×2 (08:07→21:17)
[2017-09-05] MEDS: HEPARIN SOD 5000 UNIT/0.5 ML CARP SQ SCH ×2 (08:34→21:16)
[2017-09-05] MEDS: INSULIN ASPART 100 UNITS/ML 3 ML PEN SQ SCH ×4 (08:34→21:16)
--- NOTE | 2017-09-05 09:31 | Surgery Consultation ---
Consultation Date of Service Sep 05, 2017. (Lory Littlejohn, ADRIANO) Chief Complaint RLE nonhealing, infected wound (Lory Littlejohn, ADRIANO) History of Present Illness The patient is a 77 year old male with multiple medical problems, including PAD s/p stenting RLE, s/p RLE TMA d/t gangrene and subsequent debridement, seen today for infected and nonhealing RLE TMA site. This is a recurrent infection. Pt admits pain and states his has been administering the abx at home as prescribed. Has been following at wound clinic, where he had hyperbaric tx without success and was sent back to [facility] for further eval. Pt denies [place], fever , chills, chest pain, N/V, rest pain, claudication, other complaints. (Lory Littlejohn, ADRIANO) Vitals Vital Signs Past 12 Hours Date Time Temp Pulse Resp B/P (MAP) Pulse Ox O2 Delivery O2 Flow Rate FiO2 09/05/17 08:00 Room Air 09/05/17 07:03 36.7 74 20 136/79 (98) 97 Room Air 09/05/17 00:15 Room Air 09/04/17 23:56 36.7 74 20 130/67 (88) 98 Room Air (Lory Littlejohn, ADRIANO) Allergies Coded Allergies: Pregabalin (Verified Allergy, Unknown, `, 08/15/17) Carbamazepine (Verified Adverse Reaction, Intermediate, 'my hair fell out' , 08/15/17) Home Medications Scheduled Amlodipine (Norvasc), 5 MG PO QAM Aspirin (Aspirin Ec), 81 MG PO QAM Clopidogrel (Plavix), 75 MG PO HS Fish Oil ([place]-3), 1 TAB PO BID Insulin Aspart (Novolog), Unknown Dose SQ UD Insulin Glargine (Lantus), 40 UNITS SC QPM Insulin Glargine (Lantus), 20 UNITS SC QAM Latanoprost (Xalatan 0.005% Oph Melany), 1 DROPS OP HS Lisinopril (Zestril), 20 MG PO QAM Metformin Hcl (Glucophage), 1,000 MG PO BID Multivitamin (Multivitamin), 1 TAB PO DAILY Pantoprazole (Protonix), 40 MG PO QAM Piperacillin/Tazobactam Sod (Zosyn 4-0.5 gm), 4.5 GM IV Q8 Simvastatin (Zocor), 80 MG PO QPM Tocopheryl Acet,Dl-Alpha (Vitamin E), 1 TAB PO QAM Problem List Medical Problems: (1) Diabetic foot infection (2) 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, extremities (3) Ischemic pain of right foot (4) Post-operative infection (Lory Littlejohn PA-C) Surgical / Medical History Hx Cardiac Surgery: No Hx Abdominal Surgery: Yes (hernia repair) Hx Cancer Surgery: No Hx Thoracic Surgery: No Hx Orthopedic: Yes (amputation of right toes ) Hx Urinary Tract Surgery: No HX Other Surgery: Yes (tonsillectomy,right carotid endarterectomy, vascular stents, see below) Past Medical/Surgical History: Diabetes, High Cholesterol, Hypertension, Kidney Disease (Lory Littlejohn, ADRIANO) Family History Cancer Coronary Artery Disease Hypertension (Lory Littlejohn PA-C) Cancer Coronary Artery Disease Hypertension (Ezekiel Berg M.D.) Social History Smoking Status: Former Smoker Hx Tobacco Use In Past Year?: No Hx Alcohol Use - Type & Amnt: No Hx Substance Use -Type & Amnt: No (Lory Littlejohn, CYNTHIAC) Review of Systems Constitutional: No chills, No fever, No malaise Skin: No change in color Eyes: No visual changes ENMT: No sore throat Respiratory: No cough, No GRANT, No hemoptysis, No short of breath Cardiovascular: No chest pain, No palpitations, No syncope, No edema, No intermittent claudication Gastrointestinal: No abdominal pain, No nausea, No vomiting Neurologic: No dizziness, No weakness, No headache, No numbness, No tingling ( Lory Littlejohn, CYNTHIAC) Physical Exam Constitutional: General Apperance: well-nourished, well-developed Level of Distress: NAD, chronically ill (mildly) Psychiatric: Mental Status: active & alert, normal mood, normal affect Orientation: oriented except where noted, to time, to place, to person Memory: recent memory normal, remote memory normal Head: normocephalic, atraumatic Eyes: EOM: EOMI ENMT: normal ENT inspection, + pertinent finding ([place], hearing aids) Neck: supple, trachea midline Lungs: Respiratory effort: no dyspnea Auscultation: no wheezing, no rales/crackles, no rhonchi, decreased breath sounds Cardiovascular: Apical Impulse: not displaced Heart Auscultation: RRR, no rubs, no gallops, murmur Peripheral Pulses: Pulses: full and equal, in all extremities except if noted Bruits: none appreciated Carotid Pulse: normal on the left, normal on the right Brachial Pulses: normal on the left, normal on the right Radial Pulse: normal on the left, normal on the right Femoral Pulse: normal on the left, normal on the right Posterior Tibialis Pulse: decreased on the left, decreased on the right Dorsalis Pedis Pulse: decreased on the left, absent on the right Abdomen: Bowel Sounds: normal Inspection & Palpation: soft, non-distended, no tenderness, guarding & rebound Musculoskeletal: normal strength (5/5 throughout), normal tone Extremities: Upper Right: no cyanosis, no edema, no varicosities Upper Left: no cyanosis, no edema, no varicosities Lower Right: pertinent finding (RLE TMA site wide open, some pink granulation in center, significant slough and mild erythema noted periwound. + necrotic area dorsal aspect. Exposed bone. No bleeding) Lower Left: no cyanosis, no edema, no varicosities Neurologic: Cranial Nerves: grossly intact Sensation: grossly intact (Lory Littlejohn, PA-C) Assessment and Plan ASSESSMENT and PLAN: Infected RLE TMA PAD Pt also seen by Dr Berg. Recommends Arterial US to verify patency of RLE stents. If occluded, may consider bypass for limb salvage if pt agreeable, then debridement of wound. Will discuss US findings with patient tomorrow. Continue abx and local wound care. (Lory Littlejohn, PA-C) Patient was seen, examined, and chart reviewed. Agree with exam and treatment plan of the Vascular PA. Will plan on angio with possible intervention on Monday. (Ezekiel Berg M.D.)
--- NOTE | 2017-09-05 12:30 | Progress Note ---
Subjective Date of Service: Sep 05, 2017. Subjective Pt evaluation today including: conversation w/ patient, conversation w/ family , physical exam, chart review, lab review, review of studies, conversation w/ bridal sales consultant, review of inpatient medication list Right foot dress, but has none healing wound, has yellow drainages Patient has no fever no chills, general condition feeling okay Problem List Medical Problems: (1) Needs peripherally inserted central catheter (PICC) Status: Acute Review of Systems Constitutional: No fever, No chills, No sweats, No weight loss, No weakness, No fatigue, No problem reported Eyes: No worsening of vision, No eye pain, No redness, No discharge, No diplopia ENT: No hearing loss, No unusual epistaxis, No nasal symptoms, No sore throat, No tinnitus, No dental problems, No trouble swallowing Respiratory: No cough, No sputum, No wheezing, No shortness of breath, No dyspnea on exertion, No dyspnea at rest, No hemoptysis Cardiac: No chest pain, No orthopnea, No PND, No edema, No claudication, No palpitations Abdomen: No pain, No nausea, No vomiting, No diarrhea, No constipation Musculoskeletal: No joint pain, No muscle pain, No swelling, No calf pain Male : No dysuria, No urinary frequency, No incontinence, No nocturia more than once/night, No slowing stream, No hematuria Neurologic: No memory loss, No paralysis, No weakness, No numbness/tingling, No vertigo, No balance problems Psychiatric: No depression symptoms, No anhedonism, No anxiety, No insomnia, No substance abuse Heme: No abnormal bleeding/bruising, No clotting problems, No swollen lymph nodes, No night sweats Endo: No fatigue, No excessive thirst, No excessive urination Skin: + see HPI Objective Vital Signs Date Time Temp Pulse Resp B/P (MAP) Pulse Ox O2 Delivery O2 Flow Rate FiO2 09/05/17 08:00 Room Air 09/05/17 07:03 36.7 74 20 136/79 (98) 97 Room Air 09/05/17 00:15 Room Air 09/04/17 23:56 36.7 74 20 130/67 (88) 98 Room Air 09/04/17 16:08 36.8 81 18 130/75 (93) 99 Room Air 09/04/17 16:00 100 Room Air 09/04/17 13:26 100 Room Air 09/04/17 13:00 Room Air Physical Exam General Appearance: WD/WN, no apparent distress Eyes: normal inspection, PERRL, EOMI, sclerae normal ENT: normal ENT inspection, hearing grossly normal, pharynx normal Neck: supple, no adenopathy, thyroid normal, no JVD, no carotid bruits, trachea midline Respiratory/Chest: chest non-tender, lungs clear, normal breath sounds, no respiratory distress, no accessory muscle use Cardiovascular: regular rate, rhythm, no edema, no gallop, no JVD, + systolic murmur Abdomen: normal bowel sounds, non tender, soft, no organomegaly, no pulsatile mass Extremities: normal capillary refill, pelvis stable, + pertinent finding ( right anterior foot S/P amputation, nonhealing wound, with yellow drainages, and surface is morning) Neurologic/Psychiatric: apartment rental agent II-XII nml as tested, no motor/sensory deficits, alert, normal mood/affect, oriented x 3 Skin: normal color, warm/dry, no rash Lymphatic: no adenopathy Laboratory Results Last 24 Hours Test 09/04/17 12:41 09/04/17 12:54 09/04/17 16:32 09/04/17 20:25 Bedside Glucose 269 mg/dl 185 mg/dl 241 mg/dl White Blood Count 5.29 K/uL Red Blood Count 3.50 M/uL Hemoglobin 8.4 g/dL Hematocrit 26.8 % Mean Corpuscular Volume 76.6 fL Mean Corpuscular Hemoglobin 24.0 pg Mean Corpuscular Hemoglobin Concent 31.3 g/dl Platelet Count 217 K/uL Mean Platelet Volume 8.6 fL Neutrophils (%) (Auto) 50.6 % Lymphocytes (%) (Auto) 17.8 % Monocytes (%) (Auto) 10.0 % Eosinophils (%) (Auto) 21.0 % Basophils (%) (Auto) 0.4 % Neutrophils # (Auto) 2.68 K/uL Lymphocytes # (Auto) 0.94 K/uL Monocytes # (Auto) 0.53 K/uL Eosinophils # (Auto) 1.11 K/uL Basophils # (Auto) 0.02 K/uL RDW Standard Deviation 44.2 fL RDW Coefficient of Variation 15.8 % Immature Granulocyte % (Auto) 0.2 % Immature Granulocyte # (Auto) 0.01 K/uL Hypersegmented Polys 1+ Toxic Granulation 1+ Microcytosis PRESENT Prothrombin Time 12.0 SECONDS Prothromb Time International Ratio 1.1 Activated Partial Thromboplast Time 28.4 SECONDS Partial Thromboplastin Ratio 1.1 Sodium Level 137 mmol/L Potassium Level 3.7 mmol/L Chloride Level 102 mmol/L Carbon Dioxide Level 26 mmol/L Anion Gap 9.0 mmol/L Blood Urea Nitrogen 21 mg/dl Creatinine 1.31 mg/dl Est Creatinine Clear Calc Drug Dose 55.6 ml/min Estimated GFR () 60.4 Estimated GFR (Non- 52.1 BUN/Creatinine Ratio 16.0 Random Glucose 231 mg/dl Calcium Level 9.1 mg/dl Total Bilirubin 0.2 mg/dl Aspartate Amino Transf (AST/SGOT) 37 U/L Alanine Aminotransferase (ALT/SGPT) 47 U/L Alkaline Phosphatase 97 U/L Total Protein 7.3 gm/dl Albumin 2.7 gm/dl Globulin 4.6 gm/dl Albumin/Globulin Ratio 0.6 Test 09/05/17 05:09 09/05/17 07:42 09/05/17 11:47 White Blood Count 4.84 K/uL Red Blood Count 3.46 M/uL Hemoglobin 8.3 g/dL Hematocrit 26.5 % Mean Corpuscular Volume 76.6 fL Mean Corpuscular Hemoglobin 24.0 pg Mean Corpuscular Hemoglobin Concent 31.3 g/dl RDW Standard Deviation 45.0 fL RDW Coefficient of Variation 16.0 % Platelet Count 212 K/uL Mean Platelet Volume 8.4 fL Sodium Level 140 mmol/L Potassium Level 3.9 mmol/L Chloride Level 104 mmol/L Carbon Dioxide Level 27 mmol/L Anion Gap 9.0 mmol/L Blood Urea Nitrogen 21 mg/dl Creatinine 1.26 mg/dl Est Creatinine Clear Calc Drug Dose 57.8 ml/min Estimated GFR () 63.3 Estimated GFR (Non- 54.7 BUN/Creatinine Ratio 16.6 Random Glucose 111 mg/dl Calcium Level 8.9 mg/dl Bedside Glucose 104 mg/dl 233 mg/dl Assessment and Plan 77-year-old male admitted on 09/04/2017 because of worsening nonhealing wound of right foot, failed outpatient treatment Per report, he has longstanding insulin-dependent diabetes mellitus, severe peripheral arterial disease status post stenting procedure, status post right transmetatarsal amputation for gangrenous changes, who [facility] for nonhealing wound of right foot nonhealing wound of right foot status post right transmetatarsal amputation: culture positive for Pseudomonas aeruginosa and has been on IV Zosyn, but bacteria of pseudomonas is quinolone and Zosyn Upon admission patient was started on IV tobramycin, which was change to other antibiotic Zerbasa iv per infectious disease Vascular surgeon seeing patient, ordered US, will follow-up input, Uncontrolled Insulin-dependent diabetic, With A1c 8.8 on June 2017 continue current care with Lantus plus insulin sliding scale, COPD, stable continue his outpatient treatment regiment Peripheral artery disease: Continue aspirin and Plavix , and follow-up vascular surgeons input Dyslipidemia, will continue Zocor Heparin for DVT prophylaxis Patient is full code Continued [facility] stay due to: multiple IV medications needed Discharge planning: home
[2017-09-05] MEDS ORDERED: TOBRAMYCIN SULF IV SCH ×4 (14:00)
[2017-09-05] MEDS ORDERED: DEXTROSE 5% IV SCH ×4 (14:00)
--- NOTE | 2017-09-05 14:08 | DIAGNOSTIC IMAGING REPORT ---
R ART DOP DUPLEX LWR EXT UNI CLINICAL HISTORY: open right foot TMA claudication. Infection. TECHNIQUE: Arterial Doppler COMPARISON STUDY: None FINDINGS: Biphasic waveforms within the right common femoral artery. Monophasic waveforms throughout the arterial structures of the distal findings as well as the entirety of the right lower leg. There is a proximal common femoral arterial stent. Extensive plaque formation is identified throughout the mid to lower right leg as well as in the calf region. Velocity characteristics of the superior femoral artery proximally are 300 cm/s indicating a focal stenotic process. 400 cm/s within the popliteal artery. Monophasic waveforms are identified at all additional areas. IMPRESSION: 1. Findings consistent with high-grade stenotic process of the proximal right superficial femoral artery, popliteal artery, with somewhat dampened flow characteristics of all remaining vascular structures. 2. Ankle brachial index on the right involving the dorsalis pedis artery is 0.29 and noncompressible involving the posterior tibial artery. 3. Ankle brachial index on the left involving the dorsalis pedis artery 0.65 and noncompressible involving the posterior tibial artery. 4. The appearance overall suggests extensive multilevel arterial occlusive change. The above report was generated using voice recognition software. It may contain grammatical, syntax or spelling errors. Electronically signed by: Aaron Grant M.D. 09/05/2017 2:06 PM Dictated Date/Time: 09/05/2017 2:03 PM
[2017-09-05 14:27] VITALS: BMI 22.9
[2017-09-05 15:28] VITALS: BP 115/56; PULSE 73; TEMP 36.7; O2SAT 99
[2017-09-05 16:00] VITALS: O2SAT 99
--- NOTE | 2017-09-05 17:39 | Infectious Disease Progress Nt ---
Progress Note Date of Service Sep 05, 2017. Subjective Pt evaluation today including: conversation w/ patient, physical exam, chart review, lab review, review of studies, conversation w/ continuous improvement consultant, review of inpatient medication list ( What he with) patient offers no new complaints today. Tolerating antibiotic without apparent difficulty. Remains afebrile. blood cultures remain negative to date. All Other Systems: Reviewed and Negative Medications Current Inpatient Medications Medications (Trade) Dose Ordered Sig/Sol Route Start Time Stop Time Status Last Admin Dose Admin Amlodipine Besylate (Norvasc Tab) 5 mg QAM PO 09/05/17 08:00 10/05/17 07:59 09/05/17 07:59 5 MG Aspirin (Ecotrin Tab) 81 mg QAM PO 09/05/17 08:00 10/05/17 07:59 09/05/17 07:59 81 MG Clopidogrel Bisulfate (plAVix TAB) 75 mg HS PO 09/04/17 22:00 10/04/17 21:59 09/04/17 20:54 75 MG Insulin Glargine (Lantus Solostar Pen) 20 units QAM SC 09/05/17 08:00 10/05/17 07:59 09/05/17 08:07 20 UNITS Insulin Glargine (Lantus Solostar Pen) 40 units QPM SC 09/04/17 21:00 10/04/17 20:59 09/04/17 20:52 40 UNITS Latanoprost (Xalatan Oph Soln) 1 drops HS OP 09/04/17 22:00 10/04/17 21:59 09/04/17 20:54 1 DROPS Lisinopril (Zestril Tab) 20 mg QAM PO 09/05/17 08:00 10/05/17 07:59 09/05/17 08:00 20 MG Pantoprazole Sodium (Protonix Tab) 40 mg QAM PO 09/05/17 08:00 10/05/17 07:59 09/05/17 07:59 40 MG Simvastatin (Zocor Tab) 80 mg QPM PO 09/04/17 21:00 10/04/17 20:59 09/04/17 20:55 80 MG Polyethylene (Miralax Powder Packet) 17 gm DAILY PRN PO 09/04/17 12:30 10/04/17 12:29 Ondansetron HCl (Zofran Inj) 4 mg Q6H PRN IV 09/04/17 12:30 10/04/17 12:29 Heparin Sodium (Porcine) (Heparin Sq 5000 Unit/0.5ml) 5,000 unit Q12 SQ 09/04/17 14:00 10/04/17 13:59 09/05/17 08:34 5,000 UNIT Acetaminophen (Tylenol Tab) 1,000 mg Q6H PRN PO 09/04/17 12:45 10/04/17 12:29 Hydromorphone HCl (Dilaudid Inj) 1 mg Q4 PRN IV 09/04/17 12:45 09/18/17 12:44 Hydromorphone HCl (Dilaudid Inj) 0.5 mg Q4 PRN IV 09/04/17 12:45 09/18/17 12:44 Oxycodone HCl (Roxicodone Immediate Rel Tab) 10 mg Q6 PRN PO 09/04/17 12:45 09/18/17 12:44 09/05/17 05:47 10 MG Heparin Sodium (Porcine) (Heparin 10 Unit/ ml 5 ml Flush) 5 ml PRN PRN FLUSH 09/04/17 14:00 10/04/17 13:59 09/05/17 17:13 5 ML Insulin Aspart (novoLOG ASPART) SLIDING SCALE ACHS SQ 09/04/17 14:00 10/04/17 13:59 09/05/17 12:43 9 UNITS Albuterol/ Ipratropium (Combivent Respimat Inh) 1 puffs QID INH 09/04/17 17:00 10/04/17 16:59 Glucose (Glucose 40% Gel) 15-30 GRAMS 15 GRAMS... UD PRN PO 09/04/17 15:15 10/04/17 15:14 Glucose (Glucose Chew Tab) 4-8 Tablets 4 Tabl... UD PRN PO 09/04/17 15:15 10/04/17 15:14 Dextrose (Dextrose 50% 50ML Syringe) 25-50ML OF 50% DW IV FOR... UD PRN IV 09/04/17 15:15 10/04/17 15:14 Glucagon (Glucagon Inj) 1 mg UD PRN SQ 09/04/17 15:15 10/04/17 15:14 Ceftolozane/ Tazobactam 1.5 gm/ Dextrose 111.4 ml @ 111.4 mls/ hr Q8H IV 09/04/17 16:00 09/14/17 15:59 09/05/17 16:04 111.4 MLS/HR Objective Vital Signs Date Time Temp Pulse Resp B/P (MAP) Pulse Ox O2 Delivery O2 Flow Rate FiO2 09/05/17 16:00 99 Room Air 09/05/17 15:28 36.7 73 16 115/56 (75) 99 Room Air 09/05/17 08:00 Room Air 09/05/17 07:03 36.7 74 20 136/79 (98) 97 Room Air 09/05/17 00:15 Room Air 09/04/17 23:56 36.7 74 20 130/67 (88) 98 Room Air Physical Exam General Appearance: WD/WN, no apparent distress Eyes: normal inspection, EOMI, sclerae normal ENT: normal ENT inspection, hearing grossly normal, pharynx normal Neck: supple, no adenopathy, thyroid normal, trachea midline Respiratory/Chest: chest non-tender, lungs clear, normal breath sounds, no respiratory distress Cardiovascular: regular rate, rhythm, no gallop, no murmur Abdomen: normal bowel sounds, non tender, soft, no organomegaly Extremities: no calf tenderness, + slow capillary refill Neurologic/Psychiatric: alert, oriented x 3 Skin: normal color, + pertinent finding ( Dressing intact right foot) Lymphatic: no adenopathy Laboratory Results Last 24 Hours Test 09/04/17 20:25 09/05/17 05:09 09/05/17 07:42 09/05/17 11:47 Bedside Glucose 241 mg/dl 104 mg/dl 233 mg/dl White Blood Count 4.84 K/uL Red Blood Count 3.46 M/uL Hemoglobin 8.3 g/dL Hematocrit 26.5 % Mean Corpuscular Volume 76.6 fL Mean Corpuscular Hemoglobin 24.0 pg Mean Corpuscular Hemoglobin Concent 31.3 g/dl RDW Standard Deviation 45.0 fL RDW Coefficient of Variation 16.0 % Platelet Count 212 K/uL Mean Platelet Volume 8.4 fL Sodium Level 140 mmol/L Potassium Level 3.9 mmol/L Chloride Level 104 mmol/L Carbon Dioxide Level 27 mmol/L Anion Gap 9.0 mmol/L Blood Urea Nitrogen 21 mg/dl Creatinine 1.26 mg/dl Est Creatinine Clear Calc Drug Dose 57.8 ml/min Estimated GFR () 63.3 Estimated GFR (Non- 54.7 BUN/Creatinine Ratio 16.6 Random Glucose 111 mg/dl Calcium Level 8.9 mg/dl Test 09/05/17 16:25 Bedside Glucose 163 mg/dl Patient Name: IZAIAH HARRIS JR Unit Number: [id number] Dictated: 09/05/171402 Transcribed: 09/05/17 140 MS Printed Date/Time: [~ rep prt dt]/[~ rep prt tm] [~ rep ct labl] - [~ rep ct ivnm] [facility] [place] [address] Dictated: 09/05/171402 Transcribed: 09/05/17 1403 MS Printed Date/Time: [~ rep prt dt]/[~ rep prt tm] [~ rep ct labl] - [~ rep ct ivnm] [~ rep ct add3]] R ART DOP DUPLEX LWR EXT UNI CLINICAL HISTORY: open right foot TMA claudication. Infection. TECHNIQUE: Arterial Doppler COMPARISON STUDY: None FINDINGS: Biphasic waveforms within the right common femoral artery. Monophasic waveforms throughout the arterial structures of the distal findings as well as the entirety of the right lower leg. There is a proximal common femoral arterial stent. Extensive plaque formation is identified throughout the mid to lower right leg as well as in the calf region. Velocity characteristics of the superior femoral artery proximally are 300 cm/s indicating a focal stenotic process. 400 cm/s within the popliteal artery. Monophasic waveforms are identified at all additional areas. IMPRESSION: 1. Findings consistent with high-grade stenotic process of the proximal right superficial femoral artery, popliteal artery, with somewhat dampened flow characteristics of all remaining vascular structures. 2. Ankle brachial index on the right involving the dorsalis pedis artery is 0.29 and noncompressible involving the posterior tibial artery. 3. Ankle brachial index on the left involving the dorsalis pedis artery 0.65 and noncompressible involving the posterior tibial artery. 4. The appearance overall suggests extensive multilevel arterial occlusive change. The above report was generated using voice recognition software. It may contain grammatical, syntax or spelling errors. Electronically signed by: Aaron Grant M.D. 09/05/2017 2:06 PM Dictated Date/Time: 09/05/2017 2:03 PM The status of this report is Signed. Draft = Not yet reviewed or approved by Radiologist. Signed = Reviewed and approved by Radiologist. <AttendingPhy>Husam Mane MD, PhD</AttendingPhy> <FamilyPhy>Haja Caruso D.O.</FamilyPhy> <PrimaryPhy>Haja Caruso D.O.</PrimaryPhy> <UnitNumber> [id number]</UnitNumber> <VisitNumber>[id number]</VisitNumber> <PatientName> IZAIAH HARRIS JR</PatientName> <DateOfBirth>1940</DateOfBirth> <Location> C.[id number]</Location> <ServiceDate></ServiceDate> <MNE>ESINDI</MNE> <OrderingPhy> Ezekiel Berg M.D.</OrderingPhy> <OrderingPhyMNE>f rep ord dr valverde</ OrderingPhyMNE> <DictatingPhyMNE>f rep dict dr valverde</DictatingPhyMNE> <CCListMNE> f rep ct mne</CCListMNE> <AdmittingPhyMNE>f pt admit dr valverde</AdmittingPhyMNE> < AttendingPhyMNE>f pt attend dr valverde</AttendingPhyMNE> <ConsultingPhyMNE>f pt consult dr valverde</ConsultingPhyMNE> <FamilyPhyMNE>f pt fam dr valverde</FamilyPhyMNE> <OtherPhyMNE>f pt other dr valverde</OtherPhyMNE> < PrimaryPhyMNE>f pt prim care dr valverde</PrimaryPhyMNE> <ReferringPhyMNE>f pt referring dr valverde</ReferringPhyMNE> Assessment and Plan Nonhealing transmetatarsal amputation site with highly resistant Pseudomonas aeruginosa In setting of severe peripheral arterial disease. Patient will be continued on IV Zerbaxa, length of IV antibiotics yet to be determined. Will discuss with all involved. Will follow.
[2017-09-05] MEDS: CLOPIDOGREL BISULFATE 75 MG TAB PO SCH (21:11)
[2017-09-05] MEDS: SIMVASTATIN 80 MG TAB PO SCH (21:11)
[2017-09-05] MEDS: LATANOPROST 0.005% OP SOLN 2.5 ML BTL OP SCH (21:12)
[2017-09-06 00:01] VITALS: BP 133/66; PULSE 74; TEMP 36.7; O2SAT 98
[2017-09-06 06:30] LABS: BUN/CREATININE RATIO 19.9 (10-20); CALCIUM 9.1 mg/dl (8.5-10.1); CREATININE 1.19 mg/dl (0.60-1.40); POTASSIUM 4.1 mmol/L (3.5-5.1)
[2017-09-06 07:46] VITALS: BP 149/63; PULSE 71; TEMP 36.7; O2SAT 96
[2017-09-06] MEDS: INSULIN ASPART 100 UNITS/ML 3 ML PEN SQ SCH ×4 (08:46→21:10)
[2017-09-06] MEDS: INSULIN GLARGINE SOLOSTAR 100 UNITS/ML 3 ML PEN SC SCH ×2 (08:47→21:11)
[2017-09-06] MEDS: HEPARIN SOD 5000 UNIT/0.5 ML CARP SQ SCH ×2 (08:48→21:11)
[2017-09-06] MEDS: IPRATROPIUM BROMIDE/ALBUTEROL respimat INH INH SCH ×4 (08:49→21:00)
[2017-09-06] MEDS: AMLODIPINE BESYLATE 5 MG TAB PO SCH (08:50)
[2017-09-06] MEDS: PANTOprazole SOD 40 MG TAB PO SCH (08:50)
[2017-09-06] MEDS: LISINOPRIL 20 MG TAB PO SCH (08:50)
[2017-09-06] MEDS: ASPIRIN 81 MG ECTAB PO SCH (08:50)
[2017-09-06] MEDS: TAZOBACTAM IV SCH ×4 (08:53→15:57)
[2017-09-06] MEDS: CEFTOLOZANE IV SCH ×4 (08:53→15:57)
[2017-09-06] MEDS: DEXTROSE 5% IV SCH ×4 (08:53→15:57)
[2017-09-06 11:08] VITALS: Ht 190.5 cm; Wt 83.2 kg
--- NOTE | 2017-09-06 12:09 | Progress Note ---
Subjective Date of Service: Sep 06, 2017. Subjective Pt evaluation today including: conversation w/ patient, physical exam, chart review, lab review, review of studies, conversation w/ organizational consultant, review of inpatient medication list Right foot sill have pain and drainage, otherwise generalized doing ok, no f/c,. Problem List Medical Problems: (1) Needs peripherally inserted central catheter (PICC) Status: Acute Review of Systems Constitutional: + weakness, + fatigue, No fever, No chills, No sweats, No weight loss, No problem reported Eyes: No worsening of vision, No eye pain, No redness, No discharge, No diplopia ENT: No hearing loss, No unusual epistaxis, No nasal symptoms, No sore throat, No tinnitus, No dental problems, No trouble swallowing Respiratory: No cough, No sputum, No wheezing, No shortness of breath, No dyspnea on exertion, No dyspnea at rest, No hemoptysis Cardiac: No chest pain, No orthopnea, No PND, No edema, No claudication, No palpitations Abdomen: No pain, No nausea, No vomiting, No diarrhea, No constipation Musculoskeletal: + joint pain, No muscle pain, No swelling, No calf pain Male : No dysuria, No urinary frequency, No incontinence, No nocturia more than once/night, No slowing stream, No hematuria Neurologic: No memory loss, No paralysis, No weakness, No numbness/tingling, No vertigo, No balance problems Psychiatric: No depression symptoms, No anhedonism, No anxiety, No insomnia, No substance abuse Heme: No abnormal bleeding/bruising, No clotting problems, No swollen lymph nodes, No night sweats Endo: No fatigue, No excessive thirst, No excessive urination Skin: + rash, No itch, No new/changing skin lesions, No color change, No bleeding Objective Vital Signs Date Time Temp Pulse Resp B/P (MAP) Pulse Ox O2 Delivery O2 Flow Rate FiO2 09/06/17 08:30 Room Air 09/06/17 07:46 36.7 71 16 149/63 (91) 96 Room Air 09/06/17 00:01 36.7 74 18 133/66 (88) 98 Room Air 09/06/17 00:00 Room Air 09/05/17 16:00 99 Room Air 09/05/17 15:28 36.7 73 16 115/56 (75) 99 Room Air Physical Exam General Appearance: WD/WN, no apparent distress Eyes: normal inspection, PERRL, EOMI, sclerae normal ENT: normal ENT inspection, hearing grossly normal, pharynx normal Neck: supple, no adenopathy, thyroid normal, no JVD, no carotid bruits, trachea midline Respiratory/Chest: chest non-tender, normal breath sounds, no respiratory distress, no accessory muscle use, + decreased breath sounds Cardiovascular: regular rate, rhythm, no edema, no gallop, no JVD, no murmur Abdomen: normal bowel sounds, non tender, soft, no organomegaly, no pulsatile mass Extremities: normal range of motion, non-tender, normal capillary refill, pelvis stable, + pertinent finding (right foot in dress, local s/p transmetatarsal amputation ) Neurologic/Psychiatric: corner cutter II-XII nml as tested, no motor/sensory deficits, alert, normal mood/affect, oriented x 3 Lymphatic: no adenopathy Laboratory Results Last 24 Hours Test 09/05/17 16:25 09/05/17 20:34 09/06/17 05:33 Bedside Glucose 163 mg/dl 185 mg/dl Sodium Level 141 mmol/L Potassium Level 4.1 mmol/L Chloride Level 106 mmol/L Carbon Dioxide Level 26 mmol/L Anion Gap 9.0 mmol/L Blood Urea Nitrogen 24 mg/dl Creatinine 1.19 mg/dl Est Creatinine Clear Calc Drug Dose 61.2 ml/min Estimated GFR () 67.9 Estimated GFR (Non- 58.6 BUN/Creatinine Ratio 19.9 Random Glucose 67 mg/dl Calcium Level 9.1 mg/dl Assessment and Plan 77-year-old male admitted on 09/04/2017 because of worsening nonhealing wound s/ p right transmetatarsal amputation failed outpatient treatment Per report, he has longstanding insulin-dependent diabetes mellitus, severe peripheral arterial disease status post stenting procedure, status post right transmetatarsal amputation for gangrenous changes, who [facility] for nonhealing wound of right foot nonhealing wound of right foot status post right transmetatarsal amputation: culture positive for Pseudomonas aeruginosa and has been on IV Zosyn, but bacteria of pseudomonas is quinolone and Zosyn resistant Upon admission patient was started on IV tobramycin, which was change to other antibiotic Zerbasa iv per infectious disease Vascular surgeon seeing patient, ordered US, results is below per report: 1. Findings consistent with high-grade stenotic process of the proximal right superficial femoral artery, popliteal artery, with somewhat dampened flow characteristics of all remaining vascular structures. 2. Ankle brachial index on the right involving the dorsalis pedis artery is 0.29 and noncompressible involving the posterior tibial artery. 3. Ankle brachial index on the left involving the dorsalis pedis artery 0.65 and noncompressible involving the posterior tibial artery. 4. The appearance overall suggests extensive multilevel arterial occlusive change. will f/u more input from vas surgeon Uncontrolled Insulin-dependent diabetic, With A1c 8.8 on June 2017 continue current care with Lantus plus insulin sliding scale to optimized BG control COPD, stable continue his outpatient treatment regiment Peripheral artery disease: Continue aspirin and Plavix , and follow-up vascular surgeons input Dyslipidemia, will continue Zocor Heparin for DVT prophylaxis full code Continued [facility] stay due to: multiple IV medications needed Discharge planning: home
[2017-09-06 16:02] VITALS: BP 127/69; PULSE 74; TEMP 36.6; O2SAT 99
[2017-09-06] MEDS: CLOPIDOGREL BISULFATE 75 MG TAB PO SCH (21:03)
[2017-09-06] MEDS: LATANOPROST 0.005% OP SOLN 2.5 ML BTL OP SCH (21:04)
[2017-09-06] MEDS: SIMVASTATIN 80 MG TAB PO SCH (21:04)
[2017-09-07] MEDS: CEFTOLOZANE IV SCH ×4 (00:02→23:51)
[2017-09-07] MEDS: DEXTROSE 5% IV SCH ×4 (00:02→23:51)
[2017-09-07] MEDS: TAZOBACTAM IV SCH ×4 (00:02→23:51)
[2017-09-07 01:08] VITALS: BP 143/69; PULSE 72; TEMP 36.7; O2SAT 96
[2017-09-07 06:37] LABS: HEMATOCRIT 29.6 % (42-52); MEAN CELL VOLUME 76.5 fL (80-100); MEAN CORPUSCULAR HGB CONC 31.4 g/dl (32-36); MEAN PLATELET VOLUME 8.5 fL (7.4-10.4); PLATELET COUNT 253 K/uL (130-400); RED BLOOD COUNT 3.87 M/uL (4.7-6.1); WHITE BLOOD COUNT 4.51 K/uL (4.8-10.8)
[2017-09-07 07:09] LABS: BUN/CREATININE RATIO 19.5 (10-20); CALCIUM 9.1 mg/dl (8.5-10.1); CREATININE 1.25 mg/dl (0.60-1.40)
[2017-09-07 07:56] VITALS: BP 153/79; PULSE 85; TEMP 36.6; O2SAT 98
[2017-09-07 08:20] VITALS: O2SAT 98
[2017-09-07] MEDS: ASPIRIN 81 MG ECTAB PO SCH (09:15)
[2017-09-07] MEDS: IPRATROPIUM BROMIDE/ALBUTEROL respimat INH INH SCH ×4 (09:15→21:00)
[2017-09-07] MEDS: AMLODIPINE BESYLATE 5 MG TAB PO SCH (09:16)
[2017-09-07] MEDS: PANTOprazole SOD 40 MG TAB PO SCH (09:16)
[2017-09-07] MEDS: LISINOPRIL 20 MG TAB PO SCH (09:17)
[2017-09-07] MEDS: INSULIN ASPART 100 UNITS/ML 3 ML PEN SQ SCH ×4 (09:20→21:30)
[2017-09-07] MEDS: INSULIN GLARGINE SOLOSTAR 100 UNITS/ML 3 ML PEN SC SCH ×2 (09:20→21:28)
[2017-09-07] MEDS: HEPARIN SOD 5000 UNIT/0.5 ML CARP SQ SCH ×2 (09:21→21:28)
[2017-09-07 16:11] VITALS: BP 131/67; PULSE 73; TEMP 36.4; O2SAT 100
[2017-09-07 18:00] VITALS: O2SAT 98
--- NOTE | 2017-09-07 18:04 | Hospitalist Progress Note ---
Hospitalist Progress Note Date of Service Sep 07, 2017. Subjective Pt evaluation today including: conversation w/ patient Pt very upset that he has not been seen by Vascular in 2 days. Denies any other problems. Has some drainage on dressing on rt foot. Denies CP or SOB. Denies overt blood in stool, but does report when he was on Zosyn for a few weeks at home, he was having dark stools that looked like a pile of "beans." This actually normalized about 1 week ago though. He has longstanding GERD and had EGD about 4 yrs ago he reports as normal. Had colonoscopy at some point in the last 10 yrs that was normal[facility] All Other Systems: Reviewed and Negative Objective Vital Signs Date Time Temp Pulse Resp B/P (MAP) Pulse Ox O2 Delivery O2 Flow Rate FiO2 09/07/17 16:11 36.4 73 18 131/67 (88) 100 Room Air 09/07/17 08:20 98 Room Air 09/07/17 07:56 36.6 85 20 153/79 (103) 98 Room Air 09/07/17 01:08 36.7 72 20 143/69 (93) 96 Room Air 09/07/17 00:00 Room Air Physical Exam General Appearance: WD/WN, no apparent distress Eyes: normal inspection, sclerae normal ENT: + pertinent finding (very ALUTIIQ) Neck: trachea midline Respiratory/Chest: lungs clear, normal breath sounds, no respiratory distress, no accessory muscle use Cardiovascular: regular rate, rhythm, no edema, + systolic murmur (3/6 at LLSB) , + pertinent finding (cannot palpate pedal pulses bilat) Abdomen: normal bowel sounds, non tender, soft, no organomegaly Extremities: no pedal edema, no calf tenderness, + pertinent finding (rt foot with TMA site with some mild purulent drainage, exposed bone, open wound) Neurologic/Psychiatric: alert, normal mood/affect, oriented x 3 Skin: normal color, no rash Laboratory Results Last 24 Hours Test 09/06/17 19:39 09/07/17 06:14 09/07/17 07:40 09/07/17 11:14 Bedside Glucose 224 mg/dl 151 mg/dl 245 mg/dl White Blood Count 4.51 K/uL Red Blood Count 3.87 M/uL Hemoglobin 9.3 g/dL Hematocrit 29.6 % Mean Corpuscular Volume 76.5 fL Mean Corpuscular Hemoglobin 24.0 pg Mean Corpuscular Hemoglobin Concent 31.4 g/dl RDW Standard Deviation 44.4 fL RDW Coefficient of Variation 15.9 % Platelet Count 253 K/uL Mean Platelet Volume 8.5 fL Sodium Level 136 mmol/L Potassium Level 4.0 mmol/L Chloride Level 103 mmol/L Carbon Dioxide Level 23 mmol/L Anion Gap 10.0 mmol/L Blood Urea Nitrogen 24 mg/dl Creatinine 1.25 mg/dl Est Creatinine Clear Calc Drug Dose 58.2 ml/min Estimated GFR () 64.0 Estimated GFR (Non- 55.2 BUN/Creatinine Ratio 19.5 Random Glucose 165 mg/dl Calcium Level 9.1 mg/dl Iron Level 20 mcg/dl Total Iron Binding Capacity 323 mcg/dl Transferrin 238 mg/dl Transferrin % Saturation 6 % Ferritin 26.0 ng/ml Test 09/07/17 16:39 Bedside Glucose 273 mg/dl Assessment and Plan This pt is a 77-year-old male with a h/o severe PAD, JUAN, CAD/ND w/ stent placement, HTN, HL, COPD, gout, h/o CVA, GERD, and DMII, with chronic OM of the rt foot and diabetic foot infection status post recent surgical revision/Right TMA, now failing outpatient treatment. Was on Zosyn for Pseudomonas, but then more recent culture grew out Pseudomonas now resistant to Zosyn. Chronic right foot OM/Diabetic foot infection/PAD-now with drug resistant Pseudomonas, was previously on Zosyn x 4 weeks with Wound Vac, [facility] and receiving hyperbaric O2 treatment. -ID consult appreciated -continue IV Zerbaxa, time course TBD by ID -Vascular Surgery consulted, ordered arterial US which is significant for: 1. Findings consistent with high-grade stenotic process of the proximal right superficial femoral artery, popliteal artery, with somewhat dampened flow characteristics of all remaining vascular structures. 2. Ankle brachial index on the right involving the dorsalis pedis artery is 0.29 and noncompressible involving the posterior tibial artery. 3. Ankle brachial index on the left involving the dorsalis pedis artery 0.65 and noncompressible involving the posterior tibial artery. 4. The appearance overall suggests extensive multilevel arterial occlusive change. -Appreciate any further Vascular recommendations on PAD-will contact Vascular after the holiday -Wound Care consult appreciated-they noted that Vascular will manage -continue ASA, Plavix CAD/ND w/ stent placement, HTN, HL-stable, BPs acceptable -continue ASA, Plavix, statin -continue amlodipine, lisinopril DMII-last HgbA1C 8.8% in 06/2017, uncontrolled -continue basal bolus insulin-tightened up carb coverage for hyperglycemia and increased Lantus to 22 units in AM, 42 units qPM -continue to hold his metformin at this time COPD-stable at this time -continue his outpatient treatment regimen with Combivent GERD-stable -continue PPI Fe-def anemia-hgb down to 9.3, microcytic, elevated RDW, ferritin 26, serum Fe low, TIBC high normal. Had EGD and colonoscopy in last 4-10 yrs respectively, longstanding GERD. Could be some component of anemia of chronic disease as well given infection. -check Hemoccult stool -recommend outpt GI f/u -follow CBC CKD Stage III- accountant supervisor 1.25 today, baseline accountant supervisor is 1.3 -avoid nephrotoxins renally dose all meds Gout-stable, no acute issues -not on meds Proph-heparin SQ Dispo-to home after further Vascular evaluation and if new IV abx coverage approved for Home Health
[2017-09-07] MEDS: SIMVASTATIN 80 MG TAB PO SCH (21:26)
[2017-09-07] MEDS: CLOPIDOGREL BISULFATE 75 MG TAB PO SCH (21:27)
[2017-09-07] MEDS: LATANOPROST 0.005% OP SOLN 2.5 ML BTL OP SCH (21:33)
[2017-09-08 01:16] VITALS: BP 142/74; PULSE 74; TEMP 36.6; O2SAT 95
[2017-09-08 07:08] LABS: BUN/CREATININE RATIO 20.8 (10-20); CALCIUM 9.3 mg/dl (8.5-10.1); CREATININE 1.2 mg/dl (0.60-1.40); POTASSIUM 4.2 mmol/L (3.5-5.1)
[2017-09-08 07:53] VITALS: BP 169/81; PULSE 80; TEMP 36.7; O2SAT 100
[2017-09-08] MEDS: LISINOPRIL 20 MG TAB PO SCH (07:53)
[2017-09-08] MEDS: AMLODIPINE BESYLATE 5 MG TAB PO SCH (07:53)
[2017-09-08] MEDS: PANTOprazole SOD 40 MG TAB PO SCH (07:53)
[2017-09-08] MEDS: ASPIRIN 81 MG ECTAB PO SCH (07:53)
[2017-09-08] MEDS: INSULIN ASPART 100 UNITS/ML 3 ML PEN SQ SCH ×4 (07:57→21:22)
[2017-09-08] MEDS: DEXTROSE 5% IV SCH ×2 (07:58→15:38)
[2017-09-08] MEDS: CEFTOLOZANE IV SCH ×2 (07:58→15:38)
[2017-09-08] MEDS: TAZOBACTAM IV SCH ×2 (07:58→15:38)
[2017-09-08] MEDS: IPRATROPIUM BROMIDE/ALBUTEROL respimat INH INH SCH ×4 (07:59→21:00)
[2017-09-08] MEDS: HEPARIN SOD 5000 UNIT/0.5 ML CARP SQ SCH ×2 (07:59→21:00)
[2017-09-08] MEDS ORDERED: INSULIN GLARGINE SOLOSTAR 100 UNITS/ML 3 ML PEN SC SCH ×2 (09:00→21:00)
--- NOTE | 2017-09-08 09:32 | Progress Note ---
Progress Note Date of Service Sep 08, 2017. Progress Note Will plan on angio with possible intervention Monday.
[2017-09-08] MEDS: INSULIN GLARGINE SOLOSTAR 100 UNITS/ML 3 ML PEN SC SCH (12:20)
--- NOTE | 2017-09-08 14:30 | Hospitalist Progress Note ---
Hospitalist Progress Note Date of Service Sep 08, 2017. Subjective Pt evaluation today including: conversation w/ patient, conversation w/ home planning consultant salesperson ([facility]) Pt has no complaints. Says he had a BM today that was normal, brown in color. Is frustrated that he will be here at least through Monday for vascular procedure, but understands it's necessary. All Other Systems: Reviewed and Negative Objective Vital Signs Date Time Temp Pulse Resp B/P (MAP) Pulse Ox O2 Delivery O2 Flow Rate FiO2 09/08/17 08:05 Room Air 09/08/17 07:53 36.7 80 18 169/81 (110) 100 Room Air 09/08/17 01:16 36.6 74 19 142/74 (96) 95 Room Air 09/08/17 00:00 Room Air 09/07/17 20:00 Room Air 09/07/17 18:00 98 Room Air 09/07/17 16:11 36.4 73 18 131/67 (88) 100 Room Air Physical Exam General Appearance: WD/WN, no apparent distress (sitting in chair at window) Eyes: normal inspection, sclerae normal ENT: hearing grossly normal (has hearing aids in today) Neck: trachea midline Respiratory/Chest: lungs clear, normal breath sounds, no respiratory distress, no accessory muscle use Cardiovascular: regular rate, rhythm, no edema, no gallop, + systolic murmur (3 /6 at LLSB) Abdomen: normal bowel sounds, non tender, soft Extremities: no pedal edema, no calf tenderness, + pertinent finding (rt foot in dressing, not removed) Neurologic/Psychiatric: alert, normal mood/affect Skin: normal color, warm/dry, no rash Laboratory Results Last 24 Hours Test 09/07/17 16:39 09/07/17 19:56 09/08/17 06:06 09/08/17 07:23 Bedside Glucose 273 mg/dl 260 mg/dl 232 mg/dl Sodium Level 138 mmol/L Potassium Level 4.2 mmol/L Chloride Level 105 mmol/L Carbon Dioxide Level 25 mmol/L Anion Gap 8.0 mmol/L Blood Urea Nitrogen 25 mg/dl Creatinine 1.20 mg/dl Est Creatinine Clear Calc Drug Dose 60.7 ml/min Estimated GFR () 67.2 Estimated GFR (Non- 58.0 BUN/Creatinine Ratio 20.8 Random Glucose 221 mg/dl Calcium Level 9.3 mg/dl Test 09/08/17 11:42 Bedside Glucose 202 mg/dl Assessment and Plan This pt is a 77-year-old male with a h/o severe PAD, JUAN, CAD/CT w/ stent placement, HTN, HL, COPD, gout, h/o CVA, GERD, and DMII, with chronic OM of the rt foot and diabetic foot infection status post recent surgical revision/Right TMA, now failing outpatient treatment. Was on Zosyn for Pseudomonas, but then more recent culture grew out Pseudomonas now resistant to Zosyn. Chronic right foot OM/Diabetic foot infection/PAD-now with drug resistant Pseudomonas, was previously on Zosyn x 4 weeks with Wound Vac, being followed [facility] and receiving hyperbaric O2 treatment. -ID consult appreciated -continue IV Zerbaxa, time course TBD by ID -Vascular Surgery consulted, ordered arterial US which is significant for: 1. Findings consistent with high-grade stenotic process of the proximal right superficial femoral artery, popliteal artery, with somewhat dampened flow characteristics of all remaining vascular structures. 2. Ankle brachial index on the right involving the dorsalis pedis artery is 0.29 and noncompressible involving the posterior tibial artery. 3. Ankle brachial index on the left involving the dorsalis pedis artery 0.65 and noncompressible involving the posterior tibial artery. 4. The appearance overall suggests extensive multilevel arterial occlusive change. - Discussed case with Vascular today: recommendation is for angiogram on Monday with possible angioplasty/stents -Wound Care consult appreciated-they noted that Vascular will manage -continue ASA, Plavix CAD/CT w/ stent placement, HTN, HL-stable, BPs acceptable -continue ASA, Plavix, statin -continue amlodipine, lisinopril DMII-last HgbA1C 8.8% in 06/2017, uncontrolled, with hyperglycemia -continue basal bolus insulin-hyperglycemia and increased Lantus to 24 units in AM, 425 units qPM, will give extra 5 units now -continue to hold his metformin at this time COPD-stable at this time -continue his outpatient treatment regimen with Combivent GERD-stable -continue PPI Fe-def anemia-hgb down to 9.3, microcytic, elevated RDW, ferritin 26, serum Fe low, TIBC high normal. Had EGD and colonoscopy in last 4-10 yrs respectively, longstanding GERD. Could be some component of anemia of chronic disease as well given infection. -check Hemoccult stool -recommend outpt GI f/u -follow CBC CKD Stage III- sole layer hand 1.2 today, baseline sole layer hand is 1.3 -avoid nephrotoxins renally dose all meds -consider stopping metformin indefinitely Gout-stable, no acute issues -not on meds Proph-heparin SQ Dispo-to home after further Vascular evaluation on Monday and if new IV abx coverage approved for Home Health
[2017-09-08] MEDS ORDERED: INSULIN GLARGINE SOLOSTAR 100 UNITS/ML 3 ML PEN SC ONE (14:45)
[2017-09-08 15:09] VITALS: BP 126/67; PULSE 75; TEMP 36.4; O2SAT 100
[2017-09-08] MEDS: SIMVASTATIN 80 MG TAB PO SCH (21:20)
[2017-09-08] MEDS: LATANOPROST 0.005% OP SOLN 2.5 ML BTL OP SCH (21:20)
[2017-09-08] MEDS: CLOPIDOGREL BISULFATE 75 MG TAB PO SCH (21:21)
[2017-09-08 22:58] VITALS: BP 167/74; PULSE 71; TEMP 36.9; O2SAT 98
[2017-09-09 00:05] VITALS: BP 134/72
[2017-09-09] MEDS: TAZOBACTAM IV SCH ×3 (00:08→17:17)
[2017-09-09] MEDS: CEFTOLOZANE IV SCH ×3 (00:08→17:17)
[2017-09-09] MEDS: DEXTROSE 5% IV SCH ×3 (00:08→17:17)
[2017-09-09 06:43] LABS: HEMATOCRIT 31.7 % (42-52); MEAN CELL VOLUME 75.8 fL (80-100); MEAN CORPUSCULAR HEMOGLOBIN 23.4 pg (25-34); MEAN CORPUSCULAR HGB CONC 30.9 g/dl (32-36); MEAN PLATELET VOLUME 8.5 fL (7.4-10.4); PLATELET COUNT 304 K/uL (130-400); RED BLOOD COUNT 4.18 M/uL (4.7-6.1)
[2017-09-09 07:18] LABS: CREATININE 1.36 mg/dl (0.60-1.40)
[2017-09-09 07:19] LABS: BUN/CREATININE RATIO 17.3 (10-20); CALCIUM 9.7 mg/dl (8.5-10.1); POTASSIUM 3.9 mmol/L (3.5-5.1)
[2017-09-09 08:00] VITALS: O2SAT 98
[2017-09-09] MEDS: IPRATROPIUM BROMIDE/ALBUTEROL respimat INH INH SCH ×4 (08:26→21:00)
[2017-09-09] MEDS: ASPIRIN 81 MG ECTAB PO SCH (08:26)
[2017-09-09] MEDS: AMLODIPINE BESYLATE 5 MG TAB PO SCH (08:26)
[2017-09-09] MEDS: PANTOprazole SOD 40 MG TAB PO SCH (08:27)
[2017-09-09] MEDS: LISINOPRIL 20 MG TAB PO SCH (08:27)
[2017-09-09] MEDS: INSULIN ASPART 100 UNITS/ML 3 ML PEN SQ SCH ×4 (08:33→21:41)
[2017-09-09] MEDS: HEPARIN SOD 5000 UNIT/0.5 ML CARP SQ SCH ×2 (08:34→21:41)
[2017-09-09] MEDS: INSULIN GLARGINE SOLOSTAR 100 UNITS/ML 3 ML PEN SC SCH ×2 (08:34→21:40)
[2017-09-09 08:41] VITALS: BP 155/83; PULSE 78; TEMP 36.6; O2SAT 96
--- NOTE | 2017-09-09 12:15 | Hospitalist Progress Note ---
Hospitalist Progress Note Date of Service Sep 09, 2017. Subjective Pt evaluation today including: conversation w/ patient Voiding: no voiding problems Pt has no complaints. Is tolerating po, afebrile All Other Systems: Reviewed and Negative Objective Vital Signs Date Time Temp Pulse Resp B/P (MAP) Pulse Ox O2 Delivery O2 Flow Rate FiO2 09/09/17 08:41 36.6 78 18 155/83 (107) 96 Room Air 09/09/17 08:00 98 Room Air 09/09/17 00:05 134/72 (92) 09/09/17 00:00 Room Air 09/08/17 22:58 36.9 71 18 167/74 (105) 98 09/08/17 20:00 Room Air 09/08/17 16:11 Room Air 09/08/17 15:09 36.4 75 16 126/67 (86) 100 Physical Exam General Appearance: WD/WN, no apparent distress Eyes: normal inspection, sclerae normal ENT: + pertinent finding (ALUTIIQ) Neck: trachea midline Respiratory/Chest: lungs clear, normal breath sounds, no respiratory distress, no accessory muscle use Cardiovascular: regular rate, rhythm, no edema, no gallop, + systolic murmur (3 /6 at LLSB) Abdomen: normal bowel sounds, non tender, soft Extremities: + pertinent finding (right foot dressing removed and there is a black eschar on dorsal side of opening of wound, exposed bone, no surrounding erythema, very minimal drainage on dressing x 2 days old dressing) Neurologic/Psychiatric: alert, normal mood/affect Skin: normal color Laboratory Results Last 24 Hours Test 09/08/17 16:31 09/08/17 20:18 09/09/17 06:23 09/09/17 07:45 Bedside Glucose 166 mg/dl 205 mg/dl 179 mg/dl White Blood Count 4.20 K/uL Red Blood Count 4.18 M/uL Hemoglobin 9.8 g/dL Hematocrit 31.7 % Mean Corpuscular Volume 75.8 fL Mean Corpuscular Hemoglobin 23.4 pg Mean Corpuscular Hemoglobin Concent 30.9 g/dl RDW Standard Deviation 44.1 fL RDW Coefficient of Variation 15.8 % Platelet Count 304 K/uL Mean Platelet Volume 8.5 fL Sodium Level 138 mmol/L Potassium Level 3.9 mmol/L Chloride Level 106 mmol/L Carbon Dioxide Level 22 mmol/L Anion Gap 10.0 mmol/L Blood Urea Nitrogen 24 mg/dl Creatinine 1.36 mg/dl Est Creatinine Clear Calc Drug Dose 53.5 ml/min Estimated GFR () 57.8 Estimated GFR (Non- 49.8 BUN/Creatinine Ratio 17.3 Random Glucose 188 mg/dl Calcium Level 9.7 mg/dl Test 09/09/17 11:26 Bedside Glucose 238 mg/dl Assessment and Plan This pt is a 77-year-old male with a h/o severe PAD, JUAN, CAD/AZ w/ stent placement, HTN, HL, COPD, gout, h/o CVA, GERD, and DMII, with chronic OM of the rt foot and diabetic foot infection status post recent surgical revision/Right TMA, now failing outpatient treatment. Was on Zosyn for Pseudomonas, but then more recent culture grew out Pseudomonas now resistant to Zosyn. Chronic right foot OM/Diabetic foot infection/PAD-now with drug resistant Pseudomonas, was previously on Zosyn x 4 weeks with Wound Vac, being followed at [facility] and receiving hyperbaric O2 treatment. Stable/improving, remains afebrile, no leukocytosis, no signs of spreading or worsening infection -ID consult appreciated -continue IV Zerbaxa, time course TBD by ID -Vascular Surgery consulted, ordered arterial US which is significant for: 1. Findings consistent with high-grade stenotic process of the proximal right superficial femoral artery, popliteal artery, with somewhat dampened flow characteristics of all remaining vascular structures. 2. Ankle brachial index on the right involving the dorsalis pedis artery is 0.29 and noncompressible involving the posterior tibial artery. 3. Ankle brachial index on the left involving the dorsalis pedis artery 0.65 and noncompressible involving the posterior tibial artery. 4. The appearance overall suggests extensive multilevel arterial occlusive change. - Discussed case with Vascular: recommendation is for angiogram on Monday with possible angioplasty/stents -Wound Care consult appreciated-they noted that Vascular will manage -continue ASA, Plavix CAD/AZ w/ stent placement, HTN, HL-stable, BPs acceptable -continue ASA, Plavix, statin -continue amlodipine, lisinopril DMII-last HgbA1C 8.8% in 06/2017, uncontrolled, with hyperglycemia that is improved somewhat today with increased dose of Lantus -continue basal bolus insulin-hyperglycemia and increased Lantus to 24 units in AM, 50 units qPM -continue to hold his metformin at this time COPD-stable at this time -continue his outpatient treatment regimen with Combivent GERD-stable -continue PPI Fe-def anemia-hgb down to 9.3, microcytic, elevated RDW, ferritin 26, serum Fe low, TIBC high normal. Had EGD and colonoscopy in last 4-10 yrs respectively, longstanding GERD. Could be some component of anemia of chronic disease as well given infection. -check Hemoccult stool -recommend outpt GI f/u -follow CBC CKD Stage III- airplane inspector 1.36 today, baseline airplane inspector is 1.3 -avoid nephrotoxins renally dose all meds -consider stopping metformin indefinitely Gout-stable, no acute issues -not on meds Heart murmur-likely MR, says he had an ECHO a couple months ago and [facility] needed [facility] in 3 yrs, "not to worry about it" Proph-heparin SQ Dispo-to home after further Vascular evaluation on Monday and if new IV abx coverage approved for Home Health
[2017-09-09 15:43] VITALS: BP 132/64; PULSE 73; TEMP 36.4; O2SAT 100
[2017-09-09 16:08] VITALS: O2SAT 100
[2017-09-09] MEDS: LATANOPROST 0.005% OP SOLN 2.5 ML BTL OP SCH (21:43)
[2017-09-09] MEDS: CLOPIDOGREL BISULFATE 75 MG TAB PO SCH (21:44)
[2017-09-09] MEDS: SIMVASTATIN 80 MG TAB PO SCH (21:44)
[2017-09-09 23:12] VITALS: BP 164/66; PULSE 80; TEMP 36.5; O2SAT 98
[2017-09-10] MEDS: TAZOBACTAM IV SCH ×3 (00:38→16:51)
[2017-09-10] MEDS: DEXTROSE 5% IV SCH ×3 (00:38→16:51)
[2017-09-10] MEDS: CEFTOLOZANE IV SCH ×3 (00:38→16:51)
[2017-09-10 07:02] VITALS: BP 135/64; PULSE 86; TEMP 36.5; O2SAT 97
[2017-09-10 08:00] VITALS: O2SAT 97
[2017-09-10] MEDS: ASPIRIN 81 MG ECTAB PO SCH (08:43)
[2017-09-10] MEDS: AMLODIPINE BESYLATE 5 MG TAB PO SCH (08:43)
[2017-09-10] MEDS: IPRATROPIUM BROMIDE/ALBUTEROL respimat INH INH SCH ×5 (08:44→21:00)
[2017-09-10] MEDS: PANTOprazole SOD 40 MG TAB PO SCH (08:44)
[2017-09-10] MEDS: LISINOPRIL 20 MG TAB PO SCH (08:44)
[2017-09-10] MEDS: INSULIN GLARGINE SOLOSTAR 100 UNITS/ML 3 ML PEN SC SCH ×2 (08:49→21:20)
[2017-09-10] MEDS: INSULIN ASPART 100 UNITS/ML 3 ML PEN SQ SCH ×4 (08:49→21:19)
[2017-09-10] MEDS: HEPARIN SOD 5000 UNIT/0.5 ML CARP SQ SCH ×2 (08:50→21:20)
--- NOTE | 2017-09-10 09:45 | Hospitalist Progress Note ---
Hospitalist Progress Note Date of Service Sep 10, 2017. Subjective Pt evaluation today including: conversation w/ patient Pt has no complaints at all. Denies SNOWDEN/CP/SOB/Cough/Abd pain/N/V/D/Rash. He's bored. has great appetite. Remains afebrile All Other Systems: Reviewed and Negative Objective Vital Signs Date Time Temp Pulse Resp B/P (MAP) Pulse Ox O2 Delivery O2 Flow Rate FiO2 09/10/17 07:02 36.5 86 20 135/64 (87) 97 Room Air 09/10/17 00:00 Room Air 09/09/17 23:12 36.5 80 20 164/66 (98) 98 Room Air 09/09/17 16:08 100 Room Air 09/09/17 15:43 36.4 73 18 132/64 (86) 100 Room Air Physical Exam General Appearance: WD/WN, no apparent distress Eyes: normal inspection, sclerae normal ENT: hearing grossly normal Neck: trachea midline Respiratory/Chest: lungs clear, normal breath sounds, no respiratory distress, no accessory muscle use Cardiovascular: regular rate, rhythm, no edema, + systolic murmur (3/6 at LLSB rad to apex) Abdomen: normal bowel sounds, non tender, soft, no organomegaly Extremities: no pedal edema, no calf tenderness, + pertinent finding (rt foot in dressing not removed today) Neurologic/Psychiatric: alert, normal mood/affect, oriented x 3 Skin: normal color, warm/dry Laboratory Results Last 24 Hours Test 09/09/17 11:26 09/09/17 16:25 09/09/17 20:01 09/10/17 07:15 Bedside Glucose 238 mg/dl 147 mg/dl 155 mg/dl 210 mg/dl Assessment and Plan This pt is a 77-year-old male with a h/o severe PAD, JUAN, CAD/DC w/ stent placement, HTN, HL, COPD, gout, h/o CVA, GERD, and DMII, with chronic OM of the rt foot and diabetic foot infection status post recent surgical revision/Right TMA, now failing outpatient treatment. Was on Zosyn for Pseudomonas, but then more recent culture grew out Pseudomonas now resistant to Zosyn. Chronic right foot OM/Diabetic foot infection/PAD-now with drug resistant Pseudomonas, was previously on Zosyn x 4 weeks with Wound Vac, being followed at [facility] and receiving hyperbaric O2 treatment. Continues to be doing well. Awaiting possible revascularization. Remains afebrile, no leukocytosis, no signs of spreading or worsening infection -ID consult appreciated -continue IV Zerbaxa, time course TBD by ID -Vascular Surgery consulted, ordered arterial US which is significant for: 1. Findings consistent with high-grade stenotic process of the proximal right superficial femoral artery, popliteal artery, with somewhat dampened flow characteristics of all remaining vascular structures. 2. Ankle brachial index on the right involving the dorsalis pedis artery is 0.29 and noncompressible involving the posterior tibial artery. 3. Ankle brachial index on the left involving the dorsalis pedis artery 0.65 and noncompressible involving the posterior tibial artery. 4. The appearance overall suggests extensive multilevel arterial occlusive change. - Discussed case with Vascular: recommendation is for angiogram on Monday with possible angioplasty/stents -Wound Care consult appreciated-they noted that Vascular will manage -continue ASA, Plavix CAD/DC w/ stent placement, HTN, HL-stable, BPs acceptable -continue ASA, Plavix, statin -continue amlodipine, lisinopril DMII-last HgbA1C 8.8% in 06/2017, uncontrolled, with hyperglycemia that is improved but persistent today despite increased dose of Lantus -continue basal bolus insulin-hyperglycemia and increased Lantus to 28 units in AM, 50 units qPM -continue to hold his metformin at this time COPD-stable at this time -continue his outpatient treatment regimen with Combivent GERD-stable -continue PPI Fe-def anemia-hgb down to 9.3, microcytic, elevated RDW, ferritin 26, serum Fe low, TIBC high normal. Had EGD and colonoscopy in last 4-10 yrs respectively, longstanding GERD. Could be some component of anemia of chronic disease as well given infection. -check Hemoccult stool -recommend outpt GI f/u -follow CBC CKD Stage III- sharepoint engineer 1.36 today, baseline sharepoint engineer is 1.3 -avoid nephrotoxins renally dose all meds -consider stopping metformin indefinitely Gout-stable, no acute issues -not on meds Heart murmur-likely MR, says he had an ECHO a couple months ago and was [facility] that [facility] needed [facility] one in 3 yrs, "not to worry about it" Proph-heparin SQ Dispo-to home after further Vascular evaluation on Monday and if new IV abx coverage approved for Home Health
[2017-09-10 15:24] VITALS: BP 156/67; PULSE 71; TEMP 36.5; O2SAT 99
[2017-09-10 16:00] VITALS: O2SAT 99
[2017-09-10 19:22] VITALS: O2SAT 100
[2017-09-10] MEDS: LATANOPROST 0.005% OP SOLN 2.5 ML BTL OP SCH (21:10)
[2017-09-10] MEDS: CLOPIDOGREL BISULFATE 75 MG TAB PO SCH (21:11)
[2017-09-10] MEDS: SIMVASTATIN 80 MG TAB PO SCH (21:12)
[2017-09-10 22:55] VITALS: BP 151/74; PULSE 73; TEMP 36.6; O2SAT 98
[2017-09-11] VITALS (16 sets, daily range): BP systolic 120–166; BP diastolic 58–76; PULSE 54–87; TEMP 36.1–36.8; O2SAT 95–100
[2017-09-11] MEDS: TAZOBACTAM IV SCH ×3 (00:32→16:18)
[2017-09-11] MEDS: DEXTROSE 5% IV SCH ×3 (00:32→16:18)
[2017-09-11] MEDS: CEFTOLOZANE IV SCH ×3 (00:32→16:18)
[2017-09-11] MEDS: INSULIN ASPART 100 UNITS/ML 3 ML PEN SQ SCH ×6 (00:39→21:51)
[2017-09-11 06:24] LABS: EOS % 2.9 %; HEMATOCRIT 28.4 % (42-52); IG% 0.3 %; LYMPH % 31.8 %; LYMPH ABS # 1.09 K/uL (1.2-3.4); MEAN CELL VOLUME 75.3 fL (80-100); MEAN CORPUSCULAR HEMOGLOBIN 23.6 pg (25-34); MEAN CORPUSCULAR HGB CONC 31.3 g/dl (32-36); MEAN PLATELET VOLUME 8.5 fL (7.4-10.4); MONO % 15.5 %; NEUT % 49.5 %; PLATELET COUNT 247 K/uL (130-400); RED BLOOD COUNT 3.77 M/uL (4.7-6.1); WHITE BLOOD COUNT 3.43 K/uL (4.8-10.8)
[2017-09-11 06:46] LABS: COMPLETE YES
[2017-09-11 06:58] LABS: BUN/CREATININE RATIO 24.7 (10-20); CALCIUM 9.1 mg/dl (8.5-10.1); CREATININE 1.23 mg/dl (0.60-1.40); MAGNESIUM 1.9 mg/dl (1.8-2.4); POTASSIUM 3.9 mmol/L (3.5-5.1)
[2017-09-11] MEDS ORDERED: SODIUM CHLORIDE 0.9% 1000ML 1,000 ML IV SCH (08:00)
[2017-09-11] MEDS: IPRATROPIUM BROMIDE/ALBUTEROL respimat INH INH SCH ×4 (08:52→20:36)
[2017-09-11] MEDS: PANTOprazole SOD 40 MG TAB PO SCH (08:57)
[2017-09-11] MEDS: AMLODIPINE BESYLATE 5 MG TAB PO SCH (08:57)
[2017-09-11] MEDS: LISINOPRIL 20 MG TAB PO SCH (08:58)
[2017-09-11] MEDS: HEPARIN SOD 5000 UNIT/0.5 ML CARP SQ SCH ×2 (08:59→20:45)
[2017-09-11] MEDS: ASPIRIN 81 MG ECTAB PO SCH (09:00)
[2017-09-11] MEDS: INSULIN GLARGINE SOLOSTAR 100 UNITS/ML 3 ML PEN SC SCH ×2 (09:01→20:45)
--- NOTE | 2017-09-11 09:37 | Progress Note ---
Progress Note Date of Service Sep 11, 2017. Progress Note Patient for arteriography of the right lower extremity with possible intervention. I have discussed the risks options and benefits of the procedure with the patient. The patient understands the risks options and benefits and agrees to the procedure. I have examined the patient, reviewed the History & Physical and in the interval since the performance of the History & Physical I have noted the following changes of clinical significance: No changes noted
--- NOTE | 2017-09-11 09:38 | Procedure Note ---
Pre-Mod Sedation Assessment General Date of Moderate Sedation: Sep 11, 2017. Vital Signs: Vital Signs Past 12 Hours Date Time Temp Pulse Resp B/P (MAP) Pulse Ox O2 Delivery O2 Flow Rate FiO2 09/11/17 07:29 36.6 79 16 138/65 (89) 100 Room Air 09/11/17 06:02 Room Air 09/10/17 23:45 Room Air 09/10/17 22:55 36.6 73 18 151/74 (99) 98 Room Air Pre-Sedation Airway Assessment Oral Cavity: WNL Short Thick Neck: No Hx of Sleep Apnea: No Smoking Status: Former Smoker Mallampati Classification: Class I ASA Classification: Class III Notes The planned sedation has been discussed with the patient and consent obtained. I have identified the patient, determined the appropriateness of sedation and have assessed the patient immediately prior to the procedure. All medicine(s) and interventions are by my order.
[2017-09-11] MEDS ORDERED: FENTANYL CITRATE INJ 50 MCG/1 ML 2 ML VIAL ONE (09:51)
[2017-09-11] MEDS ORDERED: HEPARIN SOD (PORCINE) 1000 UNIT/ML 10 ML VIAL ONE (09:51)
[2017-09-11] MEDS ORDERED: MIDAZOLAM HCL 1 MG/ML 2ML VIAL ONE (09:51)
--- NOTE | 2017-09-11 09:56 | Hospitalist Progress Note ---
Hospitalist Progress Note Date of Service Sep 11, 2017. Subjective Pt evaluation today including: conversation w/ patient Pt denies any problems. About to go down for angiogram today All Other Systems: Reviewed and Negative Objective Vital Signs Date Time Temp Pulse Resp B/P (MAP) Pulse Ox O2 Delivery O2 Flow Rate FiO2 09/11/17 07:29 36.6 79 16 138/65 (89) 100 Room Air 09/11/17 06:02 36.3 74 16 154/76 100 Room Air 09/10/17 23:45 Room Air 09/10/17 22:55 36.6 73 18 151/74 (99) 98 Room Air 09/10/17 19:22 100 Room Air 09/10/17 16:00 99 Room Air 09/10/17 15:24 36.5 71 20 156/67 (96) 99 Room Air Physical Exam General Appearance: WD/WN, no apparent distress Eyes: normal inspection, sclerae normal ENT: + pertinent finding ([place]) Neck: trachea midline Respiratory/Chest: lungs clear, normal breath sounds, no respiratory distress, no accessory muscle use Cardiovascular: regular rate, rhythm, no edema, no gallop, + systolic murmur (3 /6 at LLSB radiating to apex) Abdomen: normal bowel sounds, non tender, soft, no organomegaly Extremities: non-tender, + pertinent finding (rt foot in dressing not removed) Neurologic/Psychiatric: alert, normal mood/affect, oriented x 3 Skin: no rash Laboratory Results Last 24 Hours Test 09/10/17 11:08 09/10/17 17:02 09/10/17 19:48 09/11/17 00:35 Bedside Glucose 256 mg/dl 146 mg/dl 227 mg/dl 270 mg/dl Test 09/11/17 05:43 09/11/17 05:58 09/11/17 09:05 White Blood Count 3.43 K/uL Red Blood Count 3.77 M/uL Hemoglobin 8.9 g/dL Hematocrit 28.4 % Mean Corpuscular Volume 75.3 fL Mean Corpuscular Hemoglobin 23.6 pg Mean Corpuscular Hemoglobin Concent 31.3 g/dl Platelet Count 247 K/uL Mean Platelet Volume 8.5 fL Neutrophils (%) (Auto) 49.5 % Lymphocytes (%) (Auto) 31.8 % Monocytes (%) (Auto) 15.5 % Eosinophils (%) (Auto) 2.9 % Basophils (%) (Auto) 0.0 % Neutrophils # (Auto) 1.70 K/uL Lymphocytes # (Auto) 1.09 K/uL Monocytes # (Auto) 0.53 K/uL Eosinophils # (Auto) 0.10 K/uL Basophils # (Auto) 0.00 K/uL RDW Standard Deviation 43.6 fL RDW Coefficient of Variation 15.7 % Immature Granulocyte % (Auto) 0.3 % Immature Granulocyte # (Auto) 0.01 K/uL Red Blood Cell Morphology Unremarkable Sodium Level 138 mmol/L Potassium Level 3.9 mmol/L Chloride Level 105 mmol/L Carbon Dioxide Level 24 mmol/L Anion Gap 9.0 mmol/L Blood Urea Nitrogen 30 mg/dl Creatinine 1.23 mg/dl Est Creatinine Clear Calc Drug Dose 59.2 ml/min Estimated GFR () 65.2 Estimated GFR (Non- 56.3 BUN/Creatinine Ratio 24.7 Random Glucose 159 mg/dl Calcium Level 9.1 mg/dl Magnesium Level 1.9 mg/dl Bedside Glucose 156 mg/dl Stool Occult Blood NEGATIVE Assessment and Plan This pt is a 77-year-old male with a h/o severe PAD, JUAN, CAD/IN w/ stent placement, HTN, HL, COPD, gout, h/o CVA, GERD, and DMII, with chronic OM of the rt foot and diabetic foot infection status post recent surgical revision/Right TMA, now failing outpatient treatment. Was on Zosyn for Pseudomonas, but then more recent culture grew out Pseudomonas now resistant to Zosyn. Chronic right foot OM/Diabetic foot infection/PAD-now with drug resistant Pseudomonas, was previously on Zosyn x 4 weeks with Wound Vac, being [facility] and receiving hyperbaric O2 treatment. Awaiting possible revascularization planned for today. Remains afebrile, no leukocytosis, no signs of spreading or worsening infection -ID consult appreciated -continue IV Zerbaxa, time course TBD by ID -Vascular Surgery consulted, ordered arterial US which is significant for: 1. Findings consistent with high-grade stenotic process of the proximal right superficial femoral artery, popliteal artery, with somewhat dampened flow characteristics of all remaining vascular structures. 2. Ankle brachial index on the right involving the dorsalis pedis artery is 0.29 and noncompressible involving the posterior tibial artery. 3. Ankle brachial index on the left involving the dorsalis pedis artery 0.65 and noncompressible involving the posterior tibial artery. 4. The appearance overall suggests extensive multilevel arterial occlusive change. - Discussed case with Vascular: recommendation is for angiogram today with possible angioplasty/stents -Wound Care consult appreciated-they noted that Vascular will manage -continue ASA, Plavix -will determine further course of action for foot infection after Vascular sees him today CAD/IN w/ stent placement, HTN, HL-stable, BPs acceptable -continue ASA, Plavix, statin -continue amlodipine, lisinopril DMII-last HgbA1C 8.8% in 06/2017, uncontrolled, with hyperglycemia finally starting to improve today after increases in Lantus. He says he is eating a lot more here than at home -continue basal bolus insulin- continue increased dose of Lantus 28 units in AM , 50 units qPM -continue to hold his metformin at this time COPD-stable at this time -continue his outpatient treatment regimen with Combivent GERD-stable -continue PPI Fe-def anemia-hgb down to 8.9, microcytic, elevated RDW, ferritin 26, serum Fe low, TIBC high normal. Had EGD and colonoscopy in last 4-10 yrs respectively, longstanding GERD. Could be some component of anemia of chronic disease as well given infection. Hemoccult stool negative -recommend outpt GI f/u -follow CBC CKD Stage III- merchandising lead 1.23 today, baseline merchandising lead is 1.3 -avoid nephrotoxins renally dose all meds -consider stopping metformin indefinitely Gout-stable, no acute issues -not on meds Heart murmur-likely MR, says he had an ECHO a couple months ago and was told [facility] that he needed another one in 3 yrs, "not to worry about it" Proph-heparin SQ Dispo-to home after further Vascular evaluation on Monday and if new IV abx coverage approved for Home Health
[2017-09-11] MEDS ORDERED: LIDOCAINE HCL 1% 20 ML VIAL INJ ONE (11:12)
[2017-09-11] MEDS ORDERED: MIDAZOLAM HCL 1 MG/ML 2ML VIAL IV ONE (11:13)
[2017-09-11] MEDS ORDERED: FENTANYL CITRATE INJ 50 MCG/1 ML 2 ML VIAL IV ONE (11:13)
[2017-09-11] MEDS ORDERED: IODIXANOL (VISIPAQUE) 270 MG/ML 150ML XX ONE (11:53)
--- NOTE | 2017-09-11 12:02 | [facility] Operative Report ---
Operative Report Operative Date Sep 11, 2017. Pre-Operative Diagnosis Infected RLE TMA PAD Post-Operative Diagnosis Same Procedure(s) Performed Right Lower Extremity Angiogram Percutaneous Transluminal Angioplatsy Right Common Femoral Artery, Right Popliteal Artery Mechanical Closure of Left Femoral Artery Moderate Sedation [id number] Surgeon Otis Industrial Renderer Surgeon(s) None Estimated Blood Loss 5 Findings Arteriogram showed a restenosis of the popliteal artery within the stent and a stenosis of the right common femoral artery. Specimens None Anesthesia Local with swedation Complication(s) None Disposition Indications This is a 77-year-old white male who had stents placed in his right superficial femoral artery and iliac artery prior to this. He had a TMA on the right foot which is nonhealing and infected. Ultrasound revealed a possible severe stenosis of the superficial femoral artery within the stents. We recommended arteriography and possible intervention. I have discussed the risks options and benefits of the procedure with the patient. The patient understands the risks options and benefits and agrees to the procedure. Description of Procedure The patient was taken to the angiogram suite and placed in the supine position. Both groins were then prepped and draped in a sterile manner. Local anesthetic was administered to the left groin. A puncture was made of the left common femoral artery and a short 035 wire was inserted. A 5 [place] sheath was inserted over the wire. Using an 035 Glidewire and a rim catheter the right iliac was cannulated from the left side. The rim catheter was passed down to the right external iliac artery. Arteriography was then performed which showed a moderate narrowing of the common femoral artery at the origin of superficial femoral artery. The rest the superficial femoral artery was patent. A moderate stenosis of the proximal portion of the superficial femoral artery stents was noted and thought to be approximately 40%. There is also high-grade stenosis in the popliteal artery in the distal end of the stents. Three-vessel runoff was seen below without any significant lesions seen distally. A stiffened Glidewire was then inserted. This was passed down through the popliteal lesion. The rim catheter is removed as well as the 5 [place] sheath and a 6 [place] destination sheath was inserted. The tip of the sheath was in the right external iliac artery. Next a 5 x 6 [place] balloon was then passed over the wire lesion into the popliteal artery and the stenotic area ballooned. Slight residual was then seen. Then using the 5 x 6 balloon, the proximal portion of the stent which had a moderate stenosis was ballooned. Once this was completed we exchanged the 5 x 6 balloon to a 6 x 6 balloon. The common femoral artery was then dilated. There was a slight waist seen in the distal common femoral artery. Postdilatation showed the common femoral artery and superficial femoral artery origin to be widely patent. The 6 x 6 balloon was then passed downward and distal end of stent was then dilated with the 6 x 6 balloon. Once this was completed the balloon was removed. A completion angiogram done at that time showed a widely patent popliteal artery and distal runoff vessels. The destination sheath was pulled over to the left side. Arteriography done through the destination sheath showed the puncture site to be anterior and in the common femoral artery. The sheath was removed and the puncture site closed using the Star closure device. Hemostasis was noted of the puncture site. Sterile dressings were applied and the patient left the angio suite in good condition and tolerated the procedure well. I attest to the content of the Intraoperative Record and any orders documented therein. Any exceptions are noted below.
--- NOTE | 2017-09-11 14:49 | Infectious Disease Progress Nt ---
Progress Note Date of Service Sep 11, 2017. Subjective Pt evaluation today including: conversation w/ patient, physical exam, chart review, lab review, review of studies, conversation w/ loss control consultant, review of inpatient medication list S/P angioplasty. No new specific complaints. has remained afebrile. All Other Systems: Reviewed and Negative Medications Current Inpatient Medications Medications (Trade) Dose Ordered Sig/Sol Route Start Time Stop Time Status Last Admin Dose Admin Amlodipine Besylate (Norvasc Tab) 5 mg QAM PO 09/05/17 08:00 10/05/17 07:59 09/11/17 08:57 5 MG Aspirin (Ecotrin Tab) 81 mg QAM PO 09/05/17 08:00 10/05/17 07:59 09/10/17 08:43 81 MG Clopidogrel Bisulfate (plAVix TAB) 75 mg HS PO 09/04/17 22:00 10/04/17 21:59 09/10/17 21:11 75 MG Latanoprost (Xalatan Oph Soln) 1 drops HS OP 09/04/17 22:00 10/04/17 21:59 09/10/17 21:10 1 DROPS Lisinopril (Zestril Tab) 20 mg QAM PO 09/05/17 08:00 10/05/17 07:59 09/11/17 08:58 20 MG Pantoprazole Sodium (Protonix Tab) 40 mg QAM PO 09/05/17 08:00 10/05/17 07:59 09/11/17 08:57 40 MG Simvastatin (Zocor Tab) 80 mg QPM PO 09/04/17 21:00 10/04/17 20:59 09/10/17 21:12 80 MG Polyethylene (Miralax Powder Packet) 17 gm DAILY PRN PO 09/04/17 12:30 10/04/17 12:29 Ondansetron HCl (Zofran Inj) 4 mg Q6H PRN IV 09/04/17 12:30 10/04/17 12:29 Heparin Sodium (Porcine) (Heparin Sq 5000 Unit/0.5ml) 5,000 unit Q12 SQ 09/04/17 14:00 10/04/17 13:59 09/10/17 21:20 5,000 UNIT Acetaminophen (Tylenol Tab) 1,000 mg Q6H PRN PO 09/04/17 12:45 12/20/17 12:29 Hydromorphone HCl (Dilaudid Inj) 1 mg Q4 PRN IV 09/04/17 12:45 09/18/17 12:44 Hydromorphone HCl (Dilaudid Inj) 0.5 mg Q4 PRN IV 09/04/17 12:45 09/18/17 12:44 Oxycodone HCl (Roxicodone Immediate Rel Tab) 10 mg Q6 PRN PO 09/04/17 12:45 09/18/17 12:44 09/05/17 21:11 10 MG Heparin Sodium (Porcine) (Heparin 10 Unit/ ml 5 ml Flush) 5 ml PRN PRN FLUSH 09/04/17 14:00 10/04/17 13:59 09/11/17 05:43 5 ML Albuterol/ Ipratropium (Combivent Respimat Inh) 1 puffs QID INH 09/04/17 17:00 10/04/17 16:59 Glucose (Glucose 40% Gel) 15-30 GRAMS 15 GRAMS... UD PRN PO 09/04/17 15:15 10/04/17 15:14 Glucose (Glucose Chew Tab) 4-8 Tablets 4 Tabl... UD PRN PO 09/04/17 15:15 10/04/17 15:14 Dextrose (Dextrose 50% 50ML Syringe) 25-50ML OF 50% DW IV FOR... UD PRN IV 09/04/17 15:15 10/04/17 15:14 Glucagon (Glucagon Inj) 1 mg UD PRN SQ 09/04/17 15:15 10/04/17 15:14 Ceftolozane/ Tazobactam 1.5 gm/ Dextrose 111.4 ml @ 111.4 mls/ hr Q8H IV 09/04/17 16:00 09/14/17 15:59 09/11/17 08:56 111.4 MLS/HR Insulin Glargine (Lantus Solostar Pen) 50 units QPM SC 09/09/17 21:00 10/04/17 20:59 09/10/17 21:20 50 UNITS Insulin Glargine (Lantus Solostar Pen) 28 units QAM SC 09/10/17 09:00 10/05/17 07:59 09/11/17 09:01 28 UNITS Insulin Aspart (novoLOG ASPART) SLIDING SCALE Q6 SQ 09/11/17 00:00 10/11/17 00:00 09/11/17 12:43 5 UNITS Objective Vital Signs Date Time Temp Pulse Resp B/P (MAP) Pulse Ox O2 Delivery O2 Flow Rate FiO2 09/11/17 14:05 36.3 54 18 166/69 (101) 100 09/11/17 13:35 36.8 62 18 148/71 (96) 95 09/11/17 13:05 36.3 83 20 126/66 (86) 09/11/17 12:35 36.1 87 16 154/65 (94) 97 Room Air 09/11/17 12:20 36.2 76 16 146/68 (94) 100 Room Air 09/11/17 12:15 36.2 77 20 146/68 (94) 98 09/11/17 12:05 36.2 62 18 132/63 99 Room Air 09/11/17 12:00 36.3 55 20 145/58 100 Room Air 09/11/17 11:55 36.3 73 18 120/63 100 Room Air 09/11/17 11:50 60 16 136/63 100 Room Air 09/11/17 11:48 60 18 134/72 100 Room Air 09/11/17 10:15 36.6 79 16 138/65 100 Room Air 09/11/17 07:30 Room Air 09/11/17 07:29 36.6 79 16 138/65 (89) 100 Room Air 09/11/17 06:02 36.3 74 16 154/76 100 Room Air 09/10/17 23:45 Room Air 09/10/17 22:55 36.6 73 18 151/74 (99) 98 Room Air 09/10/17 19:22 100 Room Air 09/10/17 16:00 99 Room Air 09/10/17 15:24 36.5 71 20 156/67 (96) 99 Room Air Physical Exam General Appearance: WD/WN, no apparent distress Eyes: normal inspection, EOMI, sclerae normal ENT: normal ENT inspection, pharynx normal Neck: supple, no adenopathy, trachea midline Respiratory/Chest: chest non-tender, lungs clear, normal breath sounds, no respiratory distress Cardiovascular: regular rate, rhythm, no gallop, + systolic murmur Abdomen: normal bowel sounds, non tender, soft, no organomegaly Extremities: non-tender, no calf tenderness, + slow capillary refill Neurologic/Psychiatric: alert, oriented x 3 Skin: normal color, no rash, + pertinent finding (dressing intact) Lymphatic: no adenopathy Laboratory Results Last 24 Hours Test 09/10/17 17:02 09/10/17 19:48 09/11/17 00:35 09/11/17 05:43 Bedside Glucose 146 mg/dl 227 mg/dl 270 mg/dl White Blood Count 3.43 K/uL Red Blood Count 3.77 M/uL Hemoglobin 8.9 g/dL Hematocrit 28.4 % Mean Corpuscular Volume 75.3 fL Mean Corpuscular Hemoglobin 23.6 pg Mean Corpuscular Hemoglobin Concent 31.3 g/dl Platelet Count 247 K/uL Mean Platelet Volume 8.5 fL Neutrophils (%) (Auto) 49.5 % Lymphocytes (%) (Auto) 31.8 % Monocytes (%) (Auto) 15.5 % Eosinophils (%) (Auto) 2.9 % Basophils (%) (Auto) 0.0 % Neutrophils # (Auto) 1.70 K/uL Lymphocytes # (Auto) 1.09 K/uL Monocytes # (Auto) 0.53 K/uL Eosinophils # (Auto) 0.10 K/uL Basophils # (Auto) 0.00 K/uL RDW Standard Deviation 43.6 fL RDW Coefficient of Variation 15.7 % Immature Granulocyte % (Auto) 0.3 % Immature Granulocyte # (Auto) 0.01 K/uL Red Blood Cell Morphology Unremarkable Sodium Level 138 mmol/L Potassium Level 3.9 mmol/L Chloride Level 105 mmol/L Carbon Dioxide Level 24 mmol/L Anion Gap 9.0 mmol/L Blood Urea Nitrogen 30 mg/dl Creatinine 1.23 mg/dl Est Creatinine Clear Calc Drug Dose 59.2 ml/min Estimated GFR () 65.2 Estimated GFR (Non- 56.3 BUN/Creatinine Ratio 24.7 Random Glucose 159 mg/dl Calcium Level 9.1 mg/dl Magnesium Level 1.9 mg/dl Test 09/11/17 05:58 09/11/17 09:05 09/11/17 10:22 Bedside Glucose 156 mg/dl 124 mg/dl Stool Occult Blood NEGATIVE Assessment and Plan 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 Patient will be continued on IV Zerbaxa, length of IV antibiotics yet to be determined. Will follow.
[2017-09-11] MEDS: SIMVASTATIN 80 MG TAB PO SCH (20:37)
[2017-09-11] MEDS: LATANOPROST 0.005% OP SOLN 2.5 ML BTL OP SCH (20:37)
[2017-09-11] MEDS: CLOPIDOGREL BISULFATE 75 MG TAB PO SCH (20:37)
[2017-09-11] MEDS ORDERED: NURSING VERBAL MED ORDER ONE ×2 (21:30)
[2017-09-12] MEDS: TAZOBACTAM IV SCH ×3 (00:07→15:41)
[2017-09-12] MEDS: DEXTROSE 5% IV SCH ×3 (00:07→15:41)
[2017-09-12] MEDS: CEFTOLOZANE IV SCH ×3 (00:07→15:41)
[2017-09-12 06:26] LABS: BASO % 0.6 %; BASO ABS # 0.02 K/uL (0-0.2); EOS % 2.3 %; HEMATOCRIT 28.2 % (42-52); IG% 0.6 %; LYMPH % 36.1 %; LYMPH ABS # 1.26 K/uL (1.2-3.4); MEAN CELL VOLUME 75.2 fL (80-100); MEAN CORPUSCULAR HEMOGLOBIN 23.2 pg (25-34); MEAN CORPUSCULAR HGB CONC 30.9 g/dl (32-36); MEAN PLATELET VOLUME 8.5 fL (7.4-10.4); MONO % 13.2 %; NEUT % 47.2 %; PLATELET COUNT 233 K/uL (130-400); RED BLOOD COUNT 3.75 M/uL (4.7-6.1); WHITE BLOOD COUNT 3.49 K/uL (4.8-10.8)
[2017-09-12 06:54] LABS: ANISOCYTOSIS PRESENT; COMPLETE YES; HYPOCHROMIA PRESENT
[2017-09-12 07:04] LABS: BUN/CREATININE RATIO 22.4 (10-20); CALCIUM 9.1 mg/dl (8.5-10.1); CREATININE 1.22 mg/dl (0.60-1.40); POTASSIUM 3.8 mmol/L (3.5-5.1)
[2017-09-12 07:11] VITALS: BP 149/67; PULSE 81; TEMP 36.7; O2SAT 100
[2017-09-12 08:00] VITALS: O2SAT 100
[2017-09-12] MEDS: IPRATROPIUM BROMIDE/ALBUTEROL respimat INH INH SCH ×4 (08:28→20:51)
[2017-09-12] MEDS: LISINOPRIL 20 MG TAB PO SCH (08:28)
[2017-09-12] MEDS: PANTOprazole SOD 40 MG TAB PO SCH (08:29)
[2017-09-12] MEDS: AMLODIPINE BESYLATE 5 MG TAB PO SCH (08:29)
[2017-09-12] MEDS: ASPIRIN 81 MG ECTAB PO SCH (08:29)
[2017-09-12] MEDS: INSULIN ASPART 100 UNITS/ML 3 ML PEN SQ SCH ×4 (08:35→21:03)
[2017-09-12] MEDS: HEPARIN SOD 5000 UNIT/0.5 ML CARP SQ SCH ×3 (08:36→21:02)
[2017-09-12] MEDS: INSULIN GLARGINE SOLOSTAR 100 UNITS/ML 3 ML PEN SC SCH ×2 (09:33→21:03)
--- NOTE | 2017-09-12 10:47 | Progress Note ---
Progress Note Date of Service: Sep 12, 2017. Subjective 77 yo m with multiple medical problems, including severe PAD with gangrene, seen today in f/u for RLE foot infected TMA site. 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 Pt admits some discomfort in RLE, but states controlled with meds. Anxious for discharge. Problem List Medical Problems: (1) Needs peripherally inserted central catheter (PICC) Status: Acute Objective Vital Signs Vital Signs Past 12 Hours Date Time Temp Pulse Resp B/P (MAP) Pulse Ox O2 Delivery O2 Flow Rate FiO2 09/12/17 07:11 36.7 81 16 149/67 (94) 100 Room Air 09/12/17 00:00 Room Air 09/11/17 23:15 36.7 74 18 149/73 (98) 99 Room Air Exam CONST: A&O x3, NAD, KASAAN EXT: RLE wound dressing in place. Femoral pulses +3. Laboratory and Microbiology Results Past 24 Hours Test 09/11/17 12:18 09/11/17 16:23 09/11/17 20:35 09/12/17 05:42 Range/Units Bedside Glucose 120 212 230 70-99 mg/dl White Blood Count 3.49 4.8-10.8 K/uL Red Blood Count 3.75 4.7-6.1 M/uL Hemoglobin 8.7 14.0-18.0 g/dL Hematocrit 28.2 42-52 % Mean Corpuscular Volume 75.2 80-100 fL Mean Corpuscular Hemoglobin 23.2 25-34 pg Mean Corpuscular Hemoglobin Concent 30.9 32-36 g/dl Platelet Count 233 130-400 K/uL Mean Platelet Volume 8.5 7.4-10.4 fL Neutrophils (%) (Auto) 47.2 % Lymphocytes (%) (Auto) 36.1 % Monocytes (%) (Auto) 13.2 % Eosinophils (%) (Auto) 2.3 % Basophils (%) (Auto) 0.6 % Neutrophils # (Auto) 1.65 1.4-6.5 K/uL Lymphocytes # (Auto) 1.26 1.2-3.4 K/uL Monocytes # (Auto) 0.46 0.11-0.59 K/uL Eosinophils # (Auto) 0.08 0-0.5 K/uL Basophils # (Auto) 0.02 0-0.2 K/uL RDW Standard Deviation 43.6 36.4-46.3 fL RDW Coefficient of Variation 15.7 11.5-14.5 % Immature Granulocyte % (Auto) 0.6 % Immature Granulocyte # (Auto) 0.02 0.00-0.02 K/uL Hypochromasia PRESENT Anisocytosis PRESENT Sodium Level 138 136-145 mmol/L Potassium Level 3.8 3.5-5.1 mmol/L Chloride Level 105 98-107 mmol/L Carbon Dioxide Level 25 21-32 mmol/L Anion Gap 8.0 3-11 mmol/L Blood Urea Nitrogen 27 7-18 mg/dl Creatinine 1.22 0.60-1.40 mg/dl Est Creatinine Clear Calc Drug Dose 59.7 ml/min Estimated GFR () 65.9 Estimated GFR (Non- 56.8 BUN/Creatinine Ratio 22.4 10-20 Random Glucose 113 70-99 mg/dl Calcium Level 9.1 8.5-10.1 mg/dl Test 09/12/17 07:23 Range/Units Bedside Glucose 99 70-99 mg/dl ASSESSMENT and PLAN: RLE TMA wound infection PAD with gangrene Pt for RLE foot debridement in OR tomorrow. Discussed with pt, he is agreeable. Possible wound vac placement later this week.
--- NOTE | 2017-09-12 13:46 | Progress Note ---
Progress Note Date of Service Sep 12, 2017. Progress Note Pt is a 77 yo man who is scheduled for R foot debridement tomorrow. Pt has had multiple surgeries on the right foot due to non healing wound, the last one was on 07/28/17. PMH includes CAD, HTN, mild , stroke s/p R CEA in 2011, DM2 on insulin tx and anemia. Pt seen and interviewed. Plan of anesthesia discussed. All questions answered. Anesthesia consent obtained. Pt advised to be NPO for 8 hrs except for sips of water with meds in the am.
--- NOTE | 2017-09-12 15:01 | Infectious Disease Progress Nt ---
Progress Note Date of Service Sep 12, 2017. Subjective Pt evaluation today including: conversation w/ patient, physical exam, chart review, lab review, review of studies, conversation w/ lending consultant, review of inpatient medication list Patient with somewhat less pain in foot today. Remains afebrile. Plans for OR debridement tomorrow. Continues to tolerate antibiotic without apparent difficulty. All Other Systems: Reviewed and Negative Medications Current Inpatient Medications Medications (Trade) Dose Ordered Sig/Sol Route Start Time Stop Time Status Last Admin Dose Admin Amlodipine Besylate (Norvasc Tab) 5 mg QAM PO 09/05/17 08:00 10/05/17 07:59 09/12/17 08:29 5 MG Aspirin (Ecotrin Tab) 81 mg QAM PO 09/05/17 08:00 10/05/17 07:59 09/12/17 08:29 81 MG Clopidogrel Bisulfate (plAVix TAB) 75 mg HS PO 09/04/17 22:00 10/04/17 21:59 09/11/17 20:37 75 MG Latanoprost (Xalatan Oph Soln) 1 drops HS OP 09/04/17 22:00 10/04/17 21:59 09/11/17 20:37 1 DROPS Lisinopril (Zestril Tab) 20 mg QAM PO 09/05/17 08:00 10/05/17 07:59 09/12/17 08:28 20 MG Pantoprazole Sodium (Protonix Tab) 40 mg QAM PO 09/05/17 08:00 10/05/17 07:59 09/12/17 08:29 40 MG Simvastatin (Zocor Tab) 80 mg QPM PO 09/04/17 21:00 10/04/17 20:59 09/11/17 20:37 80 MG Polyethylene (Miralax Powder Packet) 17 gm DAILY PRN PO 09/04/17 12:30 10/04/17 12:29 Ondansetron HCl (Zofran Inj) 4 mg Q6H PRN IV 09/04/17 12:30 10/04/17 12:29 Heparin Sodium (Porcine) (Heparin Sq 5000 Unit/0.5ml) 5,000 unit Q12 SQ 09/04/17 14:00 10/04/17 13:59 09/12/17 08:36 5,000 UNIT Acetaminophen (Tylenol Tab) 1,000 mg Q6H PRN PO 09/04/17 12:45 10/04/17 12:29 Hydromorphone HCl (Dilaudid Inj) 1 mg Q4 PRN IV 09/04/17 12:45 09/18/17 12:44 Hydromorphone HCl (Dilaudid Inj) 0.5 mg Q4 PRN IV 09/04/17 12:45 09/18/17 12:44 Oxycodone HCl (Roxicodone Immediate Rel Tab) 10 mg Q6 PRN PO 09/04/17 12:45 09/18/17 12:44 09/05/17 21:11 10 MG Heparin Sodium (Porcine) (Heparin 10 Unit/ ml 5 ml Flush) 5 ml PRN PRN FLUSH 09/04/17 14:00 10/04/17 13:59 09/12/17 09:59 5 ML Albuterol/ Ipratropium (Combivent Respimat Inh) 1 puffs QID INH 09/04/17 17:00 10/04/17 16:59 Glucose (Glucose 40% Gel) 15-30 GRAMS 15 GRAMS... UD PRN PO 09/04/17 15:15 10/04/17 15:14 Glucose (Glucose Chew Tab) 4-8 Tablets 4 Tabl... UD PRN PO 09/04/17 15:15 10/04/17 15:14 Dextrose (Dextrose 50% 50ML Syringe) 25-50ML OF 50% DW IV FOR... UD PRN IV 09/04/17 15:15 10/04/17 15:14 Glucagon (Glucagon Inj) 1 mg UD PRN SQ 09/04/17 15:15 10/04/17 15:14 Ceftolozane/ Tazobactam 1.5 gm/ Dextrose 111.4 ml @ 111.4 mls/ hr Q8H IV 09/04/17 16:00 09/14/17 15:59 09/12/17 08:28 111.4 MLS/HR Insulin Glargine (Lantus Solostar Pen) 50 units QPM SC 09/09/17 21:00 10/04/17 20:59 09/11/17 20:45 50 UNITS Insulin Glargine (Lantus Solostar Pen) 28 units QAM SC 09/10/17 09:00 10/05/17 07:59 09/12/17 09:33 28 UNITS Insulin Aspart (novoLOG ASPART) SLIDING SCALE ACHS SQ 09/12/17 06:30 10/11/17 00:00 09/12/17 13:09 7 UNITS Objective Vital Signs Date Time Temp Pulse Resp B/P (MAP) Pulse Ox O2 Delivery O2 Flow Rate FiO2 09/12/17 08:00 100 Room Air 09/12/17 07:11 36.7 81 16 149/67 (94) 100 Room Air 09/12/17 00:00 Room Air 09/11/17 23:15 36.7 74 18 149/73 (98) 99 Room Air 09/11/17 16:00 100 Room Air 09/11/17 15:04 36.8 76 18 159/74 (102) 100 Physical Exam General Appearance: WD/WN, no apparent distress Eyes: normal inspection, EOMI, sclerae normal ENT: normal ENT inspection, pharynx normal Neck: supple, no adenopathy, trachea midline Respiratory/Chest: chest non-tender, lungs clear, normal breath sounds, no respiratory distress Cardiovascular: regular rate, rhythm, no gallop, no murmur Abdomen: normal bowel sounds, non tender, soft, no organomegaly Extremities: non-tender, + slow capillary refill Neurologic/Psychiatric: alert, oriented x 3 Skin: normal color, no rash, + pertinent finding (Dressing intact) Lymphatic: no adenopathy Laboratory Results Last 24 Hours Test 09/11/17 16:23 09/11/17 20:35 09/12/17 05:42 09/12/17 07:23 Bedside Glucose 212 mg/dl 230 mg/dl 99 mg/dl White Blood Count 3.49 K/uL Red Blood Count 3.75 M/uL Hemoglobin 8.7 g/dL Hematocrit 28.2 % Mean Corpuscular Volume 75.2 fL Mean Corpuscular Hemoglobin 23.2 pg Mean Corpuscular Hemoglobin Concent 30.9 g/dl Platelet Count 233 K/uL Mean Platelet Volume 8.5 fL Neutrophils (%) (Auto) 47.2 % Lymphocytes (%) (Auto) 36.1 % Monocytes (%) (Auto) 13.2 % Eosinophils (%) (Auto) 2.3 % Basophils (%) (Auto) 0.6 % Neutrophils # (Auto) 1.65 K/uL Lymphocytes # (Auto) 1.26 K/uL Monocytes # (Auto) 0.46 K/uL Eosinophils # (Auto) 0.08 K/uL Basophils # (Auto) 0.02 K/uL RDW Standard Deviation 43.6 fL RDW Coefficient of Variation 15.7 % Immature Granulocyte % (Auto) 0.6 % Immature Granulocyte # (Auto) 0.02 K/uL Hypochromasia PRESENT Anisocytosis PRESENT Sodium Level 138 mmol/L Potassium Level 3.8 mmol/L Chloride Level 105 mmol/L Carbon Dioxide Level 25 mmol/L Anion Gap 8.0 mmol/L Blood Urea Nitrogen 27 mg/dl Creatinine 1.22 mg/dl Est Creatinine Clear Calc Drug Dose 59.7 ml/min Estimated GFR () 65.9 Estimated GFR (Non- 56.8 BUN/Creatinine Ratio 22.4 Random Glucose 113 mg/dl Calcium Level 9.1 mg/dl Test 09/12/17 11:21 Bedside Glucose 149 mg/dl Assessment and Plan 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 Patient will be continued on IV Zerbaxa, length of IV antibiotics will be determined after operative intervention. Will follow.
[2017-09-12 15:25] VITALS: BP 128/68; PULSE 65; TEMP 36.4; O2SAT 100
--- NOTE | 2017-09-12 15:39 | Hospitalist Progress Note ---
Hospitalist Progress Note Date of Service Sep 12, 2017. Subjective Pt evaluation today including: conversation w/ patient, conversation w/ peoplesoft consultant (Vascular EQUIPMENT MECHANIC SPECIALIST) Pt frustrated about having to stay longer for foot debridement, but understands. No concerns Respiratory: No shortness of breath Cardiovascular: No chest pain All Other Systems: Reviewed and Negative Objective Vital Signs Date Time Temp Pulse Resp B/P (MAP) Pulse Ox O2 Delivery O2 Flow Rate FiO2 09/12/17 15:25 36.4 65 18 128/68 (88) 100 Room Air 09/12/17 08:00 100 Room Air 09/12/17 07:11 36.7 81 16 149/67 (94) 100 Room Air 09/12/17 00:00 Room Air 09/11/17 23:15 36.7 74 18 149/73 (98) 99 Room Air 09/11/17 16:00 100 Room Air Physical Exam General Appearance: WD/WN, no apparent distress Eyes: normal inspection, sclerae normal ENT: + pertinent finding (RED CLIFF) Neck: trachea midline Respiratory/Chest: lungs clear, normal breath sounds, no respiratory distress, no accessory muscle use Cardiovascular: regular rate, rhythm, no edema, no gallop, + systolic murmur (3 /6 at LLSB) Abdomen: normal bowel sounds, non tender, soft Extremities: no pedal edema, no calf tenderness, + pertinent finding (rt foot in dressing not removed) Neurologic/Psychiatric: alert, normal mood/affect, oriented x 3 Skin: normal color, warm/dry, no rash, + pertinent finding (RUE PICC with dressing in place, no surrounding erythema) Laboratory Results Last 24 Hours Test 09/11/17 16:23 09/11/17 20:35 09/12/17 05:42 09/12/17 07:23 Bedside Glucose 212 mg/dl 230 mg/dl 99 mg/dl White Blood Count 3.49 K/uL Red Blood Count 3.75 M/uL Hemoglobin 8.7 g/dL Hematocrit 28.2 % Mean Corpuscular Volume 75.2 fL Mean Corpuscular Hemoglobin 23.2 pg Mean Corpuscular Hemoglobin Concent 30.9 g/dl Platelet Count 233 K/uL Mean Platelet Volume 8.5 fL Neutrophils (%) (Auto) 47.2 % Lymphocytes (%) (Auto) 36.1 % Monocytes (%) (Auto) 13.2 % Eosinophils (%) (Auto) 2.3 % Basophils (%) (Auto) 0.6 % Neutrophils # (Auto) 1.65 K/uL Lymphocytes # (Auto) 1.26 K/uL Monocytes # (Auto) 0.46 K/uL Eosinophils # (Auto) 0.08 K/uL Basophils # (Auto) 0.02 K/uL RDW Standard Deviation 43.6 fL RDW Coefficient of Variation 15.7 % Immature Granulocyte % (Auto) 0.6 % Immature Granulocyte # (Auto) 0.02 K/uL Hypochromasia PRESENT Anisocytosis PRESENT Sodium Level 138 mmol/L Potassium Level 3.8 mmol/L Chloride Level 105 mmol/L Carbon Dioxide Level 25 mmol/L Anion Gap 8.0 mmol/L Blood Urea Nitrogen 27 mg/dl Creatinine 1.22 mg/dl Est Creatinine Clear Calc Drug Dose 59.7 ml/min Estimated GFR () 65.9 Estimated GFR (Non- 56.8 BUN/Creatinine Ratio 22.4 Random Glucose 113 mg/dl Calcium Level 9.1 mg/dl Test 09/12/17 11:21 Bedside Glucose 149 mg/dl Assessment and Plan This pt is a 77-year-old male with a h/o severe PAD, JUAN, CAD/[place] w/ stent placement, HTN, HL, COPD, gout, h/o CVA, GERD, and DMII, with chronic OM of the rt foot and diabetic foot infection status post recent surgical revision/Right TMA, now failing outpatient treatment. Was on Zosyn for Pseudomonas, but then more recent culture grew out Pseudomonas now resistant to Zosyn. Chronic right foot OM/Diabetic foot infection/PAD-now with drug resistant Pseudomonas, was previously on Zosyn x 4 weeks with Wound Vac, being followed at [facility] and receiving hyperbaric O2 treatment. Underwent revascularization on 09/11 with Right SFA and popliteal angioplasty within existing stents. Remains afebrile, no leukocytosis, no signs of spreading or worsening infection. Has an area of necrosis of amputation site. -ID consult appreciated -continue IV Zerbaxa, time course TBD by ID -Vascular Surgery consulted, ordered arterial US which is significant for: 1. Findings consistent with high-grade stenotic process of the proximal right superficial femoral artery, popliteal artery, with somewhat dampened flow characteristics of all remaining vascular structures. 2. Ankle brachial index on the right involving the dorsalis pedis artery is 0.29 and noncompressible involving the posterior tibial artery. 3. Ankle brachial index on the left involving the dorsalis pedis artery 0.65 and noncompressible involving the posterior tibial artery. 4. The appearance overall suggests extensive multilevel arterial occlusive change. - Discussed case with Vascular: recommendation is for foot debridement tomorrow (Wed) and then may need to stay 1-2 more days with possible Wound Vac placement -Wound Care consult appreciated-they noted that Vascular will manage, will need Wound CLinic f/u after discharge -continue ASA, Plavix CAD/[place] w/ stent placement, HTN, HL-stable, BPs acceptable but slightly high -continue ASA, Plavix, statin -continue amlodipine, lisinopril DMII-last HgbA1C 8.8% in 06/2017, uncontrolled, with hyperglycemia finally resolved after increases in Lantus. He says he is eating a lot more here than at home -continue basal bolus insulin- continue increased dose of Lantus 28 units in AM , 50 units qPM -continue to hold his metformin at this time COPD-stable at this time -continue his outpatient treatment regimen with Combivent GERD-stable -continue PPI Fe-def anemia-hgb down to 8.9, microcytic, elevated RDW, ferritin 26, serum Fe low, TIBC high normal. Had EGD and colonoscopy in last 4-10 yrs respectively, longstanding GERD. Could be some component of anemia of chronic disease as well given infection. 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
[2017-09-12 16:00] VITALS: O2SAT 100
[2017-09-12] MEDS: LATANOPROST 0.005% OP SOLN 2.5 ML BTL OP SCH (20:51)
[2017-09-12] MEDS: SIMVASTATIN 80 MG TAB PO SCH (20:52)
[2017-09-12] MEDS: CLOPIDOGREL BISULFATE 75 MG TAB PO SCH (20:52)
[2017-09-12 23:56] VITALS: BP 148/90; PULSE 79; TEMP 36.6; O2SAT 99
[2017-09-13] MEDS: TAZOBACTAM IV SCH ×4 (00:04→23:58)
[2017-09-13] MEDS: CEFTOLOZANE IV SCH ×4 (00:04→23:58)
[2017-09-13] MEDS: DEXTROSE 5% IV SCH ×4 (00:04→23:58)
[2017-09-13 06:11] LABS: BASO % 0.3 %; BASO ABS # 0.01 K/uL (0-0.2); EOS % 3.4 %; HEMATOCRIT 27.4 % (42-52); IG% 0.3 %; LYMPH % 31.4 %; LYMPH ABS # 1.21 K/uL (1.2-3.4); MEAN CELL VOLUME 75.1 fL (80-100); MEAN CORPUSCULAR HEMOGLOBIN 24.1 pg (25-34); MEAN CORPUSCULAR HGB CONC 32.1 g/dl (32-36); MEAN PLATELET VOLUME 8.2 fL (7.4-10.4); NEUT % 50.6 %; PLATELET COUNT 223 K/uL (130-400); RED BLOOD COUNT 3.65 M/uL (4.7-6.1); WHITE BLOOD COUNT 3.85 K/uL (4.8-10.8)
[2017-09-13 06:38] LABS: BUN/CREATININE RATIO 19.7 (10-20); CREATININE 1.3 mg/dl (0.60-1.40); POTASSIUM 4.1 mmol/L (3.5-5.1)
[2017-09-13] MEDS ORDERED: LIDOCAINE HCL 2% 2 ML VIAL (20MG/ML) ONE (06:38)
[2017-09-13] MEDS ORDERED: PROPOFOL IV EMULSION 10 MG/ML 20 ML VIAL IV ONE (06:38)
[2017-09-13] MEDS ORDERED: FENTANYL CITRATE INJ 50 MCG/1 ML 2 ML VIAL ONE ×2 (06:39→08:10)
[2017-09-13 06:41] LABS: COMPLETE YES; HYPERSEGMENTED POLYS 1+
--- NOTE | 2017-09-13 07:13 | Progress Note ---
Progress Note Date of Service Sep 13, 2017. Progress Note Patient for foot debridement of his right foot today I have discussed the risks options and benefits of the procedure with the patient. The patient understands the risks options and benefits and agrees to the procedure. I have examined the patient, reviewed the History & Physical and in the interval since the performance of the History & Physical I have noted the following changes of clinical significance: No changes noted
[2017-09-13] MEDS ORDERED: EpHEDrine SULFATE 50MG/5ML SYR ONE (07:51)
[2017-09-13] MEDS ORDERED: GLYCOPYRROLATE INJ 0.2 MG/ML VIAL ONE (08:03)
--- NOTE | 2017-09-13 08:16 | [facility] Post Operative Brief Note ---
Immediate Operative Summary Operative Date Sep 13, 2017. Pre-Operative Diagnosis Severe peripheral artery disease with gangrene of right foot Post-Operative Diagnosis Severe peripheral artery disease with gangrene of right foot Procedure(s) Performed Right Foot Debridement-soft tissue, bone and muscle Surgeon Dr. Berg Assembler [employer] Surgeon(s) Lory Littlejohn PA-C Estimated Blood Loss 100 mL Findings good bleeding seen Specimens None Anesthesia Gen Complication(s) None Disposition Recovery Room / PACU
[2017-09-13] MEDS ORDERED: PROMETHAZINE HCL INJ 12.5 MG in SODIUM CHLORIDE 0.9% 50ML 50 ML IV PRN (08:30)
[2017-09-13] MEDS ORDERED: ATROPINE SULFATE 0.1 MG/ML 5ML SYR IV PRN (08:30)
[2017-09-13] MEDS ORDERED: LABETALOL HCL IV 5 MG/ML 20ML IV PRN (08:30)
[2017-09-13] MEDS ORDERED: FENTANYL CITRATE INJ 50 MCG/1 ML 2 ML VIAL IV PRN (08:30)
[2017-09-13] MEDS ORDERED: EpHEDrine SULFATE INJ 50 MG/ML AMP IV PRN (08:30)
[2017-09-13] MEDS ORDERED: FLUMAZENIL 0.1 MG/1 ML 10 ML VIAL IV PRN (08:30)
[2017-09-13] MEDS ORDERED: ONDANSETRON INJ 2 MG/ML 2 ML VIAL IV PRN (08:30)
[2017-09-13] MEDS ORDERED: NALOXONE HCL 0.4 MG/1 ML VIAL/CARP IV PRN (08:30)
--- NOTE | 2017-09-13 08:49 | Anesthesiology Progress Note ---
Anesthesia Post Op Note Date & Time Sep 13, 2017 at 08:49 Vital Signs Pain Intensity: 0 Vital Signs Past 12 Hours Date Time Temp Pulse Resp B/P (MAP) Pulse Ox O2 Delivery O2 Flow Rate FiO2 09/13/17 08:40 82 12 119/53 100 Oxymask 10 09/13/17 08:30 89 13 116/57 100 Oxymask 10 09/13/17 08:21 36.0 96 14 107/56 100 Oxymask 10 09/13/17 00:00 Room Air 09/12/17 23:56 36.6 79 20 148/90 (109) 99 Room Air Notes Mental Status: alert / awake / arousable, participated in evaluation Pt Amnestic to Procedure: Yes Nausea / Vomiting: adequately controlled Pain: adequately controlled Airway Patency, RR, SpO2: stable & adequate BP & HR: stable & adequate Hydration State: stable & adequate Anesthetic Complications: no major complications apparent
[2017-09-13] MEDS: HEPARIN SOD 5000 UNIT/0.5 ML CARP SQ SCH ×3 (09:00→21:15)
[2017-09-13] MEDS: IPRATROPIUM BROMIDE/ALBUTEROL respimat INH INH SCH ×5 (09:00→21:00)
[2017-09-13 09:10] VITALS: BP 152/63; PULSE 87; TEMP 36.3; O2SAT 96
[2017-09-13 09:40] VITALS: BP 132/59; PULSE 96; TEMP 36.6; O2SAT 96
[2017-09-13] MEDS: ASPIRIN 81 MG ECTAB PO SCH (09:56)
[2017-09-13] MEDS: AMLODIPINE BESYLATE 5 MG TAB PO SCH (09:56)
[2017-09-13] MEDS: LISINOPRIL 20 MG TAB PO SCH (09:57)
[2017-09-13] MEDS: PANTOprazole SOD 40 MG TAB PO SCH (09:57)
[2017-09-13 10:00] VITALS: O2SAT 98
[2017-09-13] MEDS: INSULIN ASPART 100 UNITS/ML 3 ML PEN SQ SCH ×4 (10:04→21:17)
[2017-09-13] MEDS: INSULIN GLARGINE SOLOSTAR 100 UNITS/ML 3 ML PEN SC SCH ×2 (10:05→21:16)
[2017-09-13 10:10] VITALS: BP 125/70; PULSE 98; TEMP 36.5; O2SAT 97
--- NOTE | 2017-09-13 11:14 | Progress Note ---
Progress Note Date of Service Sep 13, 2017. Progress Note I assisted Dr Berg with Vasquez Sena's Right Foot Debridement-soft tissue, bone and muscle, on 09/13/17, d/t lack of resident availability.
--- NOTE | 2017-09-13 12:23 | OPERATIVE REPORT ---
DATE OF OPERATION: 09/13/2017 PREOPERATIVE DIAGNOSIS: Open right transmetatarsal amputation with necrotic tissue. POSTOPERATIVE DIAGNOSIS: Same. PROCEDURE: Right foot debridement of soft tissue skin, bone, and muscle. SURGEON: Dr. Berg. ANIMAL CARE SPECIALIST: Lory Littlejohn PA-C. ANESTHETIC: General. PROCEDURE INDICATIONS: The patient is a 77-year-old white male who had a transmetatarsal amputation. It subsequent got infected with pseudomonas. The edges are necrotic and large amount of fibrin is present. Debridement was recommended. He understood the risks, options and benefits and agreed to go ahead with this procedure. DESCRIPTION OF PROCEDURE: The patient was taken to the operating room and placed in supine position. After general anesthesia was accomplished, the right TMA was prepped and draped in a sterile manner. The necrotic skin edges and subcutaneous tissue were debrided. It was cut back to good bleeding tissue. The lumbrical muscles in the distal end appeared to be pale, these were also debrided back to good tissue. The metatarsal bones were taken back another 2-3 cm. Good bleeding was seen. Adequate hemostasis was obtained. Once adequate hemostasis was noted, the wound was irrigated with copious amounts of saline solution. This was done using the Pulsavac. Once this was completed with 3 liters of fluid the wound was then dressed with Adaptic for the wound surface, 4 x 4's, ABD and Kerlix followed by an Greg wrap for the dressing. The patient left the operating room in satisfactory condition and tolerated the procedure well. The patient left the operation room in satisfactory condition and tolerated the procedure well. All needle and sponge counts were correct at the end of the procedure. Lory Littlejohn Pac assisted due to lack of resident availability and was necessary for prepping, draping, retraction, wound closure defects, subcutaneous tissue, and skin closure and was necessary for the case. I attest to the content of the Intraoperative Record and any orders documented therein. Any exceptions are noted below. PATRICIO
--- NOTE | 2017-09-13 15:32 | Progress Note ---
Subjective Date of Service: Sep 13, 2017. Subjective Pt evaluation today including: conversation w/ patient, conversation w/ family , physical exam, lab review, review of studies, review of inpatient medication list Pt resting comfortably in bed No distress noted S/P debridement No concerns at this time Problem List Medical Problems: (1) Needs peripherally inserted central catheter (PICC) Status: Acute Review of Systems Constitutional: No fever, No chills, No sweats, No weight loss ENT: No hearing loss, No unusual epistaxis, No nasal symptoms, No sore throat Respiratory: No cough, No sputum, No wheezing, No shortness of breath Cardiac: No chest pain, No orthopnea, No PND, No edema Abdomen: No pain, No nausea, No vomiting, No diarrhea, No constipation Musculoskeletal: No joint pain, No muscle pain, No swelling, No calf pain Male : No dysuria, No urinary frequency, No incontinence, No slowing stream Neurologic: No memory loss, No paralysis, No weakness, No numbness/tingling Psychiatric: No depression symptoms, No anhedonism, No anxiety, No insomnia Endo: No fatigue, No excessive thirst Skin: No rash, No itch Objective Vital Signs Date Time Temp Pulse Resp B/P (MAP) Pulse Ox O2 Delivery O2 Flow Rate FiO2 09/13/17 10:10 36.5 98 20 125/70 (88) 97 Room Air 09/13/17 10:00 98 Room Air 09/13/17 09:40 36.6 96 18 132/59 (83) 96 Room Air 09/13/17 09:19 Nasal Cannula 2.0 09/13/17 09:10 36.3 87 18 152/63 (92) 96 Nasal Cannula 2.0 09/13/17 09:00 36.0 73 16 134/69 100 Nasal Cannula 2 09/13/17 08:50 92 14 117/51 95 Nasal Cannula 2 09/13/17 08:40 82 12 119/53 100 Oxymask 10 09/13/17 08:30 89 13 116/57 100 Oxymask 10 09/13/17 08:21 36.0 96 14 107/56 100 Oxymask 10 09/13/17 00:00 Room Air 09/12/17 23:56 36.6 79 20 148/90 (109) 99 Room Air 09/12/17 16:00 100 Room Air Physical Exam General Appearance: WD/WN, no apparent distress Eyes: normal inspection, PERRL, EOMI, sclerae normal Neck: supple, no adenopathy, thyroid normal, no JVD Respiratory/Chest: chest non-tender, lungs clear, normal breath sounds, no respiratory distress Cardiovascular: no edema, no gallop, no JVD, no murmur Abdomen: normal bowel sounds, non tender, soft, no organomegaly Extremities: non-tender, no pedal edema, + pertinent finding (foot with dressing) Neurologic/Psychiatric: no motor/sensory deficits, alert, normal mood/affect, oriented x 3 Laboratory Results Last 24 Hours Test 09/12/17 16:14 09/12/17 20:28 09/13/17 05:46 09/13/17 08:28 Bedside Glucose 135 mg/dl 211 mg/dl 138 mg/dl White Blood Count 3.85 K/uL Red Blood Count 3.65 M/uL Hemoglobin 8.8 g/dL Hematocrit 27.4 % Mean Corpuscular Volume 75.1 fL Mean Corpuscular Hemoglobin 24.1 pg Mean Corpuscular Hemoglobin Concent 32.1 g/dl Platelet Count 223 K/uL Mean Platelet Volume 8.2 fL Neutrophils (%) (Auto) 50.6 % Lymphocytes (%) (Auto) 31.4 % Monocytes (%) (Auto) 14.0 % Eosinophils (%) (Auto) 3.4 % Basophils (%) (Auto) 0.3 % Neutrophils # (Auto) 1.95 K/uL Lymphocytes # (Auto) 1.21 K/uL Monocytes # (Auto) 0.54 K/uL Eosinophils # (Auto) 0.13 K/uL Basophils # (Auto) 0.01 K/uL RDW Standard Deviation 43.4 fL RDW Coefficient of Variation 15.5 % Immature Granulocyte % (Auto) 0.3 % Immature Granulocyte # (Auto) 0.01 K/uL Hypersegmented Polys 1+ Sodium Level 138 mmol/L Potassium Level 4.1 mmol/L Chloride Level 107 mmol/L Carbon Dioxide Level 27 mmol/L Anion Gap 4.0 mmol/L Blood Urea Nitrogen 26 mg/dl Creatinine 1.30 mg/dl Est Creatinine Clear Calc Drug Dose 56.0 ml/min Estimated GFR () 61.0 Estimated GFR (Non- 52.6 BUN/Creatinine Ratio 19.7 Random Glucose 137 mg/dl Calcium Level 9.0 mg/dl Test 09/13/17 11:29 Bedside Glucose 239 mg/dl Assessment and Plan This pt is a 77-year-old male with a h/o severe PAD, JUAN, CAD/[place] w/ stent placement, HTN, HL, COPD, gout, h/o CVA, GERD, and DMII, with chronic OM of the rt foot and diabetic foot infection status post recent surgical revision/Right TMA, now failing outpatient treatment. Was on Zosyn for Pseudomonas, but then more recent culture grew out Pseudomonas now resistant to Zosyn. Chronic right foot OM/Diabetic foot infection/PAD-now with drug resistant Pseudomonas, was previously on Zosyn x 4 weeks with Wound Vac, being followed at [facility] and receiving hyperbaric O2 treatment. Underwent revascularization on 09/11 with Right SFA and popliteal angioplasty within existing stents. Remains afebrile, no leukocytosis, no signs of spreading or worsening infection. Has an area of necrosis of amputation site. -ID consult appreciated -continue IV Zerbaxa, time course TBD by ID -Vascular Surgery consulted, ordered arterial US which is significant for: 1. Findings consistent with high-grade stenotic process of the proximal right superficial femoral artery, popliteal artery, with somewhat dampened flow characteristics of all remaining vascular structures. 2. Ankle brachial index on the right involving the dorsalis pedis artery is 0.29 and noncompressible involving the posterior tibial artery. 3. Ankle brachial index on the left involving the dorsalis pedis artery 0.65 and noncompressible involving the posterior tibial artery. 4. The appearance overall suggests extensive multilevel arterial occlusive change. - Debridement completed 09/13 - Wound vac tentatively to be placed 09/14, appreciate wound care recs, will need Wound CLinic f/u after discharge - Continue ASA, Plavix CAD/[place] w/ stent placement, HTN, HL-stable, BPs acceptable but slightly high -continue ASA, Plavix, statin -continue amlodipine, lisinopril DMII-last HgbA1C 8.8% in 06/2017, uncontrolled, with hyperglycemia finally resolved after increases in Lantus. He says he is eating a lot more here than at home -continue basal bolus insulin- continue increased dose of Lantus 28 units in AM , 50 units qPM -continue to hold his metformin at this time COPD-stable at this time -continue his outpatient treatment regimen with Combivent GERD-stable -continue PPI Fe-def anemia-hgb down to 8.9, microcytic, elevated RDW, ferritin 26, serum Fe low, TIBC high normal. Had EGD and colonoscopy in last 4-10 yrs respectively, longstanding GERD. Could be some component of anemia of chronic disease as well given infection. Hemoccult stool negative -recommend outpt GI f/u and repeat Hemoccult as outpt -follow CBC CKD Stage III- at baseline -avoid nephrotoxins renally dose all meds -consider stopping metformin indefinitely Gout-stable, no acute issues -not on meds Heart murmur-likely MR, says he had an ECHO a couple months ago and was [facility] that [facility] needed another one in 3 yrs, "not to worry about it" Proph-heparin SQ Continued [facility] stay due to: multiple IV medications needed Discharge planning: home
[2017-09-13 15:53] VITALS: BP 126/62; PULSE 84; TEMP 36.5; O2SAT 93
[2017-09-13] MEDS: LATANOPROST 0.005% OP SOLN 2.5 ML BTL OP SCH (21:00)
[2017-09-13] MEDS: SIMVASTATIN 80 MG TAB PO SCH (21:18)
[2017-09-13] MEDS: CLOPIDOGREL BISULFATE 75 MG TAB PO SCH (21:18)
[2017-09-14 00:18] VITALS: BP 132/68; PULSE 68; TEMP 36.7; O2SAT 97
[2017-09-14 08:00] VITALS: O2SAT 98
[2017-09-14 08:20] VITALS: BP 124/64; PULSE 98; TEMP 37.6; O2SAT 97
[2017-09-14] MEDS: IPRATROPIUM BROMIDE/ALBUTEROL respimat INH INH SCH ×4 (09:00→20:54)
[2017-09-14] MEDS: HEPARIN SOD 5000 UNIT/0.5 ML CARP SQ SCH ×2 (09:00→22:22)
[2017-09-14] MEDS: TAZOBACTAM IV SCH ×2 (09:21→16:00)
[2017-09-14] MEDS: DEXTROSE 5% IV SCH ×2 (09:21→16:00)
[2017-09-14] MEDS: CEFTOLOZANE IV SCH ×2 (09:21→16:00)
[2017-09-14] MEDS: AMLODIPINE BESYLATE 5 MG TAB PO SCH (09:22)
[2017-09-14] MEDS: LISINOPRIL 20 MG TAB PO SCH (09:22)
[2017-09-14] MEDS: PANTOprazole SOD 40 MG TAB PO SCH (09:22)
[2017-09-14] MEDS: ASPIRIN 81 MG ECTAB PO SCH (09:22)
[2017-09-14] MEDS: INSULIN ASPART 100 UNITS/ML 3 ML PEN SQ SCH ×4 (09:26→22:14)
[2017-09-14] MEDS: INSULIN GLARGINE SOLOSTAR 100 UNITS/ML 3 ML PEN SC SCH ×2 (09:27→22:15)
--- NOTE | 2017-09-14 09:39 | Anesthesiology Progress Note ---
Anesthesia Post Op Note Date & Time Sep 14, 2017 at 09:39 Vital Signs Pain Intensity: 0.0 Vital Signs Past 12 Hours Date Time Temp Pulse Resp B/P (MAP) Pulse Ox O2 Delivery O2 Flow Rate FiO2 09/14/17 08:20 37.6 98 18 124/64 (84) 97 Room Air 09/14/17 00:18 36.7 68 20 132/68 (89) 97 Room Air 09/14/17 00:00 Room Air Notes Mental Status: alert / awake / arousable, participated in evaluation Pt Amnestic to Procedure: Yes Nausea / Vomiting: adequately controlled Pain: adequately controlled Airway Patency, RR, SpO2: stable & adequate BP & HR: stable & adequate Hydration State: stable & adequate Anesthetic Complications: no major complications apparent
[2017-09-14] MEDS ORDERED: DAKIN'S SOLN 0.125% QUARTER STRENGTH 473 ML BTL EXT SCH (13:45)
--- NOTE | 2017-09-14 15:24 | Progress Note ---
Progress Note Date of Service: Sep 14, 2017. Subjective 77 yo m with multiple medical problems, POD #1 after RLE debridement, seen in f/ u today. Pt admits some pain in foot, but states is better. Frustrated with his length of stay in hospital. Problem List Medical Problems: (1) Needs peripherally inserted central catheter (PICC) Status: Acute Objective Vital Signs Vital Signs Past 12 Hours Date Time Temp Pulse Resp B/P (MAP) Pulse Ox O2 Delivery O2 Flow Rate FiO2 09/14/17 08:20 37.6 98 18 124/64 (84) 97 Room Air 09/14/17 08:00 98 Room Air Exam CONST: A&O x3, NAD, BEAVER EXT: RLE wound appears healthy POD #1. No necrosis. + red tissue. No active bleeding. No erythema. Intake & Output 8-Hour Column 09/14/17 09/15/17 09/15/17 16:00 00:00 08:00 Intake Total 675 ml Output Total 1250 ml Balance -575 ml 24-Hour Column 09/15/17 08:00 Intake Total 675 ml Output Total 1250 ml Balance -575 ml Laboratory and Microbiology Results Past 24 Hours Test 09/13/17 16:54 09/13/17 19:35 09/14/17 07:34 09/14/17 10:57 Range/Units Bedside Glucose 148 173 135 203 70-99 mg/dl ASSESSMENT and PLAN: s/p RLE debridement d/t infection s/p RLE angio with PEGGER DOBBY LOOMS comm fem art and pop R foot TMA site infection Pt doing well POD #1. Assisted with dressing change using dakins solution today. Wound appears healthy. Reevaluate tomorrow.
[2017-09-14 15:47] VITALS: BP 158/74; PULSE 75; TEMP 36.5; O2SAT 96
--- NOTE | 2017-09-14 18:20 | Progress Note ---
Subjective Date of Service: Sep 14, 2017. Subjective Pt evaluation today including: conversation w/ patient, physical exam, chart review, lab review, review of studies, review of inpatient medication list Frustrated with length of stay Dressing changed No worsening pain Problem List Medical Problems: (1) Needs peripherally inserted central catheter (PICC) Status: Acute Review of Systems Constitutional: No see HPI, No fever, No chills, No sweats, No weight loss, No weakness, No fatigue, No problem reported Respiratory: No see HPI, No cough, No sputum, No wheezing, No shortness of breath, No dyspnea on exertion, No dyspnea at rest, No hemoptysis, No problem reported Cardiac: No see HPI, No chest pain, No orthopnea, No PND, No edema, No claudication, No palpitations, No problem reported Abdomen: No see HPI, No pain, No nausea, No vomiting, No diarrhea, No constipation, No GI bleeding, No problem reported Musculoskeletal: No see HPI, No joint pain, No muscle pain, No swelling, No calf pain, No problem reported Male : No see HPI, No dysuria, No urinary frequency, No incontinence, No nocturia more than once/night, No slowing stream, No hematuria, No sexual dysfunction, No problem reported Neurologic: No see HPI, No memory loss, No paralysis, No weakness, No numbness/ tingling, No vertigo, No balance problems, No problem reported Psychiatric: No see HPI, No depression symptoms, No anhedonism, No anxiety, No insomnia, No substance abuse, No problem reported Endo: No see HPI, No fatigue, No excessive thirst, No excessive urination, No problem reported Skin: No see HPI, No rash, No itch, No new/changing skin lesions, No color change, No bleeding, No problem reported Objective Vital Signs Date Time Temp Pulse Resp B/P (MAP) Pulse Ox O2 Delivery O2 Flow Rate FiO2 09/14/17 15:47 36.5 75 18 158/74 (102) 96 Room Air 09/14/17 08:20 37.6 98 18 124/64 (84) 97 Room Air 09/14/17 08:00 98 Room Air 09/14/17 00:18 36.7 68 20 132/68 (89) 97 Room Air 09/14/17 00:00 Room Air Physical Exam General Appearance: WD/WN, no apparent distress Eyes: normal inspection, PERRL, EOMI, sclerae normal Neck: supple, no adenopathy, thyroid normal, no JVD Respiratory/Chest: chest non-tender, lungs clear, normal breath sounds, no respiratory distress Cardiovascular: regular rate, rhythm, no edema, no gallop, no JVD Abdomen: normal bowel sounds, non tender, soft, no organomegaly Extremities: normal range of motion, non-tender, no pedal edema, + pertinent finding (right foot in dressing) Neurologic/Psychiatric: 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 Was on Zosyn for Pseudomonas, but then more recent culture grew out Pseudomonas now resistant to Zosyn. Chronic right foot OM/Diabetic foot infection/PAD-now with drug resistant Pseudomonas, was previously on Zosyn x 4 weeks with Wound Vac, being followed at [facility] and receiving hyperbaric O2 treatment. Underwent revascularization on 09/11 with Right SFA and popliteal angioplasty within existing stents. Remains afebrile, no leukocytosis, no signs of spreading or worsening infection. Has an area of necrosis of amputation site. -ID consult appreciated -continue IV Zerbaxa, time course TBD by ID, tay and bactrim on DC -Vascular Surgery consulted, ordered arterial US which is significant for: 1. Findings consistent with high-grade stenotic process of the proximal right superficial femoral artery, popliteal artery, with somewhat dampened flow characteristics of all remaining vascular structures. 2. Ankle brachial index on the right involving the dorsalis pedis artery is 0.29 and noncompressible involving the posterior tibial artery. 3. Ankle brachial index on the left involving the dorsalis pedis artery 0.65 and noncompressible involving the posterior tibial artery. 4. The appearance overall suggests extensive multilevel arterial occlusive change. - Debridement completed 09/13 - Wound vac tentatively to be placed 09/14, appreciate wound care recs, will need [facility]ound [facility] f/u after discharge - Continue ASA, Plavix CAD/HI w/ stent placement, HTN, HL-stable, BPs acceptable but slightly high -continue ASA, Plavix, statin -continue amlodipine, lisinopril DMII-last HgbA1C 8.8% in 06/2017, uncontrolled, with hyperglycemia finally resolved after increases in Lantus. He says he is eating a lot more here than at home -continue basal bolus insulin- continue increased dose of Lantus 28 units in AM , 50 units qPM -continue to hold his metformin at this time COPD-stable at this time -continue his outpatient treatment regimen with Combivent GERD-stable -continue PPI Fe-def anemia-hgb down to 8.9, microcytic, elevated RDW, ferritin 26, serum Fe low, TIBC high normal. Had EGD and colonoscopy in last 4-10 yrs respectively, longstanding GERD. Could be some component of anemia of chronic disease as well given infection. Hemoccult stool negative -recommend outpt GI f/u and repeat Hemoccult as outpt -follow CBC CKD Stage III- at baseline -avoid nephrotoxins renally dose all meds -consider stopping metformin indefinitely Gout-stable, no acute issues -not on meds Heart murmur-likely MR, says he had an ECHO a couple months ago and was told [facility] that he needed another one in 3 yrs, "not to worry about it" Proph-heparin SQ Continued [facility] stay due to: multiple IV medications needed Discharge planning: home
--- NOTE | 2017-09-14 20:32 | Infectious Disease Progress Nt ---
Progress Note Date of Service Sep 14, 2017. Subjective Pt evaluation today including: conversation w/ patient, physical exam, chart review, lab review, review of studies, conversation w/ enterprise resource planning consultant, review of inpatient medication list Patient offering no new complaints today. Status post debridement of right foot. Pain controlled. Remains afebrile. All Other Systems: Reviewed and Negative Medications Current Inpatient Medications Medications (Trade) Dose Ordered Sig/Sol Route Start Time Stop Time Status Last Admin Dose Admin Amlodipine Besylate (Norvasc Tab) 5 mg QAM PO 09/05/17 08:00 10/05/17 07:59 09/14/17 09:22 5 MG Aspirin (Ecotrin Tab) 81 mg QAM PO 09/05/17 08:00 10/05/17 07:59 09/14/17 09:22 81 MG Clopidogrel Bisulfate (plAVix TAB) 75 mg HS PO 09/04/17 22:00 10/04/17 21:59 09/13/17 21:18 75 MG Latanoprost (Xalatan Oph Soln) 1 drops HS OP 09/04/17 22:00 10/04/17 21:59 09/13/17 21:00 1 DROPS Lisinopril (Zestril Tab) 20 mg QAM PO 09/05/17 08:00 10/05/17 07:59 09/14/17 09:22 20 MG Pantoprazole Sodium (Protonix Tab) 40 mg QAM PO 09/05/17 08:00 10/05/17 07:59 09/14/17 09:22 40 MG Simvastatin (Zocor Tab) 80 mg QPM PO 09/04/17 21:00 10/04/17 20:59 09/13/17 21:18 80 MG Polyethylene (Miralax Powder Packet) 17 gm DAILY PRN PO 09/04/17 12:30 10/04/17 12:29 Ondansetron HCl (Zofran Inj) 4 mg Q6H PRN IV 09/04/17 12:30 10/04/17 12:29 Heparin Sodium (Porcine) (Heparin Sq 5000 Unit/0.5ml) 5,000 unit Q12 SQ 09/04/17 14:00 10/04/17 13:59 09/12/17 08:36 5,000 UNIT Acetaminophen (Tylenol Tab) 1,000 mg Q6H PRN PO 09/04/17 12:45 10/04/17 12:29 Hydromorphone HCl (Dilaudid Inj) 1 mg Q4 PRN IV 09/04/17 12:45 09/18/17 12:44 Hydromorphone HCl (Dilaudid Inj) 0.5 mg Q4 PRN IV 09/04/17 12:45 09/18/17 12:44 Oxycodone HCl (Roxicodone Immediate Rel Tab) 10 mg Q6 PRN PO 09/04/17 12:45 09/18/17 12:44 09/05/17 21:11 10 MG Heparin Sodium (Porcine) (Heparin 10 Unit/ ml 5 ml Flush) 5 ml PRN PRN FLUSH 09/04/17 14:00 10/04/17 13:59 09/14/17 18:07 5 ML Albuterol/ Ipratropium (Combivent Respimat Inh) 1 puffs QID INH 09/04/17 17:00 10/04/17 16:59 Glucose (Glucose 40% Gel) 15-30 GRAMS 15 GRAMS... UD PRN PO 09/04/17 15:15 10/04/17 15:14 Glucose (Glucose Chew Tab) 4-8 Tablets 4 Tabl... UD PRN PO 09/04/17 15:15 10/04/17 15:14 Dextrose (Dextrose 50% 50ML Syringe) 25-50ML OF 50% DW IV FOR... UD PRN IV 09/04/17 15:15 10/04/17 15:14 Glucagon (Glucagon Inj) 1 mg UD PRN SQ 09/04/17 15:15 10/04/17 15:14 Insulin Glargine (Lantus Solostar Pen) 50 units QPM SC 09/09/17 21:00 10/04/17 20:59 09/13/17 21:16 50 UNITS Insulin Glargine (Lantus Solostar Pen) 28 units QAM SC 09/10/17 09:00 10/05/17 07:59 09/14/17 09:27 28 UNITS Insulin Aspart (novoLOG ASPART) SLIDING SCALE ACHS SQ 09/12/17 06:30 10/11/17 00:00 09/14/17 18:23 8 UNITS Ceftolozane/ Tazobactam 1.5 gm/ Dextrose 111.4 ml @ 111.4 mls/ hr Q8H IV 09/14/17 16:00 10/26/17 15:59 09/14/17 16:00 111.4 MLS/HR Irrigating Solution (Dakin'S Soln Quarter Strength) 1 appln BID EXT 09/14/17 13:45 10/14/17 13:44 Objective Vital Signs Date Time Temp Pulse Resp B/P (MAP) Pulse Ox O2 Delivery O2 Flow Rate FiO2 09/14/17 15:47 36.5 75 18 158/74 (102) 96 Room Air 09/14/17 15:30 Room Air 09/14/17 08:20 37.6 98 18 124/64 (84) 97 Room Air 09/14/17 08:00 98 Room Air 09/14/17 00:18 36.7 68 20 132/68 (89) 97 Room Air 09/14/17 00:00 Room Air Physical Exam General Appearance: WD/WN, no apparent distress Eyes: normal inspection, sclerae normal ENT: normal ENT inspection, pharynx normal Neck: supple, no adenopathy, thyroid normal, trachea midline Respiratory/Chest: chest non-tender, lungs clear, normal breath sounds, no respiratory distress Cardiovascular: regular rate, rhythm, no gallop, no murmur Abdomen: normal bowel sounds, non tender, soft, no organomegaly Extremities: non-tender, + slow capillary refill Neurologic/Psychiatric: alert, oriented x 3 Skin: normal color, no rash, + pertinent finding (Surgical dressing intact right foot) Lymphatic: no adenopathy Laboratory Results Last 24 Hours Test 09/14/17 07:34 09/14/17 10:57 09/14/17 16:40 09/14/17 20:03 Bedside Glucose 135 mg/dl 203 mg/dl 140 mg/dl 183 mg/dl Assessment and Plan 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 Patient will be continued on IV Zerbaxa,while in hospital, I have discussed oral alternatives with hospitalist service. Will continue to follow.
[2017-09-14] MEDS ORDERED: NURSING VERBAL MED ORDER ONE (21:45)
[2017-09-14] MEDS: LATANOPROST 0.005% OP SOLN 2.5 ML BTL OP SCH (22:16)
[2017-09-14] MEDS: CLOPIDOGREL BISULFATE 75 MG TAB PO SCH (22:17)
[2017-09-14] MEDS: SIMVASTATIN 80 MG TAB PO SCH (22:17)
[2017-09-15] MEDS: DEXTROSE 5% IV SCH ×2 (00:13→08:50)
[2017-09-15] MEDS: DAKIN'S SOLN 0.125% QUARTER STRENGTH 473 ML BTL EXT SCH ×2 (00:13→12:00)
[2017-09-15] MEDS: CEFTOLOZANE IV SCH ×2 (00:13→08:50)
[2017-09-15] MEDS: TAZOBACTAM IV SCH ×2 (00:13→08:50)
[2017-09-15 00:39] VITALS: BP 148/77; PULSE 89; TEMP 37; O2SAT 96
[2017-09-15 08:00] VITALS: O2SAT 98
[2017-09-15 08:02] VITALS: BP 132/67; PULSE 106; TEMP 36.3; O2SAT 97
[2017-09-15] MEDS: PANTOprazole SOD 40 MG TAB PO SCH (08:50)
[2017-09-15] MEDS: LISINOPRIL 20 MG TAB PO SCH (08:50)
[2017-09-15] MEDS: ASPIRIN 81 MG ECTAB PO SCH (08:51)
[2017-09-15] MEDS: IPRATROPIUM BROMIDE/ALBUTEROL respimat INH INH SCH ×2 (08:51→13:00)
[2017-09-15] MEDS: AMLODIPINE BESYLATE 5 MG TAB PO SCH (08:51)
[2017-09-15] MEDS: INSULIN ASPART 100 UNITS/ML 3 ML PEN SQ SCH ×2 (08:55→14:07)
[2017-09-15] MEDS: HEPARIN SOD 5000 UNIT/0.5 ML CARP SQ SCH (08:56)
[2017-09-15] MEDS: INSULIN GLARGINE SOLOSTAR 100 UNITS/ML 3 ML PEN SC SCH (08:56)
--- NOTE | 2017-09-15 08:56 | Progress Note ---
Progress Note Date of Service: Sep 15, 2017. Subjective No complaints Problem List Medical Problems: (1) Needs peripherally inserted central catheter (PICC) Status: Acute Objective Vital Signs Vital Signs Past 12 Hours Date Time Temp Pulse Resp B/P (MAP) Pulse Ox O2 Delivery O2 Flow Rate FiO2 09/15/17 08:02 36.3 106 18 132/67 (88) 97 Room Air 09/15/17 00:39 37.0 89 20 148/77 (100) 96 Room Air 09/15/17 00:00 Room Air Exam Amp site clean with good meaty tissue, no necrosis seen Laboratory and Microbiology Results Past 24 Hours Test 09/14/17 10:57 09/14/17 16:40 09/14/17 20:03 09/15/17 07:54 Range/Units Bedside Glucose 203 140 183 138 70-99 mg/dl Imp: Infected TMA wound Imp: wound looks good after debridement. Wound vac placed. May be d/c'd today on oral antibiotics
[2017-09-15] MEDS ORDERED: CIPR-255 PO (11:25)
[2017-09-15] MEDS ORDERED: AMOX875T PO (11:25)
--- NOTE | 2017-09-15 11:29 | Discharge Instructions ---
Discharge Instructions Date of Service Sep 15, 2017. Admission Reason for Admission: Left Foot Non-Healing Wound Discharge Discharge Diagnosis / Problem: Left gangrenous foot Discharge Goals Goal(s): Decrease discomfort, Improve function, Increase independence, Improve disease control, Learn about illness, Diagnostic testing, Prevent Disease Progression Activity Recommendations Activity Limitations: resume your previous activity Exercise/Sports Limitations: as tolerated . Instructions / Follow-Up Instructions / Follow-Up Patient to be discharged home with home health Admitted with gangrenous foot with debridement needed in addition to wound vac Please noted antibiotics on discharge, cipro 500 mg tablet twice a day for 6 weeks in addition to augmentin twice a day for 6 weeks as well Please follow up with wound care in less than a week Please follow up with Dr Berg in 1 week as well Follow up with Dr Caruso in 1 week Current Hospital Diet Patient's current hospital diet: Diabetes Type 2 Diet, AHA Diet (Heart Healthy) Discharge Diet Recommended Diet: AHA Diet (Heart Healthy), Diabetes Type 2 Diet Procedures Procedures Performed: Right Foot Debridement-soft tissue, bone and muscle Pending Studies Studies pending at discharge: no Laboratory Results Hemoglobin A1c Test 07/13/17 06:35 Range/Units Estimated Average Glucose 206 mg/dl Hemoglobin A1c 8.8 H 4.5-5.6 % Medical Emergencies . Who to Call and When: Medical Emergencies: If at any time you feel your situation is an emergency, please call 911 immediately. . Non-Emergent Contact Non-Emergency issues call your: Primary Care Provider Call Non-Emergent contact if: you have a fever, your pain is worsening, wound has increased drainage, wound has increased redness . . "Provider Documentation" section prepared by Shawn Rose. . VTE Core Measure Inpt VTE Proph given/why not?: Unfractionated heparin SQ
[2017-09-15 14:31] VITALS: BP 132/67; PULSE 106; TEMP 36.3; O2SAT 97
--- NOTE | 2017-09-15 15:00 | Infectious Disease Progress Nt ---
Progress Note Date of Service Sep 15, 2017. Subjective Pt evaluation today including: conversation w/ patient, physical exam, chart review, lab review, review of studies, conversation w/ analysis consultant, review of inpatient medication list Patient offers no new complaints today. Anticipating discharge. Remains afebrile. Pain controlled. All Other Systems: Reviewed and Negative Medications Current Inpatient Medications Medications (Trade) Dose Ordered Sig/Sol Route Start Time Stop Time Status Last Admin Dose Admin Amlodipine Besylate (Norvasc Tab) 5 mg QAM PO 09/05/17 08:00 10/05/17 07:59 09/15/17 08:51 5 MG Aspirin (Ecotrin Tab) 81 mg QAM PO 09/05/17 08:00 10/05/17 07:59 09/15/17 08:51 81 MG Clopidogrel Bisulfate (plAVix TAB) 75 mg HS PO 09/04/17 22:00 10/04/17 21:59 09/14/17 22:17 75 MG Latanoprost (Xalatan Oph Soln) 1 drops HS OP 09/04/17 22:00 10/04/17 21:59 09/14/17 22:16 1 DROPS Lisinopril (Zestril Tab) 20 mg QAM PO 09/05/17 08:00 10/05/17 07:59 09/15/17 08:50 20 MG Pantoprazole Sodium (Protonix Tab) 40 mg QAM PO 09/05/17 08:00 10/05/17 07:59 09/15/17 08:50 40 MG Simvastatin (Zocor Tab) 80 mg QPM PO 09/04/17 21:00 10/04/17 20:59 09/14/17 22:17 80 MG Polyethylene (Miralax Powder Packet) 17 gm DAILY PRN PO 09/04/17 12:30 10/04/17 12:29 Ondansetron HCl (Zofran Inj) 4 mg Q6H PRN IV 09/04/17 12:30 10/04/17 12:29 Heparin Sodium (Porcine) (Heparin Sq 5000 Unit/0.5ml) 5,000 unit Q12 SQ 09/04/17 14:00 10/04/17 13:59 09/12/17 08:36 5,000 UNIT Acetaminophen (Tylenol Tab) 1,000 mg Q6H PRN PO 09/04/17 12:45 10/04/17 12:29 Hydromorphone HCl (Dilaudid Inj) 1 mg Q4 PRN IV 09/04/17 12:45 09/18/17 12:44 Hydromorphone HCl (Dilaudid Inj) 0.5 mg Q4 PRN IV 09/04/17 12:45 09/18/17 12:44 Oxycodone HCl (Roxicodone Immediate Rel Tab) 10 mg Q6 PRN PO 09/04/17 12:45 09/18/17 12:44 09/05/17 21:11 10 MG Heparin Sodium (Porcine) (Heparin 10 Unit/ ml 5 ml Flush) 5 ml PRN PRN FLUSH 09/04/17 14:00 10/04/17 13:59 09/15/17 08:32 5 ML Albuterol/ Ipratropium (Combivent Respimat Inh) 1 puffs QID INH 09/04/17 17:00 10/04/17 16:59 Glucose (Glucose 40% Gel) 15-30 GRAMS 15 GRAMS... UD PRN PO 09/04/17 15:15 10/04/17 15:14 Glucose (Glucose Chew Tab) 4-8 Tablets 4 Tabl... UD PRN PO 09/04/17 15:15 10/04/17 15:14 Dextrose (Dextrose 50% 50ML Syringe) 25-50ML OF 50% DW IV FOR... UD PRN IV 09/04/17 15:15 10/04/17 15:14 Glucagon (Glucagon Inj) 1 mg UD PRN SQ 09/04/17 15:15 10/04/17 15:14 Insulin Glargine (Lantus Solostar Pen) 50 units QPM SC 09/09/17 21:00 10/04/17 20:59 09/14/17 22:15 50 UNITS Insulin Glargine (Lantus Solostar Pen) 28 units QAM SC 09/10/17 09:00 10/05/17 07:59 09/15/17 08:56 28 UNITS Insulin Aspart (novoLOG ASPART) SLIDING SCALE ACHS SQ 09/12/17 06:30 10/11/17 00:00 09/15/17 14:07 11 UNITS Ceftolozane/ Tazobactam 1.5 gm/ Dextrose 111.4 ml @ 111.4 mls/ hr Q8H IV 09/14/17 16:00 10/26/17 15:59 09/15/17 08:50 111.4 MLS/HR Irrigating Solution (Dakin'S Soln Quarter Strength) 1 appln BID@0000,1200 EXT 09/15/17 00:00 10/14/17 13:44 09/15/17 00:13 1 APPLN Objective Vital Signs Date Time Temp Pulse Resp B/P (MAP) Pulse Ox O2 Delivery O2 Flow Rate FiO2 09/15/17 14:31 36.3 106 18 97 Room Air 09/15/17 08:02 36.3 106 18 132/67 (88) 97 Room Air 09/15/17 08:00 98 Room Air 09/15/17 00:39 37.0 89 20 148/77 (100) 96 Room Air 09/15/17 00:00 Room Air 09/14/17 15:47 36.5 75 18 158/74 (102) 96 Room Air 09/14/17 15:30 Room Air Physical Exam General Appearance: WD/WN, no apparent distress Eyes: normal inspection, EOMI, sclerae normal ENT: normal ENT inspection, pharynx normal Neck: supple, no adenopathy, trachea midline Respiratory/Chest: chest non-tender, lungs clear, normal breath sounds, no respiratory distress Cardiovascular: regular rate, rhythm, no gallop, no murmur Abdomen: normal bowel sounds, non tender, soft, no organomegaly Extremities: non-tender, no calf tenderness Neurologic/Psychiatric: alert, oriented x 3 Skin: normal color, no rash, + pertinent finding (Right foot dressing intact) Lymphatic: no adenopathy Laboratory Results Last 24 Hours Test 09/14/17 16:40 09/14/17 20:03 09/15/17 07:54 09/15/17 11:42 Bedside Glucose 140 mg/dl 183 mg/dl 138 mg/dl 205 mg/dl Assessment and Plan 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 Patient now status post angioplasty and surgical debridement. Patient to be discharged on combination of Augmentin and ciprofloxacin. Will follow-up at [facility].
--- NOTE | 2017-09-15 15:32 | Discharge Summary ---
Discharge Summary Date of Service Sep 15, 2017. Discharge Summary Admission Date: Sep 04, 2017 at 11:25 Discharge Date: Sep 15, 2017 Discharge Disposition: Home with services Principal Diagnosis: Gangrenous foot Immunizations: Have You Had Influenza Vaccine: Unknown Consultations: Wound care Vascular surgery Medication Reconciliation New Medications: Amoxicillin & Pot Clavulanate (Augmentin 875-125 mg) 1 Tab Tab 875 MG PO BID, #84 TAB Ciprofloxacin Hcl (Cipro) 500 Mg Tab 500 MG PO BID, #84 TAB Continued Medications: Amlodipine (Norvasc) 5 Mg Tab 5 MG PO QAM, TAB Aspirin (Aspirin Ec) 81 Mg Tab 81 MG PO QAM Clopidogrel (Plavix) 75 Mg Tab 75 MG PO HS, TAB Fish Oil ([place]-3) 1 Ea Cap 1 TAB PO BID Insulin Aspart (Novolog) 100 Units/Ml Inj Unknown Dose SQ UD PER SLIDING SCALE FOR NOVOLOG-PER PT AND Insulin Glargine (Lantus) 100 Unit/Ml Inj 40 UNITS SC QPM, VIAL Insulin Glargine (Lantus) 100 Unit/Ml Inj 20 UNITS SC QAM, VIAL Latanoprost (Xalatan 0.005% Oph Melany) 0.005 % Melany 1 DROPS OP HS for 30 Days, #2.5 ML 6 Refills Lisinopril (Zestril) 20 Mg Tab 20 MG PO QAM, TAB Metformin Hcl (Glucophage) 1,000 Mg Tab 1000 MG PO BID, TAB Multivitamin (Multivitamin) Tab 1 TAB PO DAILY, TAB Pantoprazole (Protonix) 40 Mg Tab 40 MG PO QAM, #30 TAB Simvastatin (Zocor) 80 Mg Tab 80 MG PO QPM, TAB Tocopheryl Acet,Dl-Alpha (Vitamin E) 100 Interunit Cap 1 TAB PO QAM Discontinued Medications: Piperacillin/Tazobactam Sod (Zosyn 4-0.5 gm) 4.5 Gm/20 Ml Inj 4.5 GM IV Q8 for 24 Days, DOSE Discharge Exam Review of Systems: Constitutional: No fever, No chills, No sweats, No weight loss, No weakness ENT: No hearing loss, No unusual epistaxis, No nasal symptoms, No sore throat Respiratory: No cough, No sputum, No wheezing, No shortness of breath Cardiovascular: No chest pain, No orthopnea, No PND, No edema Abdomen: No pain, No nausea, No vomiting, No diarrhea Musculoskeletal: No joint pain, No muscle pain, No swelling, No calf pain Genitourinary - Male: No hematuria, No dysuria, No urinary frequency, No urinary urgency Neurologic: No memory loss, No paralysis, No weakness, No numbness/tingling Psychiatric: No depression symptoms, No anhedonism, No anxiety, No insomnia Endocrine: No fatigue, No excessive thirst Integumentary: No rash, No itch Physical Exam: General Appearance: WD/WN, no apparent distress Eyes: normal inspection, PERRL, EOMI ENT: normal ENT inspection, hearing grossly normal, TMs normal, pharynx normal Neck: supple, no adenopathy, thyroid normal, no JVD Respiratory/Chest: chest non-tender, lungs clear, normal breath sounds, no respiratory distress Cardiovascular: regular rate, rhythm, no edema, no gallop, no JVD Abdomen / GI: normal bowel sounds, non tender, soft, no organomegaly Extremities: no calf tenderness, normal capillary refill, no pedal edema, + pertinent finding (right foot in bandage) Neurologic/Psychiatric: no motor/sensory deficits, alert, normal mood/affect , oriented x 3 Skin: normal color, warm/dry, no rash Lymphatic: no adenopathy Hospital Course This pt is a 77-year-old male with a h/o severe PAD, JUAN, CAD/HI w/ stent placement, HTN, HL, COPD, gout, h/o CVA, GERD, and DMII, with chronic OM of the rt foot and diabetic foot infection status post recent surgical revision/Right TMA, now failing outpatient treatment. Was on Zosyn for Pseudomonas, but then more recent culture grew out Pseudomonas now resistant to Zosyn. Chronic right foot OM/Diabetic foot infection/PAD-now with drug resistant Pseudomonas, was previously on Zosyn x 4 weeks with Wound Vac, being followed at Wound Clin and receiving hyperbaric O2 treatment. Underwent revascularization on 09/11 with Right SFA and popliteal angioplasty within existing stents. Remains afebrile, no leukocytosis, no signs of spreading or worsening infection. Has an area of necrosis of amputation site. -ID consult appreciated -continue IV Zerbaxa, time course TBD by ID, cipro and bactrim on DC -Vascular Surgery consulted, ordered arterial US which is significant for: 1. Findings consistent with high-grade stenotic process of the proximal right superficial femoral artery, popliteal artery, with somewhat dampened flow characteristics of all remaining vascular structures. 2. Ankle brachial index on the right involving the dorsalis pedis artery is 0.29 and noncompressible involving the posterior tibial artery. 3. Ankle brachial index on the left involving the dorsalis pedis artery 0.65 and noncompressible involving the posterior tibial artery. 4. The appearance overall suggests extensive multilevel arterial occlusive change. - Debridement completed 09/13 - Wound vac tentatively to be placed 09/15, appreciate wound care recs, will need Wound Clinic f/u after discharge - Per ID recs DC on cipro and augmentin x 6 weeks CAD/HI w/ stent placement, HTN, HL-stable, BPs acceptable but slightly high -continue ASA, Plavix, statin -continue amlodipine, lisinopril DMII-last HgbA1C 8.8% in 06/2017, uncontrolled, with hyperglycemia finally resolved after increases in Lantus. He says he is eating a lot more here than at home -continue basal bolus insulin- continue increased dose of Lantus 28 units in AM , 50 units qPM -continue to hold his metformin at this time COPD-stable at this time -continue his outpatient treatment regimen with Combivent GERD-stable -continue PPI Fe-def anemia-hgb down to 8.9, microcytic, elevated RDW, ferritin 26, serum Fe low, TIBC high normal. Had EGD and colonoscopy in last 4-10 yrs respectively, longstanding GERD. Could be some component of anemia of chronic disease as well given infection. Hemoccult stool negative -recommend outpt GI f/u and repeat Hemoccult as outpt -follow CBC CKD Stage III- at baseline -avoid nephrotoxins renally dose all meds -consider stopping metformin indefinitely Gout-stable, no acute issues -not on meds Heart murmur-likely MR, says he had an ECHO a couple months ago and was told [facility] that he needed another one in 3 yrs, "not to worry about it" Proph-heparin SQ Total Time Spent: Greater than 30 minutes This includes examination of the patient, discharge planning, medication reconciliation, and communication with other providers. Discharge Instructions Please refer to the electronic Patient Visit Report (Discharge Instructions) for additional information. Additional Copies To Haja Caruso D.O.
[2017-09-27] MEDS ORDERED: AMOX875T PO (10:14)
== END 2017-09-15 16:20 | disposition home health service (06) | DRG 504 ==
LOC: C.MS4W 11:25 → UNDOADMIN 11:25 → EDBEDREQ 09-06 17:48 → ENRESERV 09-06 17:58 → C.MS2W 09-06 18:25 → C.MS4W 09-06 18:25
PROVIDERS: ADMIT Internal Medicine; ATTEND Hospitalist
PROC: 047K3D1 Dilation of Right Femoral Artery with Intraluminal Device, using Drug-Coated Balloon, Percutaneous Approach (ICD-10-PCS; 2017-09-11)
PROC: 0QBN0ZZ Excision of Right Metatarsal, Open Approach (ICD-10-PCS; principal; 2017-09-13 07:30)
DX: T87.43 Infection of amputation stump, right lower extremity (principal); E11.52 Type 2 diabetes mellitus with diabetic peripheral angiopathy with gangrene; E11.59 Type 2 diabetes mellitus with other circulatory complications; E11.22 Type 2 diabetes mellitus with diabetic chronic kidney disease; N18.3 Chronic kidney disease, stage 3 (moderate); Z79.82 Long term (current) use of aspirin; Z79.4 Long term (current) use of insulin; B96.5 Pseudomonas (aeruginosa) (mallei) (pseudomallei) as the cause of diseases classified elsewhere; J44.9 Chronic obstructive pulmonary disease, unspecified; Z87.891 Personal history of nicotine dependence; I73.9 Peripheral vascular disease, unspecified; Z79.02 Long term (current) use of antithrombotics/antiplatelets; I12.9 Hypertensive chronic kidney disease with stage 1 through stage 4 chronic kidney disease, or unspecified chronic kidney disease; Z95.820 Peripheral vascular angioplasty status with implants and grafts

== ENCOUNTER 2017-09-27 11:17 | Inpatient (IN) | payer BC, OTHER ==
[~2017-09-27] VITALS: Ht 188 cm; Wt 87.5 kg
[~2017-09-27 11:17] MED LIST changes: +AMOX875T PO; +CIPR-255 PO; +MULT-506 PO; -ZSYI45 IV
[2017-09-27 13:45] VITALS: BP 117/57; PULSE 84; TEMP 36.3; O2SAT 93
[2017-09-27] MEDS ORDERED: ONDANSETRON INJ 2 MG/ML 2 ML VIAL IV PRN (14:00)
[2017-09-27] MEDS ORDERED: POLYETHYLENE (MIRALAX) 17 GM PACK PO PRN (14:00)
[2017-09-27] MEDS ORDERED: GLUCAGON FOR INJ 1 MG VIAL SQ PRN (14:15)
[2017-09-27] MEDS ORDERED: GLUCOSE 40% GEL 15 GM TUBE PO PRN (14:15)
[2017-09-27] MEDS ORDERED: DEXTROSE 50% 50 ML SYR IV PRN (14:15)
[2017-09-27] MEDS ORDERED: GLUCOSE 10 TABS/TUBE PO PRN (14:15)
[2017-09-27 14:24] VITALS: BMI 24.8
--- NOTE | 2017-09-27 14:32 | History and Physical ---
History & Physical Date & Time of Service: Sep 27, 2017 at 14:22 Chief Complaint: Osteomyelitis Of Right Foot Primary Care Physician: Haja Caruso D.O. History of Present Illness Source: patient, family This is a 77 yo M with PMHx of DM II, PAD s/p stenting, Afib on plavix, hx of pseudomonas infection of the R foot s/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 The patient currently follows with the wound clinc and is undergoing hyperbaric oxygen treatments. Today during his routine wound clinic appointment, Dr. Quiñonez noticed increased erythema surrounding the wound. The patient has been taking augmentin and cipro as an outpatient, therefore was recommended for admission and IV antibiotics. The patient denies any fever, sweats or chills. He states he actually feels very well at present. He has no pain in his foot due to neuropathy. 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, extremities (5) Ischemic pain of right foot (6) PAD (peripheral artery disease) (7) Post-operative infection (8) Pseudomonas aeruginosa infection (9) R footl osteomyelitis Family History Cancer Coronary Artery Disease Hypertension Social History Smoking Status: Former Smoker Smokeless Tobacco Use: No Alcohol Use: none Drug Use: none Marital Status: Housing status: lives with family Occupational Status: retired Immunizations History of Influenza Vaccine: Unknown Multi-Drug Resistant Organisms History of MDRO: Yes Type of MDRO: VRE Allergies Coded Allergies: Pregabalin (Verified Allergy, Unknown, `, 08/15/17) Carbamazepine (Verified Adverse Reaction, Intermediate, 'my hair fell out' , 08/15/17) Home Medications Scheduled Amlodipine (Norvasc), 5 MG PO QAM Amoxicillin & Pot Clavulanate (Augmentin 875-125 mg), 1 TAB PO BID Aspirin (Aspirin Ec), 81 MG PO QAM Ciprofloxacin Hcl (Cipro), 500 MG PO BID Clopidogrel (Plavix), 75 MG PO HS Fish Oil ([place]-3), 1 TAB PO BID Insulin Aspart (Novolog), Unknown Dose SQ UD Insulin Glargine (Lantus), 40 UNITS SC QPM Insulin Glargine (Lantus), 20 UNITS SC QAM Latanoprost (Xalatan 0.005% Oph Melany), 1 DROPS OP HS Lisinopril (Zestril), 20 MG PO QAM Metformin Hcl (Glucophage), 1,000 MG PO BID Multivitamin (Multivitamin), 1 TAB PO DAILY Pantoprazole (Protonix), 40 MG PO QAM Simvastatin (Zocor), 80 MG PO QPM Tocopheryl Acet,Dl-Alpha (Vitamin E), 1 TAB PO QAM Review of Systems Constitutional: No fever, No chills, No sweats, No weight loss Eyes: No redness, No diplopia ENT: No sore throat, No trouble swallowing Respiratory: No cough, No sputum, No wheezing, No shortness of breath, No dyspnea on exertion Cardiovascular: No chest pain, No edema Abdomen: No pain, No nausea, No vomiting, No diarrhea, No constipation Musculoskeletal: No joint pain, No muscle pain, No swelling Genitourinary - Male: No hematuria, No dysuria Neurologic: No memory loss, No numbness/tingling, No problem reported ( peripheral neuropathy - no pain in the R foot) Psychiatric: No depression symptoms, No anxiety Endocrine: No fatigue Integumentary: No rash, No itch Physical Exam General Appearance: WD/WN, no apparent distress Head: normocephalic, atraumatic Eyes: PERRL, EOMI ENT: hearing grossly normal, pharynx normal, + pertinent finding (MMM) Neck: supple, no JVD Respiratory/Chest: lungs clear, no respiratory distress, no accessory muscle use, + pertinent finding (on RA) Cardiovascular: + systolic murmur (grade III/ ), + irregularly irregular Abdomen/GI: normal bowel sounds, non tender, soft Back: normal inspection, no CVA tenderness Extremities/Musculoskelatal: no calf tenderness, + pertinent finding (R foot wound with mild surrounding erythema in extending approx 3 inches up the anterior tibial region, and around the lateral aspect of the foot. + slight purulent material over amputation site and + granulation tissue at borders. ) Neurologic/Psych: alert, normal mood/affect, oriented x 3 Skin: normal color, warm/dry Diagnostics Laboratory Results Results Past 24 Hours Test 09/27/17 13:54 Range/Units Microbiology Results 09/27/17 Blood Culture, Ordered Pending 09/27/17 Blood Culture, Ordered Pending 09/27/17 Gram Stain, Ordered Pending 09/27/17 Wound Culture, Ordered Pending Impression Assessment and Plan (1) R footl osteomyelitis Assessment & Plan: - Admit to med/surg directly from wound clinic - Will check labs including cbc, prp, lactic acid, BCx x 2 - Wound culture - Foot xray 2 views to start, may need CT imaging - Start on Zerbaxa 1.[address] Quiñonez - infectious disease consulted - Wound consulted - HOLD home meds of cipro and augmenting as erythema developed despite these agents (2) Pseudomonas aeruginosa infection Assessment & Plan: - Hx of wound infection with p. aeruginosa - await wound culture - Pt previously had picc line placed with zosyn infusions but this was removed secondary to picc line contamination. (3) Diabetic foot infection (4) A-fib Assessment & Plan: - Continue on plavix, lisinopril 20 mg daily, amlodipine 5 mg daily - Rate controlled (5) PAD (peripheral artery disease) Assessment & Plan: - Cont ASA 81 mg (6) DM II (diabetes mellitus, type II), controlled Assessment & Plan: - Continue Lantus 20 U QAM and 40 U QPM - ISS with accuchecks - Continue metformin 1000 mg BID - Check A1C with am labs (7) HTN (hypertension), benign Assessment & Plan: - Cont lisinopril 20 mg daily, amlodipine 5 mg daily Level of Care Med/Surg Resuscitation Status DO NOT RESUSCITATE VTE Prophylaxis VTE Risk Assessment Done? Y/N: Yes Risk Level: Low Given or contraindicated: T.E.D. Stockings, SCD's, Contraindicated (with chemical means in case of needs for surgical intervention) Reviewed: Pt Seen/Exam by Me History Pt is doing well. He has had mild diarrhea with ongoing abx use, but otherwise feels his usual. He has no pain related to his foot. He has not noted worsening redness of R LE, but it is generally bandaged. Denies chest pain or SOB. Has been eating well. He is frustrated over the prolonged course of this infection. Agree with HPI/ROS as noted above. General Appearance: WD/WN, no apparent distress Respiratory: normal breath sounds, no respiratory distress Cardiovascular: normal peripheral pulses, regular rate, rhythm Gastrointestinal: non tender, soft Extremities: non-tender, no pedal edema Neurologic/Psychiatric: alert, normal mood/affect, oriented x 3 Skin Characteristics: warm/dry, other (new bandaging in place that is clean and dry. Region marked with mild redness noted above the bandage.) Assessment/Plan Agree with plan as outlined above Recent R LE metatarsal amputation with pseudomonas that has resistance issues with several abx attempted, IV and PO c/s ID Planning for zerbaxa 1.5g Q8hr Blood cx on last admission were neg (09/15) Problem Qualifiers (1) A-fib: Atrial fibrillation type: chronic Qualified Codes: I48.2 - Chronic atrial fibrillation (2) DM II (diabetes mellitus, type II), controlled: Diabetes mellitus complication status: with circulatory complication Diabetes mellitus complication detail: with peripheral angiopathy without gangrene 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
--- NOTE | 2017-09-27 14:46 | DIAGNOSTIC IMAGING REPORT ---
FOOT MIN 3 VIEWS ROUTINE CLINICAL HISTORY: Right foot osteomyelitis. COMPARISON: Right foot radiographs July 23, 2017. FINDINGS: Postoperative findings within the right foot are noted. When compared to exam of July 23, 2017, there has been significant bone loss involving remaining portions of the metatarsals. In the absence of interval surgery, the findings are consistent with extensive osteomyelitis. There is cortical irregularity of remaining portions of the metatarsals which are nearly eroded to the metatarsal bases. Lucencies within the right midfoot shown on lateral projection are noted. There is soft tissue swelling. Note is made of extensive vascular calcification. IMPRESSION: Interval bone loss of remaining portions of the metatarsals since exam of July 23, 2017. In the absence of interval surgery, the findings are consistent with extensive osteomyelitis. Multifocal cortical irregularity of the metatarsals is highly suggestive of osteomyelitis. Lucencies within the midfoot could reflect additional sites of osteomyelitis or disuse osteopenia. Electronically signed by: Richard Lindquist M.D. 09/27/2017 2:45 PM Dictated Date/Time: 09/27/2017 2:39 PM
[2017-09-27 14:52] LABS: BASO % 0.2 %; BASO ABS # 0.01 K/uL (0-0.2); EOS % 1.3 %; EOS ABS # 0.06 K/uL (0-0.5); HEMATOCRIT 26.2 % (42-52); HEMOGLOBIN 8.2 g/dL (14.0-18.0); IG# 0.03 K/uL (0.00-0.02); LYMPH % 22.5 %; LYMPH ABS # 1.02 K/uL (1.2-3.4); MEAN CELL VOLUME 73.6 fL (80-100); MEAN CORPUSCULAR HGB CONC 31.3 g/dl (32-36); MONO % 6.6 %; NEUT % 68.7 %; NEUT ABS # 3.12 K/uL (1.4-6.5); PLATELET COUNT 260 K/uL (130-400); RED CELL DISTRIBUTION WIDTH CV 15.7 % (11.5-14.5); RED CELL DISTRIBUTION WIDTH SD 42.1 fL (36.4-46.3); WHITE BLOOD COUNT 4.54 K/uL (4.8-10.8)
[2017-09-27 15:02] LABS: INR 1.1 (0.9-1.1); PTT PATIENT 26.4 SECONDS (21.0-31.0)
[2017-09-27 15:30] LABS: CALCIUM 9.2 mg/dl (8.5-10.1); CREATININE 1.59 mg/dl (0.60-1.40); POTASSIUM 4.7 mmol/L (3.5-5.1)
[2017-09-27] MEDS ORDERED: LOPERAMIDE HCL 2 MG CAP PO PRN (15:45)
[2017-09-27] MEDS: DEXTROSE 5% IV SCH ×2 (15:48→22:59)
[2017-09-27] MEDS: TAZOBACTAM IV SCH ×2 (15:48→22:59)
[2017-09-27] MEDS: SODIUM CHLORIDE 0.9% 1000ML 1,000 ML IV SCH (15:48)
[2017-09-27] MEDS: CEFTOLOZANE IV SCH ×2 (15:48→22:59)
[2017-09-27 16:01] VITALS: BP 131/68; PULSE 85; TEMP 36.5; O2SAT 100
[2017-09-27] MEDS: METFORMIN HCL 500 MG TAB PO SCH (16:08)
[2017-09-27] MEDS: INSULIN ASPART 100 UNITS/ML 3 ML PEN SC SCH ×2 (17:53→20:53)
[2017-09-27] MEDS: SIMVASTATIN 80 MG TAB PO SCH (20:54)
[2017-09-27] MEDS: CLOPIDOGREL BISULFATE 75 MG TAB PO SCH (20:54)
[2017-09-27] MEDS: OMEGA-3 (PURIFIED FISH OIL) 1 GM CAP PO SCH (20:54)
[2017-09-27] MEDS: LACTOBACILLUS ACIDOPHILUS (FLORANEX) TAB PO SCH (20:55)
[2017-09-27] MEDS: LATANOPROST 0.005% OP SOLN 2.5 ML BTL OP SCH (20:55)
[2017-09-27] MEDS: INSULIN GLARGINE SOLOSTAR 100 UNITS/ML 3 ML PEN SC SCH (21:00)
[2017-09-27 23:13] VITALS: BP 118/57; PULSE 76; TEMP 36.8; O2SAT 99
[2017-09-28] MEDS: SODIUM CHLORIDE 0.9% 1000ML 1,000 ML IV SCH (01:31)
[2017-09-28] MEDS: DEXTROSE 5% IV SCH ×3 (06:28→22:51)
[2017-09-28] MEDS: TAZOBACTAM IV SCH ×3 (06:28→22:51)
[2017-09-28] MEDS: CEFTOLOZANE IV SCH ×3 (06:28→22:51)
[2017-09-28 06:42] LABS: BASO % 0.2 %; BASO ABS # 0.01 K/uL (0-0.2); EOS % 2.9 %; EOS ABS # 0.14 K/uL (0-0.5); HEMATOCRIT 24.1 % (42-52); HEMOGLOBIN 7.6 g/dL (14.0-18.0); IG# 0.01 K/uL (0.00-0.02); LYMPH % 28.1 %; LYMPH ABS # 1.37 K/uL (1.2-3.4); MEAN CELL VOLUME 73.5 fL (80-100); MEAN CORPUSCULAR HEMOGLOBIN 23.2 pg (25-34); MEAN CORPUSCULAR HGB CONC 31.5 g/dl (32-36); MEAN PLATELET VOLUME 8.5 fL (7.4-10.4); MONO % 9.2 %; MONO ABS # 0.45 K/uL (0.11-0.59); NEUT % 59.4 %; PLATELET COUNT 215 K/uL (130-400); RED CELL DISTRIBUTION WIDTH CV 15.5 % (11.5-14.5); RED CELL DISTRIBUTION WIDTH SD 42.2 fL (36.4-46.3); WHITE BLOOD COUNT 4.88 K/uL (4.8-10.8)
[2017-09-28 07:21] VITALS: BP 120/72; PULSE 72; TEMP 36.7; O2SAT 100
[2017-09-28 07:21] LABS: CALCIUM 8.8 mg/dl (8.5-10.1); CREATININE 1.1 mg/dl (0.60-1.40); POTASSIUM 4.2 mmol/L (3.5-5.1)
[2017-09-28 07:31] LABS: HEMOGLOBIN A1C 7.8 % (4.5-5.6)
[2017-09-28] MEDS: INSULIN ASPART 100 UNITS/ML 3 ML PEN SC SCH ×4 (08:23→21:00)
[2017-09-28] MEDS: INSULIN GLARGINE SOLOSTAR 100 UNITS/ML 3 ML PEN SC SCH ×2 (08:24→21:37)
[2017-09-28] MEDS: LACTOBACILLUS ACIDOPHILUS (FLORANEX) TAB PO SCH ×3 (08:25→17:57)
[2017-09-28] MEDS: OMEGA-3 (PURIFIED FISH OIL) 1 GM CAP PO SCH ×2 (08:26→21:24)
[2017-09-28] MEDS: ACETAMINOPHEN 325 MG TAB PO PRN (08:26)
[2017-09-28] MEDS: METFORMIN HCL 500 MG TAB PO SCH ×2 (08:27→17:57)
[2017-09-28] MEDS: PANTOprazole SOD 40 MG TAB PO SCH (08:27)
[2017-09-28] MEDS: TOCOPHERYL, DL-ALPHA 100 INTERUNIT CAP PO SCH (08:27)
[2017-09-28] MEDS: MULTIVITAMIN TAB PO SCH (08:27)
[2017-09-28] MEDS: ASPIRIN 81 MG ECTAB PO SCH (08:27)
[2017-09-28] MEDS: LISINOPRIL 20 MG TAB PO SCH (08:28)
[2017-09-28] MEDS: AMLODIPINE BESYLATE 5 MG TAB PO SCH (08:28)
--- NOTE | 2017-09-28 10:26 | Medical Consult ---
Consultation Date of Consultation: Sep 28, 2017. Attending Physician: Shawn Rose D.O. Reason for Consultation: Right foot osteomyelitis History of Present Illness 77-year-old male with history of severe peripheral arterial disease, who was recently hospitalized for infection of right foot amputation site with highly resistant Pseudomonas, requiring IV antibiotics and further amputation of the foot. He was being followed at the Center for wound care, undergoing hyperbaric oxygen treatment, and was receiving Augmentin and ciprofloxacin. He was found to have evidence of worsening right foot infection with increase in drainage, and spread of erythema beginning up his right ankle. As discussed yesterday, patient was recommended admission for further treatment with Zerbaxa and re-evaluation by vascular surgery. Patient denies any significant fever, chills, or other associated complaints. Pain in foot currently 2/10 in intensity. 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, extremities (5) HTN (hypertension), benign (6) Ischemic pain of right foot (7) PAD (peripheral artery disease) (8) Post-operative infection (9) Pseudomonas aeruginosa infection Family History Cancer Coronary Artery Disease Hypertension Social History Smoking Status: Never Smoker Smokeless Tobacco Use: No Alcohol Use: none Drug Use: none Marital Status: Occupation Status: retired Allergies Coded Allergies: Pregabalin (Verified Allergy, Unknown, `, 08/15/17) Carbamazepine (Verified Adverse Reaction, Intermediate, 'my hair fell out' , 08/15/17) Current Inpatient Medications Current Inpatient Medications Medications (Trade) Dose Ordered Sig/Sol Route Start Time Stop Time Status Last Admin Dose Admin Acetaminophen (Tylenol Tab) 650 mg Q4H PRN PO 09/27/17 14:00 10/27/17 13:59 09/28/17 08:26 650 MG Polyethylene (Miralax Powder Packet) 17 gm DAILY PRN PO 09/27/17 14:00 10/27/17 13:59 Ondansetron HCl (Zofran Inj) 4 mg Q6H PRN IV 09/27/17 14:00 10/27/17 13:59 Amlodipine Besylate (Norvasc Tab) 5 mg QAM PO 09/28/17 09:00 10/28/17 08:59 09/28/17 08:28 5 MG Aspirin (Ecotrin Tab) 81 mg QAM PO 09/28/17 09:00 10/28/17 08:59 09/28/17 08:27 81 MG Clopidogrel Bisulfate (plAVix TAB) 75 mg HS PO 09/27/17 21:00 10/27/17 20:59 09/27/17 20:54 75 MG Fish Oil ([place]-3 (Purified Fish Oil) Cap) 1 gm BID PO 09/27/17 21:00 10/27/17 20:59 09/28/17 08:26 1 GM Insulin Glargine (Lantus Solostar Pen) 20 units QAM SC 09/28/17 09:00 10/28/17 08:59 09/28/17 08:24 20 UNITS Insulin Glargine (Lantus Solostar Pen) 40 units QPM SC 09/27/17 21:00 10/27/17 20:59 09/27/17 21:00 40 UNITS Latanoprost (Xalatan Oph Soln) 1 drops HS OP 09/27/17 21:00 10/27/17 20:59 09/27/17 20:55 1 DROPS Lisinopril (Zestril Tab) 20 mg QAM PO 09/28/17 09:00 10/28/17 08:59 09/28/17 08:28 20 MG Metformin HCl (Glucophage Tab) 1,000 mg BIDM PO 09/27/17 17:45 10/27/17 17:44 09/28/17 08:27 1,000 MG Multivitamins (Multivitamin Tab) 1 tab DAILY PO 09/28/17 09:00 10/28/17 08:59 09/28/17 08:27 1 TAB Pantoprazole Sodium (Protonix Tab) 40 mg QAM PO 09/28/17 09:00 10/28/17 08:59 09/28/17 08:27 40 MG Simvastatin (Zocor Tab) 80 mg QPM PO 09/27/17 21:00 10/27/17 20:59 09/27/17 20:54 80 MG hv-Nilhd-Cylmkqltmf Acetate (Vitamin E Cap) 100 interunit QAM PO 09/28/17 09:00 1/13/18 08:59 09/28/17 08:27 100 INTERUNIT Insulin Aspart (novoLOG ASPART) SLIDING SCALE If C... ACHS SC 09/27/17 17:15 10/27/17 17:14 09/28/17 08:23 8 UNITS Glucose (Glucose 40% Gel) 15-30 GRAMS 15 GRAMS... UD PRN PO 09/27/17 14:15 10/27/17 14:14 Glucose (Glucose Chew Tab) 4-8 Tablets 4 Tabl... UD PRN PO 09/27/17 14:15 10/27/17 14:14 Dextrose (Dextrose 50% 50ML Syringe) 25-50ML OF 50% DW IV FOR... UD PRN IV 09/27/17 14:15 10/27/17 14:14 Glucagon (Glucagon Inj) 1 mg UD PRN SQ 09/27/17 14:15 10/27/17 14:14 Ceftolozane/ Tazobactam 1.5 gm/ Dextrose 111.4 ml @ 111.4 mls/ hr Q8H IV 09/27/17 15:00 11/08/17 14:59 09/28/17 06:28 111.4 MLS/HR Lactobacillus Acidophilus (Floranex Tab) 4 tab TIDM PO 09/27/17 17:45 10/27/17 17:44 09/28/17 08:25 4 TAB Loperamide HCl (Imodium Cap) 2 mg UD PRN PO 09/27/17 15:45 10/27/17 15:44 Review of Systems Constitutional: No fever, No chills Eyes: No problem reported ENT: No problem reported Respiratory: No problem reported Cardiovascular: No problem reported Abdomen: No problem reported Musculoskeletal: + joint pain Genitourinary - Male: No problem reported Neurologic: No problem reported Psychiatric: No problem reported Endocrine: No problem reported Hematologic / Lymphatic: No problem reported Integumentary: + new/changing skin lesions Allergic / Immunologic: + poor healing Physical Exam Date Time Temp Pulse Resp B/P (MAP) Pulse Ox O2 Delivery O2 Flow Rate FiO2 09/28/17 07:21 36.7 72 19 120/72 (88) 100 Room Air 09/27/17 23:15 Room Air 09/27/17 23:13 36.8 76 16 118/57 (77) 99 Room Air 09/27/17 16:01 36.5 85 18 131/68 (89) 100 Room Air 09/27/17 15:15 Room Air 09/27/17 14:24 Room Air 09/27/17 13:45 36.3 84 16 117/57 (77) 93 Room Air General Appearance: WD/WN, no apparent distress Head: normocephalic, atraumatic Eyes: normal inspection, EOMI, sclerae normal ENT: normal ENT inspection, pharynx normal Neck: supple, no adenopathy, thyroid normal, trachea midline Respiratory/Chest: chest non-tender, lungs clear, normal breath sounds, no respiratory distress Cardiovascular: no gallop, + systolic murmur, + irregularly irregular Abdomen/GI: normal bowel sounds, non tender, soft, no organomegaly Back: normal inspection, no CVA tenderness Extremities/Musculoskelatal: no calf tenderness, + slow capillary refill Neurologic/Psych: alert, oriented x 3 Skin: normal color, no rash, + pertinent finding (Large open wound of right foot with some seropurulent drainage, some necrotic tissue, exposed bone, with erythema involving anterior ankle, improved from yesterday) Lymphatic: no adenopathy Laboratory Results Date/Time Source Procedure Growth Status 09/27/17 14:31 Blood Blood Culture Pending Received 09/27/17 14:24 Blood Blood Culture Pending Received 09/27/17 22:40 Stool C.difficile Toxin B Gene (PCR) - Final No C. difficile toxin B gene detected Complete 09/27/17 20:30 Skin Foot Right Gram Stain Pending Received 09/27/17 20:30 Skin Foot Right Wound Culture Pending Received Last 24 Hours Test 09/27/17 14:24 09/27/17 14:48 09/27/17 16:43 09/27/17 16:58 White Blood Count 4.54 K/uL Red Blood Count 3.56 M/uL Hemoglobin 8.2 g/dL Hematocrit 26.2 % Mean Corpuscular Volume 73.6 fL Mean Corpuscular Hemoglobin 23.0 pg Mean Corpuscular Hemoglobin Concent 31.3 g/dl Platelet Count 260 K/uL Mean Platelet Volume 9.0 fL Neutrophils (%) (Auto) 68.7 % Lymphocytes (%) (Auto) 22.5 % Monocytes (%) (Auto) 6.6 % Eosinophils (%) (Auto) 1.3 % Basophils (%) (Auto) 0.2 % Neutrophils # (Auto) 3.12 K/uL Lymphocytes # (Auto) 1.02 K/uL Monocytes # (Auto) 0.30 K/uL Eosinophils # (Auto) 0.06 K/uL Basophils # (Auto) 0.01 K/uL RDW Standard Deviation 42.1 fL RDW Coefficient of Variation 15.7 % Immature Granulocyte % (Auto) 0.7 % Immature Granulocyte # (Auto) 0.03 K/uL Spherocytes 1+ Ovalocytes 1+ Prothrombin Time 11.4 SECONDS Prothromb Time International Ratio 1.1 Activated Partial Thromboplast Time 26.4 SECONDS Partial Thromboplastin Ratio 1.0 Sodium Level 133 mmol/L Potassium Level 4.7 mmol/L Chloride Level 104 mmol/L Carbon Dioxide Level 23 mmol/L Anion Gap 6.0 mmol/L Blood Urea Nitrogen 47 mg/dl Creatinine 1.59 mg/dl Est Creatinine Clear Calc Drug Dose 45.3 ml/min Estimated GFR () 47.8 Estimated GFR (Non- 41.3 BUN/Creatinine Ratio 29.5 Random Glucose 370 mg/dl Lactic Acid Level 2.7 mmol/L 3.2 mmol/L Calcium Level 9.2 mg/dl Beta-Hydroxybutyric Acid 2.60 mg/dL Bedside Glucose 350 mg/dl 367 mg/dl Test 09/27/17 20:35 09/28/17 06:21 Bedside Glucose 144 mg/dl White Blood Count 4.88 K/uL Red Blood Count 3.28 M/uL Hemoglobin 7.6 g/dL Hematocrit 24.1 % Mean Corpuscular Volume 73.5 fL Mean Corpuscular Hemoglobin 23.2 pg Mean Corpuscular Hemoglobin Concent 31.5 g/dl Platelet Count 215 K/uL Mean Platelet Volume 8.5 fL Neutrophils (%) (Auto) 59.4 % Lymphocytes (%) (Auto) 28.1 % Monocytes (%) (Auto) 9.2 % Eosinophils (%) (Auto) 2.9 % Basophils (%) (Auto) 0.2 % Neutrophils # (Auto) 2.90 K/uL Lymphocytes # (Auto) 1.37 K/uL Monocytes # (Auto) 0.45 K/uL Eosinophils # (Auto) 0.14 K/uL Basophils # (Auto) 0.01 K/uL RDW Standard Deviation 42.2 fL RDW Coefficient of Variation 15.5 % Immature Granulocyte % (Auto) 0.2 % Immature Granulocyte # (Auto) 0.01 K/uL Red Blood Cell Morphology Unremarkable Sodium Level 137 mmol/L Potassium Level 4.2 mmol/L Chloride Level 105 mmol/L Carbon Dioxide Level 24 mmol/L Anion Gap 8.0 mmol/L Blood Urea Nitrogen 32 mg/dl Creatinine 1.10 mg/dl Est Creatinine Clear Calc Drug Dose 65.4 ml/min Estimated GFR () 74.7 Estimated GFR (Non- 64.4 BUN/Creatinine Ratio 28.7 Random Glucose 125 mg/dl Estimated Average Glucose 177 mg/dl Hemoglobin A1c 7.8 % Calcium Level 8.8 mg/dl Triglycerides Level 85 mg/dl Cholesterol Level 85 mg/dl HDL Cholesterol 33 mg/dl LDL Cholesterol, Calculated 35 mg/dl VLDL Cholesterol, Calculated 17 mg/dl Cholesterol/HDL Ratio 2.6 Patient Name: IZAIAH HARRIS JR Unit Number: [id number] Dictated: 09/27/[id number] Transcribed: 09/27/171438 JA Printed Date/Time: [~ rep prt dt]/[~ rep prt tm] [~ rep ct labl] - [~ rep ct ivnm] [facility] [place] [address] Dictated: 09/27/[id number] Transcribed: 09/27/171438 JA Printed Date/Time: [~ rep prt dt]/[~ rep prt tm] [~ rep ct labl] - [~ rep ct ivnm] [~ rep ct add3]] FOOT MIN 3 VIEWS ROUTINE CLINICAL HISTORY: Right foot osteomyelitis. COMPARISON: Right foot radiographs July 23, 2017. FINDINGS: Postoperative findings within the right foot are noted. When compared to exam of July 23, 2017, there has been significant bone loss involving remaining portions of the metatarsals. In the absence of interval surgery, the findings are consistent with extensive osteomyelitis. There is cortical irregularity of remaining portions of the metatarsals which are nearly eroded to the metatarsal bases. Lucencies within the right midfoot shown on lateral projection are noted. There is soft tissue swelling. Note is made of extensive vascular calcification. IMPRESSION: Interval bone loss of remaining portions of the metatarsals since exam of July 23, 2017. In the absence of interval surgery, the findings are consistent with extensive osteomyelitis. Multifocal cortical irregularity of the metatarsals is highly suggestive of osteomyelitis. Lucencies within the midfoot could reflect additional sites of osteomyelitis or disuse osteopenia. Electronically signed by: Richard Lindquist M.D. 09/27/2017 2:45 PM Dictated Date/Time: 09/27/2017 2:39 PM The status of this report is Signed. Draft = Not yet reviewed or approved by Radiologist. Signed = Reviewed and approved by Radiologist. <AttendingPhy>Ester Rodriguez DO</AttendingPhy> <FamilyPhy>Haja Caruso D.OBird</FamilyPhy> <PrimaryPhy>Haja Caruso D.O.</PrimaryPhy> <UnitNumber> [id number]</UnitNumber> <VisitNumber>[id number]</VisitNumber> <PatientName> IZAIAH HRARIS JR</PatientName> <DateOfBirth>1940</DateOfBirth> <Location> [facility]</Location> <ServiceDate></ServiceDate> <MNE>ESINDI</MNE> <OrderingPhy> Uyen Javier PA-C</OrderingPhy> <OrderingPhyMNE>f rep ord dr valverde</ OrderingPhyMNE> <DictatingPhyMNE>f rep dict dr valverde</DictatingPhyMNE> <CCListMNE> f rep ct mne</CCListMNE> <AdmittingPhyMNE>f pt admit dr valverde</AdmittingPhyMNE> < AttendingPhyMNE>f pt attend dr valverde</AttendingPhyMNE> <ConsultingPhyMNE>f pt consult dr valverde</ConsultingPhyMNE> <FamilyPhyMNE>f pt fam dr valverde</FamilyPhyMNE> <OtherPhyMNE>f pt other dr valverde</OtherPhyMNE> < PrimaryPhyMNE>f pt prim care dr valverde</PrimaryPhyMNE> <ReferringPhyMNE>f pt referring dr mne</ReferringPhyMNE> Assessment & Plan 77-year-old male with severe peripheral vascular disease status post recent partial amputation of right foot, now with evidence of worsening infection with obvious osteomyelitis and cellulitis. Patient has been restarted on Zerbaxa given previously identified highly resistant Pseudomonas infection. Further cultures are pending. Would recommend vascular surgery follow-up and suspect patient may require BKA amputation in the future. Will follow.
--- NOTE | 2017-09-28 13:44 | Hospitalist Progress Note ---
Hospitalist Progress Note Date of Service Sep 28, 2017. (Josie Andrew ., ADRIANO) Subjective Pt evaluation today including: conversation w/ patient, physical exam, lab review, review of studies, review of inpatient medication list Voiding: no voiding problems Patient sitting in bedside chair. Voices no complaints. Erythema beyond dressing seems to be improved. Eating and drinking OK. RLE dressing changed this AM. Patient denies any fever, chills, sweats, lightheadedness, dizziness, vision changes, CP, palpitations, edema, SOB, wheezing, cough, abdominal pain, nausea, vomiting, diarrhea, urinary symptoms, melena, numbness/tingling, weakness, muscle/joint pain, anxiety/depression, active bleeding. (Josie Andrew ., CYNTHIAC) Medications Current Inpatient Medications Medications (Trade) Dose Ordered Sig/Sol Route Start Time Stop Time Status Last Admin Dose Admin Acetaminophen (Tylenol Tab) 650 mg Q4H PRN PO 09/27/17 14:00 10/27/17 13:59 09/28/17 08:26 650 MG Polyethylene (Miralax Powder Packet) 17 gm DAILY PRN PO 09/27/17 14:00 10/27/17 13:59 Ondansetron HCl (Zofran Inj) 4 mg Q6H PRN IV 09/27/17 14:00 10/27/17 13:59 Amlodipine Besylate (Norvasc Tab) 5 mg QAM PO 09/28/17 09:00 10/28/17 08:59 09/28/17 08:28 5 MG Aspirin (Ecotrin Tab) 81 mg QAM PO 09/28/17 09:00 10/28/17 08:59 09/28/17 08:27 81 MG Clopidogrel Bisulfate (plAVix TAB) 75 mg HS PO 09/27/17 21:00 10/27/17 20:59 09/27/17 20:54 75 MG Fish Oil ([place]-3 (Purified Fish Oil) Cap) 1 gm BID PO 09/27/17 21:00 10/27/17 20:59 09/28/17 08:26 1 GM Insulin Glargine (Lantus Solostar Pen) 20 units QAM SC 09/28/17 09:00 10/28/17 08:59 09/28/17 08:24 20 UNITS Insulin Glargine (Lantus Solostar Pen) 40 units QPM SC 09/27/17 21:00 10/27/17 20:59 09/27/17 21:00 40 UNITS Latanoprost (Xalatan Oph Soln) 1 drops HS OP 09/27/17 21:00 10/27/17 20:59 09/27/17 20:55 1 DROPS Lisinopril (Zestril Tab) 20 mg QAM PO 09/28/17 09:00 10/28/17 08:59 09/28/17 08:28 20 MG Metformin HCl (Glucophage Tab) 1,000 mg BIDM PO 09/27/17 17:45 10/27/17 17:44 09/28/17 08:27 1,000 MG Multivitamins (Multivitamin Tab) 1 tab DAILY PO 09/28/17 09:00 10/28/17 08:59 09/28/17 08:27 1 TAB Pantoprazole Sodium (Protonix Tab) 40 mg QAM PO 09/28/17 09:00 10/28/17 08:59 09/28/17 08:27 40 MG Simvastatin (Zocor Tab) 80 mg QPM PO 09/27/17 21:00 10/27/17 20:59 09/27/17 20:54 80 MG cu-Ztilw-Vwnfvoezbz Acetate (Vitamin E Cap) 100 interunit QAM PO 09/28/17 09:00 10/28/17 08:59 09/28/17 08:27 100 INTERUNIT Insulin Aspart (novoLOG ASPART) SLIDING SCALE If C... ACHS SC 09/27/17 17:15 10/27/17 17:14 09/28/17 08:23 8 UNITS Glucose (Glucose 40% Gel) 15-30 GRAMS 15 GRAMS... UD PRN PO 09/27/17 14:15 10/27/17 14:14 Glucose (Glucose Chew Tab) 4-8 Tablets 4 Tabl... UD PRN PO 09/27/17 14:15 10/27/17 14:14 Dextrose (Dextrose 50% 50ML Syringe) 25-50ML OF 50% DW IV FOR... UD PRN IV 09/27/17 14:15 10/27/17 14:14 Glucagon (Glucagon Inj) 1 mg UD PRN SQ 09/27/17 14:15 10/27/17 14:14 Ceftolozane/ Tazobactam 1.5 gm/ Dextrose 111.4 ml @ 111.4 mls/ hr Q8H IV 09/27/17 15:00 11/08/17 14:59 09/28/17 06:28 111.4 MLS/HR Lactobacillus Acidophilus (Floranex Tab) 4 tab TIDM PO 09/27/17 17:45 10/27/17 17:44 09/28/17 08:25 4 TAB Loperamide HCl (Imodium Cap) 2 mg UD PRN PO 09/27/17 15:45 10/27/17 15:44 (Josie Andrew, LASHON-C) Objective Vital Signs Date Time Temp Pulse Resp B/P (MAP) Pulse Ox O2 Delivery O2 Flow Rate FiO2 09/28/17 11:48 Room Air 09/28/17 07:21 36.7 72 19 120/72 (88) 100 Room Air 09/27/17 23:15 Room Air 09/27/17 23:13 36.8 76 16 118/57 (77) 99 Room Air 09/27/17 16:01 36.5 85 18 131/68 (89) 100 Room Air 09/27/17 15:15 Room Air 09/27/17 14:24 Room Air 09/27/17 13:45 36.3 84 16 117/57 (77) 93 Room Air (Josie Andrew, PA-C) Physical Exam General Appearance: no apparent distress Eyes: normal inspection, PERRL ENT: hearing grossly normal Neck: supple Respiratory/Chest: lungs clear, no respiratory distress, no accessory muscle use Cardiovascular: + systolic murmur, + irregularly irregular (rate controlled ) Abdomen: normal bowel sounds, non tender, soft Extremities: no pedal edema, no calf tenderness, + pertinent finding (+R foot in clean dressing, noted mapping beyond dressing- no erythema, warmth, drainage noted ) Neurologic/Psychiatric: alert, normal mood/affect, oriented x 3 Skin: normal color, warm/dry, no rash (Josie Andrew ., PA-C) Laboratory Results Last 24 Hours Test 09/27/17 14:24 09/27/17 14:48 09/27/17 16:43 09/27/17 16:58 White Blood Count 4.54 K/uL Red Blood Count 3.56 M/uL Hemoglobin 8.2 g/dL Hematocrit 26.2 % Mean Corpuscular Volume 73.6 fL Mean Corpuscular Hemoglobin 23.0 pg Mean Corpuscular Hemoglobin Concent 31.3 g/dl Platelet Count 260 K/uL Mean Platelet Volume 9.0 fL Neutrophils (%) (Auto) 68.7 % Lymphocytes (%) (Auto) 22.5 % Monocytes (%) (Auto) 6.6 % Eosinophils (%) (Auto) 1.3 % Basophils (%) (Auto) 0.2 % Neutrophils # (Auto) 3.12 K/uL Lymphocytes # (Auto) 1.02 K/uL Monocytes # (Auto) 0.30 K/uL Eosinophils # (Auto) 0.06 K/uL Basophils # (Auto) 0.01 K/uL RDW Standard Deviation 42.1 fL RDW Coefficient of Variation 15.7 % Immature Granulocyte % (Auto) 0.7 % Immature Granulocyte # (Auto) 0.03 K/uL Spherocytes 1+ Ovalocytes 1+ Prothrombin Time 11.4 SECONDS Prothromb Time International Ratio 1.1 Activated Partial Thromboplast Time 26.4 SECONDS Partial Thromboplastin Ratio 1.0 Sodium Level 133 mmol/L Potassium Level 4.7 mmol/L Chloride Level 104 mmol/L Carbon Dioxide Level 23 mmol/L Anion Gap 6.0 mmol/L Blood Urea Nitrogen 47 mg/dl Creatinine 1.59 mg/dl Est Creatinine Clear Calc Drug Dose 45.3 ml/min Estimated GFR () 47.8 Estimated GFR (Non- 41.3 BUN/Creatinine Ratio 29.5 Random Glucose 370 mg/dl Lactic Acid Level 2.7 mmol/L 3.2 mmol/L Calcium Level 9.2 mg/dl Beta-Hydroxybutyric Acid 2.60 mg/dL Bedside Glucose 350 mg/dl 367 mg/dl Test 09/27/17 20:35 09/28/17 06:21 Bedside Glucose 144 mg/dl White Blood Count 4.88 K/uL Red Blood Count 3.28 M/uL Hemoglobin 7.6 g/dL Hematocrit 24.1 % Mean Corpuscular Volume 73.5 fL Mean Corpuscular Hemoglobin 23.2 pg Mean Corpuscular Hemoglobin Concent 31.5 g/dl Platelet Count 215 K/uL Mean Platelet Volume 8.5 fL Neutrophils (%) (Auto) 59.4 % Lymphocytes (%) (Auto) 28.1 % Monocytes (%) (Auto) 9.2 % Eosinophils (%) (Auto) 2.9 % Basophils (%) (Auto) 0.2 % Neutrophils # (Auto) 2.90 K/uL Lymphocytes # (Auto) 1.37 K/uL Monocytes # (Auto) 0.45 K/uL Eosinophils # (Auto) 0.14 K/uL Basophils # (Auto) 0.01 K/uL RDW Standard Deviation 42.2 fL RDW Coefficient of Variation 15.5 % Immature Granulocyte % (Auto) 0.2 % Immature Granulocyte # (Auto) 0.01 K/uL Red Blood Cell Morphology Unremarkable Sodium Level 137 mmol/L Potassium Level 4.2 mmol/L Chloride Level 105 mmol/L Carbon Dioxide Level 24 mmol/L Anion Gap 8.0 mmol/L Blood Urea Nitrogen 32 mg/dl Creatinine 1.10 mg/dl Est Creatinine Clear Calc Drug Dose 65.4 ml/min Estimated GFR () 74.7 Estimated GFR (Non- 64.4 BUN/Creatinine Ratio 28.7 Random Glucose 125 mg/dl Estimated Average Glucose 177 mg/dl Hemoglobin A1c 7.8 % Calcium Level 8.8 mg/dl Triglycerides Level 85 mg/dl Cholesterol Level 85 mg/dl HDL Cholesterol 33 mg/dl LDL Cholesterol, Calculated 35 mg/dl VLDL Cholesterol, Calculated 17 mg/dl Cholesterol/HDL Ratio 2.6 (Josie Andrew, PA-C) Assessment and Plan This is a 77 y/o M with PMHx of DM II, PAD s/p stenting, Afib on plavix, hx of pseudomonas infection of the R foot s/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 R foot osteomyelitis, h/o diabetic foot infection- pseudomonas: - Admit to med/surg - Wound culture- growing gram negative bacilli- pending final culture/ sensitives - BCx pending - Zerbaxa 1.[address] Quiñonez- infectious disease following - Wound care consulted - ID recommends vascular surgery consultation outpatient for possible need of BKA in future Diarrhea: - C.diff negative - Probiotic and Imodium PRN A-fib, PAD, HTN, HLD: Continue Plavix 75 mg daily, ASA 81 mg daily, Lisinopril 20 mg daily, Amlodipine 5 mg daily, Zocor 80 mg daily T2DM- hgbA1c 7.8%: - Continue Lantus 20 U QAM, 40 U QPM, Metformin 1,000 mg BID - BSG ACHS and ISS GI prophylaxis: Protonix daily DVT prophylaxis: TEDs/SCDs; hold chemical anticoagulation due to anemia Code Status: LEVEL V, DNR Dispo: Discharge to home once medically stable- CM following- may need PICC prior to d/c pending ID recommendations (Josie Andrew ., PA-C) I agree with PA assessment and plan and have seen and examined pt myself Resting comfortably in bed VSS Labs reviewed Cx pending at this time Cont IV zerbaxa at this time Appreciate wound care and ID consults Pt is asymptomatic at this time FOot in bandage (Shawn Rose, D.O.)
[2017-09-28 14:21] VITALS: Ht 188 cm; Wt 87.5 kg
[2017-09-28 15:23] VITALS: BP 144/66; PULSE 75; TEMP 36.4; O2SAT 98
[2017-09-28 18:50] VITALS: O2SAT 96
[2017-09-28] MEDS: LATANOPROST 0.005% OP SOLN 2.5 ML BTL OP SCH (21:20)
[2017-09-28] MEDS: SIMVASTATIN 80 MG TAB PO SCH (21:23)
[2017-09-28] MEDS: CLOPIDOGREL BISULFATE 75 MG TAB PO SCH (21:23)
[2017-09-28 22:59] VITALS: BP 133/54; PULSE 78; TEMP 36.6; O2SAT 97
[2017-09-29 06:21] LABS: EOS % 3.5 %; EOS ABS # 0.14 K/uL (0-0.5); HEMATOCRIT 24.6 % (42-52); HEMOGLOBIN 7.7 g/dL (14.0-18.0); IG# 0.01 K/uL (0.00-0.02); LYMPH % 32.1 %; LYMPH ABS # 1.29 K/uL (1.2-3.4); MEAN CELL VOLUME 72.8 fL (80-100); MEAN CORPUSCULAR HEMOGLOBIN 22.8 pg (25-34); MEAN CORPUSCULAR HGB CONC 31.3 g/dl (32-36); MEAN PLATELET VOLUME 8.2 fL (7.4-10.4); MONO % 9.5 %; MONO ABS # 0.38 K/uL (0.11-0.59); NEUT % 54.7 %; PLATELET COUNT 211 K/uL (130-400); RED CELL DISTRIBUTION WIDTH CV 15.4 % (11.5-14.5); RED CELL DISTRIBUTION WIDTH SD 41.4 fL (36.4-46.3); WHITE BLOOD COUNT 4.02 K/uL (4.8-10.8)
[2017-09-29] MEDS: DEXTROSE 5% IV SCH ×3 (06:43→23:15)
[2017-09-29] MEDS: TAZOBACTAM IV SCH ×3 (06:43→23:15)
[2017-09-29] MEDS: CEFTOLOZANE IV SCH ×3 (06:43→23:15)
[2017-09-29 06:52] LABS: CREATININE 1.17 mg/dl (0.60-1.40); POTASSIUM 4.3 mmol/L (3.5-5.1)
[2017-09-29 07:43] VITALS: BP 136/69; PULSE 72; TEMP 36.6; O2SAT 96
[2017-09-29 08:04] VITALS: O2SAT 96
[2017-09-29] MEDS: PANTOprazole SOD 40 MG TAB PO SCH (09:05)
[2017-09-29] MEDS: LACTOBACILLUS ACIDOPHILUS (FLORANEX) TAB PO SCH ×3 (09:05→18:32)
[2017-09-29] MEDS: METFORMIN HCL 500 MG TAB PO SCH ×2 (09:05→18:32)
[2017-09-29] MEDS: MULTIVITAMIN TAB PO SCH (09:05)
[2017-09-29] MEDS: ASPIRIN 81 MG ECTAB PO SCH (09:06)
[2017-09-29] MEDS: OMEGA-3 (PURIFIED FISH OIL) 1 GM CAP PO SCH ×2 (09:06→20:35)
[2017-09-29] MEDS: TOCOPHERYL, DL-ALPHA 100 INTERUNIT CAP PO SCH (09:06)
[2017-09-29] MEDS: AMLODIPINE BESYLATE 5 MG TAB PO SCH (09:06)
[2017-09-29] MEDS: LISINOPRIL 20 MG TAB PO SCH (09:06)
[2017-09-29] MEDS: INSULIN GLARGINE SOLOSTAR 100 UNITS/ML 3 ML PEN SC SCH ×2 (09:08→20:34)
[2017-09-29] MEDS: INSULIN ASPART 100 UNITS/ML 3 ML PEN SC SCH ×4 (09:10→20:33)
--- NOTE | 2017-09-29 11:02 | Hospitalist Progress Note ---
Hospitalist Progress Note Date of Service Sep 29, 2017. Subjective Pt evaluation today including: conversation w/ patient, physical exam, lab review, review of inpatient medication list Voiding: no voiding problems Patient sitting in bed. Very upset/tearful at this time. Spoke w/ vascular surgery- planning for BKA next week- understands it's necessary. Eating and drinking OK. R foot in clean dressing. Patient denies any fever, chills, sweats, lightheadedness, dizziness, vision changes, CP, palpitations, edema, SOB, wheezing, cough, abdominal pain, nausea, vomiting, diarrhea, urinary symptoms, melena, numbness/tingling, weakness, muscle/joint pain, anxiety/depression, active bleeding. Medications Current Inpatient Medications Medications (Trade) Dose Ordered Sig/Sol Route Start Time Stop Time Status Last Admin Dose Admin Acetaminophen (Tylenol Tab) 650 mg Q4H PRN PO 09/27/17 14:00 10/27/17 13:59 09/28/17 08:26 650 MG Polyethylene (Miralax Powder Packet) 17 gm DAILY PRN PO 09/27/17 14:00 10/27/17 13:59 Ondansetron HCl (Zofran Inj) 4 mg Q6H PRN IV 09/27/17 14:00 10/27/17 13:59 Amlodipine Besylate (Norvasc Tab) 5 mg QAM PO 09/28/17 09:00 10/28/17 08:59 09/29/17 09:06 5 MG Aspirin (Ecotrin Tab) 81 mg QAM PO 09/28/17 09:00 10/28/17 08:59 09/29/17 09:06 81 MG Clopidogrel Bisulfate (plAVix TAB) 75 mg HS PO 09/27/17 21:00 10/27/17 20:59 09/28/17 21:23 75 MG Fish Oil ([place]-3 (Purified Fish Oil) Cap) 1 gm BID PO 09/27/17 21:00 10/27/17 20:59 09/29/17 09:06 1 GM Insulin Glargine (Lantus Solostar Pen) 20 units QAM SC 09/28/17 09:00 10/28/17 08:59 09/29/17 09:08 20 UNITS Insulin Glargine (Lantus Solostar Pen) 40 units QPM SC 09/27/17 21:00 10/27/17 20:59 09/28/17 21:37 40 UNITS Latanoprost (Xalatan Oph Soln) 1 drops HS OP 09/27/17 21:00 10/27/17 20:59 09/28/17 21:20 1 DROPS Lisinopril (Zestril Tab) 20 mg QAM PO 09/28/17 09:00 10/28/17 08:59 09/29/17 09:06 20 MG Metformin HCl (Glucophage Tab) 1,000 mg BIDM PO 09/27/17 17:45 10/27/17 17:44 09/29/17 09:05 1,000 MG Multivitamins (Multivitamin Tab) 1 tab DAILY PO 09/28/17 09:00 10/28/17 08:59 09/29/17 09:05 1 TAB Pantoprazole Sodium (Protonix Tab) 40 mg QAM PO 09/28/17 09:00 10/28/17 08:59 09/29/17 09:05 40 MG Simvastatin (Zocor Tab) 80 mg QPM PO 09/27/17 21:00 10/27/17 20:59 09/28/17 21:23 80 MG yt-Viyrh-Pvjudsimzo Acetate (Vitamin E Cap) 100 interunit QAM PO 09/28/17 09:00 10/28/17 08:59 09/29/17 09:06 100 INTERUNIT Insulin Aspart (novoLOG ASPART) SLIDING SCALE If C... ACHS SC 09/27/17 17:15 10/27/17 17:14 09/29/17 09:10 7 UNITS Glucose (Glucose 40% Gel) 15-30 GRAMS 15 GRAMS... UD PRN PO 09/27/17 14:15 10/27/17 14:14 Glucose (Glucose Chew Tab) 4-8 Tablets 4 Tabl... UD PRN PO 09/27/17 14:15 10/27/17 14:14 Dextrose (Dextrose 50% 50ML Syringe) 25-50ML OF 50% DW IV FOR... UD PRN IV 09/27/17 14:15 10/27/17 14:14 Glucagon (Glucagon Inj) 1 mg UD PRN SQ 09/27/17 14:15 10/27/17 14:14 Ceftolozane/ Tazobactam 1.5 gm/ Dextrose 111.4 ml @ 111.4 mls/ hr Q8H IV 09/27/17 15:00 11/08/17 14:59 09/29/17 06:43 111.4 MLS/HR Lactobacillus Acidophilus (Floranex Tab) 4 tab TIDM PO 09/27/17 17:45 10/27/17 17:44 09/29/17 09:05 4 TAB Loperamide HCl (Imodium Cap) 2 mg UD PRN PO 09/27/17 15:45 10/27/17 15:44 Objective Vital Signs Date Time Temp Pulse Resp B/P (MAP) Pulse Ox O2 Delivery O2 Flow Rate FiO2 09/29/17 08:04 96 Room Air 09/29/17 07:45 Room Air 09/29/17 07:43 36.6 72 17 136/69 (91) 96 Room Air 09/29/17 00:10 Room Air 09/28/17 22:59 36.6 78 16 133/54 (80) 97 Room Air 09/28/17 18:50 96 Room Air 09/28/17 15:23 36.4 75 18 144/66 (92) 98 Room Air 09/28/17 15:15 Room Air 09/28/17 11:48 Room Air Physical Exam General Appearance: no apparent distress Eyes: normal inspection, PERRL ENT: hearing grossly normal Neck: supple Respiratory/Chest: lungs clear, no respiratory distress, no accessory muscle use Cardiovascular: + systolic murmur, + irregularly irregular (rate controlled ) Abdomen: normal bowel sounds, non tender, soft Extremities: no pedal edema, no calf tenderness, + pertinent finding (+R foot in clean dressing. No erythema, warmth, drainage noted beyond dressing ) Neurologic/Psychiatric: alert, oriented x 3, + pertinent finding (upset/ tearful ) Skin: normal color, warm/dry, no rash Laboratory Results Last 24 Hours Test 09/28/17 11:51 09/28/17 16:51 09/28/17 21:08 09/29/17 06:03 Bedside Glucose 218 mg/dl 157 mg/dl 135 mg/dl White Blood Count 4.02 K/uL Red Blood Count 3.38 M/uL Hemoglobin 7.7 g/dL Hematocrit 24.6 % Mean Corpuscular Volume 72.8 fL Mean Corpuscular Hemoglobin 22.8 pg Mean Corpuscular Hemoglobin Concent 31.3 g/dl Platelet Count 211 K/uL Mean Platelet Volume 8.2 fL Neutrophils (%) (Auto) 54.7 % Lymphocytes (%) (Auto) 32.1 % Monocytes (%) (Auto) 9.5 % Eosinophils (%) (Auto) 3.5 % Basophils (%) (Auto) 0.0 % Neutrophils # (Auto) 2.20 K/uL Lymphocytes # (Auto) 1.29 K/uL Monocytes # (Auto) 0.38 K/uL Eosinophils # (Auto) 0.14 K/uL Basophils # (Auto) 0.00 K/uL RDW Standard Deviation 41.4 fL RDW Coefficient of Variation 15.4 % Immature Granulocyte % (Auto) 0.2 % Immature Granulocyte # (Auto) 0.01 K/uL Hypersegmented Polys 1+ Sodium Level 139 mmol/L Potassium Level 4.3 mmol/L Chloride Level 107 mmol/L Carbon Dioxide Level 26 mmol/L Anion Gap 6.0 mmol/L Blood Urea Nitrogen 24 mg/dl Creatinine 1.17 mg/dl Est Creatinine Clear Calc Drug Dose 61.5 ml/min Estimated GFR () 69.3 Estimated GFR (Non- 59.8 BUN/Creatinine Ratio 20.9 Random Glucose 104 mg/dl Calcium Level 9.0 mg/dl Test 09/29/17 08:03 Bedside Glucose 120 mg/dl Assessment and Plan This is a 77 y/o M with PMHx of DM II, PAD s/p stenting, Afib on plavix, hx of pseudomonas infection of the R foot s/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 R foot osteomyelitis, h/o diabetic foot infection- pseudomonas: - Admit to med/surg - Wound culture- pseudomonas, highly resistant - BCx NGTD - Zerbaxa 1.[address] Quiñonez- infectious disease following - Wound care consulted - Vascular surgery consulted- planning for BKA next week Diarrhea: - C.diff negative - Probiotic and Imodium PRN A-fib, PAD, HTN, HLD: Continue Plavix 75 mg daily, ASA 81 mg daily, Lisinopril 20 mg daily, Amlodipine 5 mg daily, Zocor 80 mg daily T2DM- hgbA1c 7.8%: - Continue Lantus 20 U QAM, 40 U QPM, Metformin 1,000 mg BID - BSG ACHS and ISS GI prophylaxis: Protonix daily DVT prophylaxis: TEDs/SCDs; hold chemical anticoagulation due to anemia Code Status: LEVEL V, DNR Dispo: Discharge uncertain at this time- CM following
--- NOTE | 2017-09-29 11:04 | Medical Consult ---
Consultation Note Date of Service Sep 29, 2017. Consultation Note Chief Complaint RLE nonhealing, infected wound, osteomyelitis History of Present Illness The patient is a 77 year old male with multiple medical problems, including PAD s/p stenting RLE, s/p RLE TMA d/t gangrene and subsequent multiple debridements , seen today for infected and nonhealing RLE TMA site. This is a recurrent infection. Pt admits pain and states has been taking abx at home as directed. Has been following at wound clinic, where he had hyperbaric tx without success and was sent back to [facility] for further evaluation after ID identified periwound erythema. Pt denies [place], fever, chills, chest pain, N/V, rest pain, claudication. Foot x ray demonstrates proximal osteomyelitis. Allergies Coded Allergies: Pregabalin (Verified Allergy, Unknown, `, 08/15/17) Carbamazepine (Verified Adverse Reaction, Intermediate, 'my hair fell out' , 08/15/17) Home Medications Scheduled Amlodipine (Norvasc), 5 MG PO QAM Aspirin (Aspirin Ec), 81 MG PO QAM Clopidogrel (Plavix), 75 MG PO HS Fish Oil ([place]-3), 1 TAB PO BID Insulin Aspart (Novolog), Unknown Dose SQ UD Insulin Glargine (Lantus), 40 UNITS SC QPM Insulin Glargine (Lantus), 20 UNITS SC QAM Latanoprost (Xalatan 0.005% Oph Melany), 1 DROPS OP HS Lisinopril (Zestril), 20 MG PO QAM Metformin Hcl (Glucophage), 1,000 MG PO BID Multivitamin (Multivitamin), 1 TAB PO DAILY Pantoprazole (Protonix), 40 MG PO QAM Augmentin Cipro Simvastatin (Zocor), 80 MG PO QPM Tocopheryl Acet,Dl-Alpha (Vitamin E), 1 TAB PO QAM Problem List Medical Problems: (1) Diabetic foot infection (2) 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, extremities (3) Ischemic pain of right foot (4) Post-operative infection Surgical / Medical History Hx Cardiac Surgery: No Hx Abdominal Surgery: Yes (hernia repair) Hx Cancer Surgery: No Hx Thoracic Surgery: No Hx Orthopedic: Yes (amputation of right toes ) Hx Urinary Tract Surgery: No HX Other Surgery: Yes (tonsillectomy,right carotid endarterectomy, vascular stents, see below) Past Medical/Surgical History: Diabetes, High Cholesterol, Hypertension, Kidney Disease Family History Cancer Coronary Artery Disease Hypertension Social History Smoking Status: Former Smoker Hx Tobacco Use In Past Year?: No Hx Alcohol Use - Type & Amnt: No Hx Substance Use -Type & Amnt: No ROS: Vascular Con v2 Review of Systems Constitutional: No chills, No fever, No malaise Skin: No change in color Eyes: No visual changes ENMT: No sore throat Respiratory: No cough, No GRANT, No hemoptysis, No short of breath Cardiovascular: No chest pain, No palpitations, No syncope, No edema, No intermittent claudication Gastrointestinal: No abdominal pain, No nausea, No vomiting Neurologic: No dizziness, No weakness, No headache, No numbness, No tingling Exam: Vascular Con v2 Physical Exam Constitutional: General Apperance: well-nourished, well-developed Level of Distress: NAD, chronically ill (mildly) Psychiatric: Mental Status: active & alert, normal mood, normal affect Orientation: oriented except where noted, to time, to place, to person Memory: recent memory normal, remote memory normal Head: normocephalic, atraumatic Eyes: EOM: EOMI ENMT: normal ENT inspection, + pertinent finding ([place], hearing aids) Neck: supple, trachea midline Lungs: Respiratory effort: no dyspnea Auscultation: no wheezing, no rales/crackles, no rhonchi, decreased breath sounds Cardiovascular: Apical Impulse: not displaced Heart Auscultation: RRR, no rubs, no gallops, murmur Peripheral Pulses: Pulses: full and equal, in all extremities except if noted Bruits: none appreciated Carotid Pulse: normal on the left, normal on the right Brachial Pulses: normal on the left, normal on the right Radial Pulse: normal on the left, normal on the right Femoral Pulse: normal on the left, normal on the right Posterior Tibialis Pulse: decreased on the left, decreased on the right Dorsalis Pedis Pulse: decreased on the left, absent on the right Abdomen: Bowel Sounds: normal Inspection & Palpation: soft, non-distended, no tenderness, guarding & rebound Musculoskeletal: normal strength (5/5 throughout), normal tone Extremities: Upper Right: no cyanosis, no edema, no varicosities Upper Left: no cyanosis, no edema, no varicosities Lower Right: pertinent finding (RLE TMA site wide open, good granulation, but covered with purulent/serosan discharge. moderate slough noted. + periwound erythema.) Lower Left: no cyanosis, no edema, no varicosities Neurologic: Cranial Nerves: grossly intact Sensation: grossly intact A&P: Vascular Con v2 Assessment and Plan ASSESSMENT and PLAN: Infected RLE TMA/osteomyelitis PAD Pt has undergone multiple previous debridements without success and continues to have recurrent wound infections with resistant bacteria. Discussed possible BKA with pt, he is not yet agreeable. Will have Dr Berg discuss further with pt later today.
[2017-09-29 11:57] VITALS: BP 141/72; PULSE 84; TEMP 36.3; O2SAT 93
[2017-09-29 15:32] VITALS: BP 152/64; PULSE 73; TEMP 36.5; O2SAT 100
[2017-09-29] MEDS: LATANOPROST 0.005% OP SOLN 2.5 ML BTL OP SCH (20:35)
[2017-09-29] MEDS: SIMVASTATIN 80 MG TAB PO SCH (20:36)
[2017-09-29] MEDS: CLOPIDOGREL BISULFATE 75 MG TAB PO SCH (20:36)
[2017-09-29 23:25] VITALS: BP 137/70; PULSE 81; TEMP 36.7; O2SAT 94
[2017-09-30] MEDS: DEXTROSE 5% IV SCH ×3 (06:26→22:40)
[2017-09-30] MEDS: CEFTOLOZANE IV SCH ×3 (06:26→22:40)
[2017-09-30] MEDS: TAZOBACTAM IV SCH ×3 (06:26→22:40)
[2017-09-30 07:03] VITALS: BP 163/72; PULSE 81; TEMP 36.8; O2SAT 97
[2017-09-30] MEDS: INSULIN ASPART 100 UNITS/ML 3 ML PEN SC SCH ×4 (08:00→21:44)
[2017-09-30 08:48] LABS: EOS % 1.7 %; EOS ABS # 0.09 K/uL (0-0.5); HEMATOCRIT 25.3 % (42-52); IG# 0.02 K/uL (0.00-0.02); LYMPH % 22.7 %; LYMPH ABS # 1.23 K/uL (1.2-3.4); MEAN CELL VOLUME 72.5 fL (80-100); MEAN CORPUSCULAR HEMOGLOBIN 22.9 pg (25-34); MEAN CORPUSCULAR HGB CONC 31.6 g/dl (32-36); MEAN PLATELET VOLUME 8.8 fL (7.4-10.4); MONO % 9.6 %; MONO ABS # 0.52 K/uL (0.11-0.59); NEUT % 65.6 %; NEUT ABS # 3.57 K/uL (1.4-6.5); PLATELET COUNT 252 K/uL (130-400); RED CELL DISTRIBUTION WIDTH CV 15.5 % (11.5-14.5); RED CELL DISTRIBUTION WIDTH SD 41.6 fL (36.4-46.3); WHITE BLOOD COUNT 5.43 K/uL (4.8-10.8)
[2017-09-30] MEDS: LACTOBACILLUS ACIDOPHILUS (FLORANEX) TAB PO SCH ×3 (08:55→18:47)
[2017-09-30] MEDS: METFORMIN HCL 500 MG TAB PO SCH ×2 (08:55→18:47)
[2017-09-30] MEDS: MULTIVITAMIN TAB PO SCH (08:55)
[2017-09-30] MEDS: AMLODIPINE BESYLATE 5 MG TAB PO SCH (08:56)
[2017-09-30] MEDS: LISINOPRIL 20 MG TAB PO SCH (08:56)
[2017-09-30] MEDS: OMEGA-3 (PURIFIED FISH OIL) 1 GM CAP PO SCH ×2 (08:56→21:40)
[2017-09-30] MEDS: ASPIRIN 81 MG ECTAB PO SCH (08:56)
[2017-09-30] MEDS: TOCOPHERYL, DL-ALPHA 100 INTERUNIT CAP PO SCH (08:56)
[2017-09-30] MEDS: PANTOprazole SOD 40 MG TAB PO SCH (08:56)
[2017-09-30] MEDS: INSULIN GLARGINE SOLOSTAR 100 UNITS/ML 3 ML PEN SC SCH ×2 (09:01→21:45)
--- NOTE | 2017-09-30 09:29 | Progress Note ---
Progress Note Date of Service Sep 30, 2017. Progress Note Patient seen. Dressing on foot in place. Xray with extensive osteo of foot Recommended BKA. Patient understands and is agreeable. Will plan on early this week
--- NOTE | 2017-09-30 12:53 | Progress Note ---
Subjective Date of Service: Sep 30, 2017. Subjective Pt evaluation today including: conversation w/ patient, physical exam, chart review, lab review, review of studies, review of inpatient medication list Resting comfortably in bed No pain Patient is emotional, has not yet told about future amputation, wants to tell her in person when she comes in tomorrow No other concerns at this time Problem List Medical Problems: (1) Needs peripherally inserted central catheter (PICC) Status: Acute Review of Systems Constitutional: No fever, No chills, No sweats, No weight loss ENT: No hearing loss, No unusual epistaxis, No nasal symptoms, No sore throat, No tinnitus Respiratory: No cough, No sputum, No wheezing, No shortness of breath Cardiac: No chest pain, No orthopnea, No PND, No edema Abdomen: No pain, No nausea, No vomiting, No diarrhea, No constipation Musculoskeletal: No joint pain, No muscle pain, No swelling, No calf pain Male : No dysuria, No urinary frequency, No incontinence, No slowing stream Neurologic: No memory loss, No paralysis, No weakness, No vertigo Psychiatric: + depression symptoms, No anhedonism, No anxiety, No insomnia Endo: No fatigue, No excessive thirst Skin: No rash, No itch Objective Vital Signs Date Time Temp Pulse Resp B/P (MAP) Pulse Ox O2 Delivery O2 Flow Rate FiO2 09/30/17 07:25 Room Air 09/30/17 07:03 36.8 81 16 163/72 (102) 97 Room Air 09/29/17 23:30 Room Air 09/29/17 23:25 36.7 81 16 137/70 (92) 94 Room Air 09/29/17 15:32 36.5 73 19 152/64 (93) 100 Room Air 09/29/17 15:15 Room Air Physical Exam General Appearance: WD/WN, + mild distress Eyes: normal inspection, PERRL, EOMI, sclerae normal Neck: supple, no adenopathy, thyroid normal, no JVD Respiratory/Chest: chest non-tender, lungs clear, normal breath sounds, no respiratory distress Cardiovascular: regular rate, rhythm, no edema, no gallop, no JVD Abdomen: normal bowel sounds, non tender, soft, no organomegaly Extremities: non-tender, no pedal edema, no calf tenderness, + pertinent finding (foot in bandage) Neurologic/Psychiatric: no motor/sensory deficits, alert, oriented x 3, + depressed affect Skin: normal color, warm/dry, no rash Lymphatic: no adenopathy Laboratory Results Last 24 Hours Test 09/29/17 17:21 09/29/17 20:22 09/30/17 08:05 09/30/17 08:07 Bedside Glucose 135 mg/dl 178 mg/dl 65 mg/dl White Blood Count 5.43 K/uL Red Blood Count 3.49 M/uL Hemoglobin 8.0 g/dL Hematocrit 25.3 % Mean Corpuscular Volume 72.5 fL Mean Corpuscular Hemoglobin 22.9 pg Mean Corpuscular Hemoglobin Concent 31.6 g/dl Platelet Count 252 K/uL Mean Platelet Volume 8.8 fL Neutrophils (%) (Auto) 65.6 % Lymphocytes (%) (Auto) 22.7 % Monocytes (%) (Auto) 9.6 % Eosinophils (%) (Auto) 1.7 % Basophils (%) (Auto) 0.0 % Neutrophils # (Auto) 3.57 K/uL Lymphocytes # (Auto) 1.23 K/uL Monocytes # (Auto) 0.52 K/uL Eosinophils # (Auto) 0.09 K/uL Basophils # (Auto) 0.00 K/uL RDW Standard Deviation 41.6 fL RDW Coefficient of Variation 15.5 % Immature Granulocyte % (Auto) 0.4 % Immature Granulocyte # (Auto) 0.02 K/uL Red Blood Cell Morphology Unremarkable Test 09/30/17 08:20 09/30/17 08:45 09/30/17 12:09 Bedside Glucose 64 mg/dl 81 mg/dl 184 mg/dl Assessment and Plan (1) R footl osteomyelitis (2) Pseudomonas aeruginosa infection (3) Diabetic foot infection (4) A-fib (5) PAD (peripheral artery disease) (6) DM II (diabetes mellitus, type II), controlled (7) HTN (hypertension), benign Chronic right foot Osteomyelitis now with multidrug resistant Pseudomonas, was discharged on 09/15 on cipro and augmentin x 6 weeks with wound vac, being followed by wound clinic and ID (Dr Quiñonez) referred to [facility] from wound clinic for suspicion of worsening ostep Right foot osteomyelitis, h/o diabetic foot infection - wound cx currently growing MDR pseudomonas: - Hx of revascularization on 09/11 with Right SFA and popliteal angioplasty within existing stents. - Admit to med/surg - BCx NGTD, Foot XR determined worsening osteo - Zerbaxa 1.[address] Quiñonez- infectious disease following - Wound care consulted - Vascular surgery consulted- planning for BKA on wednesday 10/03 Diarrhea: - C.diff negative - Probiotic and Imodium PRN CKD Stage III - baseline steward/stewardess night is 1.3 A-fib, PAD, HTN, HLD: Continue Plavix 75 mg daily, ASA 81 mg daily, Lisinopril 20 mg daily, Amlodipine 5 mg daily, Zocor 80 mg daily T2DM- hgbA1c 7.8%: - Continue Lantus 20 U QAM, 40 U QPM, Metformin 1,000 mg BID - BSG ACHS and ISS GERD: Protonix daily, stable DVT prophylaxis: TEDs/SCDs; hold chemical anticoagulation due to anemia Code Status: LEVEL V, DNR Dispo: Await BKA, on IV antibx Continued [facility] stay due to: multiple IV medications needed Problem Qualifiers (1) A-fib: Atrial fibrillation type: chronic Qualified Codes: I48.2 - Chronic atrial fibrillation (2) DM II (diabetes mellitus, type II), controlled: Diabetes mellitus complication status: with circulatory complication Diabetes mellitus complication detail: with peripheral angiopathy without gangrene Diabetes mellitus bending roll hand insulin use: with bending roll hand use Qualified Codes: E11.51 - Type 2 diabetes mellitus with diabetic peripheral angiopathy without gangrene; 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
[2017-09-30 15:02] VITALS: BP 155/68; PULSE 90; TEMP 36.8; O2SAT 95
[2017-09-30] MEDS: LATANOPROST 0.005% OP SOLN 2.5 ML BTL OP SCH (21:39)
[2017-09-30] MEDS: CLOPIDOGREL BISULFATE 75 MG TAB PO SCH (21:40)
[2017-09-30] MEDS: SIMVASTATIN 80 MG TAB PO SCH (21:40)
[2017-09-30 22:47] VITALS: BP 136/63; PULSE 82; TEMP 36.8; O2SAT 98
[2017-10-01] MEDS: CEFTOLOZANE IV SCH ×3 (06:07→23:45)
[2017-10-01] MEDS: DEXTROSE 5% IV SCH ×3 (06:07→23:45)
[2017-10-01] MEDS: TAZOBACTAM IV SCH ×3 (06:07→23:45)
[2017-10-01 07:58] VITALS: BP 157/74; PULSE 69; TEMP 36.6; O2SAT 100
[2017-10-01] MEDS: INSULIN ASPART 100 UNITS/ML 3 ML PEN SC SCH ×4 (09:34→21:05)
[2017-10-01] MEDS: INSULIN GLARGINE SOLOSTAR 100 UNITS/ML 3 ML PEN SC SCH ×2 (09:34→21:04)
[2017-10-01] MEDS: PANTOprazole SOD 40 MG TAB PO SCH (09:35)
[2017-10-01] MEDS: LISINOPRIL 20 MG TAB PO SCH (09:35)
[2017-10-01] MEDS: MULTIVITAMIN TAB PO SCH (09:35)
[2017-10-01] MEDS: TOCOPHERYL, DL-ALPHA 100 INTERUNIT CAP PO SCH (09:36)
[2017-10-01] MEDS: AMLODIPINE BESYLATE 5 MG TAB PO SCH (09:36)
[2017-10-01] MEDS: METFORMIN HCL 500 MG TAB PO SCH ×2 (09:37→18:56)
[2017-10-01] MEDS: LACTOBACILLUS ACIDOPHILUS (FLORANEX) TAB PO SCH ×3 (09:37→18:56)
[2017-10-01] MEDS: ASPIRIN 81 MG ECTAB PO SCH (09:38)
[2017-10-01] MEDS: OMEGA-3 (PURIFIED FISH OIL) 1 GM CAP PO SCH ×2 (09:38→21:01)
[2017-10-01] MEDS ORDERED: OXYMETAZOLINE HCL 0.05% NA SPR 15 ML BTL PRN (10:45)
[2017-10-01] MEDS ORDERED: IPRATROPIUM BROMIDE/ALBUTEROL respimat INH INH PRN (11:00)
--- NOTE | 2017-10-01 11:04 | Hospitalist Progress Note ---
Hospitalist Progress Note Date of Service Oct 01, 2017. Subjective Pt evaluation today including: conversation w/ patient Voiding: no voiding problems Having a mild bloody nose this AM. Is resolved now regarding having to get a BKA. Denies any other problems All Other Systems: Reviewed and Negative Objective Vital Signs Date Time Temp Pulse Resp B/P (MAP) Pulse Ox O2 Delivery O2 Flow Rate FiO2 10/01/17 07:58 36.6 69 18 157/74 (101) 100 Room Air 10/01/17 07:30 Room Air 09/30/17 23:40 Room Air 09/30/17 22:47 36.8 82 17 136/63 (87) 98 Room Air 09/30/17 15:40 Room Air 09/30/17 15:02 36.8 90 16 155/68 (97) 95 Room Air Physical Exam General Appearance: WD/WN, no apparent distress Eyes: normal inspection, sclerae normal ENT: + pertinent finding ([place]) Neck: trachea midline Respiratory/Chest: lungs clear, normal breath sounds, no respiratory distress, no accessory muscle use Cardiovascular: regular rate, rhythm, no edema, no gallop, + systolic murmur (3 /6 at RUSB, high pitched) Abdomen: normal bowel sounds, non tender, soft Extremities: no pedal edema, no calf tenderness, + pertinent finding (right foot in dressing not removed, no erythema spread proximal to marker line drawn on anterior ankle) Neurologic/Psychiatric: alert, normal mood/affect, oriented x 3 Skin: no rash Laboratory Results Last 24 Hours Test 09/30/17 12:09 09/30/17 17:03 09/30/17 20:45 10/01/17 07:56 Bedside Glucose 184 mg/dl 163 mg/dl 163 mg/dl 86 mg/dl Assessment and Plan This pt is a 77-year-old male with a h/o severe PAD, JUAN, CAD/WA w/ stent placement, HTN, HL, COPD, gout, h/o CVA, GERD, and DMII, with chronic OM of the rt foot and diabetic foot infection status post recent surgical revision/Right TMA, now failing outpatient treatment. Acute on Chronic progressing right foot OM/Diabetic foot infection/PAD/s/p MT amputation-now with persistent drug resistant Pseudomonas. Was discharged on 09/15 on cipro and augmentin x 6 weeks with wound vac, being followed by wound clinic and ID (Dr Quiñonez) referred to [facility] from wound clinic for suspicion of worsening osteo. Xray confirms Hx of revascularization on 09/11 with Right SFA and popliteal angioplasty within existing stents. -Wound cx again growing MDR Pseudomonas -continue IV Zerbaxa, appreciate ID consult - BCx NGTD - Wound care consulted - Vascular surgery consulted- planning for BKA on Wednesday 10/03 -continue ASA, Plavix -request Cardiology records from the [place] given h/o CAD,and heart murmur for preoperative information although he is without any active anginal symptoms, no acute issues, can achieve 4 METS CAD/WA w/ stent placement, HTN, HL, h/o JUAN-stable, BPs acceptable -continue ASA, Plavix, statin -continue amlodipine, lisinopril -of note, pt does NOT have Afib as noted in other notes -request Cardiology records from [place] DMII- HgbA1C 7.8% in 09/2017,controlled -continue basal bolus insulin- Lantus 20 units in AM, 40 units qPM -continue metformin 1000mg bid COPD-stable at this time -continue his outpatient treatment regimen with Combivent GERD-stable -continue PPI Fe-def anemia-hgb down to 8.0, microcytic, elevated RDW, ferritin 26, serum Fe low, TIBC high normal during last admission. Had EGD and colonoscopy in last 4- 10 yrs respectively, longstanding GERD. Is on ASA and Plavix Could be some component of anemia of chronic disease as well given infection. Hemoccult stool negative last admission -recommend outpt GI f/u -follow CBC CKD Stage III- service superintendent 1.17, baseline service superintendent is 1.3 -avoid nephrotoxins -renally dose all meds Gout-stable, no acute issues -not on meds Heart murmur-likely MR, says he had an ECHO a couple months ago and was told [facility] that [facility] needed another one in 3 yrs, "not to worry about it" -[facility] Epistaxis-Afrin sparingly to be used, direct pressure with cotton balls Proph-SCDs only at this time given epistaxis Dispo-to rehab vs SNF after recovers from BKA DNR
[2017-10-01 15:23] VITALS: BP 109/65; PULSE 70; TEMP 36.7; O2SAT 99
[2017-10-01] MEDS: LATANOPROST 0.005% OP SOLN 2.5 ML BTL OP SCH (21:01)
[2017-10-01] MEDS: SIMVASTATIN 80 MG TAB PO SCH (21:02)
[2017-10-01] MEDS: CLOPIDOGREL BISULFATE 75 MG TAB PO SCH (21:03)
[2017-10-01 22:57] VITALS: BP 135/65; PULSE 82; TEMP 36.8; O2SAT 99
[2017-10-02] MEDS: TAZOBACTAM IV SCH ×3 (06:38→22:46)
[2017-10-02] MEDS: CEFTOLOZANE IV SCH ×3 (06:38→22:46)
[2017-10-02] MEDS: DEXTROSE 5% IV SCH ×3 (06:38→22:46)
[2017-10-02 06:44] LABS: BASO % 0.2 %; BASO ABS # 0.01 K/uL (0-0.2); EOS % 2.6 %; EOS ABS # 0.12 K/uL (0-0.5); HEMATOCRIT 26.4 % (42-52); HEMOGLOBIN 8.3 g/dL (14.0-18.0); IG# 0.01 K/uL (0.00-0.02); LYMPH % 30.9 %; LYMPH ABS # 1.42 K/uL (1.2-3.4); MEAN CELL VOLUME 72.7 fL (80-100); MEAN CORPUSCULAR HEMOGLOBIN 22.9 pg (25-34); MEAN CORPUSCULAR HGB CONC 31.4 g/dl (32-36); MEAN PLATELET VOLUME 8.3 fL (7.4-10.4); MONO % 7.8 %; MONO ABS # 0.36 K/uL (0.11-0.59); NEUT % 58.3 %; NEUT ABS # 2.67 K/uL (1.4-6.5); PLATELET COUNT 274 K/uL (130-400); RED CELL DISTRIBUTION WIDTH CV 15.6 % (11.5-14.5); WHITE BLOOD COUNT 4.59 K/uL (4.8-10.8)
[2017-10-02 07:09] VITALS: BP 136/70; PULSE 79; TEMP 36.7; O2SAT 99
[2017-10-02 07:21] LABS: CALCIUM 9.3 mg/dl (8.5-10.1); CREATININE 1.18 mg/dl (0.60-1.40); POTASSIUM 4.2 mmol/L (3.5-5.1)
[2017-10-02] MEDS: INSULIN ASPART 100 UNITS/ML 3 ML PEN SC SCH ×4 (08:48→22:02)
[2017-10-02] MEDS: AMLODIPINE BESYLATE 5 MG TAB PO SCH (08:49)
[2017-10-02] MEDS: MULTIVITAMIN TAB PO SCH (08:50)
[2017-10-02] MEDS: PANTOprazole SOD 40 MG TAB PO SCH (08:50)
[2017-10-02] MEDS: LACTOBACILLUS ACIDOPHILUS (FLORANEX) TAB PO SCH ×3 (08:51→18:44)
[2017-10-02] MEDS: TOCOPHERYL, DL-ALPHA 100 INTERUNIT CAP PO SCH (08:53)
[2017-10-02] MEDS: ASPIRIN 81 MG ECTAB PO SCH (08:53)
[2017-10-02] MEDS: METFORMIN HCL 500 MG TAB PO SCH (08:53)
[2017-10-02] MEDS: OMEGA-3 (PURIFIED FISH OIL) 1 GM CAP PO SCH ×2 (08:53→22:05)
[2017-10-02] MEDS: LISINOPRIL 20 MG TAB PO SCH (08:54)
[2017-10-02] MEDS ORDERED: NURSING VERBAL MED ORDER ONE ×2 (09:45→23:15)
[2017-10-02] MEDS: INSULIN GLARGINE SOLOSTAR 100 UNITS/ML 3 ML PEN SC SCH ×2 (09:58→22:04)
[2017-10-02] MEDS: ACETAMINOPHEN 325 MG TAB PO PRN (10:12)
--- NOTE | 2017-10-02 11:40 | Hospitalist Progress Note ---
Hospitalist Progress Note Date of Service Oct 02, 2017. (Josie Andrew ., PALeeC) Subjective Pt evaluation today including: conversation w/ patient, physical exam, lab review, review of inpatient medication list Voiding: no voiding problems Patient sitting in bedside chair. Feeling well. Anxiously waiting for BKA tomorrow. Planning for rehab at discharge- family to come in today to discuss rehab choices w/ CM. Eating and drinking OK. Patient denies any fever, chills, sweats, lightheadedness, dizziness, vision changes, CP, palpitations, edema, SOB, wheezing, cough, abdominal pain, nausea, vomiting, diarrhea, urinary symptoms, melena, numbness/tingling, weakness, muscle/joint pain, depression, active bleeding, or new skin discoloration/ changes. (Josie Andrew ., LASHON-C) Medications Current Inpatient Medications Medications (Trade) Dose Ordered Sig/Sol Route Start Time Stop Time Status Last Admin Dose Admin Acetaminophen (Tylenol Tab) 650 mg Q4H PRN PO 09/27/17 14:00 10/27/17 13:59 10/02/17 10:12 650 MG Polyethylene (Miralax Powder Packet) 17 gm DAILY PRN PO 09/27/17 14:00 10/27/17 13:59 Ondansetron HCl (Zofran Inj) 4 mg Q6H PRN IV 09/27/17 14:00 10/27/17 13:59 Amlodipine Besylate (Norvasc Tab) 5 mg QAM PO 09/28/17 09:00 10/28/17 08:59 10/02/17 08:49 5 MG Aspirin (Ecotrin Tab) 81 mg QAM PO 09/28/17 09:00 10/28/17 08:59 10/02/17 08:53 81 MG Clopidogrel Bisulfate (plAVix TAB) 75 mg HS PO 09/27/17 21:00 10/27/17 20:59 10/01/17 21:03 75 MG Fish Oil ([place]-3 (Purified Fish Oil) Cap) 1 gm BID PO 09/27/17 21:00 10/27/17 20:59 10/02/17 08:53 1 GM Insulin Glargine (Lantus Solostar Pen) 40 units QPM SC 09/27/17 21:00 10/27/17 20:59 12/17/17 21:04 40 UNITS Latanoprost (Xalatan Oph Soln) 1 drops HS OP 09/27/17 21:00 10/27/17 20:59 10/01/17 21:01 1 DROPS Lisinopril (Zestril Tab) 20 mg QAM PO 09/28/17 09:00 10/28/17 08:59 10/02/17 08:54 20 MG Metformin HCl (Glucophage Tab) 1,000 mg BIDM PO 09/27/17 17:45 10/27/17 17:44 10/02/17 08:53 1,000 MG Multivitamins (Multivitamin Tab) 1 tab DAILY PO 09/28/17 09:00 10/28/17 08:59 10/02/17 08:50 1 TAB Pantoprazole Sodium (Protonix Tab) 40 mg QAM PO 09/28/17 09:00 10/28/17 08:59 10/02/17 08:50 40 MG Simvastatin (Zocor Tab) 80 mg QPM PO 09/27/17 21:00 10/27/17 20:59 10/01/17 21:02 80 MG fm-Jslwp-Kxpptmgazh Acetate (Vitamin E Cap) 100 interunit QAM PO 09/28/17 09:00 10/28/17 08:59 10/02/17 08:53 100 INTERUNIT Insulin Aspart (novoLOG ASPART) SLIDING SCALE If C... ACHS SC 09/27/17 17:15 10/27/17 17:14 10/02/17 08:48 7 UNITS Glucose (Glucose 40% Gel) 15-30 GRAMS 15 GRAMS... UD PRN PO 09/27/17 14:15 10/27/17 14:14 Glucose (Glucose Chew Tab) 4-8 Tablets 4 Tabl... UD PRN PO 09/27/17 14:15 10/27/17 14:14 Dextrose (Dextrose 50% 50ML Syringe) 25-50ML OF 50% DW IV FOR... UD PRN IV 09/27/17 14:15 10/27/17 14:14 Glucagon (Glucagon Inj) 1 mg UD PRN SQ 09/27/17 14:15 10/27/17 14:14 Ceftolozane/ Tazobactam 1.5 gm/ Dextrose 111.4 ml @ 111.4 mls/ hr Q8H IV 09/27/17 15:00 11/08/17 14:59 10/02/17 06:38 111.4 MLS/HR Lactobacillus Acidophilus (Floranex Tab) 4 tab TIDM PO 09/27/17 17:45 10/27/17 17:44 10/02/17 08:51 4 TAB Loperamide HCl (Imodium Cap) 2 mg UD PRN PO 09/27/17 15:45 10/27/17 15:44 Oxymetazoline HCl (Afrin 0.05% Nasal [place]) 1 sprays Q12 PRN NA 10/01/17 10:45 10/31/17 10:44 Albuterol/ Ipratropium (Combivent Respimat Inh) 1 puffs QID PRN INH 10/01/17 11:00 10/31/17 10:59 Insulin Glargine (Lantus Solostar Pen) 10 units QAM SC 10/03/17 09:00 11/02/17 08:59 10/02/17 09:58 10 UNITS (Josie Andrew, PA-C) Objective Vital Signs Date Time Temp Pulse Resp B/P (MAP) Pulse Ox O2 Delivery O2 Flow Rate FiO2 10/02/17 07:20 Room Air 10/02/17 07:09 36.7 79 16 136/70 (92) 99 Room Air 10/01/17 23:45 Room Air 10/01/17 22:57 36.8 82 16 135/65 (88) 99 Room Air 10/01/17 15:45 Room Air 10/01/17 15:23 36.7 70 17 109/65 (80) 99 Room Air (Josie Andrew, PA-C) Physical Exam General Appearance: no apparent distress Eyes: normal inspection, PERRL ENT: hearing grossly normal Neck: supple Respiratory/Chest: lungs clear, no respiratory distress, no accessory muscle use Cardiovascular: regular rate, rhythm, + systolic murmur Abdomen: normal bowel sounds, non tender, soft Extremities: no pedal edema, no calf tenderness, + pertinent finding (R foot in dressing/walking boot. No erythema, warmth, drainage noted beyond dressing/ marker line ) Neurologic/Psychiatric: alert, normal mood/affect, oriented x 3 Skin: normal color, warm/dry, no rash (Josie Andrew ., PA-C) Laboratory Results Last 24 Hours Test 10/01/17 12:10 10/01/17 17:19 10/01/17 18:11 10/01/17 20:35 Bedside Glucose 149 mg/dl 61 mg/dl 74 mg/dl 233 mg/dl Test 10/02/17 06:21 10/02/17 08:03 White Blood Count 4.59 K/uL Red Blood Count 3.63 M/uL Hemoglobin 8.3 g/dL Hematocrit 26.4 % Mean Corpuscular Volume 72.7 fL Mean Corpuscular Hemoglobin 22.9 pg Mean Corpuscular Hemoglobin Concent 31.4 g/dl Platelet Count 274 K/uL Mean Platelet Volume 8.3 fL Neutrophils (%) (Auto) 58.3 % Lymphocytes (%) (Auto) 30.9 % Monocytes (%) (Auto) 7.8 % Eosinophils (%) (Auto) 2.6 % Basophils (%) (Auto) 0.2 % Neutrophils # (Auto) 2.67 K/uL Lymphocytes # (Auto) 1.42 K/uL Monocytes # (Auto) 0.36 K/uL Eosinophils # (Auto) 0.12 K/uL Basophils # (Auto) 0.01 K/uL RDW Standard Deviation 42.0 fL RDW Coefficient of Variation 15.6 % Immature Granulocyte % (Auto) 0.2 % Immature Granulocyte # (Auto) 0.01 K/uL Anisocytosis PRESENT Spherocytes 1+ Sodium Level 138 mmol/L Potassium Level 4.2 mmol/L Chloride Level 107 mmol/L Carbon Dioxide Level 25 mmol/L Anion Gap 6.0 mmol/L Blood Urea Nitrogen 27 mg/dl Creatinine 1.18 mg/dl Est Creatinine Clear Calc Drug Dose 61.0 ml/min Estimated GFR () 68.6 Estimated GFR (Non- 59.2 BUN/Creatinine Ratio 23.1 Random Glucose 60 mg/dl Calcium Level 9.3 mg/dl Magnesium Level 1.6 mg/dl Bedside Glucose 72 mg/dl (Josie Andrew ., PA-C) Assessment and Plan This is a 77 y/o M with PMHx of DM II, PAD s/p stenting, Afib on plavix, hx of pseudomonas infection of the R foot s/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 R foot osteomyelitis, h/o diabetic foot infection- MDR pseudomonas: - Admit to med/surg - Wound culture- pseudomonas, highly resistant - BCx NGTD - Zerbaxa 1.[address] Quiñonez- infectious disease following - Wound care consulted - Vascular surgery consulted- planning for BKA on 10/03 - NPO after midnight Heart murmur: Had workup at [place]- records requested Hypomagnesemia at 1.6: Replace w/ IV Mag 1 gm x1, follow mag level and replace PRN Diarrhea: - C.diff negative - Probiotic and Imodium PRN PAD, HTN, HLD: Continue Plavix 75 mg daily, ASA 81 mg daily, Lisinopril 20 mg daily, Amlodipine 5 mg daily, Zocor 80 mg daily T2DM- hgbA1c 7.8%: - Metformin 1,000 mg BID; Lantus 20 u QAM decreased to 10 u due to hypoglycemia and 40 u QPM decreased to 30 QPM due to NPO after MD status - Start D5W 1/2 NSS @ 75 ml/hr at midnight to prevent morning hypoglycemia - BSG ACHS and ISS CKD Stage III- baseline hotel associate is 1.3- STABLE COPD- STABLE: Continue home inhalers Iron deficient anemia- STABLE: - Start Ferrous Sulfate 325 mg BID - Follow CBC - Recommend outpatient GI workup GI prophylaxis: Protonix daily DVT prophylaxis: TEDs/SCDs; hold chemical anticoagulation due to anemia Code Status: LEVEL V, DNR Dispo: Discharge to rehab after procedure once medically stable- PT/OT and CM consulted (Josie Andrew, ADRIANO) Reviewed: Pt Seen/Exam by Me (Shayla Espinosa MD) History Physician Informatics Spec Supervision Note: I interviewed and examined the patient. Discussed with LASHON Andrew and agree with findings and plan as documented in the note. Any exceptions or clarifications are listed here: Patient has no complaints today. He is awaiting his BKA tomorrow. Had some hypoglycemia this morning and his insulin dose was reduced. Vitals reviewed NAD RRR, 3/6 ELIZABETH at the left sternal border Clear to auscultation bilaterally Right foot in dressing not removed, no edema in extremities This pt is a 77-year-old male with a h/o severe PAD, JUAN, CAD/GA w/ stent placement, HTN, HL, COPD, gout, h/o CVA, GERD, and DMII, with chronic OM of the rt foot and diabetic foot infection status post recent surgical revision/Right TMA, now failing outpatient treatment. -Vascular surgery consulted- planning for BKA on Wednesday 10/03 -continue ASA, Plavix -request Cardiology records from the [place] given h/o CAD,and heart murmur for preoperative information although he is without any active anginal symptoms, no acute issues, can achieve 4 METS CAD/GA w/ stent placement, HTN, HL, h/o JUAN-stable, BPs acceptable -continue ASA, Plavix, statin -continue amlodipine, lisinopril -of note, pt does NOT have Afib as noted in other notes -request Cardiology records from [place] Fe-def anemia-hgb down to 8.0, microcytic, elevated RDW, ferritin 26, serum Fe low, TIBC high normal during last admission. Had EGD and colonoscopy in last 4- 10 yrs respectively, longstanding GERD. Is on ASA and Plavix Could be some component of anemia of chronic disease as well given infection. Hemoccult stool negative last admission -recommend outpt GI f/u -follow CBC CKD Stage III- hotel associate 1.17, baseline hotel associate is 1.3 -avoid nephrotoxins -renally dose all meds Gout-stable, no acute issues -not on meds Heart murmur-likely , says he had an ECHO a couple months ago and was [facility] that [facility] needed [facility] one in 3 yrs, "not to worry about it" -[facility] Other plan as per PA note above Documented By: Shayla Espinosa (Shayla Espinosa MD)
[2017-10-02] MEDS ORDERED: MAGNESIUM SULFATE 1GM / D5W 1 GM in PREMIXED IN D5W 100 ML IV ONE (12:00)
[2017-10-02 15:25] VITALS: BP 143/69; PULSE 77; TEMP 36.2; O2SAT 98
--- NOTE | 2017-10-02 17:25 | Infectious Disease Progress Nt ---
Progress Note Date of Service Oct 02, 2017. Subjective Pt evaluation today including: conversation w/ patient, physical exam, chart review, lab review, review of studies, conversation w/ [employer] security consultant, review of inpatient medication list Patient offering no new complaints today. Agreeable to BK amputation tomorrow. Remains afebrile. Continues to tolerate antibiotic without apparent difficulty. All Other Systems: Reviewed and Negative Medications Current Inpatient Medications Medications (Trade) Dose Ordered Sig/Sol Route Start Time Stop Time Status Last Admin Dose Admin Acetaminophen (Tylenol Tab) 650 mg Q4H PRN PO 09/27/17 14:00 10/27/17 13:59 10/02/17 10:12 650 MG Polyethylene (Miralax Powder Packet) 17 gm DAILY PRN PO 09/27/17 14:00 10/27/17 13:59 Ondansetron HCl (Zofran Inj) 4 mg Q6H PRN IV 09/27/17 14:00 10/27/17 13:59 Amlodipine Besylate (Norvasc Tab) 5 mg QAM PO 09/28/17 09:00 10/28/17 08:59 10/02/17 08:49 5 MG Aspirin (Ecotrin Tab) 81 mg QAM PO 09/28/17 09:00 10/28/17 08:59 10/02/17 08:53 81 MG Clopidogrel Bisulfate (plAVix TAB) 75 mg HS PO 09/27/17 21:00 10/27/17 20:59 10/01/17 21:03 75 MG Fish Oil ([place]-3 (Purified Fish Oil) Cap) 1 gm BID PO 09/27/17 21:00 10/27/17 20:59 10/02/17 08:53 1 GM Latanoprost (Xalatan Oph Soln) 1 drops HS OP 09/27/17 21:00 10/27/17 20:59 10/01/17 21:01 1 DROPS Lisinopril (Zestril Tab) 20 mg QAM PO 09/28/17 09:00 10/28/17 08:59 10/02/17 08:54 20 MG Metformin HCl (Glucophage Tab) 1,000 mg BIDM PO 09/27/17 17:45 10/27/17 17:44 10/02/17 08:53 1,000 MG Multivitamins (Multivitamin Tab) 1 tab DAILY PO 09/28/17 09:00 10/28/17 08:59 10/02/17 08:50 1 TAB Pantoprazole Sodium (Protonix Tab) 40 mg QAM PO 09/28/17 09:00 10/28/17 08:59 10/02/17 08:50 40 MG Simvastatin (Zocor Tab) 80 mg QPM PO 09/27/17 21:00 10/27/17 20:59 10/01/17 21:02 80 MG ti-Iueim-Lzuhkkrknr Acetate (Vitamin E Cap) 100 interunit QAM PO 09/28/17 09:00 10/28/17 08:59 10/02/17 08:53 100 INTERUNIT Insulin Aspart (novoLOG ASPART) SLIDING SCALE If C... ACHS SC 09/27/17 17:15 10/27/17 17:14 10/02/17 13:46 10 UNITS Glucose (Glucose 40% Gel) 15-30 GRAMS 15 GRAMS... UD PRN PO 09/27/17 14:15 10/27/17 14:14 Glucose (Glucose Chew Tab) 4-8 Tablets 4 Tabl... UD PRN PO 09/27/17 14:15 10/27/17 14:14 Dextrose (Dextrose 50% 50ML Syringe) 25-50ML OF 50% DW IV FOR... UD PRN IV 09/27/17 14:15 10/27/17 14:14 Glucagon (Glucagon Inj) 1 mg UD PRN SQ 09/27/17 14:15 10/27/17 14:14 Ceftolozane/ Tazobactam 1.5 gm/ Dextrose 111.4 ml @ 111.4 mls/ hr Q8H IV 09/27/17 15:00 11/08/17 14:59 10/02/17 14:24 111.4 MLS/HR Lactobacillus Acidophilus (Floranex Tab) 4 tab TIDM PO 09/27/17 17:45 10/27/17 17:44 10/02/17 12:16 4 TAB Loperamide HCl (Imodium Cap) 2 mg UD PRN PO 09/27/17 15:45 10/27/17 15:44 Oxymetazoline HCl (Afrin 0.05% Nasal [place]) 1 sprays Q12 PRN NA 10/01/17 10:45 10/31/17 10:44 Albuterol/ Ipratropium (Combivent Respimat Inh) 1 puffs QID PRN INH 10/01/17 11:00 10/31/17 10:59 Insulin Glargine (Lantus Solostar Pen) 10 units QAM SC 10/03/17 09:00 11/02/17 08:59 10/02/17 09:58 10 UNITS Ferrous Sulfate (Feosol Tab) 325 mg BIDM PO 10/02/17 17:45 11/01/17 17:44 Insulin Glargine (Lantus Solostar Pen) 30 units QPM SC 10/02/17 21:00 10/27/17 20:59 Dextrose/Sodium Chloride 1,000 ml @ 75 mls/hr [id number] IV 10/03/17 00:00 11/02/17 00:00 Objective Vital Signs Date Time Temp Pulse Resp B/P (MAP) Pulse Ox O2 Delivery O2 Flow Rate FiO2 10/02/17 15:25 36.2 77 18 143/69 (93) 98 Room Air 10/02/17 07:20 Room Air 10/02/17 07:09 36.7 79 16 136/70 (92) 99 Room Air 10/01/17 23:45 Room Air 10/01/17 22:57 36.8 82 16 135/65 (88) 99 Room Air Physical Exam General Appearance: WD/WN, no apparent distress Eyes: normal inspection, sclerae normal ENT: normal ENT inspection, pharynx normal Neck: supple, no adenopathy, trachea midline Respiratory/Chest: chest non-tender, lungs clear, normal breath sounds, no respiratory distress Cardiovascular: no gallop, + systolic murmur, + irregularly irregular Abdomen: normal bowel sounds, non tender, soft, no organomegaly Extremities: non-tender, + slow capillary refill Neurologic/Psychiatric: alert, oriented x 3 Skin: normal color, no rash, + pertinent finding (Foot wound dressed, decreased erythema of right ankle) Lymphatic: no adenopathy Laboratory Results Last 24 Hours Test 10/01/17 17:38 10/01/17 17:55 10/01/17 18:11 10/01/17 20:35 Bedside Glucose 59 mg/dl 68 mg/dl 74 mg/dl 233 mg/dl Test 10/02/17 06:21 10/02/17 08:03 10/02/17 11:59 White Blood Count 4.59 K/uL Red Blood Count 3.63 M/uL Hemoglobin 8.3 g/dL Hematocrit 26.4 % Mean Corpuscular Volume 72.7 fL Mean Corpuscular Hemoglobin 22.9 pg Mean Corpuscular Hemoglobin Concent 31.4 g/dl Platelet Count 274 K/uL Mean Platelet Volume 8.3 fL Neutrophils (%) (Auto) 58.3 % Lymphocytes (%) (Auto) 30.9 % Monocytes (%) (Auto) 7.8 % Eosinophils (%) (Auto) 2.6 % Basophils (%) (Auto) 0.2 % Neutrophils # (Auto) 2.67 K/uL Lymphocytes # (Auto) 1.42 K/uL Monocytes # (Auto) 0.36 K/uL Eosinophils # (Auto) 0.12 K/uL Basophils # (Auto) 0.01 K/uL RDW Standard Deviation 42.0 fL RDW Coefficient of Variation 15.6 % Immature Granulocyte % (Auto) 0.2 % Immature Granulocyte # (Auto) 0.01 K/uL Anisocytosis PRESENT Spherocytes 1+ Sodium Level 138 mmol/L Potassium Level 4.2 mmol/L Chloride Level 107 mmol/L Carbon Dioxide Level 25 mmol/L Anion Gap 6.0 mmol/L Blood Urea Nitrogen 27 mg/dl Creatinine 1.18 mg/dl Est Creatinine Clear Calc Drug Dose 61.0 ml/min Estimated GFR () 68.6 Estimated GFR (Non- 59.2 BUN/Creatinine Ratio 23.1 Random Glucose 60 mg/dl Calcium Level 9.3 mg/dl Magnesium Level 1.6 mg/dl Bedside Glucose 72 mg/dl 139 mg/dl Assessment and Plan (1) R footl osteomyelitis Status: Acute (2) Pseudomonas aeruginosa infection Status: Chronic (3) Diabetic foot infection (4) A-fib (5) PAD (peripheral artery disease) (6) DM II (diabetes mellitus, type II), controlled (7) HTN (hypertension), benign Status: Chronic 77-year-old male with severe peripheral vascular disease status post recent partial amputation of right foot, now with evidence of worsening infection with obvious osteomyelitis and cellulitis. Patient has been restarted on Zerbaxa. IV antibiotics to be continued through planned BKA tomorrow. Will discuss with all involved. Will follow.
[2017-10-02] MEDS: FERROUS SULFATE 325 MG TAB PO SCH (18:45)
[2017-10-02] MEDS: LATANOPROST 0.005% OP SOLN 2.5 ML BTL OP SCH (22:06)
[2017-10-02] MEDS: SIMVASTATIN 80 MG TAB PO SCH (22:09)
[2017-10-02] MEDS: CLOPIDOGREL BISULFATE 75 MG TAB PO SCH (23:06)
[2017-10-02 23:52] VITALS: BP 134/66; PULSE 82; TEMP 36.7; O2SAT 96
[2017-10-03] MEDS ORDERED: D5W AND 1/2NSS 1,000 ML IV SCH
[2017-10-03] MEDS ORDERED: NURSING VERBAL MED ORDER ONE ×2 (01:45→10:15)
[2017-10-03] MEDS ORDERED: INSULIN ASPART 100 UNITS/ML 3 ML PEN SC SCH (06:00)
[2017-10-03] MEDS: TAZOBACTAM IV SCH ×3 (06:28→22:33)
[2017-10-03] MEDS: DEXTROSE 5% IV SCH ×3 (06:28→22:33)
[2017-10-03] MEDS: CEFTOLOZANE IV SCH ×3 (06:28→22:33)
[2017-10-03 07:45] VITALS: BP 143/69; PULSE 67; TEMP 36.4; O2SAT 99
[2017-10-03 08:33] LABS: HEMATOCRIT 26.4 % (42-52); HEMOGLOBIN 8.3 g/dL (14.0-18.0); MEAN CELL VOLUME 72.1 fL (80-100); MEAN CORPUSCULAR HEMOGLOBIN 22.7 pg (25-34); MEAN CORPUSCULAR HGB CONC 31.4 g/dl (32-36); MEAN PLATELET VOLUME 8.2 fL (7.4-10.4); PLATELET COUNT 291 K/uL (130-400); RED CELL DISTRIBUTION WIDTH CV 15.2 % (11.5-14.5); WHITE BLOOD COUNT 3.85 K/uL (4.8-10.8)
[2017-10-03 08:57] LABS: CALCIUM 9.1 mg/dl (8.5-10.1); CREATININE 1.04 mg/dl (0.60-1.40); POTASSIUM 4.4 mmol/L (3.5-5.1)
[2017-10-03] MEDS: LACTOBACILLUS ACIDOPHILUS (FLORANEX) TAB PO SCH ×3 (10:25→18:33)
[2017-10-03] MEDS: PANTOprazole SOD 40 MG TAB PO SCH (10:25)
[2017-10-03] MEDS: TOCOPHERYL, DL-ALPHA 100 INTERUNIT CAP PO SCH (10:26)
[2017-10-03] MEDS: ASPIRIN 81 MG ECTAB PO SCH (10:26)
[2017-10-03] MEDS: OMEGA-3 (PURIFIED FISH OIL) 1 GM CAP PO SCH ×2 (10:26→22:00)
[2017-10-03] MEDS: AMLODIPINE BESYLATE 5 MG TAB PO SCH (10:26)
[2017-10-03] MEDS: FERROUS SULFATE 325 MG TAB PO SCH ×2 (10:26→18:33)
[2017-10-03] MEDS: MULTIVITAMIN TAB PO SCH (10:26)
[2017-10-03] MEDS: LISINOPRIL 20 MG TAB PO SCH (10:27)
[2017-10-03] MEDS: INSULIN ASPART 100 UNITS/ML 3 ML PEN SC SCH ×4 (10:28→21:59)
[2017-10-03] MEDS: INSULIN GLARGINE SOLOSTAR 100 UNITS/ML 3 ML PEN SC SCH ×2 (10:30→22:00)
[2017-10-03] MEDS: ACETAMINOPHEN 325 MG TAB PO PRN ×2 (10:37→18:37)
--- NOTE | 2017-10-03 13:12 | Hospitalist Progress Note ---
Hospitalist Progress Note Date of Service Oct 03, 2017. Subjective Pt evaluation today including: conversation w/ patient, physical exam, lab review, review of inpatient medication list Voiding: no voiding problems Patient sitting in bed. Upset that the procedure is now scheduled for tomorrow. Made NPO after midnight. Eating and drinking OK. Denies any complaints. Patient denies any fever, chills, sweats, lightheadedness, dizziness, vision changes, CP, palpitations, edema, SOB, wheezing, cough, abdominal pain, nausea, vomiting, diarrhea, urinary symptoms, melena, numbness/tingling, weakness, muscle/joint pain, anxiety/depression, active bleeding, or new skin discoloration/changes. Medications Current Inpatient Medications Medications (Trade) Dose Ordered Sig/Sol Route Start Time Stop Time Status Last Admin Dose Admin Acetaminophen (Tylenol Tab) 650 mg Q4H PRN PO 09/27/17 14:00 10/27/17 13:59 10/03/17 10:37 650 MG Polyethylene (Miralax Powder Packet) 17 gm DAILY PRN PO 09/27/17 14:00 10/27/17 13:59 Ondansetron HCl (Zofran Inj) 4 mg Q6H PRN IV 09/27/17 14:00 10/27/17 13:59 Amlodipine Besylate (Norvasc Tab) 5 mg QAM PO 09/28/17 09:00 10/28/17 08:59 10/03/17 10:26 5 MG Aspirin (Ecotrin Tab) 81 mg QAM PO 09/28/17 09:00 10/28/17 08:59 10/03/17 10:26 81 MG Clopidogrel Bisulfate (plAVix TAB) 75 mg HS PO 09/27/17 21:00 10/27/17 20:59 10/01/17 21:03 75 MG Fish Oil ([place]-3 (Purified Fish Oil) Cap) 1 gm BID PO 09/27/17 21:00 10/27/17 20:59 10/03/17 10:26 1 GM Latanoprost (Xalatan Oph Soln) 1 drops HS OP 09/27/17 21:00 10/27/17 20:59 10/02/17 22:06 1 DROPS Lisinopril (Zestril Tab) 20 mg QAM PO 09/28/17 09:00 10/28/17 08:59 10/03/17 10:27 20 MG Metformin HCl (Glucophage Tab) 1,000 mg BIDM PO 09/27/17 17:45 10/27/17 17:44 Future Hold 10/02/17 08:53 1,000 MG Multivitamins (Multivitamin Tab) 1 tab DAILY PO 09/28/17 09:00 10/28/17 08:59 10/03/17 10:26 1 TAB Pantoprazole Sodium (Protonix Tab) 40 mg QAM PO 09/28/17 09:00 10/28/17 08:59 10/03/17 10:25 40 MG Simvastatin (Zocor Tab) 80 mg QPM PO 09/27/17 21:00 10/27/17 20:59 10/02/17 22:09 80 MG zp-Ssrqi-Syqbvosnin Acetate (Vitamin E Cap) 100 interunit QAM PO 09/28/17 09:00 10/28/17 08:59 10/03/17 10:26 100 INTERUNIT Glucose (Glucose 40% Gel) 15-30 GRAMS 15 GRAMS... UD PRN PO 09/27/17 14:15 10/27/17 14:14 Glucose (Glucose Chew Tab) 4-8 Tablets 4 Tabl... UD PRN PO 09/27/17 14:15 10/27/17 14:14 Dextrose (Dextrose 50% 50ML Syringe) 25-50ML OF 50% DW IV FOR... UD PRN IV 09/27/17 14:15 10/27/17 14:14 Glucagon (Glucagon Inj) 1 mg UD PRN SQ 09/27/17 14:15 10/27/17 14:14 Ceftolozane/ Tazobactam 1.5 gm/ Dextrose 111.4 ml @ 111.4 mls/ hr Q8H IV 09/27/17 15:00 11/08/17 14:59 10/03/17 06:28 111.4 MLS/HR Lactobacillus Acidophilus (Floranex Tab) 4 tab TIDM PO 09/27/17 17:45 10/27/17 17:44 10/03/17 12:43 4 TAB Loperamide HCl (Imodium Cap) 2 mg UD PRN PO 09/27/17 15:45 10/27/17 15:44 Oxymetazoline HCl (Afrin 0.05% Nasal [place]) 1 sprays Q12 PRN NA 10/01/17 10:45 10/31/17 10:44 Albuterol/ Ipratropium (Combivent Respimat Inh) 1 puffs QID PRN INH 10/01/17 11:00 10/31/17 10:59 Insulin Glargine (Lantus Solostar Pen) 10 units QAM SC 10/03/17 09:00 11/02/17 08:59 10/03/17 10:30 10 UNITS Ferrous Sulfate (Feosol Tab) 325 mg BIDM PO 10/02/17 17:45 11/01/17 17:44 10/03/17 10:26 325 MG Insulin Glargine (Lantus Solostar Pen) 30 units QPM SC 10/02/17 21:00 10/27/17 20:59 10/02/17 22:04 30 UNITS Insulin Aspart (novoLOG ASPART) SLIDING SCALE If C... ACHS SC 10/03/17 12:00 11/02/17 11:59 10/03/17 12:49 13 UNITS Dextrose/Sodium Chloride 1,000 ml @ 75 mls/hr [id number] IV 10/04/17 00:00 11/03/17 00:00 Objective Vital Signs Date Time Temp Pulse Resp B/P (MAP) Pulse Ox O2 Delivery O2 Flow Rate FiO2 10/03/17 07:45 36.4 67 16 143/69 (93) 99 Room Air 10/03/17 07:30 Room Air 10/02/17 23:53 Room Air 10/02/17 23:52 36.7 82 16 134/66 (88) 96 Room Air 10/02/17 16:00 Room Air 10/02/17 15:25 36.2 77 18 143/69 (93) 98 Room Air Physical Exam General Appearance: no apparent distress Eyes: normal inspection, PERRL ENT: hearing grossly normal Neck: supple Respiratory/Chest: lungs clear, no respiratory distress, no accessory muscle use Cardiovascular: regular rate, rhythm, + systolic murmur Abdomen: normal bowel sounds, non tender, soft Extremities: no pedal edema, no calf tenderness, + pertinent finding (R foot in clean dressing; no erythema, warmth, drainage noted beyond dressing ) Neurologic/Psychiatric: alert, normal mood/affect, oriented x 3 Skin: normal color, warm/dry, no rash Laboratory Results Last 24 Hours Test 10/02/17 17:19 10/02/17 20:47 10/03/17 06:16 10/03/17 08:11 Bedside Glucose 85 mg/dl 140 mg/dl 166 mg/dl White Blood Count 3.85 K/uL Red Blood Count 3.66 M/uL Hemoglobin 8.3 g/dL Hematocrit 26.4 % Mean Corpuscular Volume 72.1 fL Mean Corpuscular Hemoglobin 22.7 pg Mean Corpuscular Hemoglobin Concent 31.4 g/dl RDW Standard Deviation 41.0 fL RDW Coefficient of Variation 15.2 % Platelet Count 291 K/uL Mean Platelet Volume 8.2 fL Sodium Level 140 mmol/L Potassium Level 4.4 mmol/L Chloride Level 107 mmol/L Carbon Dioxide Level 26 mmol/L Anion Gap 7.0 mmol/L Blood Urea Nitrogen 25 mg/dl Creatinine 1.04 mg/dl Est Creatinine Clear Calc Drug Dose 69.2 ml/min Estimated GFR () 79.9 Estimated GFR (Non- 68.9 BUN/Creatinine Ratio 23.7 Random Glucose 115 mg/dl Calcium Level 9.1 mg/dl Magnesium Level 1.9 mg/dl Test 10/03/17 09:12 10/03/17 12:36 Bedside Glucose 117 mg/dl 287 mg/dl Assessment and Plan This is a 77 y/o M with PMHx of DM II, PAD s/p stenting, Afib on plavix, hx of pseudomonas infection of the R foot s/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 R foot osteomyelitis, h/o diabetic foot infection- MDR pseudomonas: - Admit to med/surg - Wound culture- pseudomonas, highly resistant - BCx NGTD - Zerbaxa 1.[address] Quiñonez- infectious disease following - Wound care consulted - Vascular surgery consulted- planning for BKA on 10/04 - NPO after midnight Heart murmur: Had workup at [place]- records requested Hypomagnesemia at 1.6- RESOLVED: Replace w/ IV Mag 1 gm x1, follow mag level and replace PRN Diarrhea: - C.diff negative - Probiotic and Imodium PRN PAD, HTN, HLD: - Hold Plavix 75 mg daily for upcoming procedure - ASA 81 mg daily, Lisinopril 20 mg daily, Amlodipine 5 mg daily, Zocor 80 mg daily T2DM- hgbA1c 7.8%: - Metformin 1,000 mg BID; Lantus 20 u QAM decreased to 10 u due to hypoglycemia in AM and 40 u QPM decreased to 30 QPM due to NPO after MD status - Start D5W 1/2 NSS @ 75 ml/hr at midnight to prevent morning hypoglycemia - BSG ACHS and ISS 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
--- NOTE | 2017-10-03 13:17 | Anesthesiology Progress Note ---
Anesthesia Progress Note Date of Service Oct 03, 2017. Progress Notes Mr. Sena is slated for right BKA on 09/16/[address] Berg. Allergies to carbamazepine and pregabalin. Of note, patient has been on plavix and last dose was less than 48 hours ago. No previous anesthesia problems wtih his b/l SFA stents, right foot amp and right CEA. PMH significant for SOB with activity, angina, [place], CAD, HTN, A fib, mild , GERD, CVA (2011-no residual deficits), IDDM, anemia and gout. Former smoker but quit 20 years ago. Airway exam notable for MP 3 and ELIZABETH. EKG shows HR of 90, SR with PVC.s Echo from 04/2017 shows EF of 55-60% with mild . Anesthetic plan discussed and consent obtained for GETA with possible invasive monitoring. Patient not a candidate for SAB given his recent plavix use. All questions answered and patient appears optimized for surgery tomorrow.
[2017-10-03 15:56] VITALS: BP 141/65; PULSE 73; TEMP 36.5; O2SAT 100
--- NOTE | 2017-10-03 16:04 | Infectious Disease Progress Nt ---
Progress Note Date of Service Oct 03, 2017. Subjective Pt evaluation today including: conversation w/ patient, physical exam, chart review, lab review, review of studies, conversation w/ sap bw consultant, review of inpatient medication list Patient offers no new specific complaints. Upset about postponed BK amputation. remains afebrile. Continues tolerating antibiotic. All Other Systems: Reviewed and Negative Medications Current Inpatient Medications Medications (Trade) Dose Ordered Sig/Sol Route Start Time Stop Time Status Last Admin Dose Admin Acetaminophen (Tylenol Tab) 650 mg Q4H PRN PO 09/27/17 14:00 10/27/17 13:59 10/03/17 10:37 650 MG Polyethylene (Miralax Powder Packet) 17 gm DAILY PRN PO 09/27/17 14:00 10/27/17 13:59 Ondansetron HCl (Zofran Inj) 4 mg Q6H PRN IV 09/27/17 14:00 10/27/17 13:59 Amlodipine Besylate (Norvasc Tab) 5 mg QAM PO 09/28/17 09:00 10/28/17 08:59 10/03/17 10:26 5 MG Aspirin (Ecotrin Tab) 81 mg QAM PO 09/28/17 09:00 10/28/17 08:59 10/03/17 10:26 81 MG Clopidogrel Bisulfate (plAVix TAB) 75 mg HS PO 09/27/17 21:00 10/27/17 20:59 Future Hold 10/01/17 21:03 75 MG Fish Oil ([place]-3 (Purified Fish Oil) Cap) 1 gm BID PO 09/27/17 21:00 10/27/17 20:59 10/03/17 10:26 1 GM Latanoprost (Xalatan Oph Soln) 1 drops HS OP 09/27/17 21:00 10/27/17 20:59 10/02/17 22:06 1 DROPS Lisinopril (Zestril Tab) 20 mg QAM PO 09/28/17 09:00 10/28/17 08:59 10/03/17 10:27 20 MG Metformin HCl (Glucophage Tab) 1,000 mg BIDM PO 09/27/17 17:45 10/27/17 17:44 Future Hold 10/02/17 08:53 1,000 MG Multivitamins (Multivitamin Tab) 1 tab DAILY PO 09/28/17 09:00 10/28/17 08:59 10/03/17 10:26 1 TAB Pantoprazole Sodium (Protonix Tab) 40 mg QAM PO 09/28/17 09:00 10/28/17 08:59 10/03/17 10:25 40 MG Simvastatin (Zocor Tab) 80 mg QPM PO 09/27/17 21:00 10/27/17 20:59 10/02/17 22:09 80 MG pa-Xzdge-Cygnfqzihb Acetate (Vitamin E Cap) 100 interunit QAM PO 09/28/17 09:00 10/28/17 08:59 10/03/17 10:26 100 INTERUNIT Glucose (Glucose 40% Gel) 15-30 GRAMS 15 GRAMS... UD PRN PO 09/27/17 14:15 10/27/17 14:14 Glucose (Glucose Chew Tab) 4-8 Tablets 4 Tabl... UD PRN PO 09/27/17 14:15 10/27/17 14:14 Dextrose (Dextrose 50% 50ML Syringe) 25-50ML OF 50% DW IV FOR... UD PRN IV 09/27/17 14:15 10/27/17 14:14 Glucagon (Glucagon Inj) 1 mg UD PRN SQ 09/27/17 14:15 10/27/17 14:14 Ceftolozane/ Tazobactam 1.5 gm/ Dextrose 111.4 ml @ 111.4 mls/ hr Q8H IV 09/27/17 15:00 11/08/17 14:59 10/03/17 14:09 111.4 MLS/HR Lactobacillus Acidophilus (Floranex Tab) 4 tab TIDM PO 09/27/17 17:45 10/27/17 17:44 10/03/17 12:43 4 TAB Loperamide HCl (Imodium Cap) 2 mg UD PRN PO 09/27/17 15:45 10/27/17 15:44 Oxymetazoline HCl (Afrin 0.05% Nasal [place]) 1 sprays Q12 PRN NA 10/01/17 10:45 10/31/17 10:44 Albuterol/ Ipratropium (Combivent Respimat Inh) 1 puffs QID PRN INH 10/01/17 11:00 10/31/17 10:59 Insulin Glargine (Lantus Solostar Pen) 10 units QAM SC 10/03/17 09:00 11/02/17 08:59 10/03/17 10:30 10 UNITS Ferrous Sulfate (Feosol Tab) 325 mg BIDM PO 10/02/17 17:45 11/01/17 17:44 10/03/17 10:26 325 MG Insulin Glargine (Lantus Solostar Pen) 30 units QPM SC 10/02/17 21:00 10/27/17 20:59 10/02/17 22:04 30 UNITS Insulin Aspart (novoLOG ASPART) SLIDING SCALE If C... ACHS SC 10/03/17 12:00 11/02/17 11:59 10/03/17 12:49 13 UNITS Dextrose/Sodium Chloride 1,000 ml @ 75 mls/hr [id number] IV 10/04/17 00:00 11/03/17 00:00 Objective Vital Signs Date Time Temp Pulse Resp B/P (MAP) Pulse Ox O2 Delivery O2 Flow Rate FiO2 10/03/17 15:56 36.5 73 17 141/65 (90) 100 Room Air 10/03/17 07:45 36.4 67 16 143/69 (93) 99 Room Air 10/03/17 07:30 Room Air 10/02/17 23:53 Room Air 10/02/17 23:52 36.7 82 16 134/66 (88) 96 Room Air Physical Exam General Appearance: WD/WN, no apparent distress Eyes: normal inspection, sclerae normal ENT: normal ENT inspection, pharynx normal Neck: supple, no adenopathy, trachea midline Respiratory/Chest: chest non-tender, lungs clear, normal breath sounds, no respiratory distress Cardiovascular: no gallop, + systolic murmur, + irregularly irregular Abdomen: normal bowel sounds, non tender, soft, no organomegaly Extremities: no calf tenderness, + slow capillary refill Neurologic/Psychiatric: alert, oriented x 3 Skin: normal color, no rash, + pertinent finding (Dressing intact right foot, improved cellulitis right leg) Lymphatic: no adenopathy Laboratory Results Last 24 Hours Test 10/02/17 17:19 10/02/17 20:47 10/03/17 06:16 10/03/17 08:11 Bedside Glucose 85 mg/dl 140 mg/dl 166 mg/dl White Blood Count 3.85 K/uL Red Blood Count 3.66 M/uL Hemoglobin 8.3 g/dL Hematocrit 26.4 % Mean Corpuscular Volume 72.1 fL Mean Corpuscular Hemoglobin 22.7 pg Mean Corpuscular Hemoglobin Concent 31.4 g/dl RDW Standard Deviation 41.0 fL RDW Coefficient of Variation 15.2 % Platelet Count 291 K/uL Mean Platelet Volume 8.2 fL Sodium Level 140 mmol/L Potassium Level 4.4 mmol/L Chloride Level 107 mmol/L Carbon Dioxide Level 26 mmol/L Anion Gap 7.0 mmol/L Blood Urea Nitrogen 25 mg/dl Creatinine 1.04 mg/dl Est Creatinine Clear Calc Drug Dose 69.2 ml/min Estimated GFR () 79.9 Estimated GFR (Non- 68.9 BUN/Creatinine Ratio 23.7 Random Glucose 115 mg/dl Calcium Level 9.1 mg/dl Magnesium Level 1.9 mg/dl Test 10/03/17 09:12 10/03/17 12:36 Bedside Glucose 117 mg/dl 287 mg/dl Assessment and Plan (1) R footl osteomyelitis Status: Acute (2) Pseudomonas aeruginosa infection Status: Chronic (3) Diabetic foot infection (4) A-fib (5) PAD (peripheral artery disease) (6) DM II (diabetes mellitus, type II), controlled (7) HTN (hypertension), benign Status: Chronic 77-year-old male with severe peripheral vascular disease status post recent partial amputation of right foot, now with evidence of worsening infection with obvious osteomyelitis and cellulitis. Patient has been restarted on Zerbaxa. IV antibiotics to be continued through planned BKA tomorrow. Will discuss with all involved. Will follow.
[2017-10-03] MEDS: LATANOPROST 0.005% OP SOLN 2.5 ML BTL OP SCH (22:00)
[2017-10-03] MEDS: SIMVASTATIN 80 MG TAB PO SCH (22:01)
[2017-10-03] MEDS: D5W AND 1/2NSS 1,000 ML IV SCH (23:33)
[2017-10-03 23:54] VITALS: BP 105/56; PULSE 85; TEMP 36.7; O2SAT 98
[2017-10-04] VITALS (14 sets, daily range): BP systolic 94–153; BP diastolic 51–77; PULSE 64–94; TEMP 34.7–36.6; O2SAT 96–100
[2017-10-04] MEDS ORDERED: NURSING VERBAL MED ORDER ONE (02:15)
[2017-10-04] MEDS: DEXTROSE 5% IV SCH ×3 (06:16→23:47)
[2017-10-04] MEDS: CEFTOLOZANE IV SCH ×3 (06:16→23:47)
[2017-10-04] MEDS: TAZOBACTAM IV SCH ×3 (06:16→23:47)
[2017-10-04] MEDS: INSULIN ASPART 100 UNITS/ML 3 ML PEN SC SCH ×4 (06:18→22:22)
[2017-10-04] MEDS: ASPIRIN 81 MG ECTAB PO SCH (08:00)
[2017-10-04] MEDS: LACTOBACILLUS ACIDOPHILUS (FLORANEX) TAB PO SCH ×3 (08:00→21:04)
[2017-10-04] MEDS: FERROUS SULFATE 325 MG TAB PO SCH ×2 (08:00→18:56)
[2017-10-04] MEDS: AMLODIPINE BESYLATE 5 MG TAB PO SCH (08:00)
[2017-10-04] MEDS: TOCOPHERYL, DL-ALPHA 100 INTERUNIT CAP PO SCH (08:01)
[2017-10-04] MEDS: OMEGA-3 (PURIFIED FISH OIL) 1 GM CAP PO SCH ×2 (08:01→21:04)
[2017-10-04] MEDS: PANTOprazole SOD 40 MG TAB PO SCH (08:01)
[2017-10-04] MEDS: MULTIVITAMIN TAB PO SCH (08:01)
[2017-10-04] MEDS: LISINOPRIL 20 MG TAB PO SCH (08:02)
[2017-10-04] MEDS: ACETAMINOPHEN 325 MG TAB PO PRN (08:05)
[2017-10-04 08:21] LABS: HEMATOCRIT 26.5 % (42-52); HEMOGLOBIN 8.3 g/dL (14.0-18.0); MEAN CELL VOLUME 72.6 fL (80-100); MEAN CORPUSCULAR HEMOGLOBIN 22.7 pg (25-34); MEAN CORPUSCULAR HGB CONC 31.3 g/dl (32-36); PLATELET COUNT 255 K/uL (130-400); RED CELL DISTRIBUTION WIDTH CV 15.5 % (11.5-14.5); RED CELL DISTRIBUTION WIDTH SD 41.7 fL (36.4-46.3)
[2017-10-04 08:47] LABS: CREATININE 1.12 mg/dl (0.60-1.40); POTASSIUM 4.6 mmol/L (3.5-5.1)
[2017-10-04] MEDS: INSULIN GLARGINE SOLOSTAR 100 UNITS/ML 3 ML PEN SC SCH ×2 (09:14→21:15)
--- NOTE | 2017-10-04 12:48 | Hospitalist Progress Note ---
Hospitalist Progress Note Date of Service Oct 04, 2017. (Josie Andrew ., CYNTHIAC) Subjective Pt evaluation today including: conversation w/ patient, physical exam, lab review, review of inpatient medication list Voiding: no voiding problems Patient states he is feeling well. NPO for upcoming procedure today. BKA planned for this afternoon. Patient denies any fever, chills, sweats, lightheadedness, dizziness, vision changes, CP, palpitations, edema, SOB, wheezing, cough, abdominal pain, nausea, vomiting, diarrhea, urinary symptoms, melena, numbness/tingling, weakness, muscle/joint pain, anxiety/depression, active bleeding, or new skin discoloration/changes. (Josie Andrew ., CYNTHIAC) Medications Current Inpatient Medications Medications (Trade) Dose Ordered Sig/Sol Route Start Time Stop Time Status Last Admin Dose Admin Acetaminophen (Tylenol Tab) 650 mg Q4H PRN PO 09/27/17 14:00 10/27/17 13:59 10/04/17 08:05 650 MG Polyethylene (Miralax Powder Packet) 17 gm DAILY PRN PO 09/27/17 14:00 10/27/17 13:59 Ondansetron HCl (Zofran Inj) 4 mg Q6H PRN IV 09/27/17 14:00 10/27/17 13:59 Amlodipine Besylate (Norvasc Tab) 5 mg QAM PO 09/28/17 09:00 10/28/17 08:59 10/04/17 08:00 5 MG Aspirin (Ecotrin Tab) 81 mg QAM PO 09/28/17 09:00 10/28/17 08:59 10/04/17 08:00 81 MG Clopidogrel Bisulfate (plAVix TAB) 75 mg HS PO 09/27/17 21:00 10/27/17 20:59 Future Hold 10/01/17 21:03 75 MG Fish Oil ([place]-3 (Purified Fish Oil) Cap) 1 gm BID PO 09/27/17 21:00 10/27/17 20:59 10/03/17 22:00 1 GM Latanoprost (Xalatan Oph Soln) 1 drops HS OP 09/27/17 21:00 10/27/17 20:59 10/03/17 22:00 1 DROPS Lisinopril (Zestril Tab) 20 mg QAM PO 09/28/17 09:00 10/28/17 08:59 10/04/17 08:02 20 MG Metformin HCl (Glucophage Tab) 1,000 mg BIDM PO 09/27/17 17:45 10/27/17 17:44 Future Hold 10/02/17 08:53 1,000 MG Multivitamins (Multivitamin Tab) 1 tab DAILY PO 09/28/17 09:00 10/28/17 08:59 10/03/17 10:26 1 TAB Pantoprazole Sodium (Protonix Tab) 40 mg QAM PO 09/28/17 09:00 10/28/17 08:59 10/04/17 08:01 40 MG Simvastatin (Zocor Tab) 80 mg QPM PO 09/27/17 21:00 10/27/17 20:59 10/03/17 22:01 80 MG oa-Cdyfv-Wucoirwgvk Acetate (Vitamin E Cap) 100 interunit QAM PO 09/28/17 09:00 10/28/17 08:59 10/03/17 10:26 100 INTERUNIT Glucose (Glucose 40% Gel) 15-30 GRAMS 15 GRAMS... UD PRN PO 09/27/17 14:15 10/27/17 14:14 Glucose (Glucose Chew Tab) 4-8 Tablets 4 Tabl... UD PRN PO 09/27/17 14:15 10/27/17 14:14 Dextrose (Dextrose 50% 50ML Syringe) 25-50ML OF 50% DW IV FOR... UD PRN IV 09/27/17 14:15 10/27/17 14:14 Glucagon (Glucagon Inj) 1 mg UD PRN SQ 09/27/17 14:15 10/27/17 14:14 Ceftolozane/ Tazobactam 1.5 gm/ Dextrose 111.4 ml @ 111.4 mls/ hr Q8H IV 09/27/17 15:00 11/08/17 14:59 10/04/17 06:16 111.4 MLS/HR Lactobacillus Acidophilus (Floranex Tab) 4 tab TIDM PO 09/27/17 17:45 10/27/17 17:44 10/03/17 18:33 4 TAB Loperamide HCl (Imodium Cap) 2 mg UD PRN PO 09/27/17 15:45 10/27/17 15:44 Oxymetazoline HCl (Afrin 0.05% Nasal [place]) 1 sprays Q12 PRN NA 10/01/17 10:45 10/31/17 10:44 Albuterol/ Ipratropium (Combivent Respimat Inh) 1 puffs QID PRN INH 10/01/17 11:00 10/31/17 10:59 Insulin Glargine (Lantus Solostar Pen) 10 units QAM SC 10/03/17 09:00 11/02/17 08:59 10/04/17 09:14 10 UNITS Ferrous Sulfate (Feosol Tab) 325 mg BIDM PO 10/02/17 17:45 11/01/17 17:44 10/04/17 08:00 325 MG Insulin Glargine (Lantus Solostar Pen) 30 units QPM SC 10/02/17 21:00 10/27/17 20:59 10/03/17 22:00 30 UNITS Dextrose/Sodium Chloride 1,000 ml @ 75 mls/hr [id number] IV 10/04/17 00:00 11/03/17 00:00 10/03/17 23:33 75 MLS/HR Insulin Aspart (novoLOG ASPART) SLIDING SCALE If C... Q6 SC 10/04/17 06:00 11/03/17 05:59 10/04/17 06:18 1 UNITS (Josie Andrew, PA-C) Objective Vital Signs Date Time Temp Pulse Resp B/P (MAP) Pulse Ox O2 Delivery O2 Flow Rate FiO2 10/04/17 08:00 Room Air 10/04/17 07:37 36.6 85 16 153/77 (102) 96 Room Air 10/03/17 23:54 36.7 85 17 105/56 (72) 98 Room Air 10/03/17 23:39 Room Air 10/03/17 16:50 Room Air 10/03/17 15:56 36.5 73 17 141/65 (90) 100 Room Air (Josie Andrew PA-C) Physical Exam General Appearance: no apparent distress Eyes: normal inspection, PERRL ENT: hearing grossly normal Neck: supple Respiratory/Chest: lungs clear, no respiratory distress, no accessory muscle use Cardiovascular: regular rate, rhythm, + systolic murmur Abdomen: normal bowel sounds, non tender, soft Extremities: no pedal edema, no calf tenderness, + pertinent finding (R foot in clean dressing ) Neurologic/Psychiatric: alert, normal mood/affect, oriented x 3 Skin: normal color, warm/dry, no rash (Josie Andrew ., PA-C) Laboratory Results Last 24 Hours Test 10/03/17 16:58 10/03/17 21:10 10/04/17 06:16 10/04/17 07:56 Bedside Glucose 141 mg/dl 131 mg/dl 168 mg/dl White Blood Count 4.40 K/uL Red Blood Count 3.65 M/uL Hemoglobin 8.3 g/dL Hematocrit 26.5 % Mean Corpuscular Volume 72.6 fL Mean Corpuscular Hemoglobin 22.7 pg Mean Corpuscular Hemoglobin Concent 31.3 g/dl RDW Standard Deviation 41.7 fL RDW Coefficient of Variation 15.5 % Platelet Count 255 K/uL Mean Platelet Volume 8.0 fL Sodium Level 140 mmol/L Potassium Level 4.6 mmol/L Chloride Level 108 mmol/L Carbon Dioxide Level 27 mmol/L Anion Gap 5.0 mmol/L Blood Urea Nitrogen 23 mg/dl Creatinine 1.12 mg/dl Est Creatinine Clear Calc Drug Dose 64.2 ml/min Estimated GFR () 73.0 Estimated GFR (Non- 63.0 BUN/Creatinine Ratio 20.3 Random Glucose 160 mg/dl Calcium Level 9.0 mg/dl Test 10/04/17 11:51 Bedside Glucose 166 mg/dl (Josie Andrew ., PA-C) Assessment and Plan This is a 77 y/o M with PMHx of DM II, PAD s/p stenting, Afib on plavix, hx of pseudomonas infection of the R foot s/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 R foot osteomyelitis, h/o diabetic foot infection- MDR pseudomonas: - Admit to med/surg - Wound culture- pseudomonas, highly resistant - BCx NGTD - Continue Zerbaxa 1.[address] Quiñonez- ID following - Wound care consulted - Vascular surgery consulted- planning for BKA this afternoon - NPO after midnight on 10/04- advance after procedure as tolerated Heart murmur: [facility] requested Hypomagnesemia at 1.6- RESOLVED: Replace w/ IV Mag 1 gm x1, follow mag level and replace PRN Diarrhea: - C.diff negative - Probiotic and Imodium PRN PAD, HTN, HLD: - Hold Plavix 75 mg daily for upcoming procedure - ASA 81 mg daily, Lisinopril 20 mg daily, Amlodipine 5 mg daily, Zocor 80 mg daily T2DM- hgbA1c 7.8%: - Metformin 1,000 mg BID; Lantus 20 u QAM decreased to 10 u due to hypoglycemia in AM and 40 u QPM decreased to 30 QPM due to NPO after MD status - Start D5W 1/2 NSS @ 75 ml/hr at midnight to prevent morning hypoglycemia- will discontinue once tolerating PO intake after procedure - BSG ACHS and ISS CKD Stage III- baseline senior loan processor is 1.3- STABLE COPD- STABLE: Continue home inhalers Iron deficient anemia- STABLE: - Start Ferrous Sulfate 325 mg BID - Follow CBC - Recommend outpatient GI workup GI prophylaxis: Protonix daily DVT prophylaxis: TEDs/SCDs; hold chemical anticoagulation due to anemia Code Status: LEVEL V, DNR Dispo: Discharge to rehab after procedure once medically stable- PT/OT and CM consulted (Josie Andrew, PA-C) I agree with PA assessment and plan and have seen and examined pt myself Resting comfortably in bed VSS Labs reviewed Wound Cx MDR pseudomonas at this time Cont IV zerbaxa at this time Appreciate wound care and ID consults XR noted osteo Vascular surgery consulted, BKA scheduled for 10/04 Will need rehab once medically stable Dispo: pt looking into [facility] vs rehab in [place] (Shawn Rose D.OBird)
[2017-10-04] MEDS ORDERED: FENTANYL CITRATE INJ 50 MCG/1 ML 2 ML VIAL ONE ×2 (14:45→16:03)
--- NOTE | 2017-10-04 15:28 | Progress Note ---
Progress Note Date of Service Oct 04, 2017. Progress Note Patient for right BKA today. I have discussed the risks options and benefits of the procedure with the patient. The patient understands the risks options and benefits and agrees to the procedure. I have examined the patient, reviewed the History & Physical and in the interval since the performance of the History & Physical I have noted the following changes of clinical significance: No changes noted
[2017-10-04] MEDS ORDERED: ONDANSETRON INJ 2 MG/ML 2 ML VIAL IV PRN ×2 (15:30→16:45)
[2017-10-04] MEDS ORDERED: EpHEDrine SULFATE INJ 50 MG/ML AMP IV PRN (15:30)
[2017-10-04] MEDS ORDERED: ATROPINE SULFATE 0.1 MG/ML 5ML SYR IV PRN (15:30)
[2017-10-04] MEDS ORDERED: PHENYLEPHRINE 100MCG/ML 5ML SYR IV PRN (15:30)
[2017-10-04] MEDS ORDERED: ROCURONIUM BROMIDE 10 MG/ML 5 ML VIAL IV ONE (16:09)
[2017-10-04] MEDS ORDERED: PROPOFOL IV EMULSION 10 MG/ML 20 ML VIAL IV ONE (16:09)
[2017-10-04] MEDS ORDERED: LIDOCAINE HCL 2% 2 ML VIAL (20MG/ML) ONE (16:09)
[2017-10-04] MEDS ORDERED: ONDANSETRON INJ 2 MG/ML 2 ML VIAL ONE (16:09)
[2017-10-04] MEDS ORDERED: EpHEDrine SULFATE 50MG/5ML SYR ONE (16:23)
[2017-10-04] MEDS ORDERED: VASOPRESSIN 20 UNIT/ML VIAL ONE (16:23)
[2017-10-04] MEDS ORDERED: NEOSTIGMINE METHYLSULFATE 5 MG/5 ML SYR ONE (16:37)
[2017-10-04] MEDS ORDERED: GLYCOPYRROLATE INJ 0.2 MG/ML VIAL ONE (16:37)
--- NOTE | 2017-10-04 16:42 | [facility] Post Operative Brief Note ---
Immediate Operative Summary Operative Date Oct 04, 2017. Pre-Operative Diagnosis osteomyelitis right foot Post-Operative Diagnosis osteomyelitis right foot Procedure(s) Performed Right Below Knee Amputation Surgeon Dr Begr Pharmacy Affairs Assistant Surgeon(s) Lory OATES_Gisel Estimated Blood Loss 250mL Findings good viable muscle Specimens As Per Surgeon A. Right Lower Leg Anesthesia Gen Complication(s) None Disposition Recovery Room / PACU
[2017-10-04] MEDS: HYDROmorphone INJ 2 MG/ML SYR/VIAL IV PRN ×4 (17:00→17:30)
[2017-10-04 17:43] LABS: HEMATOCRIT 23.2 % (42-52); HEMOGLOBIN 7.2 g/dL (14.0-18.0)
--- NOTE | 2017-10-04 17:46 | Anesthesiology Progress Note ---
Anesthesia Post Op Note Date & Time Oct 04, 2017 at 17:46 Vital Signs Pain Intensity: 3 Vital Signs Past 12 Hours Date Time Temp Pulse Resp B/P (MAP) Pulse Ox O2 Delivery O2 Flow Rate FiO2 10/04/17 17:32 88 19 10/04/17 17:32 97 19 100 10/04/17 17:31 98/54 10/04/17 17:27 36.3 91 12 98/54 (69) 100 Oxymask 10 10/04/17 17:27 94 21 97 10/04/17 17:27 89 21 10/04/17 17:26 92/57 10/04/17 17:22 96 18 10/04/17 17:22 103 18 87/62 100 10/04/17 17:17 91 14 10/04/17 17:17 92 14 99 10/04/17 17:16 95 12 10/04/17 17:16 96 12 110/42 100 10/04/17 17:16 95 12 10/04/17 17:16 96 12 110/42 100 10/04/17 17:11 78 9 10/04/17 17:11 86 9 101/55 100 10/04/17 17:11 78 9 10/04/17 17:11 86 9 101/55 100 10/04/17 17:06 79 15 10/04/17 17:06 92 15 98/57 100 10/04/17 17:06 79 15 10/04/17 17:06 92 15 98/57 100 10/04/17 17:02 95/63 10/04/17 17:02 95/63 10/04/17 17:01 88 12 10/04/17 17:01 104 12 100 10/04/17 17:01 88 12 10/04/17 17:01 104 12 100 10/04/17 16:57 103/57 10/04/17 16:57 103/57 10/04/17 16:56 94 10 99 10/04/17 16:56 78 10 10/04/17 16:56 78 10 10/04/17 16:56 94 10 99 10/04/17 16:52 108/49 10/04/17 16:52 108/49 10/04/17 16:51 107 19 10/04/17 16:51 105 19 91 10/04/17 16:51 105 19 91 10/04/17 16:51 36.3 91 16 108/49 100 Oxymask 10 10/04/17 16:51 107 19 10/04/17 08:00 Room Air 10/04/17 07:37 36.6 85 16 153/77 (102) 96 Room Air Notes Mental Status: alert / awake / arousable, participated in evaluation Pt Amnestic to Procedure: Yes Nausea / Vomiting: adequately controlled Pain: adequately controlled Airway Patency, RR, SpO2: stable & adequate BP & HR: stable & adequate Hydration State: stable & adequate Anesthetic Complications: no major complications apparent
[2017-10-04] MEDS: D5W AND 1/2NSS 1,000 ML IV SCH (17:50)
[2017-10-04 18:22] LABS: CALCIUM 8.5 mg/dl (8.5-10.1); CREATININE 1.14 mg/dl (0.60-1.40); POTASSIUM 4.3 mmol/L (3.5-5.1)
[2017-10-04] MEDS: LATANOPROST 0.005% OP SOLN 2.5 ML BTL OP SCH (21:04)
[2017-10-04] MEDS: SIMVASTATIN 80 MG TAB PO SCH (21:05)
[2017-10-04] MEDS ORDERED: NURSING DECISION MEDICATION ORDER SCH (21:30)
[2017-10-05] VITALS (12 sets, daily range): BP systolic 99–153; BP diastolic 52–74; PULSE 77–101; TEMP 36.1–37.1; O2SAT 95–100
[2017-10-05] MEDS: OXYCODONE/ACETAMINOPHEN 5-325 TAB PO PRN ×4 (00:06→16:17)
[2017-10-05] MEDS ORDERED: NURSING VERBAL MED ORDER ONE (01:00)
[2017-10-05] MEDS: MoRPHine SULFATE 4 MG/ML 1 ML CARP\\VIAL IV PRN ×3 (01:20→23:36)
[2017-10-05] MEDS: TAZOBACTAM IV SCH (05:57)
[2017-10-05] MEDS: DEXTROSE 5% IV SCH (05:57)
[2017-10-05] MEDS: CEFTOLOZANE IV SCH (05:57)
[2017-10-05 09:11] LABS: HEMATOCRIT 25.5 % (42-52); HEMOGLOBIN 8.3 g/dL (14.0-18.0); IG# 0.03 K/uL (0.00-0.02); LYMPH ABS # 1.19 K/uL (1.2-3.4); MEAN CELL VOLUME 74.3 fL (80-100); MEAN CORPUSCULAR HEMOGLOBIN 24.2 pg (25-34); MEAN CORPUSCULAR HGB CONC 32.5 g/dl (32-36); MEAN PLATELET VOLUME 8.5 fL (7.4-10.4); MONO % 8.4 %; MONO ABS # 0.71 K/uL (0.11-0.59); NEUT % 77.2 %; NEUT ABS # 6.56 K/uL (1.4-6.5); PLATELET COUNT 286 K/uL (130-400); RED CELL DISTRIBUTION WIDTH CV 15.8 % (11.5-14.5); WHITE BLOOD COUNT 8.49 K/uL (4.8-10.8)
[2017-10-05] MEDS: LACTOBACILLUS ACIDOPHILUS (FLORANEX) TAB PO SCH ×3 (09:12→18:21)
[2017-10-05] MEDS: LISINOPRIL 20 MG TAB PO SCH (09:13)
[2017-10-05] MEDS: FERROUS SULFATE 325 MG TAB PO SCH ×2 (09:13→18:22)
[2017-10-05] MEDS: MULTIVITAMIN TAB PO SCH (09:13)
[2017-10-05] MEDS: PANTOprazole SOD 40 MG TAB PO SCH (09:13)
[2017-10-05] MEDS: ASPIRIN 81 MG ECTAB PO SCH (09:13)
[2017-10-05] MEDS: AMLODIPINE BESYLATE 5 MG TAB PO SCH (09:13)
[2017-10-05] MEDS: TOCOPHERYL, DL-ALPHA 100 INTERUNIT CAP PO SCH (09:14)
[2017-10-05] MEDS: OMEGA-3 (PURIFIED FISH OIL) 1 GM CAP PO SCH ×2 (09:14→21:44)
[2017-10-05] MEDS: INSULIN GLARGINE SOLOSTAR 100 UNITS/ML 3 ML PEN SC SCH (09:19)
[2017-10-05] MEDS: INSULIN ASPART 100 UNITS/ML 3 ML PEN SC SCH ×4 (09:19→21:43)
[2017-10-05 09:46] LABS: CALCIUM 8.5 mg/dl (8.5-10.1); CREATININE 1.7 mg/dl (0.60-1.40); POTASSIUM 4.7 mmol/L (3.5-5.1)
[2017-10-05] MEDS ORDERED: SODIUM CHLORIDE 0.9% 1000ML 1,000 ML IV ONE (10:30)
--- NOTE | 2017-10-05 12:01 | Hospitalist Progress Note ---
Hospitalist Progress Note Date of Service Oct 05, 2017. (Josie Andrew ., PA-C) Subjective Pt evaluation today including: conversation w/ patient, physical exam, lab review, review of inpatient medication list Patient sitting in bedside chair. Pain is well controlled. Eating and drinking OK. Worked w/ PT this AM- notes significant fatigue/weakness. Nursing noted little UO- per patient, had no PO fluids yesterday, NPO until procedure then states he slept until this AM. Encouraged patient to drink fluids. Give IVF x1 bag today. Bladder scan and straight cath PRN. Patient denies any fever, chills, sweats, lightheadedness, dizziness, vision changes, CP, palpitations, edema, SOB, wheezing, cough, abdominal pain, nausea, vomiting, diarrhea, melena, numbness/tingling, weakness, anxiety/depression, active bleeding, or new skin discoloration/changes. (Josie Andrew ., PA-C) Medications Current Inpatient Medications Medications (Trade) Dose Ordered Sig/Sol Route Start Time Stop Time Status Last Admin Dose Admin Acetaminophen (Tylenol Tab) 650 mg Q4H PRN PO 09/27/17 14:00 10/27/17 13:59 10/04/17 08:05 650 MG Polyethylene (Miralax Powder Packet) 17 gm DAILY PRN PO 09/27/17 14:00 10/27/17 13:59 Amlodipine Besylate (Norvasc Tab) 5 mg QAM PO 09/28/17 09:00 10/28/17 08:59 10/05/17 09:13 5 MG Aspirin (Ecotrin Tab) 81 mg QAM PO 09/28/17 09:00 10/28/17 08:59 10/05/17 09:13 81 MG Clopidogrel Bisulfate (plAVix TAB) 75 mg HS PO 09/27/17 21:00 10/27/17 20:59 Future Hold 10/01/17 21:03 75 MG Fish Oil ([place]-3 (Purified Fish Oil) Cap) 1 gm BID PO 09/27/17 21:00 10/27/17 20:59 10/05/17 09:14 1 GM Latanoprost (Xalatan Oph Soln) 1 drops HS OP 09/27/17 21:00 10/27/17 20:59 12/20/17 21:04 1 DROPS Lisinopril (Zestril Tab) 20 mg QAM PO 09/28/17 09:00 10/28/17 08:59 10/05/17 09:13 20 MG Metformin HCl (Glucophage Tab) 1,000 mg BIDM PO 09/27/17 17:45 10/27/17 17:44 Future Hold 10/02/17 08:53 1,000 MG Multivitamins (Multivitamin Tab) 1 tab DAILY PO 09/28/17 09:00 10/28/17 08:59 10/05/17 09:13 1 TAB Pantoprazole Sodium (Protonix Tab) 40 mg QAM PO 09/28/17 09:00 10/28/17 08:59 10/05/17 09:13 40 MG Simvastatin (Zocor Tab) 80 mg QPM PO 09/27/17 21:00 10/27/17 20:59 10/04/17 21:05 80 MG qk-Mrweo-Gadhbbjyvu Acetate (Vitamin E Cap) 100 interunit QAM PO 09/28/17 09:00 10/28/17 08:59 10/05/17 09:14 100 INTERUNIT Glucose (Glucose 40% Gel) 15-30 GRAMS 15 GRAMS... UD PRN PO 09/27/17 14:15 10/27/17 14:14 Glucose (Glucose Chew Tab) 4-8 Tablets 4 Tabl... UD PRN PO 09/27/17 14:15 10/27/17 14:14 Dextrose (Dextrose 50% 50ML Syringe) 25-50ML OF 50% DW IV FOR... UD PRN IV 09/27/17 14:15 10/27/17 14:14 Glucagon (Glucagon Inj) 1 mg UD PRN SQ 09/27/17 14:15 10/27/17 14:14 Lactobacillus Acidophilus (Floranex Tab) 4 tab TIDM PO 09/27/17 17:45 10/27/17 17:44 10/05/17 09:12 4 TAB Loperamide HCl (Imodium Cap) 2 mg UD PRN PO 09/27/17 15:45 10/27/17 15:44 Oxymetazoline HCl (Afrin 0.05% Nasal [place]) 1 sprays Q12 PRN NA 10/01/17 10:45 10/31/17 10:44 Albuterol/ Ipratropium (Combivent Respimat Inh) 1 puffs QID PRN INH 10/01/17 11:00 10/31/17 10:59 Insulin Glargine (Lantus Solostar Pen) 10 units QAM SC 10/03/17 09:00 11/02/17 08:59 10/05/17 09:19 10 UNITS Ferrous Sulfate (Feosol Tab) 325 mg BIDM PO 10/02/17 17:45 11/01/17 17:44 10/05/17 09:13 325 MG Insulin Glargine (Lantus Solostar Pen) 30 units QPM SC 10/02/17 21:00 10/27/17 20:59 10/04/17 21:15 30 UNITS Oxycodone/ Acetaminophen (Percocet 5-325mg Tab) `1-2 TABS FOR MODER... Q4H PRN PO 10/04/17 16:45 10/18/17 16:44 10/05/17 05:57 2 TAB Morphine Sulfate (MoRPHine SULFATE INJ) If PO analgesic is orde... Q2H PRN IV 10/04/17 16:45 10/18/17 16:44 10/05/17 01:20 1 MG Ondansetron HCl (Zofran Inj) 4 mg Q6H PRN IV 10/04/17 16:45 11/03/17 16:44 Insulin Aspart (novoLOG ASPART) SLIDING SCALE If C... ACHS SC 10/04/17 22:00 11/03/17 21:59 10/05/17 09:19 12 UNITS Sodium Chloride 1,000 ml @ 125 mls/hr Q8H ONCE IV 10/05/17 10:30 10/05/17 18:29 10/05/17 10:30 125 MLS/HR (Josie Andrew, ADRIANO) Objective Vital Signs Date Time Temp Pulse Resp B/P (MAP) Pulse Ox O2 Delivery O2 Flow Rate FiO2 10/05/17 11:25 36.4 80 18 153/61 (91) 100 Room Air 10/05/17 08:00 Room Air 10/05/17 06:53 36.5 87 18 136/74 (94) 96 Room Air 10/05/17 04:11 36.7 87 18 99/57 (71) 97 Room Air 10/05/17 02:55 36.3 101 18 124/52 98 10/05/17 02:21 36.1 82 16 116/66 97 10/05/17 01:55 36.1 84 16 115/63 95 10/05/17 01:41 36.1 77 17 108/63 97 10/05/17 01:25 36.1 81 16 108/63 96 10/05/17 01:10 36.3 86 16 117/65 97 10/05/17 01:10 36.6 86 16 117/65 96 10/04/17 22:50 36.4 77 17 107/65 99 3.0 10/04/17 22:30 Nasal Cannula 2.0 10/04/17 22:24 36.4 71 16 101/58 (72) 98 Nasal Cannula 3.0 10/04/17 22:20 36.4 71 16 101/58 98 3.0 10/04/17 21:50 36.4 67 16 107/67 100 3.0 10/04/17 21:35 36.4 88 16 100/62 100 3.0 10/04/17 21:17 35.8 70 18 108/51 10/04/17 21:00 36.4 86 16 104/62 (76) 100 Nasal Cannula 2.0 10/04/17 20:00 64 12 101/60 (74) 100 Nasal Cannula 3.0 10/04/17 19:04 34.7 71 16 95/58 (70) 99 Nasal Cannula 1.5 10/04/17 18:40 12 104/63 (77) 100 Nasal Cannula 2.0 10/04/17 18:28 35.5 94 15 94/61 (72) 100 Nasal Cannula 2.0 10/04/17 18:17 36.2 94 16 105/59 (74) 99 Nasal Cannula 2.0 10/04/17 18:00 99 Nasal Cannula 2.0 10/04/17 18:00 99 Nasal Cannula 2.0 10/04/17 17:53 76 94 10/04/17 17:53 76 10/04/17 17:51 97/57 10/04/17 17:48 80 12 100 10/04/17 17:48 67 12 12/20/17 17:46 96/48 20/17 17:43 96 11 100 20/17 17:43 86 11 20/17 17:41 105/83 1220/17 17:38 93 19 20/17 17:38 95 19 93 20/17 17:36 98/52 20/17 17:33 92 7 100 20/17 17:33 67 7 20/17 17:32 88 19 20/17 17:32 97 19 100 20/17 17:31 98/54 20/17 17:27 36.3 91 12 98/54 (69) 100 Oxymask 10 20/17 17:27 94 21 97 20/17 17:27 89 21 20/17 17:26 92/57 20/17 17:22 96 18 2017 17:22 103 18 87/62 100 20/17 17:17 91 14 2017 17:17 92 14 99 20/17 17:16 95 12 20/17 17:16 96 12 110/42 100 20/17 17:16 95 12 20/17 17:16 96 12 110/42 100 20/17 17:11 78 9 20/17 17:11 86 9 101/55 100 20/17 17:11 78 9 20/17 17:11 86 9 101/55 100 20/17 17:06 79 15 20/17 17:06 92 15 98/57 100 20/17 17:06 79 15 10/04/17 17:06 92 15 98/57 100 20/17 17:02 95/63 20/17 17:02 95/63 20/17 17:01 88 12 20/17 17:01 104 12 100 20/17 17:01 88 12 20/17 17:01 104 12 100 20/17 16:57 103/57 20/17 16:57 103/57 20/17 16:56 94 10 99 20/17 16:56 78 10 1220/17 16:56 78 10 20/17 16:56 94 10 99 20/17 16:52 108/49 12/20/17 16:52 108/49 10/04/17 16:51 107 19 10/04/17 16:51 105 19 91 10/04/17 16:51 105 19 91 10/04/17 16:51 36.3 91 16 108/49 100 Oxymask 10 10/04/17 16:51 107 19 (Josie Andrew, PA-C) Physical Exam General Appearance: no apparent distress Eyes: normal inspection, PERRL ENT: hearing grossly normal Neck: supple Respiratory/Chest: lungs clear, no respiratory distress, no accessory muscle use Cardiovascular: regular rate, rhythm, + systolic murmur Abdomen: normal bowel sounds, non tender, soft Extremities: no pedal edema, no calf tenderness, + pertinent finding (R BKA- wrapped in dressing, bloody drainage noted ) Neurologic/Psychiatric: alert, normal mood/affect, oriented x 3 Skin: normal color, warm/dry, no rash (Josie Andrew ., PA-C) Laboratory Results Last 24 Hours Test 10/04/17 11:51 10/04/17 13:43 10/04/17 17:14 10/04/17 17:22 Bedside Glucose 166 mg/dl 131 mg/dl 164 mg/dl Hemoglobin 7.2 g/dL Hematocrit 23.2 % Sodium Level 139 mmol/L Potassium Level 4.3 mmol/L Chloride Level 110 mmol/L Carbon Dioxide Level 25 mmol/L Anion Gap 4.0 mmol/L Blood Urea Nitrogen 22 mg/dl Creatinine 1.14 mg/dl Est Creatinine Clear Calc Drug Dose 63.1 ml/min Estimated GFR () 71.5 Estimated GFR (Non- 61.7 BUN/Creatinine Ratio 19.2 Random Glucose 172 mg/dl Calcium Level 8.5 mg/dl Test 10/04/17 21:12 10/05/17 08:17 10/05/17 08:24 Bedside Glucose 221 mg/dl 267 mg/dl White Blood Count 8.49 K/uL Red Blood Count 3.43 M/uL Hemoglobin 8.3 g/dL Hematocrit 25.5 % Mean Corpuscular Volume 74.3 fL Mean Corpuscular Hemoglobin 24.2 pg Mean Corpuscular Hemoglobin Concent 32.5 g/dl Platelet Count 286 K/uL Mean Platelet Volume 8.5 fL Neutrophils (%) (Auto) 77.2 % Lymphocytes (%) (Auto) 14.0 % Monocytes (%) (Auto) 8.4 % Eosinophils (%) (Auto) 0.0 % Basophils (%) (Auto) 0.0 % Neutrophils # (Auto) 6.56 K/uL Lymphocytes # (Auto) 1.19 K/uL Monocytes # (Auto) 0.71 K/uL Eosinophils # (Auto) 0.00 K/uL Basophils # (Auto) 0.00 K/uL RDW Standard Deviation 43.0 fL RDW Coefficient of Variation 15.8 % Immature Granulocyte % (Auto) 0.4 % Immature Granulocyte # (Auto) 0.03 K/uL Hypochromasia PRESENT Sodium Level 136 mmol/L Potassium Level 4.7 mmol/L Chloride Level 105 mmol/L Carbon Dioxide Level 24 mmol/L Anion Gap 7.0 mmol/L Blood Urea Nitrogen 33 mg/dl Creatinine 1.70 mg/dl Est Creatinine Clear Calc Drug Dose 42.3 ml/min Estimated GFR () 44.1 Estimated GFR (Non- 38.1 BUN/Creatinine Ratio 19.7 Random Glucose 241 mg/dl Calcium Level 8.5 mg/dl (Josie Andrew, PALeeC) Assessment and Plan This is a 77 y/o M with PMHx of DM II, PAD s/p stenting, Afib on plavix, hx of pseudomonas infection of the R foot s/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 R foot osteomyelitis, h/o diabetic foot infection- MDR pseudomonas, s/p R BKA: - Admit to med/surg - BCx NGTD; Wound culture- pseudomonas, highly resistant- wound care consulted - Zerbaxa 1.[address] Quiñonez- discontinue IV antibiotics on 10/05 postop - Wound care consulted - Vascular surgery consulted- BKA on 10/[address] Berg JOHN on CKD Stage III, likely secondary to dehydration- baseline clinical trial assistant is 1.3, today 1.7; - Give IVF x1 bag today, encourage PO intake - Follow PRP Acute blood loss anemia, secondary to surgical procedure, h/o iron deficient anemia: - Transfused 2 U PRBCs on 10/04 - Follow H&H and transfuse PRN - Continue Ferrous Sulfate 325 mg BID - Recommend outpatient GI workup Heart murmur: Had workup at [place]- records requested Hypomagnesemia at 1.6- RESOLVED: Replace w/ IV Mag 1 gm x1, follow mag level and replace PRN Diarrhea: - C.diff negative - Probiotic and Imodium PRN PAD, HTN, HLD: - Held Plavix 75 mg daily due to procedure/anemia - ASA 81 mg daily, Lisinopril 20 mg daily, Amlodipine 5 mg daily, Zocor 80 mg daily T2DM- hgbA1c 7.8%: - Metformin 1,000 mg BID held - Lantus 20 u QAM; keep 30 u QPM to prevent morning hypoglycemia that occurred when on 40 u QAM -- Hyperglycemic this afternoon, likely do to postop response/adjusting medications prior to procedure to prevent hypoglycemia- will give Lantus 6 u x1 now - BSG ACHS and ISS COPD- STABLE: Continue home inhalers GI prophylaxis: Protonix daily DVT prophylaxis: TEDs/SCDs; hold chemical anticoagulation due to anemia Code Status: LEVEL V, DNR Dispo: Discharge to rehab after procedure once medically stable- PT/OT and CM consulted (Josie Andrew, ADRIANO) Reviewed: Pt Seen/Exam by Me (Shayla Espinosa MD) History Physician Sales Representative Electric Service Supervision Note: I interviewed and examined the patient. Discussed with LASHON Andrew and agree with findings and plan as documented in the note. Any exceptions or clarifications are listed here: Patient having some pain at the site of his BKA. He was transfused 2 units of blood last evening for postop anemia and hypotension. He is in fairly good spirits. Is a bit hyperglycemic today. Vitals reviewed No acute distress, sitting up in bed Regular rate and rhythm, 3/6 systolic murmur at the right upper sternal border Lungs diminished throughout but no wheezes crackles or rhonchi Abdomen positive bowel sounds soft nontender nondistended Extremities right lower extremity with evidence of BKA, dressing in place with minimally saturated with blood, left leg without edema Patient is a 77-year-old male with PAD, diabetes mellitus type 2, mild aortic stenosis, iron deficiency anemia, chronic kidney disease stage III, and progressively worsening right foot osteomyelitis, now status post right BKA. -Continue to follow CBC and transfuse as necessary -We'll check with vascular surgery as to when is appropriate to restart his Plavix in addition to his aspirin which he remains on -IV fluids for mild increasing creatinine, follow PRP-likely secondary to mild ATN from hypotension yesterday -Increase Lantus dosing again for hyperglycemia Documented By: Shayla Espinosa (Shayla Espinosa MD)
[2017-10-05] MEDS ORDERED: INSULIN GLARGINE SOLOSTAR 100 UNITS/ML 3 ML PEN SC ONE (12:35)
--- NOTE | 2017-10-05 15:31 | Progress Note ---
Progress Note Date of Service: Oct 05, 2017. Subjective 77 yo m with multiple medical problems, POD #1 after RLE BKA, seen in f/u today. Pt states pain, but controlled with medications. Admits general weakness. Denies any new complaints. Problem List Medical Problems: (1) Needs peripherally inserted central catheter (PICC) Status: Acute Objective Vital Signs Vital Signs Past 12 Hours Date Time Temp Pulse Resp B/P (MAP) Pulse Ox O2 Delivery O2 Flow Rate FiO2 10/05/17 11:25 36.4 80 18 153/61 (91) 100 Room Air 10/05/17 09:45 84 97 10/05/17 08:00 Room Air 10/05/17 06:53 36.5 87 18 136/74 (94) 96 Room Air 10/05/17 04:11 36.7 87 18 99/57 (71) 97 Room Air Exam CONST: A&O x3, NAD, chronically ill appearing male EXT: RLE BKA site with dressing in tact. Dry shadowing on dressing. Excellent ROM. Intake & Output 8-Hour Column 10/05/17 10/06/17 10/06/17 16:00 00:00 08:00 Intake Total 1357 ml Output Total 350 ml Balance 1007 ml 24-Hour Column 10/06/17 08:00 Intake Total 1357 ml Output Total 350 ml Balance 1007 ml Laboratory and Microbiology Results Past 24 Hours Test 10/04/17 17:14 10/04/17 17:22 10/04/17 21:12 10/05/17 08:17 Range/Units Bedside Glucose 164 221 70-99 mg/dl Hemoglobin 7.2 8.3 14.0-18.0 g/dL Hematocrit 23.2 25.5 42-52 % Sodium Level 139 136 136-145 mmol/L Potassium Level 4.3 4.7 3.5-5.1 mmol/L Chloride Level 110 105 98-107 mmol/L Carbon Dioxide Level 25 24 21-32 mmol/L Anion Gap 4.0 7.0 3-11 mmol/L Blood Urea Nitrogen 22 33 7-18 mg/dl Creatinine 1.14 1.70 0.60-1.40 mg/dl Est Creatinine Clear Calc Drug Dose 63.1 42.3 ml/min Estimated GFR () 71.5 44.1 Estimated GFR (Non- 61.7 38.1 BUN/Creatinine Ratio 19.2 19.7 10-20 Random Glucose 172 241 70-99 mg/dl Calcium Level 8.5 8.5 8.5-10.1 mg/dl White Blood Count 8.49 4.8-10.8 K/uL Red Blood Count 3.43 4.7-6.1 M/uL Mean Corpuscular Volume 74.3 80-100 fL Mean Corpuscular Hemoglobin 24.2 25-34 pg Mean Corpuscular Hemoglobin Concent 32.5 32-36 g/dl Platelet Count 286 130-400 K/uL Mean Platelet Volume 8.5 7.4-10.4 fL Neutrophils (%) (Auto) 77.2 % Lymphocytes (%) (Auto) 14.0 % Monocytes (%) (Auto) 8.4 % Eosinophils (%) (Auto) 0.0 % Basophils (%) (Auto) 0.0 % Neutrophils # (Auto) 6.56 1.4-6.5 K/uL Lymphocytes # (Auto) 1.19 1.2-3.4 K/uL Monocytes # (Auto) 0.71 0.11-0.59 K/uL Eosinophils # (Auto) 0.00 0-0.5 K/uL Basophils # (Auto) 0.00 0-0.2 K/uL RDW Standard Deviation 43.0 36.4-46.3 fL RDW Coefficient of Variation 15.8 11.5-14.5 % Immature Granulocyte % (Auto) 0.4 % Immature Granulocyte # (Auto) 0.03 0.00-0.02 K/uL Hypochromasia PRESENT Test 10/05/17 08:24 10/05/17 11:59 Range/Units Bedside Glucose 267 284 70-99 mg/dl ASSESSMENT and PLAN: s/p RLE BKA osteomyelitis RLE Pt doing well post op. Will reeval incision tomorrow.
[2017-10-05] MEDS ORDERED: INSULIN GLARGINE SOLOSTAR 100 UNITS/ML 3 ML PEN SC SCH ×2 (21:00)
[2017-10-05] MEDS: SIMVASTATIN 80 MG TAB PO SCH (21:45)
[2017-10-05] MEDS: LATANOPROST 0.005% OP SOLN 2.5 ML BTL OP SCH (21:45)
[2017-10-05] MEDS ORDERED: INSULIN ASPART 100 UNITS/ML 3 ML PEN SC SCH (22:00)
[2017-10-06] MEDS: MoRPHine SULFATE 4 MG/ML 1 ML CARP\\VIAL IV PRN ×2 (02:23→07:39)
[2017-10-06 06:36] LABS: HEMATOCRIT 24.6 % (42-52); HEMOGLOBIN 7.8 g/dL (14.0-18.0); MEAN CELL VOLUME 74.3 fL (80-100); MEAN CORPUSCULAR HEMOGLOBIN 23.6 pg (25-34); MEAN CORPUSCULAR HGB CONC 31.7 g/dl (32-36); PLATELET COUNT 245 K/uL (130-400); RED CELL DISTRIBUTION WIDTH CV 16.1 % (11.5-14.5); RED CELL DISTRIBUTION WIDTH SD 43.9 fL (36.4-46.3); WHITE BLOOD COUNT 7.27 K/uL (4.8-10.8)
[2017-10-06 07:16] LABS: CALCIUM 8.8 mg/dl (8.5-10.1); CREATININE 1.12 mg/dl (0.60-1.40); POTASSIUM 4.5 mmol/L (3.5-5.1)
[2017-10-06 08:00] VITALS: BP 157/74; PULSE 90; TEMP 36.8; O2SAT 98
[2017-10-06] MEDS: OXYCODONE/ACETAMINOPHEN 5-325 TAB PO PRN ×2 (09:04→14:44)
[2017-10-06] MEDS: AMLODIPINE BESYLATE 5 MG TAB PO SCH (09:05)
[2017-10-06] MEDS: ASPIRIN 81 MG ECTAB PO SCH (09:05)
[2017-10-06] MEDS: LACTOBACILLUS ACIDOPHILUS (FLORANEX) TAB PO SCH ×3 (09:05→18:23)
[2017-10-06] MEDS: TOCOPHERYL, DL-ALPHA 100 INTERUNIT CAP PO SCH (09:05)
[2017-10-06] MEDS: LISINOPRIL 20 MG TAB PO SCH (09:06)
[2017-10-06] MEDS: PANTOprazole SOD 40 MG TAB PO SCH (09:06)
[2017-10-06] MEDS: FERROUS SULFATE 325 MG TAB PO SCH ×2 (09:06→18:22)
[2017-10-06] MEDS: MULTIVITAMIN TAB PO SCH (09:06)
[2017-10-06] MEDS: OMEGA-3 (PURIFIED FISH OIL) 1 GM CAP PO SCH ×2 (09:06→21:10)
[2017-10-06] MEDS: INSULIN ASPART 100 UNITS/ML 3 ML PEN SC SCH ×4 (09:13→21:08)
[2017-10-06] MEDS: INSULIN GLARGINE SOLOSTAR 100 UNITS/ML 3 ML PEN SC SCH (09:14)
--- NOTE | 2017-10-06 12:34 | Hospitalist Progress Note ---
Hospitalist Progress Note Date of Service Oct 06, 2017. (Josie Andrew ., ADRIANO) Subjective Pt evaluation today including: conversation w/ patient, physical exam, lab review Voiding: no voiding problems Patient sitting up in bed. In good spirits today. R BKA open to air. Eating and drinking OK. No urinary issues. Patient denies any fever, chills, sweats, lightheadedness, dizziness, vision changes, CP, palpitations, edema, SOB, wheezing, cough, abdominal pain, nausea, vomiting, diarrhea, urinary symptoms, melena, numbness/tingling, weakness, muscle/joint pain, anxiety/depression, active bleeding, or new skin discoloration/changes. Spoke w/ RN, no more urinary retention. (Josie Andrew ., CYNTHIAC) Medications Current Inpatient Medications Medications (Trade) Dose Ordered Sig/Sol Route Start Time Stop Time Status Last Admin Dose Admin Acetaminophen (Tylenol Tab) 650 mg Q4H PRN PO 09/27/17 14:00 10/27/17 13:59 10/04/17 08:05 650 MG Polyethylene (Miralax Powder Packet) 17 gm DAILY PRN PO 09/27/17 14:00 10/27/17 13:59 Amlodipine Besylate (Norvasc Tab) 5 mg QAM PO 09/28/17 09:00 10/28/17 08:59 10/06/17 09:05 5 MG Aspirin (Ecotrin Tab) 81 mg QAM PO 09/28/17 09:00 10/28/17 08:59 10/06/17 09:05 81 MG Clopidogrel Bisulfate (plAVix TAB) 75 mg HS PO 09/27/17 21:00 10/27/17 20:59 Future Hold 10/01/17 21:03 75 MG Fish Oil ([place]-3 (Purified Fish Oil) Cap) 1 gm BID PO 09/27/17 21:00 10/27/17 20:59 10/06/17 09:06 1 GM Latanoprost (Xalatan Oph Soln) 1 drops HS OP 09/27/17 21:00 10/27/17 20:59 10/05/17 21:45 1 DROPS Lisinopril (Zestril Tab) 20 mg QAM PO 09/28/17 09:00 1/13/18 08:59 Future hold 10/06/17 09:06 20 MG Metformin HCl (Glucophage Tab) 1,000 mg BIDM PO 09/27/17 17:45 10/27/17 17:44 Future Hold 10/02/17 08:53 1,000 MG Multivitamins (Multivitamin Tab) 1 tab DAILY PO 09/28/17 09:00 10/28/17 08:59 10/06/17 09:06 1 TAB Pantoprazole Sodium (Protonix Tab) 40 mg QAM PO 09/28/17 09:00 10/28/17 08:59 10/06/17 09:06 40 MG Simvastatin (Zocor Tab) 80 mg QPM PO 09/27/17 21:00 10/27/17 20:59 10/05/17 21:45 80 MG qi-Zkhvk-Mnmgqjvohq Acetate (Vitamin E Cap) 100 interunit QAM PO 09/28/17 09:00 10/28/17 08:59 10/06/17 09:05 100 INTERUNIT Glucose (Glucose 40% Gel) 15-30 GRAMS 15 GRAMS... UD PRN PO 09/27/17 14:15 10/27/17 14:14 Glucose (Glucose Chew Tab) 4-8 Tablets 4 Tabl... UD PRN PO 09/27/17 14:15 10/27/17 14:14 Dextrose (Dextrose 50% 50ML Syringe) 25-50ML OF 50% DW IV FOR... UD PRN IV 09/27/17 14:15 10/27/17 14:14 Glucagon (Glucagon Inj) 1 mg UD PRN SQ 09/27/17 14:15 10/27/17 14:14 Lactobacillus Acidophilus (Floranex Tab) 4 tab TIDM PO 09/27/17 17:45 10/27/17 17:44 10/06/17 09:05 4 TAB Loperamide HCl (Imodium Cap) 2 mg UD PRN PO 09/27/17 15:45 10/27/17 15:44 Oxymetazoline HCl (Afrin 0.05% Nasal [place]) 1 sprays Q12 PRN NA 10/01/17 10:45 10/31/17 10:44 Albuterol/ Ipratropium (Combivent Respimat Inh) 1 puffs QID PRN INH 10/01/17 11:00 10/31/17 10:59 Ferrous Sulfate (Feosol Tab) 325 mg BIDM PO 10/02/17 17:45 11/01/17 17:44 10/06/17 09:06 325 MG Oxycodone/ Acetaminophen (Percocet 5-325mg Tab) `1-2 TABS FOR MODER... Q4H PRN PO 10/04/17 16:45 10/18/17 16:44 10/06/17 09:04 2 TAB Morphine Sulfate (MoRPHine SULFATE INJ) If PO analgesic is orde... Q2H PRN IV 10/04/17 16:45 10/18/17 16:44 10/06/17 07:39 4 MG Ondansetron HCl (Zofran Inj) 4 mg Q6H PRN IV 10/04/17 16:45 11/03/17 16:44 Insulin Aspart (novoLOG ASPART) SLIDING SCALE If C... ACHS SC 10/04/17 22:00 11/03/17 21:59 10/06/17 09:13 14 UNITS Insulin Glargine (Lantus Solostar Pen) 20 units QAM SD 10/06/17 09:00 11/02/17 08:59 10/06/17 09:14 20 UNITS Insulin Glargine (Lantus Solostar Pen) 30 units QPM SD 10/05/17 21:00 10/27/17 20:59 10/05/17 21:53 30 UNITS (Josie Andrew PA-C) Objective Vital Signs Date Time Temp Pulse Resp B/P (MAP) Pulse Ox O2 Delivery O2 Flow Rate FiO2 10/06/17 08:00 98 Room Air 10/06/17 08:00 36.8 90 18 157/74 (101) 98 Room Air 10/05/17 23:44 Room Air 10/05/17 23:19 37.1 99 18 153/67 (95) 97 Room Air 10/05/17 16:00 Room Air 10/05/17 15:35 36.6 86 17 150/67 (94) 99 Room Air (Josie Andrew PA-C) Physical Exam General Appearance: no apparent distress Eyes: normal inspection, PERRL ENT: hearing grossly normal Neck: supple Respiratory/Chest: lungs clear, no respiratory distress, no accessory muscle use Cardiovascular: regular rate, rhythm Abdomen: normal bowel sounds, non tender, soft Extremities: no pedal edema, no calf tenderness, + pertinent finding (R BKA incision site C/D/I) Neurologic/Psychiatric: alert, normal mood/affect, oriented x 3 Skin: normal color, warm/dry, no rash (Josie Andrew ., PA-C) Laboratory Results Last 24 Hours Test 10/05/17 18:15 10/05/17 20:59 10/06/17 06:14 10/06/17 08:11 Bedside Glucose 233 mg/dl 139 mg/dl 222 mg/dl White Blood Count 7.27 K/uL Red Blood Count 3.31 M/uL Hemoglobin 7.8 g/dL Hematocrit 24.6 % Mean Corpuscular Volume 74.3 fL Mean Corpuscular Hemoglobin 23.6 pg Mean Corpuscular Hemoglobin Concent 31.7 g/dl RDW Standard Deviation 43.9 fL RDW Coefficient of Variation 16.1 % Platelet Count 245 K/uL Mean Platelet Volume 8.0 fL Sodium Level 136 mmol/L Potassium Level 4.5 mmol/L Chloride Level 105 mmol/L Carbon Dioxide Level 27 mmol/L Anion Gap 4.0 mmol/L Blood Urea Nitrogen 23 mg/dl Creatinine 1.12 mg/dl Est Creatinine Clear Calc Drug Dose 64.2 ml/min Estimated GFR () 73.0 Estimated GFR (Non- 63.0 BUN/Creatinine Ratio 21.0 Random Glucose 189 mg/dl Calcium Level 8.8 mg/dl (Josie Andrew ., PA-C) Assessment and Plan This is a 77 y/o M with PMHx of DM II, PAD s/p stenting, Afib on plavix, hx of pseudomonas infection of the R foot s/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 R foot osteomyelitis, h/o diabetic foot infection- MDR pseudomonas, s/p R BKA: - Admit to med/surg - BCx NGTD; Wound culture- pseudomonas, highly resistant- wound care consulted - Zerbaxa 1.[address] Quiñonez- discontinue IV antibiotics on 10/05 postop - Wound care consulted - Vascular surgery consulted- BKA on 10/[address] Berg JOHN on CKD Stage III, likely secondary to dehydration- baseline prenatal genetic counselor is 1.3- RESOLVED; - Treated w/ IVF x1 bag - Follow PRP Acute blood loss anemia, secondary to surgical procedure, h/o iron deficient anemia: - Transfused 2 U PRBCs on 10/04 - Follow H&H and transfuse PRN - Continue Ferrous Sulfate 325 mg BID - Recommend outpatient GI workup Heart murmur: Had workup at [place]- records requested Hypomagnesemia at 1.6- RESOLVED: Replace w/ IV Mag 1 gm x1, follow mag level and replace PRN Diarrhea: - C.diff negative - Probiotic and Imodium PRN PAD, HTN, HLD: - Held Plavix 75 mg daily due to procedure/anemia - ASA 81 mg daily, Lisinopril 20 mg daily, Amlodipine 5 mg daily, Zocor 80 mg daily T2DM- hgbA1c 7.8%: - Metformin 1,000 mg BID held - Lantus 20 u QAM; keep 30 u QPM to prevent morning hypoglycemia that occurred when on 40 u QAM - BSG ACHS and ISS COPD- STABLE: Continue home inhalers GI prophylaxis: Protonix daily DVT prophylaxis: TEDs/SCDs; hold chemical anticoagulation due to anemia Code Status: LEVEL V, DNR Dispo: Discharge to [facility] once medically stable- hopefully within the next 1-2 days- PT/OT and CM consulted (Josie Andrew PA-C) Reviewed: Pt Seen/Exam by Me (Shayla Espinosa MD) History Physician Defense Analyst Supervision Note: I interviewed and examined the patient. Discussed with LASHON Andrew and agree with findings and plan as documented in the note. Any exceptions or clarifications are listed here: Patient having some pain at the site of his BKA. Doing very well otherwise. Glucose still elevated today. 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 Vitals reviewed No acute distress, sitting up in bed Right side of face spasms occasionally Regular rate and rhythm, 3/6 systolic murmur at the right upper sternal border Lungs diminished throughout but no wheezes crackles or rhonchi Abdomen positive bowel sounds soft nontender nondistended Extremities right lower extremity with evidence of BKA with dressing removed, santosh in place, wound c/d/i and looks great Patient is a 77-year-old male with PAD, diabetes mellitus type 2, mild aortic stenosis, iron deficiency anemia, chronic kidney disease stage III, and progressively worsening right foot osteomyelitis, now status post right BKA. -Continue to follow CBC in AM but should not require further transfusion -restart metformin and increase evening Lantus to 35 units -restart Plavix -plan for dc to [facility] tomorrow if bed available and Hgb stable Documented By: Shayla Espinosa (Shayla Espinosa MD)
[2017-10-06 13:13] LABS: HEMATOCRIT 23.8 % (42-52); HEMOGLOBIN 7.7 g/dL (14.0-18.0)
--- NOTE | 2017-10-06 14:36 | Progress Note ---
Progress Note Date of Service: Oct 06, 2017. Subjective Complains of stump pain last pm. Problem List Medical Problems: (1) Needs peripherally inserted central catheter (PICC) Status: Acute Objective Vital Signs Vital Signs Past 12 Hours Date Time Temp Pulse Resp B/P (MAP) Pulse Ox O2 Delivery O2 Flow Rate FiO2 10/06/17 08:00 98 Room Air 10/06/17 08:00 36.8 90 18 157/74 (101) 98 Room Air Exam Patient awake and alert VSS Afebrile Stump clean and dry, viable, edges well approximated Intake & Output 8-Hour Column 10/06/17 10/07/17 10/07/17 16:00 00:00 08:00 Intake Total 1090 ml Output Total 1000 ml Balance 90 ml 24-Hour Column 10/07/17 08:00 Intake Total 1090 ml Output Total 1000 ml Balance 90 ml Laboratory and Microbiology Results Past 24 Hours Test 10/05/17 18:15 10/05/17 20:59 10/06/17 06:14 10/06/17 08:11 Range/Units Bedside Glucose 233 139 222 70-99 mg/dl White Blood Count 7.27 4.8-10.8 K/uL Red Blood Count 3.31 4.7-6.1 M/uL Hemoglobin 7.8 14.0-18.0 g/dL Hematocrit 24.6 42-52 % Mean Corpuscular Volume 74.3 80-100 fL Mean Corpuscular Hemoglobin 23.6 25-34 pg Mean Corpuscular Hemoglobin Concent 31.7 32-36 g/dl RDW Standard Deviation 43.9 36.4-46.3 fL RDW Coefficient of Variation 16.1 11.5-14.5 % Platelet Count 245 130-400 K/uL Mean Platelet Volume 8.0 7.4-10.4 fL Sodium Level 136 136-145 mmol/L Potassium Level 4.5 3.5-5.1 mmol/L Chloride Level 105 98-107 mmol/L Carbon Dioxide Level 27 21-32 mmol/L Anion Gap 4.0 3-11 mmol/L Blood Urea Nitrogen 23 7-18 mg/dl Creatinine 1.12 0.60-1.40 mg/dl Est Creatinine Clear Calc Drug Dose 64.2 ml/min Estimated GFR () 73.0 Estimated GFR (Non- 63.0 BUN/Creatinine Ratio 21.0 10-20 Random Glucose 189 70-99 mg/dl Calcium Level 8.8 8.5-10.1 mg/dl Test 10/06/17 12:51 Range/Units Hemoglobin 7.7 14.0-18.0 g/dL Hematocrit 23.8 42-52 % Imp; Post BKA right leg Plan: Patient doing well. Stump without complication. Can go to rehab when bed available.
--- NOTE | 2017-10-06 14:58 | Infectious Disease Progress Nt ---
Progress Note Date of Service Oct 06, 2017. Subjective Pt evaluation today including: conversation w/ patient, physical exam, chart review, lab review, review of studies, conversation w/ data management consultant, review of inpatient medication list complaining of pain at the [facility] site, otherwise offers no new complaints. Remains afebrile. All Other Systems: Reviewed and Negative Medications Current Inpatient Medications Medications (Trade) Dose Ordered Sig/Sol Route Start Time Stop Time Status Last Admin Dose Admin Acetaminophen (Tylenol Tab) 650 mg Q4H PRN PO 09/27/17 14:00 10/27/17 13:59 10/04/17 08:05 650 MG Polyethylene (Miralax Powder Packet) 17 gm DAILY PRN PO 09/27/17 14:00 10/27/17 13:59 Amlodipine Besylate (Norvasc Tab) 5 mg QAM PO 09/28/17 09:00 10/28/17 08:59 10/06/17 09:05 5 MG Aspirin (Ecotrin Tab) 81 mg QAM PO 09/28/17 09:00 10/28/17 08:59 10/06/17 09:05 81 MG Clopidogrel Bisulfate (plAVix TAB) 75 mg HS PO 09/27/17 21:00 10/27/17 20:59 Future Hold 10/01/17 21:03 75 MG Fish Oil ([place]-3 (Purified Fish Oil) Cap) 1 gm BID PO 09/27/17 21:00 10/27/17 20:59 10/06/17 09:06 1 GM Latanoprost (Xalatan Oph Soln) 1 drops HS OP 09/27/17 21:00 10/27/17 20:59 10/05/17 21:45 1 DROPS Lisinopril (Zestril Tab) 20 mg QAM PO 09/28/17 09:00 10/28/17 08:59 Future hold 10/06/17 09:06 20 MG Metformin HCl (Glucophage Tab) 1,000 mg BIDM PO 09/27/17 17:45 10/27/17 17:44 Future Hold 10/02/17 08:53 1,000 MG Multivitamins (Multivitamin Tab) 1 tab DAILY PO 09/28/17 09:00 10/28/17 08:59 10/06/17 09:06 1 TAB Pantoprazole Sodium (Protonix Tab) 40 mg QAM PO 09/28/17 09:00 10/28/17 08:59 10/06/17 09:06 40 MG Simvastatin (Zocor Tab) 80 mg QPM PO 09/27/17 21:00 10/27/17 20:59 10/05/17 21:45 80 MG mq-Zrapc-Dklvyiutgm Acetate (Vitamin E Cap) 100 interunit QAM PO 09/28/17 09:00 10/28/17 08:59 10/06/17 09:05 100 INTERUNIT Glucose (Glucose 40% Gel) 15-30 GRAMS 15 GRAMS... UD PRN PO 09/27/17 14:15 10/27/17 14:14 Glucose (Glucose Chew Tab) 4-8 Tablets 4 Tabl... UD PRN PO 09/27/17 14:15 10/27/17 14:14 Dextrose (Dextrose 50% 50ML Syringe) 25-50ML OF 50% DW IV FOR... UD PRN IV 09/27/17 14:15 10/27/17 14:14 Glucagon (Glucagon Inj) 1 mg UD PRN SQ 09/27/17 14:15 10/27/17 14:14 Lactobacillus Acidophilus (Floranex Tab) 4 tab TIDM PO 09/27/17 17:45 10/27/17 17:44 10/06/17 13:31 4 TAB Loperamide HCl (Imodium Cap) 2 mg UD PRN PO 09/27/17 15:45 10/27/17 15:44 Oxymetazoline HCl (Afrin 0.05% Nasal [place]) 1 sprays Q12 PRN NA 10/01/17 10:45 10/31/17 10:44 Albuterol/ Ipratropium (Combivent Respimat Inh) 1 puffs QID PRN INH 10/01/17 11:00 10/31/17 10:59 Ferrous Sulfate (Feosol Tab) 325 mg BIDM PO 10/02/17 17:45 11/01/17 17:44 10/06/17 09:06 325 MG Oxycodone/ Acetaminophen (Percocet 5-325mg Tab) `1-2 TABS FOR MODER... Q4H PRN PO 10/04/17 16:45 10/18/17 16:44 10/06/17 14:44 2 TAB Morphine Sulfate (MoRPHine SULFATE INJ) If PO analgesic is orde... Q2H PRN IV 10/04/17 16:45 10/18/17 16:44 10/06/17 07:39 4 MG Ondansetron HCl (Zofran Inj) 4 mg Q6H PRN IV 10/04/17 16:45 11/03/17 16:44 Insulin Aspart (novoLOG ASPART) SLIDING SCALE If C... ACHS SC 10/04/17 22:00 11/03/17 21:59 10/06/17 13:31 15 UNITS Insulin Glargine (Lantus Solostar Pen) 20 units QAM SC 10/06/17 09:00 11/02/17 08:59 10/06/17 09:14 20 UNITS Insulin Glargine (Lantus Solostar Pen) 30 units QPM SC 10/05/17 21:00 10/27/17 20:59 10/05/17 21:53 30 UNITS Objective Vital Signs Date Time Temp Pulse Resp B/P (MAP) Pulse Ox O2 Delivery O2 Flow Rate FiO2 10/06/17 08:00 98 Room Air 10/06/17 08:00 36.8 90 18 157/74 (101) 98 Room Air 10/05/17 23:44 Room Air 10/05/17 23:19 37.1 99 18 153/67 (95) 97 Room Air 10/05/17 16:00 Room Air 10/05/17 15:35 36.6 86 17 150/67 (94) 99 Room Air Physical Exam General Appearance: WD/WN, no apparent distress Eyes: normal inspection, EOMI, sclerae normal ENT: normal ENT inspection, pharynx normal Neck: supple, no adenopathy (The), thyroid normal, trachea midline Respiratory/Chest: chest non-tender, lungs clear, normal breath sounds, no respiratory distress Cardiovascular: regular rate, rhythm, no gallop, no murmur Abdomen: normal bowel sounds, non tender, soft, no organomegaly Extremities: non-tender, no calf tenderness Neurologic/Psychiatric: alert, oriented x 3 Skin: normal color, warm/dry, no rash, + pertinent finding (Surgical dressing intact right leg) Lymphatic: no adenopathy Laboratory Results Last 24 Hours Test 10/05/17 18:15 10/05/17 20:59 10/06/17 06:14 10/06/17 08:11 Bedside Glucose 233 mg/dl 139 mg/dl 222 mg/dl White Blood Count 7.27 K/uL Red Blood Count 3.31 M/uL Hemoglobin 7.8 g/dL Hematocrit 24.6 % Mean Corpuscular Volume 74.3 fL Mean Corpuscular Hemoglobin 23.6 pg Mean Corpuscular Hemoglobin Concent 31.7 g/dl RDW Standard Deviation 43.9 fL RDW Coefficient of Variation 16.1 % Platelet Count 245 K/uL Mean Platelet Volume 8.0 fL Sodium Level 136 mmol/L Potassium Level 4.5 mmol/L Chloride Level 105 mmol/L Carbon Dioxide Level 27 mmol/L Anion Gap 4.0 mmol/L Blood Urea Nitrogen 23 mg/dl Creatinine 1.12 mg/dl Est Creatinine Clear Calc Drug Dose 64.2 ml/min Estimated GFR () 73.0 Estimated GFR (Non- 63.0 BUN/Creatinine Ratio 21.0 Random Glucose 189 mg/dl Calcium Level 8.8 mg/dl Test 10/06/17 12:51 Hemoglobin 7.7 g/dL Hematocrit 23.8 % Assessment and Plan (1) R footl osteomyelitis Status: Acute (2) Pseudomonas aeruginosa infection Status: Chronic (3) Diabetic foot infection (4) A-fib (5) PAD (peripheral artery disease) (6) DM II (diabetes mellitus, type II), controlled (7) HTN (hypertension), benign Status: Chronic 77-year-old male with severe peripheral vascular disease status post recent partial amputation of right foot with evidence of worsening infection with obvious osteomyelitis and cellulitis. Patient now status post BKA amputation, antibiotics have been discontinued. Will continue to follow closely with given previous infections.
[2017-10-06 15:40] VITALS: BP 147/66; PULSE 83; TEMP 37; O2SAT 95
[2017-10-06] MEDS ORDERED: INSULIN GLARGINE SOLOSTAR 100 UNITS/ML 3 ML PEN SC SCH (21:00)
[2017-10-06] MEDS: METFORMIN HCL 500 MG TAB PO SCH (21:09)
[2017-10-06] MEDS: CLOPIDOGREL BISULFATE 75 MG TAB PO SCH (21:10)
[2017-10-06] MEDS: LATANOPROST 0.005% OP SOLN 2.5 ML BTL OP SCH (21:10)
[2017-10-06] MEDS: SIMVASTATIN 80 MG TAB PO SCH (21:11)
[2017-10-06 23:14] VITALS: BP 163/58; PULSE 88; TEMP 37.2; O2SAT 94
[2017-10-07 06:40] LABS: HEMOGLOBIN 8.3 g/dL (14.0-18.0); MEAN CELL VOLUME 74.3 fL (80-100); MEAN CORPUSCULAR HEMOGLOBIN 23.7 pg (25-34); MEAN CORPUSCULAR HGB CONC 31.9 g/dl (32-36); MEAN PLATELET VOLUME 8.1 fL (7.4-10.4); PLATELET COUNT 281 K/uL (130-400); RED CELL DISTRIBUTION WIDTH CV 16.8 % (11.5-14.5); RED CELL DISTRIBUTION WIDTH SD 45.4 fL (36.4-46.3); WHITE BLOOD COUNT 6.75 K/uL (4.8-10.8)
[2017-10-07 07:04] LABS: CALCIUM 8.9 mg/dl (8.5-10.1); CREATININE 1.04 mg/dl (0.60-1.40); POTASSIUM 4.1 mmol/L (3.5-5.1)
[2017-10-07 07:11] VITALS: BP 170/63; PULSE 86; TEMP 36.9; O2SAT 94
[2017-10-07] MEDS: OXYCODONE/ACETAMINOPHEN 5-325 TAB PO PRN (07:35)
[2017-10-07] MEDS: MULTIVITAMIN TAB PO SCH (09:43)
[2017-10-07] MEDS: TOCOPHERYL, DL-ALPHA 100 INTERUNIT CAP PO SCH (09:43)
[2017-10-07] MEDS: METFORMIN HCL 500 MG TAB PO SCH (09:43)
[2017-10-07] MEDS: LACTOBACILLUS ACIDOPHILUS (FLORANEX) TAB PO SCH ×2 (09:44→12:15)
[2017-10-07] MEDS: ASPIRIN 81 MG ECTAB PO SCH (09:44)
[2017-10-07] MEDS: PANTOprazole SOD 40 MG TAB PO SCH (09:45)
[2017-10-07] MEDS: AMLODIPINE BESYLATE 5 MG TAB PO SCH (09:45)
[2017-10-07] MEDS: FERROUS SULFATE 325 MG TAB PO SCH (09:45)
[2017-10-07] MEDS: OMEGA-3 (PURIFIED FISH OIL) 1 GM CAP PO SCH (09:46)
[2017-10-07] MEDS: LISINOPRIL 20 MG TAB PO SCH (09:46)
[2017-10-07] MEDS: INSULIN ASPART 100 UNITS/ML 3 ML PEN SC SCH ×3 (09:49→13:05)
[2017-10-07] MEDS: INSULIN GLARGINE SOLOSTAR 100 UNITS/ML 3 ML PEN SC SCH (09:51)
[2017-10-07] MEDS ORDERED: IPRA1AER2 INH (10:12)
[2017-10-07] MEDS ORDERED: INSDGI SC (10:12)
[2017-10-07] MEDS ORDERED: OXYC-57 PO (10:12)
[2017-10-07] MEDS ORDERED: NVLGIPEN SC (10:12)
[2017-10-07] MEDS ORDERED: FRRS300 PO (10:12)
[2017-10-07] MEDS ORDERED: MRLP17X PO (10:12)
[2017-10-07] MEDS ORDERED: LCTX PO (10:12)
--- NOTE | 2017-10-07 10:23 | Discharge Instructions ---
Discharge Instructions Date of Service Oct 07, 2017. Admission Reason for Admission: Osteomyelitis Of Right Foot Discharge Discharge Diagnosis / Problem: Osteomyelitis right foot, BKA Discharge Goals Goal(s): Improve disease control, Diagnostic testing, Therapeutic intervention Activity Recommendations Activity Level: Assistance Required Therapies: Physical Therapy, Occupational Therapy Weightbearing Status: Left weightbearing (as tolerated), Right non- weightbearing (BKA) Exercise/Sports Limitations: gradually increase as tolerated . 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 Readmitted for the same and is now status post right BKA. R foot osteomyelitis, h/o diabetic foot infection- MDR pseudomonas, s/p R BKA: - BCx NGTD; Wound culture- pseudomonas, highly resistant - Zerbaxa 1.[address] Quiñonez- discontinued IV antibiotics on 10/05 postop-- > follow for signs of recurrent infection - Wound care - Vascular surgery consulted- BKA on 10/[address] 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 Hgb stable on day of discharge at 8.3 - Transfused 2 U PRBCs on 10/04 - Follow CBC as outpt - Continue Ferrous Sulfate 325 mg BID - Recommend outpatient GI workup eventually if not improving Mild Aortic stenosis/Heart murmur-stable -f/u ECHO 2019 Hypomagnesemia at 1.6- RESOLVED: Replaced Diarrhea-resolved - C.diff negative -continue Probiotic PAD, HTN, HLD: stable, now s/p Rt BKA - continue ASA, Plavix -continue Lisinopril 20 mg daily, Amlodipine 5 mg daily, Zocor 80 mg daily T2DM- hgbA1c 7.8%, with hyperglycemia and hypoglycemia here, now stabilized - Metformin 1,000 mg BID restarted -continue Lantus 20 units QAM and 35 units QPM - BSG ACHS and ISS COPD- STABLE: Continue home inhalers Code Status: DNR Dispo: Discharge to [facility] today Current Hospital Diet Patient's current hospital diet: Diabetes Type 2 Diet, AHA Diet (Heart Healthy) Discharge Diet Recommended Diet: AHA Diet (Heart Healthy), Diabetes Type 2 Diet Procedures Procedures Performed: Right Below Knee Amputation Pending Studies Studies pending at discharge: no Physician Orders On Transfer Special Precautions: Fall risk Dressing Changes: None, keep wound clean and dry, needs staple removal 2 weeks from day of surgery (10/04/17) IV Therapy: None Vital Signs: Routine Weigh: Routine Additional Orders: F/u Vascular Surgery, Dr. Berg, in 10 days POLST Discussion: Not Applicable Laboratory Results Last 24 Hours Test 10/06/17 12:26 10/06/17 12:51 10/06/17 17:05 10/06/17 20:45 Bedside Glucose 266 mg/dl 142 mg/dl 190 mg/dl Hemoglobin 7.7 g/dL Hematocrit 23.8 % Test 10/07/17 06:11 10/07/17 08:05 White Blood Count 6.75 K/uL Red Blood Count 3.50 M/uL Hemoglobin 8.3 g/dL Hematocrit 26.0 % Mean Corpuscular Volume 74.3 fL Mean Corpuscular Hemoglobin 23.7 pg Mean Corpuscular Hemoglobin Concent 31.9 g/dl RDW Standard Deviation 45.4 fL RDW Coefficient of Variation 16.8 % Platelet Count 281 K/uL Mean Platelet Volume 8.1 fL Sodium Level 137 mmol/L Potassium Level 4.1 mmol/L Chloride Level 104 mmol/L Carbon Dioxide Level 27 mmol/L Anion Gap 6.0 mmol/L Blood Urea Nitrogen 17 mg/dl Creatinine 1.04 mg/dl Est Creatinine Clear Calc Drug Dose 69.2 ml/min Estimated GFR () 79.9 Estimated GFR (Non- 68.9 BUN/Creatinine Ratio 16.5 Random Glucose 126 mg/dl Calcium Level 8.9 mg/dl Bedside Glucose 133 mg/dl Hemoglobin A1c Test 09/28/17 06:21 Range/Units Estimated Average Glucose 177 mg/dl Hemoglobin A1c 7.8 H 4.5-5.6 % Lipid Panel Test 09/28/17 06:21 Range/Units Triglycerides Level 85 0-150 mg/dl Cholesterol Level 85 0-200 mg/dl HDL Cholesterol 33 mg/dl Cholesterol/HDL Ratio 2.6 LDL Cholesterol, Calculated 35 mg/dl Medical Emergencies . Who to Call and When: Medical Emergencies: If at any time you feel your situation is an emergency, please call 911 immediately. . Non-Emergent Contact Non-Emergency issues call your: Primary Care Provider, Surgeon Call Non-Emergent contact if: you have a fever, your pain is not controlled, your pain is worsening, your pain is unusual for you, your pain is concerning you, wound has increased drainage, wound has increased redness, wound has increased pain, you have any medication questions . . "Provider Documentation" section prepared by Shayla Espinosa. . Core Measure Problem Core Measures: None [place] Drug Monitoring Program Search Results: patient reviewed within database, no issues identified
--- NOTE | 2017-10-07 10:35 | Discharge Summary ---
Discharge Summary Date of Service Oct 07, 2017. Discharge Summary Admission Date: Sep 27, 2017 at 13:59 Discharge Date: Oct 07, 2017 Discharge Disposition: Rehab ([facility]) Principal Diagnosis: Osteomyelitis Right Foot,s/p Right BKA Problems/Secondary Diagnoses: PAD Diabetes mellitus type 2 Mild aortic stenosis Iron deficiency anemia JOHN on CKD Stage III Acute blood loss anemia Hypomagnesemia Diarrhea HTN HLD COPD Immunizations: Have You Had Influenza Vaccine: Unknown Procedures: Right BKA Right foot xray Consultations: Vascular Surgery Medication Reconciliation New Medications: Ferrous Sulfate (Ferrous Sulfate) 325 Mg Tab 325 MG PO BIDM for 30 Days, TAB Insulin Aspart (Novolog Flexpen) 100 Units/Ml Inj 0 UNITS SC ACHS for 30 Days Ipratropium-Albuterol (Combivent Respimat) 1 Aer Aer 1 PUFFS INH QID PRN for wheezing or SOB for 30 Days Lactobacillus Acidophilus (Floranex) 1 Tab Tab 4 TAB PO TIDM for 30 Days, TAB Oxycodone/Acetaminophen 5MG/325MG (Percocet 5MG/325MG) Tab 1-2 TAB PO Q4H PRN for Moderate Pain for 3 Days, #36 TAB PAIN Polyethylene (Miralax) 17 Gm Pow 17 GM PO DAILY PRN for Constipation for 30 Days Changed Medications: Insulin Glargine (Lantus) 100 Unit/Ml Inj 35 UNITS SC QPM for 30 Days, VIAL (Changed from: 40 UNITS) Continued Medications: Amlodipine (Norvasc) 5 Mg Tab 5 MG PO QAM, TAB Aspirin (Aspirin Ec) 81 Mg Tab 81 MG PO QAM Clopidogrel (Plavix) 75 Mg Tab 75 MG PO HS, TAB Fish Oil ([place]-3) 1 Ea Cap 1 TAB PO BID Insulin Glargine (Lantus) 100 Unit/Ml Inj 20 UNITS SC QAM, VIAL Latanoprost (Xalatan 0.005% Oph Melany) 0.005 % Melany 1 DROPS OP HS for 30 Days, #2.5 ML 6 Refills Lisinopril (Zestril) 20 Mg Tab 20 MG PO QAM, TAB Metformin Hcl (Glucophage) 1,000 Mg Tab 1000 MG PO BID, TAB Multivitamin (Multivitamin) Tab 1 TAB PO DAILY, TAB Pantoprazole (Protonix) 40 Mg Tab 40 MG PO QAM, #30 TAB Simvastatin (Zocor) 80 Mg Tab 80 MG PO QPM, TAB Tocopheryl Acet,Dl-Alpha (Vitamin E) 100 Interunit Cap 1 TAB PO QAM Discontinued Medications: Amoxicillin & Pot Clavulanate (Augmentin 875-125 mg) 1 Tab Tab 1 TAB PO BID, #14 TAB Ciprofloxacin Hcl (Cipro) 500 Mg Tab 500 MG PO BID, #84 TAB Insulin Aspart (Novolog) 100 Units/Ml Inj Unknown Dose SQ UD PER SLIDING SCALE FOR NOVOLOG-PER PT AND Discharge Exam Pt feeling great. Some pain at stump site. No CP or SOB. Still with some Tic douloureux in rt face but tolerable. Glucose better controlled, ready for discharge. Review of Systems: Constitutional: No fever Eyes: No problem reported ENT: No problem reported Cardiovascular: No problem reported Abdomen: No problem reported Musculoskeletal: No problem reported Genitourinary - Male: No problem reported Neurologic: No problem reported Psychiatric: No problem reported Endocrine: No problem reported Hematologic / Lymphatic: No problem reported Integumentary: No problem reported Physical Exam: General Appearance: WD/WN, no apparent distress Eyes: normal inspection, sclerae normal ENT: + pertinent finding ([id number]) Neck: trachea midline Respiratory/Chest: lungs clear, normal breath sounds, no respiratory distress, no accessory muscle use Cardiovascular: regular rate, rhythm, no edema, no gallop, + systolic murmur (3/6 ELIZABETH at [facility]) Abdomen / GI: normal bowel sounds, non tender, soft, no organomegaly, no pulsatile mass Extremities: no calf tenderness, no pedal edema, + pertinent finding (right BKA stump with santosh in place and looks great, no drainage or erythema) Neurologic/Psychiatric: alert, normal mood/affect, oriented x 3, + pertinent finding (rt face with occasional facial spasm) Skin: normal color, warm/dry, no rash Hospital Course Patient is a 77-year-old male with a h/o PAD, diabetes mellitus type 2, mild aortic stenosis, iron deficiency anemia, chronic kidney disease stage III, and progressively worsening right foot osteomyelitis, with h/o of recurrent, 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 Readmitted for the same and is now status post right BKA. R foot osteomyelitis, h/o diabetic foot infection- MDR pseudomonas, s/p R BKA: - BCx NGTD; Wound culture- pseudomonas, highly resistant - Zerbaxa 1.[address] Quiñonez- discontinued IV antibiotics on 10/05 postop-- > follow for signs of recurrent infection - Wound care - Vascular surgery consulted- BKA on 10/[address] 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 Hgb stable on day of discharge at 8.3 - Transfused 2 U PRBCs on 10/04 - Follow CBC as outpt - Continue Ferrous Sulfate 325 mg BID - Recommend outpatient GI workup eventually if not improving Mild Aortic stenosis/Heart murmur-stable -f/u ECHO 2020 Hypomagnesemia at 1.6- RESOLVED: Replaced Diarrhea-resolved - C.diff negative -continue Probiotic PAD, HTN, HLD: stable, now s/p Rt BKA - continue ASA, Plavix -continue Lisinopril 20 mg daily, Amlodipine 5 mg daily, Zocor 80 mg daily T2DM- hgbA1c 7.8%, with hyperglycemia and hypoglycemia here, now stabilized - Metformin 1,000 mg BID restarted -continue Lantus 20 units QAM and 35 units QPM - BSG ACHS and ISS COPD- STABLE: Continue home inhalers Tic douloureux right face-improving -observation Code Status: DNR Dispo: Discharge to [facility] today Total Time Spent: Greater than 30 minutes This includes examination of the patient, discharge planning, medication reconciliation, and communication with other providers. Discharge Instructions Please refer to the electronic Patient Visit Report (Discharge Instructions) for additional information. Follow-Up Vascular Surgery 10 days PCP within 1-2 weeks after dc from rehab Additional Copies To Haja Caruso D.O.; Ezekiel Berg M.D.
[2017-10-07] MEDS ORDERED: NovoLOG PER UNIT CHARGE SC ONE (12:15)
[2017-10-07] MEDS ORDERED: NURSING VERBAL MED ORDER ONE (12:15)
--- NOTE | 2017-11-06 08:12 | OPERATIVE REPORT ---
DATE OF OPERATION: 10/04/2017 PREOPERATIVE DIAGNOSIS: Osteomyelitis, right foot. POSTOPERATIVE DIAGNOSIS: Same. PROCEDURE: Right below knee amputation. SURGEON: Ezekiel Berg MD. LAB COURIER: Lory Littlejohn PA-C. ANESTHETIC: General endotracheal. PROCEDURE INDICATIONS: The patient is a 77-year-old gentleman with previous amputation of the foot which has now developed into osteomyelitis of the tarsal bone to metatarsals of the right foot. Below knee amputation was recommended. He understood the risks, options and benefits and agreed to have this procedure. OPERATION AND FINDINGS: The patient was taken to the operating room and placed in supine position. After general anesthesia was accomplished, the right leg was prepped and draped in a sterile manner. A below knee amputation incision was made through the skin forming the posterior flap of below knee amputation. Muscle of the anterior compartment were divided. Anterior tibial vessels were clamped and ligated. The fibula was then transected approximately 2 cm above the incision line. Good muscle bleeding was seen at that time. Medial muscles were then divided. Once this was done, the tibia was transected and bevelled anteriorly. We used a Gigli saw. Once this was completed, using the amputation knife, the posterior flap was made using the muscles of the soleus and gastroc. Leg was then removed. Bleeding was controlled with free ties and suture ligatures. After adequate hemostasis was noted, the wound was then closed by approximating the posterior flap to the anterior fascia with interrupted 3-0 Vicryl. Humberto used for the skin edges. The wound showed excellent viable muscle and good bleeding. Sterile dressings were applied to the wound and patient left the operating room in satisfactory condition and tolerated the procedure well. Lory Littlejohn assisted due to lack of resident availability and was necessary for prepping, draping, retraction, and wound closure of the deep layers, subcutaneous layer and skin closure and was necessary for assisting with the case. I attest to the content of the Intraoperative Record and any orders documented therein. Any exception s are noted below.
== END 2017-10-07 14:00 | DRG 617 ==
LOC: C.MSN 13:20 → UNDOADMIN 13:20 → C.MSN 13:59
PROVIDERS: ADMIT Family Medicine; ATTEND Family Medicine
PROC: 0Y6H0Z1 Detachment at Right Lower Leg, High, Open Approach (ICD-10-PCS; principal; 2017-10-04 13:45)
DX: E11.69 Type 2 diabetes mellitus with other specified complication (principal); M86.171 Other acute osteomyelitis, right ankle and foot; M86.671 Other chronic osteomyelitis, right ankle and foot; D62 Acute posthemorrhagic anemia; N17.0 Acute kidney failure with tubular necrosis; B96.5 Pseudomonas (aeruginosa) (mallei) (pseudomallei) as the cause of diseases classified elsewhere; Z16.24 Resistance to multiple antibiotics; R19.7 Diarrhea, unspecified; E83.42 Hypomagnesemia; D50.9 Iron deficiency anemia, unspecified; I35.0 Nonrheumatic aortic (valve) stenosis; I48.2 Chronic atrial fibrillation; I13.10 Hypertensive heart and chronic kidney disease without heart failure, with stage 1 through stage 4 chronic kidney disease, or unspecified chronic kidney disease; E11.51 Type 2 diabetes mellitus with diabetic peripheral angiopathy without gangrene; I73.9 Peripheral vascular disease, unspecified; N18.3 Chronic kidney disease, stage 3 (moderate); K21.9 Gastro-esophageal reflux disease without esophagitis; I25.10 Atherosclerotic heart disease of native coronary artery without angina pectoris; I25.2 Old myocardial infarction; J44.9 Chronic obstructive pulmonary disease, unspecified; Z79.899 Other long term (current) drug therapy; Z79.4 Long term (current) use of insulin; Z79.82 Long term (current) use of aspirin; Z79.02 Long term (current) use of antithrombotics/antiplatelets; Z66 Do not resuscitate; Z86.73 Personal history of transient ischemic attack (TIA), and cerebral infarction without residual deficits; Z87.891 Personal history of nicotine dependence; Z82.49 Family history of ischemic heart disease and other diseases of the circulatory system